=== PATIENT | female | born 1935 | race Caucasian/White ===

== ENCOUNTER 2019-08-14 06:40 | Inpatient (IN) | payer MEDICARE, OTHER, SELFPAY ==
[2019-08-14] VITALS (18 sets, daily range): BP systolic 130–230; BP diastolic 59–100; PULSE 85–123; RESP 16–47; TEMP 36.2–37.4; O2SAT 88–100; BMI 37.0
--- NOTE | 2019-08-14 06:43 | DI.RAD.S_ITS ---
PROCEDURE: XR CHEST 1V INDICATIONS: flu-like symptoms TECHNIQUE: One view of the chest was acquired. COMPARISON: None. FINDINGS: Surgical changes and devices: None. Lungs and pleura: Diffuse scarring/atelectasis. There are scattered patchy upper lower lobe opacities as well as scattered groundglass opacities. Technically, in the absence of any prior studies these findings age-indeterminate. No pleural effusions or pneumothorax. Mediastinum: Mediastinal contours appear normal. Heart size is normal. Bones and chest wall: No suspicious bony lesions. Overlying soft tissues appear unremarkable. Bilateral severe shoulder joint degeneration IMPRESSION: Diffuse bilateral patchy and ill-defined opacities, possibly chronic scarring/atelectasis however cannot exclude underlying acute bronchopneumonia or pulmonary edema in the absence of prior studies. If there is persistent clinical diagnostic uncertainty, continued surveillance with short interval chest radiographs after treatment is recommended. Dictated by: Juan F Millan M.D. on 08/14/2019 at 8:22 Approved by: Juan F Millan M.D. on 08/14/2019 at 8:27
--- NOTE | 2019-08-14 06:44 | ED_ITS ---
HPI - URI/Sore Throat <Torey Cisse, DO - Last Filed: 08/20/19 01:09> General Chief Complaint: Shortness of Breath/Dyspnea Stated Complaint: Cough, fever, SOB Time Seen by Provider: 08/14/19 06:40 Source: patient and EMS Mode of arrival: EMS Limitations: no limitations History of Present Illness HPI Narrative: 84-year-old female former smoker with history of COPD presents by EMS for evaluation of 2-3 days of rapidly worsening upper respiratory complaints including profound dyspnea, fever, shaking chills and increased oxygen demand. Patient states that she has had fever as high as 101 with shaking chills. She denies nausea, vomiting or diarrhea. She denies any dysuria, frequency or urgency. She states she becomes profoundly short of breath with any exertion or lying flat. On arrival EMS found her pulse ox in the 70s and placed her on a non-rebreather and she gemini to the 90s. She does not use home oxygen and no longer smokes. She denies any cardiac history. She traditionally uses [facility] and has not been here before. She denies any recent travel, history of blood clot or exposure to persons known to have coronavirus. She admits to increasing sputum production, stating it is yellowish in color. She does state that 2-3 days ago she fell backwards, landing 1st on her buttocks and then rolling backwards and striking her head because she was so weak. She denies any loss of consciousness or other injury. MD Complaint: fever and cough Onset (ago): day(s) Duration: constant Severity: severe Relieving factors: rest Exacerbating factors: exertion and other Associated symptoms: fever, chills, cough and shortness of breath Related Data Home Medications Medication Instructions Recorded Confirmed Anoro Ellipta 1 inh INHALATION DAILY 08/14/19 08/14/19 albuterol sulfate [ProAir HFA] 2 inh INHALATION 6XD 08/14/19 08/14/19 Previous Rx's Medication Instructions Recorded apixaban 5 mg PO BID 30 Days #60 tab 08/17/19 cefdinir 300 mg PO BID 4 Days #8 cap 08/17/19 doxycycline hyclate 100 mg PO BID 4 Days #8 tab 08/17/19 furosemide 20 mg PO DAILY 30 Days #30 tab 08/17/19 guaifenesin [Mucus Relief ER] 600 mg PO BID PRN 7 Days #14 tab 08/17/19 losartan 25 mg PO DAILY 30 Days #30 tab 08/17/19 metoprolol succinate 25 mg PO BID 30 Days #60 tab 08/17/19 Allergies Allergy/AdvReac Type Severity Reaction Status Date / Time Penicillins Allergy Verified 08/14/19 07:40 shellfish derived Allergy Verified 08/14/19 12:53 Review of Systems <Torey Cisse DO - Last Filed: 08/20/19 01:09> Constitutional Constitutional: Reports chills, Reports fatigue, Reports fever(s), Denies frequent falls, Denies lethargy and Reports weakness Eyes Eyes: Denies change in vision, Denies eye discharge, Denies irritation and Denies loss of vision ENT Ears, Nose, Mouth, and Throat: Denies change in voice, Denies dizziness, Denies neck pain, Denies sore throat and Denies throat swelling Cardiovascular Cardiovascular: Denies chest pain, Denies irregular heart rhythm, Denies lightheadedness, Denies palpitations, Denies dyspnea, Reports dyspnea on exertion and Denies orthopnea Respiratory Respiratory: Reports cough, Reports excessive phlegm production, Denies dyspnea, Reports dyspnea on exertion and Denies wheezing Gastrointestinal Gastrointestinal: Denies abdominal pain, Denies change in bowel habits, Denies diarrhea, Denies nausea and Denies vomiting Musculoskeletal Musculoskeletal: Denies neck pain and Denies numbness Integumentary/Breasts Skin/Breast: Denies pruritus, Denies erythema, Denies rash and Denies wounds Neurologic Neurologic: Denies behavioral changes, Denies confusion, Denies dizziness, Denies frequent falls, Denies loss of vision, Denies numbness and Reports weakness Psychiatric Psychiatric: Denies anxiety, Denies behavioral changes, Denies confusion, Denies depression, Denies homicidal ideation and Denies suicidal ideation Endocrine Endocrine: Reports fatigue, Denies flushing and Denies palpitations Hematologic/Lymphatic Hematologic/Lymphatic: Denies easy bruising Allergic/Immunologic Allergic/Immunologic: Denies urticaria, Denies throat swelling and Denies wheezing Patient History <Torey Cisse DO - Last Filed: 08/20/19 01:09> Social History household members: significant other Smoking Status: Former smoker Smoking Status: Former smoker alcohol intake frequency: 0-2 drinks per day Substance Use Type: does not use Exam <Torey Cisse DO - Last Filed: 08/20/19 01:09> Narrative Exam Narrative: GENERAL: [84] year old patient appears stated age. Morbidly obese, chronically ill, in significant distress, 2-3 word sentences, non- rebreather in place HEAD: Atraumatic. Normocephalic. EYES: Pupils equal round and reactive. Extraocular motions intact. No scleral icterus. No injection or drainage. ENT: Nose without bleeding, purulent drainage. Throat without erythema, tonsillar hypertrophy or exudate. Airway patent. NECK: Trachea midline. Non tender CARDIOVASCULAR: Tachycardic but regular rhythm without murmurs, gallops, or rubs. RESPIRATORY: Decreased breath sounds bilaterally with a prolonged expiratory phase, very wet bilaterally with significant work of breathing GASTROINTESTINAL: Abdomen soft, non-tender, nondistended. EXTREMITIES: No edema or joint tenderness. BACK: Nontender without deformity or crepitance. No flank tenderness. NEURO: AOx3. SKIN: No rash or erythema of visible areas Initial Vital Signs Initial Vital Signs: Vital Signs Temperature 98.5 F 08/14/19 06:41 Pulse Rate 123 H 08/14/19 06:41 Respiratory Rate 47 H 08/14/19 06:41 Blood Pressure 230/100 H 08/14/19 06:41 Pulse Oximetry 99 08/14/19 06:41 <Tod Sethi MD - Last Filed: 08/14/19 18:30> Initial Vital Signs Initial Vital Signs: Vital Signs Temperature 98.5 F 08/14/19 06:41 Pulse Rate 123 H 08/14/19 06:41 Respiratory Rate 47 H 08/14/19 06:41 Blood Pressure 230/100 H 08/14/19 06:41 Pulse Oximetry 99 08/14/19 06:41 Course <Torey Cisse DO - Last Filed: 08/20/19 01:09> Orders Ordered: Discontinued Medications Acetaminophen (Tylenol) 650 mg PO Q6HR PRN PRN Reason: Fever/Mild Pain (1-3) Last Admin: 08/16/19 06:23 Dose: 650 mg Documented by: Admin: 08/15/19 21:20 Dose: 650 mg Documented by: Admin: 08/15/19 14:37 Dose: 650 mg Documented by: Admin: 08/15/19 08:30 Dose: 650 mg Documented by: KHALIDA Albuterol (Ventolin) 2.5 mg INH [id number] [facility] Last Admin: 08/15/19 01:02 Dose: Not Given Documented by: Admin: 08/14/19 19:35 Dose: 2.5 mg Documented by: ANNE Albuterol (Ventolin) 2.5 mg INH [id number] PRN PRN Reason: Shortness Of Breath Or Wheezing Last Admin: 08/15/19 04:45 Dose: 2.5 mg Documented by: MARY Albuterol/Ipratropium (Duoneb) 3 ml INH RTBID [facility] Last Admin: 08/16/19 20:21 Dose: 3 ml Documented by: Admin: 08/16/19 07:52 Dose: 3 ml Documented by: Admin: 08/15/19 20:35 Dose: 3 ml Documented by: Admin: 08/15/19 07:20 Dose: 3 ml Documented by: Admin: 08/14/19 21:51 Dose: 3 ml Documented by: MARY Apixaban (Eliquis) 5 mg PO BID [facility] Last Admin: 08/17/19 10:55 Dose: 5 mg Documented by: Admin: 08/16/19 20:22 Dose: 5 mg Documented by: Admin: 08/16/19 10:48 Dose: 5 mg Documented by: KHALIDA Enoxaparin Sodium (Lovenox) 40 mg SUBCUT DAILY [facility] Last Admin: 08/16/19 09:18 Dose: 40 mg Documented by: Admin: 08/15/19 08:29 Dose: 40 mg Documented by: KHALIDA Furosemide (Lasix) 20 mg IV NOW ONE Stop: 08/14/19 08:31 Last Admin: 08/14/19 09:02 Dose: 20 mg Documented by: SERA Furosemide (Lasix) 40 mg IV NOW ONE Stop: 08/14/19 10:36 Last Admin: 08/14/19 10:55 Dose: 40 mg Documented by: SERA Furosemide (Lasix) 40 mg IV Q12HR [facility] Furosemide (Lasix) 40 mg IV Q12HR [facility] Last Admin: 08/15/19 00:17 Dose: 40 mg Documented by: Admin: 08/14/19 18:04 Dose: 40 mg Documented by: ANNE Furosemide (Lasix) 40 mg PO DAILY [facility] Last Admin: 08/15/19 08:29 Dose: 40 mg Documented by: KHALIDA Furosemide (Lasix) 20 mg PO DAILY [facility] Last Admin: 08/17/19 10:55 Dose: 20 mg Documented by: Admin: 08/16/19 09:19 Dose: 20 mg Documented by: KHALIDA Guaifenesin (Mucinex) 600 mg PO Q12HR PRN PRN Reason: Cough Guaifenesin (Mucinex) 600 mg PO BID PRN PRN Reason: Cough Last Admin: 08/16/19 09:19 Dose: 600 mg Documented by: Admin: 08/15/19 21:21 Dose: 600 mg Documented by: Admin: 08/15/19 05:20 Dose: 600 mg Documented by: Admin: 08/14/19 18:05 Dose: 600 mg Documented by: ANNE Hydralazine HCl (Apresoline) 10 mg IV NOW ONE Stop: 08/14/19 10:36 Last Admin: 08/14/19 10:55 Dose: 10 mg Documented by: SERA Hydralazine HCl (Apresoline) 10 mg IV Q6HR [facility] Last Admin: 08/15/19 00:24 Dose: Not Given Documented by: JOE Hydralazine HCl (Apresoline) 10 mg IV Q6HR PRN PRN Reason: Hypertension Levofloxacin (Levaquin) 750 mg in 150 mls @ 100 mls/hr IV NOW ONE Stop: 08/14/19 08:25 Last Infusion: 08/14/19 09:51 Dose: 0 mls/hr Documented by: Admin: 08/14/19 07:35 Dose: 100 mls/hr Documented by: SERA Sodium Chloride (Normal Saline 0.9%) 1,435.38 mls @ 478.46 mls/hr 30 ml/kg infuse over 3 hr (1435.38 ml) IV NOW ONE Stop: 08/14/19 09:55 Last Admin: 08/14/19 07:35 Dose: 478.46 mls/hr Documented by: SERA Ceftriaxone Sodium/Dextrose (Rocephin) 1 gm in 50 mls @ 100 mls/hr IV Q24H [facility] Last Admin: 08/17/19 10:55 Dose: 100 mls/hr Documented by: Infusion: 08/16/19 20:22 Dose: 0 mls/hr Documented by: Admin: 08/16/19 09:18 Dose: 100 mls/hr Documented by: Infusion: 08/15/19 09:00 Dose: 0 mls/hr Documented by: Admin: 08/15/19 08:29 Dose: 100 mls/hr Documented by: KHALIDA Azithromycin 500 mg/ Dextrose 250 mls @ 250 mls/hr IV Q24H [facility] Last Admin: 08/17/19 12:40 Dose: 250 mls/hr Documented by: Infusion: 08/16/19 11:48 Dose: 250 mls/hr Documented by: Admin: 08/16/19 10:48 Dose: 250 mls/hr Documented by: Infusion: 08/15/19 12:30 Dose: 0 mls/hr Documented by: Admin: 08/15/19 11:30 Dose: 250 mls/hr Documented by: KHALIDA Magnesium Sulfate (Magnesium Sulfate) 2 gm in 50 mls @ 25 mls/hr IV NOW ONE Stop: 08/15/19 09:24 Last Infusion: 08/15/19 10:30 Dose: 0 mls/hr Documented by: KHALIDA Cosigned by: GARRY Admin: 08/15/19 08:29 Dose: 25 mls/hr Documented by: KHALIDA Cosigned by: GARRY Influenza Virus Vaccine (Flu Vaccine) 0.5 ml IM .ONCE ONE Stop: 08/15/19 09:01 Last Admin: 08/15/19 08:30 Dose: 0.5 ml Documented by: KHALIDA Losartan Potassium (Cozaar) 25 mg PO DAILY [facility] Last Admin: 08/17/19 12:40 Dose: 25 mg Documented by: Admin: 08/16/19 09:20 Dose: 25 mg Documented by: Admin: 08/15/19 08:29 Dose: 25 mg Documented by: KHALIDA Methylprednisolone (Solu-Medrol 125 Mg Vial) 125 mg IV NOW ONE Stop: 08/14/19 10:37 Last Admin: 08/14/19 10:55 Dose: 125 mg Documented by: SERA Metoprolol Succinate (Toprol Xl) 25 mg PO NOW ONE Stop: 08/15/19 14:16 Last Admin: 08/15/19 14:35 Dose: 25 mg Documented by: KHALIDA Metoprolol Succinate (Toprol Xl) 25 mg PO BID [facility] Last Admin: 08/17/19 10:55 Dose: 25 mg Documented by: Admin: 08/16/19 20:21 Dose: 25 mg Documented by: Admin: 08/16/19 09:18 Dose: 25 mg Documented by: Admin: 08/15/19 20:46 Dose: 25 mg Documented by: ANNE Naloxone HCl (Narcan) 0.2 mg IV Q2MIN PRN PRN Reason: Opiate Reversal Nitroglycerin (Nitro-Dur) 0.4 mg TOP 0700 [facility] Nitroglycerin (Nitro-Dur) 0.4 mg TOP 0700 [facility] Last Admin: 08/15/19 07:44 Dose: Not Given Documented by: Admin: 08/14/19 22:05 Dose: 0.4 mg Documented by: ANNE Prednisone (Deltasone) 40 mg PO DAILY [facility] Last Admin: 08/17/19 10:55 Dose: 40 mg Documented by: Admin: 08/16/19 09:19 Dose: 40 mg Documented by: Admin: 08/15/19 08:29 Dose: 40 mg Documented by: KHALIDA Sodium Chloride (Normal Saline 0.9% Flush) 10 ml IV PRN PRN PRN Reason: Flush Sodium Chloride (Normal Saline 0.9% Flush) 10 ml IV BID [facility] Last Admin: 08/17/19 10:40 Dose: 10 ml Documented by: Admin: 08/16/19 20:22 Dose: 10 ml Documented by: Admin: 08/16/19 09:20 Dose: 10 ml Documented by: Admin: 08/15/19 20:48 Dose: 10 ml Documented by: Admin: 08/15/19 08:30 Dose: 10 ml Documented by: KHALIDA Vital Signs Vital signs: Vital Signs - 8 hr 08/14/19 06:41 08/14/19 06:49 08/14/19 07:30 Temperature 98.5 F Pulse Rate 123 H 113 H 96 H Respiratory Rate 47 H 44 H 38 H Blood Pressure 230/100 H Blood Pressure [Left Arm] 210/90 H 192/75 H Pulse Oximetry 99 100 100 08/14/19 08:01 08/14/19 08:30 08/14/19 09:02 Temperature Pulse Rate 98 H 102 H 92 H Respiratory Rate 36 H 32 H 32 H Blood Pressure Blood Pressure [Left Arm] 182/74 H 168/71 H 169/69 H Pulse Oximetry 92 92 96 <Tod Sethi MD - Last Filed: 08/14/19 18:30> Course Course Narrative: 0716: Report received from . The patient's arterial blood gases are revealed that her pH is 7.298 pCO2 is increased at 64.3 PO2 is 445 and oxygen saturation 100%. The patient's pH will be watched as well as her pCO2. She has been placed on a high-flow nasal cannula and her blood gases may be repeated in approximately 45 minutes to an hour. The patient is being evaluated for coronavirus. 0810: The patient's rapid Covid test is negative. 0831: Chest x-ray by my review looks fluffy with increased upper vascular markings consistent with pulmonary edema and congestive heart failure. The patient appears to have a small right pleural effusion. Her renal function is within normal limits with a GFR greater than 60. Her D-dimer is 765 and her proBNP is 1200. A CT angiogram to rule out a PE has been ordered on the patient as well as 20 mg of Lasix. The patient is much more comfortable and less short of breath. She states that she quit smoking greater than 20 years ago. She admits to history of COPD. She has markedly decreased breath sounds bilaterally with inspiratory crackles and expiratory rhonchi. Heart tones are distant. 0913 the patient on high-flow oxygen/nasal cannula reveals a pH is 7.306, a pCO2 of 55.9, a PO2 of 88, HC03 of 27.9 total CO2 30 oxygen saturation 95%. 1008: The patient's CT angiogram of her chest revealed: 1. No pulmonary embolus. 2. Bilateral lower lobe bronchitis with areas of mucous plugging and small per peripheral consolidation/atelectasis. 3. Multiple scattered right lung nodules, likely infectious inflammatory. Follow-up chest CT in 6-12 months is recommended to assess for resolution. 4. Aortic valvular and coronary artery calcifications. The patient will be treated as though she has a sudden flare of her COPD with patchy pneumonia. Her chest x-ray revealed diffuse bilateral patchy an ill- defined opacities, possibly chronic scarring/atelectasis. However cannot exclude underlying acute bronchial pneumonia or pulmonary edema in the absence of prior studies. If there is persisting clinical diagnostic uncertainty continued surveillance with short interval chest radiographs after treatment is recommended. Will call the hospitalist to admit. The patient's primary care physician is Dr. Dominic Alexis. Orders Ordered: Discontinued Medications Acetaminophen (Tylenol) 650 mg PO Q6HR PRN PRN Reason: Fever/Mild Pain (1-3) Last Admin: 08/16/19 06:23 Dose: 650 mg Documented by: Admin: 08/15/19 21:20 Dose: 650 mg Documented by: Admin: 08/15/19 14:37 Dose: 650 mg Documented by: Admin: 08/15/19 08:30 Dose: 650 mg Documented by: KHALIDA Albuterol (Ventolin) 2.5 mg INH [id number] [facility] Last Admin: 08/15/19 01:02 Dose: Not Given Documented by: Admin: 08/14/19 19:35 Dose: 2.5 mg Documented by: ANNE Albuterol (Ventolin) 2.5 mg INH [id number] PRN PRN Reason: Shortness Of Breath Or Wheezing Last Admin: 08/15/19 04:45 Dose: 2.5 mg Documented by: MARY Albuterol/Ipratropium (Duoneb) 3 ml INH RTBID [facility] Last Admin: 08/16/19 20:21 Dose: 3 ml Documented by: Admin: 08/16/19 07:52 Dose: 3 ml Documented by: Admin: 08/15/19 20:35 Dose: 3 ml Documented by: Admin: 08/15/19 07:20 Dose: 3 ml Documented by: Admin: 08/14/19 21:51 Dose: 3 ml Documented by: MARY Apixaban (Eliquis) 5 mg PO BID [facility] Last Admin: 08/17/19 10:55 Dose: 5 mg Documented by: Admin: 08/16/19 20:22 Dose: 5 mg Documented by: Admin: 08/16/19 10:48 Dose: 5 mg Documented by: KHALIDA Enoxaparin Sodium (Lovenox) 40 mg SUBCUT DAILY [facility] Last Admin: 08/16/19 09:18 Dose: 40 mg Documented by: Admin: 08/15/19 08:29 Dose: 40 mg Documented by: KHALIDA Furosemide (Lasix) 20 mg IV NOW ONE Stop: 08/14/19 08:31 Last Admin: 08/14/19 09:02 Dose: 20 mg Documented by: SERA Furosemide (Lasix) 40 mg IV NOW ONE Stop: 08/14/19 10:36 Last Admin: 08/14/19 10:55 Dose: 40 mg Documented by: SERA Furosemide (Lasix) 40 mg IV Q12HR [facility] Furosemide (Lasix) 40 mg IV Q12HR [facility] Last Admin: 08/15/19 00:17 Dose: 40 mg Documented by: Admin: 08/14/19 18:04 Dose: 40 mg Documented by: ANNE Furosemide (Lasix) 40 mg PO DAILY [facility] Last Admin: 08/15/19 08:29 Dose: 40 mg Documented by: KHALIDA Furosemide (Lasix) 20 mg PO DAILY [facility] Last Admin: 08/17/19 10:55 Dose: 20 mg Documented by: Admin: 08/16/19 09:19 Dose: 20 mg Documented by: KHALIDA Guaifenesin (Mucinex) 600 mg PO Q12HR PRN PRN Reason: Cough Guaifenesin (Mucinex) 600 mg PO BID PRN PRN Reason: Cough Last Admin: 08/16/19 09:19 Dose: 600 mg Documented by: Admin: 08/15/19 21:21 Dose: 600 mg Documented by: Admin: 08/15/19 05:20 Dose: 600 mg Documented by: Admin: 08/14/19 18:05 Dose: 600 mg Documented by: ANNE Hydralazine HCl (Apresoline) 10 mg IV NOW ONE Stop: 08/14/19 10:36 Last Admin: 08/14/19 10:55 Dose: 10 mg Documented by: SERA Hydralazine HCl (Apresoline) 10 mg IV Q6HR [facility] Last Admin: 08/15/19 00:24 Dose: Not Given Documented by: JOE Hydralazine HCl (Apresoline) 10 mg IV Q6HR PRN PRN Reason: Hypertension Levofloxacin (Levaquin) 750 mg in 150 mls @ 100 mls/hr IV NOW ONE Stop: 08/14/19 08:25 Last Infusion: 08/14/19 09:51 Dose: 0 mls/hr Documented by: Admin: 08/14/19 07:35 Dose: 100 mls/hr Documented by: SERA Sodium Chloride (Normal Saline 0.9%) 1,435.38 mls @ 478.46 mls/hr 30 ml/kg infuse over 3 hr (1435.38 ml) IV NOW ONE Stop: 08/14/19 09:55 Last Admin: 08/14/19 07:35 Dose: 478.46 mls/hr Documented by: SERA Ceftriaxone Sodium/Dextrose (Rocephin) 1 gm in 50 mls @ 100 mls/hr IV Q24H [facility] Last Admin: 08/17/19 10:55 Dose: 100 mls/hr Documented by: Infusion: 08/16/19 20:22 Dose: 0 mls/hr Documented by: Admin: 08/16/19 09:18 Dose: 100 mls/hr Documented by: Infusion: 08/15/19 09:00 Dose: 0 mls/hr Documented by: Admin: 08/15/19 08:29 Dose: 100 mls/hr Documented by: KHALIDA Azithromycin 500 mg/ Dextrose 250 mls @ 250 mls/hr IV Q24H [facility] Last Admin: 08/17/19 12:40 Dose: 250 mls/hr Documented by: Infusion: 08/16/19 11:48 Dose: 250 mls/hr Documented by: Admin: 08/16/19 10:48 Dose: 250 mls/hr Documented by: Infusion: 08/15/19 12:30 Dose: 0 mls/hr Documented by: Admin: 08/15/19 11:30 Dose: 250 mls/hr Documented by: KHALIDA Magnesium Sulfate (Magnesium Sulfate) 2 gm in 50 mls @ 25 mls/hr IV NOW ONE Stop: 08/15/19 09:24 Last Infusion: 08/15/19 10:30 Dose: 0 mls/hr Documented by: KHALIDA Cosigned by: GARRY Admin: 08/15/19 08:29 Dose: 25 mls/hr Documented by: KHALIDA Cosigned by: GARRY Influenza Virus Vaccine (Flu Vaccine) 0.5 ml IM .ONCE ONE Stop: 08/15/19 09:01 Last Admin: 08/15/19 08:30 Dose: 0.5 ml Documented by: KHALIDA Losartan Potassium (Cozaar) 25 mg PO DAILY [facility] Last Admin: 08/17/19 12:40 Dose: 25 mg Documented by: Admin: 08/16/19 09:20 Dose: 25 mg Documented by: Admin: 08/15/19 08:29 Dose: 25 mg Documented by: KHALIDA Methylprednisolone (Solu-Medrol 125 Mg Vial) 125 mg IV NOW ONE Stop: 08/14/19 10:37 Last Admin: 08/14/19 10:55 Dose: 125 mg Documented by: SERA Metoprolol Succinate (Toprol Xl) 25 mg PO NOW ONE Stop: 08/15/19 14:16 Last Admin: 08/15/19 14:35 Dose: 25 mg Documented by: KHALIDA Metoprolol Succinate (Toprol Xl) 25 mg PO BID [facility] Last Admin: 08/17/19 10:55 Dose: 25 mg Documented by: Admin: 08/16/19 20:21 Dose: 25 mg Documented by: Admin: 08/16/19 09:18 Dose: 25 mg Documented by: Admin: 08/15/19 20:46 Dose: 25 mg Documented by: ANNE Naloxone HCl (Narcan) 0.2 mg IV Q2MIN PRN PRN Reason: Opiate Reversal Nitroglycerin (Nitro-Dur) 0.4 mg TOP 0700 [facility] Nitroglycerin (Nitro-Dur) 0.4 mg TOP 0700 [facility] Last Admin: 08/15/19 07:44 Dose: Not Given Documented by: Admin: 08/14/19 22:05 Dose: 0.4 mg Documented by: ANNE Prednisone (Deltasone) 40 mg PO DAILY [facility] Admin: 08/17/19 10:55 Dose: 40 mg Documented by: Admin: 08/16/19 09:19 Dose: 40 mg Documented by: Admin: 08/15/19 08:29 Dose: 40 mg Documented by: KHALIDA Sodium Chloride (Normal Saline 0.9% Flush) 10 ml IV PRN PRN PRN Reason: Flush Sodium Chloride (Normal Saline 0.9% Flush) 10 ml IV BID [facility] Admin: 08/17/19 10:40 Dose: 10 ml Documented by: Admin: 08/16/19 20:22 Dose: 10 ml Documented by: Admin: 08/16/19 09:20 Dose: 10 ml Documented by: Admin: 08/15/19 20:48 Dose: 10 ml Documented by: Admin: 08/15/19 08:30 Dose: 10 ml Documented by: KHALIDA Vital Signs Vital signs: Vital Signs - 8 hr 08/14/19 06:41 08/14/19 06:49 08/14/19 07:30 Temperature 98.5 F Pulse Rate 123 H 113 H 96 H Respiratory Rate 47 H 44 H 38 H Blood Pressure 230/100 H Blood Pressure [Left Arm] 210/90 H 192/75 H Pulse Oximetry 99 100 100 08/14/19 08:01 08/14/19 08:30 08/14/19 09:02 Temperature Pulse Rate 98 H 102 H 92 H Respiratory Rate 36 H 32 H 32 H Blood Pressure Blood Pressure [Left Arm] 182/74 H 168/71 H 169/69 H Pulse Oximetry 92 92 96 MDM - URI/Sore Throat <Torey Cisse DO - Last Filed: 08/20/19 01:09> Lab Data Result diagrams: 08/17/19 06:50 08/17/19 06:50 Labs: Lab Results 08/14/19 08/14/19 08/14/19 Range/Units 06:50 06:50 07:00 WBC (4.5-11.0) X10^3/uL RBC (4.0-5.2) X10^6/uL Hgb (12.0-16.0) g/dL Hct (36-46) % MCV (80-100) fL MCH (26-34) PG MCHC (30-36) % RDW (11.6-14.8) % Plt Count (150-400) X10^3/uL Neut % (Auto) (50-75) % Lymph % (Auto) (25-40) % [place] % (Auto) (3-14) % Eos % (Auto) (2-4) % Baso % (Auto) (0-2) % Neut # (Auto) (7591-9675) /uL Lymph # (Auto) (2326-7691) /uL [place] # (Auto) (0-900) /uL Eos # (Auto) (0-450) /uL Baso # (Auto) (0-100) /uL D-Dimer 747 H (<230) ng/mL ABG pH (7.35-7.45) ABG pCO2 (35-45) mmHg ABG pO2 (80-100) mmHg ABG HCO3 (22-26) mmol/L ABG Total CO2 (21-31) mmol/L ABG O2 Saturation (95-100) % ABG Base Excess (-2-2) mmol/L FiO2 Sodium (137-145) mmol/L Potassium (3.4-5.1) mmol/L Chloride (98-107) mmol/L Carbon Dioxide (22-32) mmol/L BUN (7-17) mg/dL Creatinine (0.52-1.04) mg/dL Estimated GFR (>60) mL/min BUN/Creatinine Ratio (6-22) Glucose (80-110) mg/dL Lactate (0.7-2.1) mmol/L Calcium (8.4-10.2) mg/dL Ferritin (11-264) ng/mL Total Bilirubin (0.2-1.3) mg/dL AST (14-36) IU/L ALT (<35) IU/L Alkaline Phosphatase (38-126) U/L Lactate Dehydrogenase (313-618) U/L Total Creatine Kinase (30-135) U/L CK-MB (CK-2) (<2.37) ng/mL CK-MB (CK-2) Rel Index (1.5-5.0) % Troponin I (0.01-0.034) ng/mL C-Reactive Protein (<1.0) mg/dL NT-Pro-B Natriuret Pep (<450) pg/mL Total Protein (6.3-8.2) g/dL Albumin (3.5-5.0) g/dL Globulin (1.7-4.1) g/dL Albumin/Globulin Ratio (1.0-2.8) Procalcitonin (<0.5) ng/mL Chlamy pneumoniae PCR Not detected (Not Detect) Adenovirus (PCR) Not detected (Not Detect) B.parapertussis DNA PCR Not detected (Not Detect) Coronavirus OC43 (PCR) Not detected (Not Detect) Coronavirus HKU1 (PCR) Not detected (Not Detect) Coronavirus 229E (PCR) Not detected (Not Detect) COVID-19 PCR Negative (Negative) Coronavirus NL63 (PCR) Not detected (Not Detect) Human Metapneumovir PCR Not detected (Not Detect) Influenza Type A (PCR) Not detected (Not Detect) Influenza Type B (PCR) Not detected (Not Detect) M. pneumoniae (PCR) Not detected (Not Detect) Parainfluenza 1 (PCR) Not detected (Not Detect) Parainfluenza 2 (PCR) Not detected (Not Detect) Parainfluenza 3 (PCR) Not detected (Not Detect) Parainfluenza 4 (PCR) Not detected (Not Detect) RSV (PCR) Not detected (Not Detect) Entero/Rhino (PCR) Not detected (Not Detect) 08/14/19 08/14/19 08/14/19 Range/Units 07:00 07:00 07:00 WBC 13.2 H (4.5-11.0) X10^3/uL RBC 4.35 (4.0-5.2) X10^6/uL Hgb 13.5 (12.0-16.0) g/dL Hct 38.9 (36-46) % MCV 89.4 (80-100) fL MCH 30.9 (26-34) PG MCHC 34.6 (30-36) % RDW 14.4 (11.6-14.8) % Plt Count 137 L (150-400) X10^3/uL Neut % (Auto) 85.5 H (50-75) % Lymph % (Auto) 7.4 L (25-40) % [place] % (Auto) 6.9 (3-14) % Eos % (Auto) 0.0 L (2-4) % Baso % (Auto) 0.2 (0-2) % Neut # (Auto) 43663 H (5607-7679) /uL Lymph # (Auto) 1000 L (0093-2497) /uL [place] # (Auto) 900 (0-900) /uL Eos # (Auto) 0 (0-450) /uL Baso # (Auto) 0 (0-100) /uL D-Dimer (<230) ng/mL ABG pH (7.35-7.45) ABG pCO2 (35-45) mmHg ABG pO2 (80-100) mmHg ABG HCO3 (22-26) mmol/L ABG Total CO2 (21-31) mmol/L ABG O2 Saturation (95-100) % ABG Base Excess (-2-2) mmol/L FiO2 Sodium 138 (137-145) mmol/L Potassium 3.7 (3.4-5.1) mmol/L Chloride 100 (98-107) mmol/L Carbon Dioxide 31 (22-32) mmol/L BUN 21 H (7-17) mg/dL Creatinine 0.70 (0.52-1.04) mg/dL Estimated GFR > 60.0 (>60) mL/min BUN/Creatinine Ratio 30.0 H (6-22) Glucose 157 H (80-110) mg/dL Lactate (0.7-2.1) mmol/L Calcium 10.0 (8.4-10.2) mg/dL Ferritin 311 H (11-264) ng/mL Total Bilirubin 1.1 (0.2-1.3) mg/dL AST 42 H (14-36) IU/L ALT 25 (<35) IU/L Alkaline Phosphatase 113 (38-126) U/L Lactate Dehydrogenase 702 H (313-618) U/L Total Creatine Kinase 298 H (30-135) U/L CK-MB (CK-2) 1.91 (<2.37) ng/mL CK-MB (CK-2) Rel Index 0.6 L (1.5-5.0) % Troponin I 0.025 (0.01-0.034) ng/mL C-Reactive Protein 37.0 H (<1.0) mg/dL NT-Pro-B Natriuret Pep 1200 H (<450) pg/mL Total Protein 8.3 H (6.3-8.2) g/dL Albumin 4.4 (3.5-5.0) g/dL Globulin 3.9 (1.7-4.1) g/dL Albumin/Globulin Ratio 1.1 (1.0-2.8) Procalcitonin 0.14 (<0.5) ng/mL Chlamy pneumoniae PCR (Not Detect) Adenovirus (PCR) (Not Detect) B.parapertussis DNA PCR (Not Detect) Coronavirus OC43 (PCR) (Not Detect) Coronavirus HKU1 (PCR) (Not Detect) Coronavirus 229E (PCR) (Not Detect) COVID-19 PCR (Negative) Coronavirus NL63 (PCR) (Not Detect) Human Metapneumovir PCR (Not Detect) Influenza Type A (PCR) (Not Detect) Influenza Type B (PCR) (Not Detect) M. pneumoniae (PCR) (Not Detect) Parainfluenza 1 (PCR) (Not Detect) Parainfluenza 2 (PCR) (Not Detect) Parainfluenza 3 (PCR) (Not Detect) Parainfluenza 4 (PCR) (Not Detect) RSV (PCR) (Not Detect) Entero/Rhino (PCR) (Not Detect) 08/14/19 08/14/19 08/14/19 Range/Units 07:00 07:06 09:05 WBC (4.5-11.0) X10^3/uL RBC (4.0-5.2) X10^6/uL Hgb (12.0-16.0) g/dL Hct (36-46) % MCV (80-100) fL MCH (26-34) PG MCHC (30-36) % RDW (11.6-14.8) % Plt Count (150-400) X10^3/uL Neut % (Auto) (50-75) % Lymph % (Auto) (25-40) % [place] % (Auto) (3-14) % Eos % (Auto) (2-4) % Baso % (Auto) (0-2) % Neut # (Auto) (2548-0370) /uL Lymph # (Auto) (6993-1514) /uL [place] # (Auto) (0-900) /uL Eos # (Auto) (0-450) /uL Baso # (Auto) (0-100) /uL D-Dimer (<230) ng/mL ABG pH 7.30 L 7.31 L (7.35-7.45) ABG pCO2 64.3 H* 55.9 H (35-45) mmHg ABG pO2 445 H* 88 (80-100) mmHg ABG HCO3 32 H 28 H (22-26) mmol/L ABG Total CO2 33 H 30 (21-31) mmol/L ABG O2 Saturation 100 95 (95-100) % ABG Base Excess 5.0 H 2.0 (-2-2) mmol/L FiO2 100 40 Sodium (137-145) mmol/L Potassium (3.4-5.1) mmol/L Chloride (98-107) mmol/L Carbon Dioxide (22-32) mmol/L BUN (7-17) mg/dL Creatinine (0.52-1.04) mg/dL Estimated GFR (>60) mL/min BUN/Creatinine Ratio (6-22) Glucose (80-110) mg/dL Lactate 1.2 (0.7-2.1) mmol/L Calcium (8.4-10.2) mg/dL Ferritin (11-264) ng/mL Total Bilirubin (0.2-1.3) mg/dL AST (14-36) IU/L ALT (<35) IU/L Alkaline Phosphatase (38-126) U/L Lactate Dehydrogenase (313-618) U/L Total Creatine Kinase (30-135) U/L CK-MB (CK-2) (<2.37) ng/mL CK-MB (CK-2) Rel Index (1.5-5.0) % Troponin I (0.01-0.034) ng/mL C-Reactive Protein (<1.0) mg/dL NT-Pro-B Natriuret Pep (<450) pg/mL Total Protein (6.3-8.2) g/dL Albumin (3.5-5.0) g/dL Globulin (1.7-4.1) g/dL Albumin/Globulin Ratio (1.0-2.8) Procalcitonin (<0.5) ng/mL Chlamy pneumoniae PCR (Not Detect) Adenovirus (PCR) (Not Detect) B.parapertussis DNA PCR (Not Detect) Coronavirus OC43 (PCR) (Not Detect) Coronavirus HKU1 (PCR) (Not Detect) Coronavirus 229E (PCR) (Not Detect) COVID-19 PCR (Negative) Coronavirus NL63 (PCR) (Not Detect) Human Metapneumovir PCR (Not Detect) Influenza Type A (PCR) (Not Detect) Influenza Type B (PCR) (Not Detect) M. pneumoniae (PCR) (Not Detect) Parainfluenza 1 (PCR) (Not Detect) Parainfluenza 2 (PCR) (Not Detect) Parainfluenza 3 (PCR) (Not Detect) Parainfluenza 4 (PCR) (Not Detect) RSV (PCR) (Not Detect) Entero/Rhino (PCR) (Not Detect) Urine Dip Bedside Urine Glucose Negative Bedside Urine Bilirubin - Negative Bedside Urine Ketone - Negative Urine Specific Weather[place] 1.020 Bedside Urine Occult Blood + Bedside Urine pH 6.0 Bedside Urine Protein ++ 100 Bedside Urine Urobilinogen - Negative Bedside Urine Nitrite - Negative Bedside Urine Leukocytes - Negative Esterase <Tod Sethi MD - Last Filed: 08/14/19 18:30> Medical Records Attestation: I reviewed the patient's medical records. Lab Data Attestation: I reviewed the patient's lab results. Labs: Lab Results 08/14/19 08/14/19 08/14/19 Range/Units 06:50 06:50 07:00 WBC (4.5-11.0) X10^3/uL RBC (4.0-5.2) X10^6/uL Hgb (12.0-16.0) g/dL Hct (36-46) % MCV (80-100) fL MCH (26-34) PG MCHC (30-36) % RDW (11.6-14.8) % Plt Count (150-400) X10^3/uL Neut % (Auto) (50-75) % Lymph % (Auto) (25-40) % [place] % (Auto) (3-14) % Eos % (Auto) (2-4) % Baso % (Auto) (0-2) % Neut # (Auto) (3036-6394) /uL Lymph # (Auto) (7844-0283) /uL [place] # (Auto) (0-900) /uL Eos # (Auto) (0-450) /uL Baso # (Auto) (0-100) /uL D-Dimer 747 H (<230) ng/mL ABG pH (7.35-7.45) ABG pCO2 (35-45) mmHg ABG pO2 (80-100) mmHg ABG HCO3 (22-26) mmol/L ABG Total CO2 (21-31) mmol/L ABG O2 Saturation (95-100) % ABG Base Excess (-2-2) mmol/L FiO2 Sodium (137-145) mmol/L Potassium (3.4-5.1) mmol/L Chloride (98-107) mmol/L Carbon Dioxide (22-32) mmol/L BUN (7-17) mg/dL Creatinine (0.52-1.04) mg/dL Estimated GFR (>60) mL/min BUN/Creatinine Ratio (6-22) Glucose (80-110) mg/dL Lactate (0.7-2.1) mmol/L Calcium (8.4-10.2) mg/dL Ferritin (11-264) ng/mL Total Bilirubin (0.2-1.3) mg/dL AST (14-36) IU/L ALT (<35) IU/L Alkaline Phosphatase (38-126) U/L Lactate Dehydrogenase (313-618) U/L Total Creatine Kinase (30-135) U/L CK-MB (CK-2) (<2.37) ng/mL CK-MB (CK-2) Rel Index (1.5-5.0) % Troponin I (0.01-0.034) ng/mL C-Reactive Protein (<1.0) mg/dL NT-Pro-B Natriuret Pep (<450) pg/mL Total Protein (6.3-8.2) g/dL Albumin (3.5-5.0) g/dL Globulin (1.7-4.1) g/dL Albumin/Globulin Ratio (1.0-2.8) Procalcitonin (<0.5) ng/mL Chlamy pneumoniae PCR Not detected (Not Detect) Adenovirus (PCR) Not detected (Not Detect) B.parapertussis DNA PCR Not detected (Not Detect) Coronavirus OC43 (PCR) Not detected (Not Detect) Coronavirus HKU1 (PCR) Not detected (Not Detect) Coronavirus 229E (PCR) Not detected (Not Detect) COVID-19 PCR Negative (Negative) Coronavirus NL63 (PCR) Not detected (Not Detect) Human Metapneumovir PCR Not detected (Not Detect) Influenza Type A (PCR) Not detected (Not Detect) Influenza Type B (PCR) Not detected (Not Detect) M. pneumoniae (PCR) Not detected (Not Detect) Parainfluenza 1 (PCR) Not detected (Not Detect) Parainfluenza 2 (PCR) Not detected (Not Detect) Parainfluenza 3 (PCR) Not detected (Not Detect) Parainfluenza 4 (PCR) Not detected (Not Detect) RSV (PCR) Not detected (Not Detect) Entero/Rhino (PCR) Not detected (Not Detect) 08/14/19 08/14/19 08/14/19 Range/Units 07:00 07:00 07:00 WBC 13.2 H (4.5-11.0) X10^3/uL RBC 4.35 (4.0-5.2) X10^6/uL Hgb 13.5 (12.0-16.0) g/dL Hct 38.9 (36-46) % MCV 89.4 (80-100) fL MCH 30.9 (26-34) PG MCHC 34.6 (30-36) % RDW 14.4 (11.6-14.8) % Plt Count 137 L (150-400) X10^3/uL Neut % (Auto) 85.5 H (50-75) % Lymph % (Auto) 7.4 L (25-40) % [place] % (Auto) 6.9 (3-14) % Eos % (Auto) 0.0 L (2-4) % Baso % (Auto) 0.2 (0-2) % Neut # (Auto) 14426 H (3645-3098) /uL Lymph # (Auto) 1000 L (0938-8590) /uL [place] # (Auto) 900 (0-900) /uL Eos # (Auto) 0 (0-450) /uL Baso # (Auto) 0 (0-100) /uL D-Dimer (<230) ng/mL ABG pH (7.35-7.45) ABG pCO2 (35-45) mmHg ABG pO2 (80-100) mmHg ABG HCO3 (22-26) mmol/L ABG Total CO2 (21-31) mmol/L ABG O2 Saturation (95-100) % ABG Base Excess (-2-2) mmol/L FiO2 Sodium 138 (137-145) mmol/L Potassium 3.7 (3.4-5.1) mmol/L Chloride 100 (98-107) mmol/L Carbon Dioxide 31 (22-32) mmol/L BUN 21 H (7-17) mg/dL Creatinine 0.70 (0.52-1.04) mg/dL Estimated GFR > 60.0 (>60) mL/min BUN/Creatinine Ratio 30.0 H (6-22) Glucose 157 H (80-110) mg/dL Lactate (0.7-2.1) mmol/L Calcium 10.0 (8.4-10.2) mg/dL Ferritin 311 H (11-264) ng/mL Total Bilirubin 1.1 (0.2-1.3) mg/dL AST 42 H (14-36) IU/L ALT 25 (<35) IU/L Alkaline Phosphatase 113 (38-126) U/L Lactate Dehydrogenase 702 H (313-618) U/L Total Creatine Kinase 298 H (30-135) U/L CK-MB (CK-2) 1.91 (<2.37) ng/mL CK-MB (CK-2) Rel Index 0.6 L (1.5-5.0) % Troponin I 0.025 (0.01-0.034) ng/mL C-Reactive Protein 37.0 H (<1.0) mg/dL NT-Pro-B Natriuret Pep 1200 H (<450) pg/mL Total Protein 8.3 H (6.3-8.2) g/dL Albumin 4.4 (3.5-5.0) g/dL Globulin 3.9 (1.7-4.1) g/dL Albumin/Globulin Ratio 1.1 (1.0-2.8) Procalcitonin 0.14 (<0.5) ng/mL Chlamy pneumoniae PCR (Not Detect) Adenovirus (PCR) (Not Detect) B.parapertussis DNA PCR (Not Detect) Coronavirus OC43 (PCR) (Not Detect) Coronavirus HKU1 (PCR) (Not Detect) Coronavirus 229E (PCR) (Not Detect) COVID-19 PCR (Negative) Coronavirus NL63 (PCR) (Not Detect) Human Metapneumovir PCR (Not Detect) Influenza Type A (PCR) (Not Detect) Influenza Type B (PCR) (Not Detect) M. pneumoniae (PCR) (Not Detect) Parainfluenza 1 (PCR) (Not Detect) Parainfluenza 2 (PCR) (Not Detect) Parainfluenza 3 (PCR) (Not Detect) Parainfluenza 4 (PCR) (Not Detect) RSV (PCR) (Not Detect) Entero/Rhino (PCR) (Not Detect) 08/14/19 08/14/19 08/14/19 Range/Units 07:00 07:06 09:05 WBC (4.5-11.0) X10^3/uL RBC (4.0-5.2) X10^6/uL Hgb (12.0-16.0) g/dL Hct (36-46) % MCV (80-100) fL MCH (26-34) PG MCHC (30-36) % RDW (11.6-14.8) % Plt Count (150-400) X10^3/uL Neut % (Auto) (50-75) % Lymph % (Auto) (25-40) % [place] % (Auto) (3-14) % Eos % (Auto) (2-4) % Baso % (Auto) (0-2) % Neut # (Auto) (6836-3158) /uL Lymph # (Auto) (8795-1133) /uL [place] # (Auto) (0-900) /uL Eos # (Auto) (0-450) /uL Baso # (Auto) (0-100) /uL D-Dimer (<230) ng/mL ABG pH 7.30 L 7.31 L (7.35-7.45) ABG pCO2 64.3 H* 55.9 H (35-45) mmHg ABG pO2 445 H* 88 (80-100) mmHg ABG HCO3 32 H 28 H (22-26) mmol/L ABG Total CO2 33 H 30 (21-31) mmol/L ABG O2 Saturation 100 95 (95-100) % ABG Base Excess 5.0 H 2.0 (-2-2) mmol/L FiO2 100 40 Sodium (137-145) mmol/L Potassium (3.4-5.1) mmol/L Chloride (98-107) mmol/L Carbon Dioxide (22-32) mmol/L BUN (7-17) mg/dL Creatinine (0.52-1.04) mg/dL Estimated GFR (>60) mL/min BUN/Creatinine Ratio (6-22) Glucose (80-110) mg/dL Lactate 1.2 (0.7-2.1) mmol/L Calcium (8.4-10.2) mg/dL Ferritin (11-264) ng/mL Total Bilirubin (0.2-1.3) mg/dL AST (14-36) IU/L ALT (<35) IU/L Alkaline Phosphatase (38-126) U/L Lactate Dehydrogenase (313-618) U/L Total Creatine Kinase (30-135) U/L CK-MB (CK-2) (<2.37) ng/mL CK-MB (CK-2) Rel Index (1.5-5.0) % Troponin I (0.01-0.034) ng/mL C-Reactive Protein (<1.0) mg/dL NT-Pro-B Natriuret Pep (<450) pg/mL Total Protein (6.3-8.2) g/dL Albumin (3.5-5.0) g/dL Globulin (1.7-4.1) g/dL Albumin/Globulin Ratio (1.0-2.8) Procalcitonin (<0.5) ng/mL Chlamy pneumoniae PCR (Not Detect) Adenovirus (PCR) (Not Detect) B.parapertussis DNA PCR (Not Detect) Coronavirus OC43 (PCR) (Not Detect) Coronavirus HKU1 (PCR) (Not Detect) Coronavirus 229E (PCR) (Not Detect) COVID-19 PCR (Negative) Coronavirus NL63 (PCR) (Not Detect) Human Metapneumovir PCR (Not Detect) Influenza Type A (PCR) (Not Detect) Influenza Type B (PCR) (Not Detect) M. pneumoniae (PCR) (Not Detect) Parainfluenza 1 (PCR) (Not Detect) Parainfluenza 2 (PCR) (Not Detect) Parainfluenza 3 (PCR) (Not Detect) Parainfluenza 4 (PCR) (Not Detect) RSV (PCR) (Not Detect) Entero/Rhino (PCR) (Not Detect) Urine Dip Bedside Urine Glucose Negative Bedside Urine Bilirubin - Negative Bedside Urine Ketone - Negative Urine Specific [place] 1.020 Bedside Urine Occult Blood + Bedside Urine pH 6.0 Bedside Urine Protein ++ 100 Bedside Urine Urobilinogen - Negative Bedside Urine Nitrite - Negative Bedside Urine Leukocytes - Negative Esterase ECG Data Attestation: I personally reviewed and interpreted this ECG as follows: Interpretation: Patient's EKG obtained on August 14 2019 at 6:56 a.m. reveals a sinus tachycardia with a ventricular rate of 112 intervals are normal QRS is slightly prolonged at 100 milliseconds QTC is 400 milliseconds axis is normal. The patient has T-wave inversions in V1 and III. The patient has ST depressions in leads V2 V3 V4 V5 I. There are no other acute diagnostic ST segment changes or T-wave changes. These ST segment changes are approximately half a mm and nonspecific. Discharge Plan Departure Patient Disposition: Admitted As Inpatient Clinical Impression: Shortness of Breath, COPD exacerbation, Essential hypertension Community acquired pneumonia Qualifiers: Laterality: unspecified laterality Qualified Code(s): J18.9 - Pneumonia, unspecified organism Pulmonary edema Qualifiers: Chronicity: acute Qualified Code(s): J81.0 - Acute pulmonary edema Discharge Date/Time: 08/14/19 11:35 Instructions: DI for Chronic Obstructive Pulmonary Disease, DI for Pneumonia -- Adult, DI for Atrial Fibrillation Referrals: Dominic Alexis MD [Primary Care Provider] - Admit Date/Time: 08/14/19 10:36 Admit Provider: Doug Joy
[2019-08-14 07:22] LABS: Add Manual Diff / Slide Review NO; Basophils Absolute Auto 0 /uL (0-100); Basophils Percent Auto 0.2 % (0-2); Eosinophils Absolute Auto 0 /uL (0-450); Hematocrit 38.9 % (36-46); Hemoglobin 13.5 g/dL (12.0-16.0); Lymphocytes Absolute Auto 1000 /uL (1100-4500); Lymphocytes Percent Auto 7.4 % (25-40); Mean Corpuscular HGB Conc 34.6 % (30-36); Mean Corpuscular Hemoglobin 30.9 PG (26-34); Mean Corpuscular Volume 89.4 fL (80-100); Monocytes Absolute Auto 900 /uL (0-900); Monocytes Percent Auto 6.9 % (3-14); Neutrophils Absolute Auto 11300 /uL (1500-7000); Neutrophils Percent Auto 85.5 % (50-75); Platelet Count 137 X10^3/uL (150-400); Red Blood Cell Count 4.35 X10^6/uL (4.0-5.2); Red Cell Distribution Width 14.4 % (11.6-14.8); White Blood Cell Count 13.2 X10^3/uL (4.5-11.0)
[2019-08-14 07:24] LABS: Fractionated Inspired Oxygen 100; HCO3 ABG 32 mmol/L (22-26); Oxygen Saturation ABG 100 % (95-100); PCO2 ABG 64.3 mmHg (35-45); PO2 ABG 445 mmHg (80-100); TCO2 ABG 33 mmol/L (21-31)
[2019-08-14 07:29] LABS: Lactate (Lactic Acid) 1.2 mmol/L (0.7-2.1)
[2019-08-14 07:31] LABS: Alanine Aminotransferase 25 IU/L (<35); Albumin 4.4 g/dL (3.5-5.0); Albumin Globulin Ratio 1.1 (1.0-2.8); Alkaline Phosphatase 113 U/L (38-126); Aspartate Aminotransferase 42 IU/L (14-36); Bilirubin Total 1.1 mg/dL (0.2-1.3); Blood Urea Nitrogen 21 mg/dL (7-17); Carbon Dioxide 31 mmol/L (22-32); Chloride 100 mmol/L (98-107); Creatine Kinase 298 U/L (30-135); Estimated Glomerular Filt Rate > 60.0 mL/min (>60); Globulin 3.9 g/dL (1.7-4.1); Glucose 157 mg/dL (80-110); Lactate Dehydrogenase 702 U/L (313-618); Potassium 3.7 mmol/L (3.4-5.1); Sodium 138 mmol/L (137-145); Total Protein 8.3 g/dL (6.3-8.2)
[2019-08-14] MEDS: levoFLOXacin 750 MG/150 ML PIGGYBACK 100 MG IV (07:35)
[2019-08-14] MEDS: SODIUM CHLORIDE 0.9% 478.46 ML IV (07:35)
[2019-08-14 07:39] LABS: D Dimer 747 ng/mL (<230)
[2019-08-14 07:41] LABS: NT-proBNP (BNP-Adult 18+) 1200 pg/mL (<450); Troponin I 0.025 ng/mL (0.01-0.034)
[2019-08-14 07:44] LABS: CKMB % Relative Index 0.6 % (1.5-5.0); Creatine Kinase MB 1.91 ng/mL (<2.37); HEMOLYSIS 17 (0-50)
[2019-08-14 07:47] LABS: Procalcitonin 0.14 ng/mL (<0.5)
[2019-08-14 07:54] LABS: COVID19 -Nasal RAPID Negative (Negative)
[2019-08-14 08:03] LABS: Ferritin 311 ng/mL (11-264)
--- NOTE | 2019-08-14 08:29 | DI.CT.S_ITS ---
PROCEDURE: CT ANGIO CHEST PE PROTOCOL INDICATIONS: negative covid, elevated dimer r/o PE TECHNIQUE: After the administration of intravenous contrast, 2 mm thick sections acquired from the pulmonary apices to the posterior costophrenic angles. 3-dimensional maximum intensity projection (MIP) coronal and sagittal reformats were then acquired through the thorax. For radiation dose reduction, the following was used: automated exposure control, adjustment of mA and/or kV according to patient size. COMPARISON: None. FINDINGS: Image quality: Excellent. Pulmonary arteries: Pulmonary arteries are normal in size, and demonstrate no intraluminal filling defects to suggest central pulmonary embolism. Lungs and pleura: Moderate bilateral lower lobe peribronchial thickening and occlusion of small peripheral airways at both lung bases. Very small parenchymal consolidations in the left posterior costophrenic sulcus. 6 mm nodule laterally at the right lower lung (5/176). This is surrounded by trace groundglass opacity. Multiple small nodules laterally in the right midlung 3/97 through 105), likely inflammatory. A few tiny nodules in the subpleural right lower lobe are also present. No pleural effusions or pneumothorax. Mediastinum: Heart size is normal, without pericardial effusion. Mild aortic valvular calcification and mild to moderate coronary artery calcification. No mediastinal or hilar adenopathy. Thoracic aorta is normal in caliber and enhancement. Esophagus is normal in caliber, without hiatal hernia. Bones and chest wall: Severe degenerative changes at the shoulders. Severe degenerative disc changes throughout the thoracic spine. No suspicious bony lesions. Ribs and thoracic spine appear intact throughout. Thyroid gland is unremarkable. No axillary or supraclavicular adenopathy. Abdomen: Visualized upper abdominal solid organs appear normal in the early arterial phase of enhancement. IMPRESSION: 1. No pulmonary embolus. 2. Bilateral lower lobe bronchitis with areas of mucous plugging and small peripheral consolidations/atelectasis. 3. Multiple scattered right lung nodules, likely infectious/inflammatory. Followup chest CT in 6-12 months is recommended to assess for resolution. 4. Aortic valvular and coronary artery calcification. Dictated by: Dee Dee La M.D. on 08/14/2019 at 9:38 Approved by: Dee Dee La M.D. on 08/14/2019 at 9:47
[2019-08-14] MEDS: FUROSEMIDE 20 MG/2 ML VIAL IV (09:02)
[2019-08-14 09:21] LABS: HCO3 ABG 28 mmol/L (22-26); PCO2 ABG 55.9 mmHg (35-45); PO2 ABG 88 mmHg (80-100); TCO2 ABG 30 mmol/L (21-31); pH ABG 7.31 (7.35-7.45)
[2019-08-14 09:22] LABS: Fractionated Inspired Oxygen 40; Oxygen Saturation ABG 95 % (95-100)
--- NOTE | 2019-08-14 09:28 | RT ---
Addendum entered by Doug Bales, RT 08/14/19 16:17: Pt seemed to tolerate Bipap well for 4 hours. At 1500, Bipap removed for oral care/break/water, and phone call. OK to keep Bipap off as tolerated, verbal order, Dr. Malcolm. Addendum entered by Doug Bales, RT 08/14/19 11:42: Just before moving to ICU, pt continued to have severe dyspnea, with and without exertion. Verbal order, Dr Sethi to place pt on Bipap as tolerated. Original Note: [facility]NC started in ER at Dr Cisse's order. Initial flow of 35 LPM and FIO2 30% started, then titrated up to 40%, with O2 sats at 92. 2 ABGs drawn without difficulty, results to Dr Sethi. Plan to cont HHFNC (no Bipap unless pt deteriates).
[2019-08-14] MEDS: FUROSEMIDE 40 MG/4 ML VIAL IV ×2 (10:55→18:04)
[2019-08-14] MEDS: methylPREDNISolone 125 MG/2 ML VIAL IV (10:55)
[2019-08-14] MEDS: HYDRALAZINE 20 MG/ML VIAL 10 MG IV (10:55)
--- NOTE | 2019-08-14 12:16 | P.HP_ITS ---
History of Present Illness History of Present Illness Date Patient Seen: 08/14/19 Time Patient Seen: 12:17 Chief complaint: Cough, fever, SOB Narrative: Jeanine Calderon is an 84 year old female with PMH of COPD (not on home o2) who presented with shortness of breath, fever, and productive cough starting about 3 days ago. She also states she has had a high fever to 101 at home with chillls. She denies nausea, vomiting, or diarrhea. She does not know what color her sputum was. She has not had any abdominal pain, but did endorse dysuria on arrival to the floor. She reported a fall when this started falling backwards and landing on her buttocks because she was so weak. With EMS she was hypoxic in the mid 70s and short of breath, she improved with non-rebreather. On arrival in the emergency room, she was tachypnic, hypertensive, and tachycardic. She underwent XR which showed diffuse patchy opacitites, CTA showed no PE, but bilateral lower lobe mucous plugging and small consolidations. She has multiple right sided lung nodules thought to possibly be inflammatory. Blood cultures were obtained. Initial blood gas showed a pH of 7.3, CO2 of 64, PO2 of 445. Repeat gas showing 7.31/55.9/88. D-dimer was 747. Pro-BNP of 1200. Troponin 0.025. Patient was given fluid bolus which appeared to make her more short of breath. She was initially on HFNC increased to BIPAP before transfer to the ICU. Her COVID-19 was negative. EKG was not performed in the emergency room. Patient has been ordered for 1, but does not complain of any current chest pain. Patient History Family & Social History Safety & Behavioral: Feels Safe in Current Yes Environment Been Physically Hurt or No Threatened By a Person Tobacco & Substance use: Smoking Status Former smoker alcohol intake frequency 0-2 drinks per day Substance Use Type does not use Meds Home Medications and Allergies Home Medications Medication Instructions Recorded Confirmed Type albuterol sulfate [ProAir HFA] 2 inh INHALATION 6XD 08/14/19 08/14/19 History umeclidinium-vilanterol [Anoro 1 inh INHALATION DAILY 08/14/19 08/14/19 History Ellipta] Allergies Allergy/AdvReac Type Severity Reaction Status Date / Time Penicillins Allergy Verified 08/14/19 07:40 shellfish derived Allergy Verified 08/14/19 12:53 Review of Systems Review of Systems Narrative: All other systems reviewed with the patient and are negative unless otherwise stated. Exam Vital Signs (past 8 hours): - 08/14/19 06:41 08/14/19 06:49 08/14/19 07:30 Temperature 98.5 F Pulse Rate 123 H 113 H 96 H Respiratory Rate 47 H 44 H 38 H Blood Pressure 230/100 H Blood Pressure [Left Arm] 210/90 H 192/75 H Pulse Oximetry 99 100 100 08/14/19 08:01 08/14/19 08:30 08/14/19 09:02 Temperature Pulse Rate 98 H 102 H 92 H Respiratory Rate 36 H 32 H 32 H Blood Pressure Blood Pressure [Left Arm] 182/74 H 168/71 H 169/69 H Pulse Oximetry 92 92 96 08/14/19 09:30 08/14/19 10:15 Temperature Pulse Rate 103 H 110 H Respiratory Rate 38 H 37 H Blood Pressure Blood Pressure [Left Arm] 179/76 H 215/86 H Pulse Oximetry 99 99 Fraction of Inspired Oxygen 40 Oxygen Delivery Method Heated High Flow Oxygen Flow Rate 15 Narrative Exam Narrative: GENERAL APPEARANCE: Well developed, well nourished, elderly female, breathing heavily on BiPAP but able to speak in short sentences. SKIN: Inspection of the skin reveals no rashes, ulcerations or petechiae. HEENT: Normocephalic atraumatic, extraocular muscles are intact, oropharynx is clear and mucous membranes are moist, neck is supple without adenopathy. NECK: Supple and symmetric. There was no thyroid enlargement, and no tenderness, or masses were felt. No appreciable JVD. CHEST: Normal AP diameter and normal contour without any kyphoscoliosis. LUNGS: Auscultation of the lungs revealed diffuse rhonchi without wheezes. She was tachypneic. CARDIOVASCULAR: Tachycardic rate with regular rhythm, difficult to appreciate any murmurs through her diffuse rhonchi but did not appreciate any murmurs rubs or gallops. ABDOMEN: Soft and nontender with normal bowel sounds. No ascites was noted. MUSCULOSKELETAL: There was no tenderness or effusions noted. Muscle strength and tone were normal. EXTREMITIES: No cyanosis, clubbing. There is minimal peripheral edema. NEUROLOGIC: Alert and oriented x 3. Strength is +5/5 in the Upper Extremities and Lower Extremities Bilaterally. Sensation to touch was normal. Objective Imaging CT scan - chest: Radiologist's impression: IMPRESSION: 1. No pulmonary embolus. 2. Bilateral lower lobe bronchitis with areas of mucous plugging and small peripheral consolidations/atelectasis. 3. Multiple scattered right lung nodules, likely infectious/inflammatory. Followup chest CT in 6-12 months is recommended to assess for resolution. 4. Aortic valvular and coronary artery calcification. Chest x-ray: My impression: Bilateral haziness with bilateral lower lobe small opacities, slightly worse on the right. Radiologist's impression: IMPRESSION: Diffuse bilateral patchy and ill-defined opacities, possibly chronic scarring/atelectasis however cannot exclude underlying acute bronchopneumonia or pulmonary edema in the absence of prior studies. If there is persistent clinical diagnostic uncertainty, continued surveillance with short interval chest radiographs after treatment is recommended. Labs Result Diagrams: 08/14/19 07:00 08/14/19 07:00 Labs: Laboratory Results - last 24 hr 08/14/19 08/14/19 08/14/19 06:50 07:00 07:00 WBC RBC Hgb Hct MCV MCH MCHC RDW Plt Count Neut % (Auto) Lymph % (Auto) [place] % (Auto) Eos % (Auto) Baso % (Auto) Neut # (Auto) Lymph # (Auto) [place] # (Auto) Eos # (Auto) Baso # (Auto) D-Dimer 747 H ABG pH ABG pCO2 ABG pO2 ABG HCO3 ABG Total CO2 ABG O2 Saturation ABG Base Excess FiO2 Sodium Potassium Chloride Carbon Dioxide BUN Creatinine Estimated GFR BUN/Creatinine Ratio Glucose Lactate Calcium Ferritin Total Bilirubin AST ALT Alkaline Phosphatase Lactate Dehydrogenase Total Creatine Kinase CK-MB (CK-2) CK-MB (CK-2) Rel Index Troponin I C-Reactive Protein NT-Pro-B Natriuret Pep Total Protein Albumin Globulin Albumin/Globulin Ratio Procalcitonin 0.14 COVID-19 PCR Negative 08/14/19 08/14/19 08/14/19 07:00 07:00 07:00 WBC 13.2 H RBC 4.35 Hgb 13.5 Hct 38.9 MCV 89.4 MCH 30.9 MCHC 34.6 RDW 14.4 Plt Count 137 L Neut % (Auto) 85.5 H Lymph % (Auto) 7.4 L [place] % (Auto) 6.9 Eos % (Auto) 0.0 L Baso % (Auto) 0.2 Neut # (Auto) 78517 H Lymph # (Auto) 1000 L [place] # (Auto) 900 Eos # (Auto) 0 Baso # (Auto) 0 D-Dimer ABG pH ABG pCO2 ABG pO2 ABG HCO3 ABG Total CO2 ABG O2 Saturation ABG Base Excess FiO2 Sodium 138 Potassium 3.7 Chloride 100 Carbon Dioxide 31 BUN 21 H Creatinine 0.70 Estimated GFR > 60.0 BUN/Creatinine Ratio 30.0 H Glucose 157 H Lactate 1.2 Calcium 10.0 Ferritin 311 H Total Bilirubin 1.1 AST 42 H ALT 25 Alkaline Phosphatase 113 Lactate Dehydrogenase 702 H Total Creatine Kinase 298 H CK-MB (CK-2) 1.91 CK-MB (CK-2) Rel Index 0.6 L Troponin I 0.025 C-Reactive Protein 37.0 H NT-Pro-B Natriuret Pep 1200 H Total Protein 8.3 H Albumin 4.4 Globulin 3.9 Albumin/Globulin Ratio 1.1 Procalcitonin COVID-19 PCR 08/14/19 08/14/19 07:06 09:05 WBC RBC Hgb Hct MCV MCH MCHC RDW Plt Count Neut % (Auto) Lymph % (Auto) [place] % (Auto) Eos % (Auto) Baso % (Auto) Neut # (Auto) Lymph # (Auto) [place] # (Auto) Eos # (Auto) Baso # (Auto) D-Dimer ABG pH 7.30 L 7.31 L ABG pCO2 64.3 H* 55.9 H ABG pO2 445 H* 88 ABG HCO3 32 H 28 H ABG Total CO2 33 H 30 ABG O2 Saturation 100 95 ABG Base Excess 5.0 H 2.0 FiO2 100 40 Sodium Potassium Chloride Carbon Dioxide BUN Creatinine Estimated GFR BUN/Creatinine Ratio Glucose Lactate Calcium Ferritin Total Bilirubin AST ALT Alkaline Phosphatase Lactate Dehydrogenase Total Creatine Kinase CK-MB (CK-2) CK-MB (CK-2) Rel Index Troponin I C-Reactive Protein NT-Pro-B Natriuret Pep Total Protein Albumin Globulin Albumin/Globulin Ratio Procalcitonin COVID-19 PCR Assessment & Plan Assessment & Plan narrative: Jeanine Calderon is an 84 year old female with PMH of COPD (not on home o2) who presented with shortness of breath, fever, and productive cough starting about 3 days ago. She is admitted for acute hypercapnic and hypoxemic respiratory failure likely secondary to multiple etiologies including pneumonia, COPD exacerbation, and possible volume overload versus flash pulmonary edema given hypertension. She is admitted to the ICU given need for BiPAP therapy after failing HFNC. 1. Acute hypercapnic and hypoxemic respiratory failure. - likely multifactorial secondary to viral/bacterial pneumonia, COPD exacerbation, and possible volume overload from either flash edema due to hypertension or previously unknown heart failure. There is possibly a component of chronic respiratory failure given underlying COPD but no access to outside records at this time. - will order TTE. - CTA chest Bilateral lower lobe bronchitis with areas of mucous plugging and small peripheral consolidations/atelectasis. No evidence of PE. Multiple R lung nodules thought to be secondary to inflammatory state. - RT eval and treat - wean from BiPAP as able. - continue lasix 40 mg IV BID -continue treatment for COPD exacerbation, given Solu-Medrol 125 mg in the emergency room, will continue 40 mg of prednisone daily starting tomorrow -continue treatment for viral versus bacterial pneumonia as noted below -Will send UA. -hypertension management as noted below. 2. Bilateral lower lobe pneumonia, acute, present on admission - CTA chest Bilateral lower lobe bronchitis with areas of mucous plugging and small peripheral consolidations/atelectasis. - COVID-19 negative in the ER - will send viral panel added on. Treat for CAP with ceftriaxone and azithromycin starting tomorrow AM, given Levaquin by ER. Etiology may be viral given negative procalcitonin but given severity of shortness of breath will treat as bacterial. Will send sputum culture if she produces a specimen. 3. COPD exacerbation - continue management as noted above. - RT eval and treat - continue duonebs BID, prednisone as noted above. 4. Hypertension, possibly acute, present on admission -patient without a prior diagnosis of hypertension, she is not on any antihypertensive therapy as an outpatient. -will continue to monitor, blood pressure has improved with Lasix therapy. Will continue Lasix and add additional agents as needed. -echocardiogram as noted above 5. Evaluation for sepsis - patient with reported fever to 101, respiratory failure, mild thrombocytope nanette. Blood cultures drawn in the ER and patient was given antibiotic therapy. Degree of respiratory failure does not seem to match imaging or lab findings at this time, but this may be due to volume overload rather than septic response. Will further eval for urinary source with UA and continue to monitor labs however do not feel patient meets sepsis criteria at this time. I spent 30 minutes providing critical care management this patient. This excludes time spent in performing separately billed procedures. Code: DNR Dispo: admitted to the ICU given need for bipap therapy. COVID-19 Status negative. IVF: saline lock, patient being diuresed currently. DVT: Lovenox daily COVID-19 COVID-19 status: Negative
[2019-08-14 13:17] LABS: Bacteria Urine None Seen; RBC Urine None Seen (0-5/HPF); WBC Urine None Seen (0-5/HPF)
[2019-08-14 13:19] LABS: Appearance Urine UA CLEAR; Bilirubin Urine UA NEGATIVE (NEGATIVE); Color Urine UA YELLOW; Glucose Urine UA NEGATIVE (Negative); Ketones Urine UA NEGATIVE (NEGATIVE); Leukocyte Esterase Urine UA NEGATIVE (NEGATIVE); Nitrite Urine UA NEGATIVE (Negative); Occult Blood Urine UA 1+ (Negative); Protein Urine UA 2+ (Negative); Urobilinogen Urine UA 0.2 E.U./dL (0.2)
[2019-08-14 13:20] LABS: pH Urine UA 5.5 (4.5-8.0)
[2019-08-14 13:31] LABS: Culture Indicated Urine Cult Not Indicated; Squamous Epithelial Cell Urine 0-1 /HPF (0-5/HPF); Transitional Epi Cells Urine 0-1/HPF (0-5/HPF)
--- NOTE | 2019-08-14 13:42 | PC.ADMIT ---
2316 Admission Note: The patient,Jeanine Calderon,84 y/o, was given written information regarding hospital policies, unit procedures and contact persons. Patient's smoking status: Former smoker. Vital Signs - 8 hr 08/14/19 06:41 08/14/19 06:49 08/14/19 07:30 Temperature 98.5 F Pulse Rate 123 H 113 H 96 H Respiratory Rate 47 H 44 H 38 H Blood Pressure 230/100 H Blood Pressure [Left Arm] 210/90 H 192/75 H Pulse Oximetry 99 100 100 08/14/19 08:01 08/14/19 08:30 08/14/19 09:02 Temperature Pulse Rate 98 H 102 H 92 H Respiratory Rate 36 H 32 H 32 H Blood Pressure Blood Pressure [Left Arm] 182/74 H 168/71 H 169/69 H Pulse Oximetry 92 92 96 08/14/19 09:30 08/14/19 10:15 08/14/19 11:40 Temperature 97.2 F L Pulse Rate 103 H 110 H 121 H Respiratory Rate 38 H 37 H 32 H Blood Pressure 184/90 H Blood Pressure [Left Arm] 179/76 H 215/86 H Pulse Oximetry 99 99 98 08/14/19 13:30 Temperature Pulse Rate 85 Respiratory Rate 26 H Blood Pressure 130/60 Blood Pressure [Left Arm] Pulse Oximetry 96 Rec'd' pt from ED to room 230 via stretcher on bipap. Pt is tachypneic and using accessory muscles to breathe. RR 50s. SPO2 98-99% on 40% FIO2. Lungs are course and rhonchorous throughout. Pt reports sputum production but states she is unable to bring it all the way up or she swallows it. Admission assessment completed. She is having to void frequently due to lasix although she reports 2 days of burning on urination. Pt experiences increased work of breathing and dyspnea with minimal exertion and is having stress incontinence as well as anxiety with HOB lowered to place bedpan. Reported to Dr. Joy and orders received to send UA and place serna catheter. Educated pt to plan of care, use of call light, fall risk. Instructed pt to wait for assistance before getting OOB. She verbalizes understanding.
[2019-08-14 14:18] LABS: HCO3 ABG 29 mmol/L (22-26); Oxygen Saturation ABG 97 % (95-100); PCO2 ABG 47.6 mmHg (35-45); PO2 ABG 89 mmHg (80-100); TCO2 ABG 30 mmol/L (21-31); pH ABG 7.39 (7.35-7.45)
[2019-08-14 14:19] LABS: Fractionated Inspired Oxygen 40
--- NOTE | 2019-08-14 14:50 | PC.NURSE ---
Pt off bipap at 1400 on 3L NC with SPO2 93%. Repeat ABG much improved. Reported to Dr. Joy who states ok for pt to be off bipap now. Pt sitting up in bed talking to niece on telephone.
[2019-08-14 15:35] LABS: Adenovirus Not Detected (Not Detect); Bordetella pertussis Not Detected (Not Detect); Chlamydophila pneumoniae Not Detected (Not Detect); Coronavirus 229E Not Detected (Not Detect); Coronavirus HKU1 Not Detected (Not Detect); Coronavirus NL 63 Not Detected (Not Detect); Coronavirus OC43 Not Detected (Not Detect); Human Metapneumovirus Not Detected (Not Detect); Human Rhinovirus/Enterovirus Not Detected (Not Detect); Influenza A Not Detected (Not Detect); Influenza B Not Detected (Not Detect); Mycoplasma pneumoniae Not Detected (Not Detect); Parainfluenza Virus 1 Not Detected (Not Detect); Parainfluenza Virus 2 Not Detected (Not Detect); Parainfluenza Virus 3 Not Detected (Not Detect); Parainfluenza Virus 4 Not Detected (Not Detect); Respiratory Syncytial Virus Not Detected (Not Detect)
[2019-08-14] MEDS: guaiFENesin ER 600 MG TAB PO (18:05)
[2019-08-14] MEDS: ALBUTEROL 2.5 MG/3 ML NEB (ADULT) INH (19:35)
[2019-08-14] MEDS: ALBUTEROL/IPRATROPIUM 3 ML AMPUL INH (21:51)
[2019-08-14] MEDS: NITROGLYCERIN 0.4 MG PATCH TOP (22:05)
[2019-08-15] VITALS (23 sets, daily range): BP systolic 115–176; BP diastolic 58–83; PULSE 82–98; RESP 16–30; TEMP 36.2–37.2; O2SAT 86–97
[2019-08-15] MEDS: FUROSEMIDE 40 MG/4 ML VIAL IV (00:17)
--- NOTE | 2019-08-15 00:54 | PC.NURSE ---
Addendum entered by Maryana Hooks R.N. 08/15/19 06:18: HR upto 120's non sustained with cough Addendum entered by Maryana Hooks R.N. 08/15/19 05:24: Pt sating at 95%, o2 decreased back to 3L and o2 sats running at 92%. Pt reports no shortness or breath or chest pain. Pt productive cough continues to worsen in the AM. Cough medicine given as prescribed. [facility] Original Note: Pt alert and oriented x4. No complaints of chest pain or shortness of breath. Lung sounds rhonchi bilateral. Pt on 3L O2 and sats running at 92%. When patient fell asleep O2 sats dropped to 87%. O2 increased to 4L and O2 sats now at 91%. [facility]
[2019-08-15] MEDS: ALBUTEROL 2.5 MG/3 ML NEB (ADULT) INH (04:45)
[2019-08-15 04:56] LABS: Add Manual Diff / Slide Review NO; Basophils Absolute Auto 0 /uL (0-100); Basophils Percent Auto 0.5 % (0-2); Eosinophils Absolute Auto 0 /uL (0-450); Eosinophils Percent Auto 0.1 % (2-4); Hemoglobin 11.8 g/dL (12.0-16.0); Lymphocytes Absolute Auto 700 /uL (1100-4500); Lymphocytes Percent Auto 10.3 % (25-40); Mean Corpuscular HGB Conc 34.7 % (30-36); Mean Corpuscular Hemoglobin 30.9 PG (26-34); Monocytes Absolute Auto 200 /uL (0-900); Monocytes Percent Auto 2.4 % (3-14); Neutrophils Absolute Auto 5500 /uL (1500-7000); Neutrophils Percent Auto 86.7 % (50-75); Platelet Count 174 X10^3/uL (150-400); Red Blood Cell Count 3.82 X10^6/uL (4.0-5.2); Red Cell Distribution Width 14.6 % (11.6-14.8); White Blood Cell Count 6.4 X10^3/uL (4.5-11.0)
[2019-08-15 05:06] LABS: Alanine Aminotransferase 26 IU/L (<35); Albumin 3.9 g/dL (3.5-5.0); Albumin Globulin Ratio 1.1 (1.0-2.8); Alkaline Phosphatase 78 U/L (38-126); Aspartate Aminotransferase 35 IU/L (14-36); BUN Creatinine Ratio 24.2 (6-22); Bilirubin Total 0.4 mg/dL (0.2-1.3); Blood Urea Nitrogen 24 mg/dL (7-17); Calcium 9.5 mg/dL (8.4-10.2); Carbon Dioxide 33 mmol/L (22-32); Chloride 96 mmol/L (98-107); Estimated Glomerular Filt Rate 53.4 mL/min (>60); Globulin 3.4 g/dL (1.7-4.1); Glucose 154 mg/dL (80-110); HEMOLYSIS < 15 (0-50); Magnesium 1.4 mg/dL (1.6-2.3); Phosphorous 4.7 mg/dL (2.8-4.1); Potassium 3.9 mmol/L (3.4-5.1); Sodium 138 mmol/L (137-145); Total Protein 7.3 g/dL (6.3-8.2)
[2019-08-15] MEDS: guaiFENesin ER 600 MG TAB PO ×2 (05:20→21:21)
[2019-08-15 05:21] LABS: Procalcitonin 0.25 ng/mL (<0.5)
[2019-08-15] MEDS: ALBUTEROL/IPRATROPIUM 3 ML AMPUL INH ×2 (07:20→20:35)
--- NOTE | 2019-08-15 07:35 | DI.ECHO.S_ITS ---
Echocardiogram Report + + :Name: MARIANO CARRERO Study Date: 08/15/2019 Height: 62 in : :[facility] Weight: 198 lb : : Gender: Female BSA: 1.9 m2 : :: 1935 Age: 84 yrs BP: 146/63 mmHg: :Reason For Study: SOB : : Performed By: Devyn Leone : :Referring: DEMETRI EDGE : + + Interpretation Summary The patient was in atrial fibrillation with rapid ventricular response during the exam with a heart rate exceeding 100 bpm. The left ventricle is normal in size. The left ventricle is hyperdynamic. The ejection fraction is estimated to be 70-75%. There is no echo evidence for significant left ventricular outflow tract obstruction. The right ventricle is normal in size and function. There is mild tricuspid regurgitation. The right ventricular systolic pressure is estimated to be at least 35 mmHg based on an estimated right atrial pressure of 3 mm Hg. There is aortic root sclerosis/calcification. Procedure: A two-dimensional transthoracic echocardiogram with color flow and Doppler was performed. The study quality was technically good. There is no prior echocardiogram noted for this patient. The patient had a heart rate of 99-132 beats per minute. The patient was in atrial fibrillation with rapid ventricular response during the exam with a heart rate exceeding 100 bpm. Left Ventricle: The left ventricle is normal in size. There is normal left ventricular wall thickness. There is no echo evidence for significant left ventricular outflow tract obstruction. There is no thrombus. The ejection fraction is estimated to be 70-75%. The left ventricle is hyperdynamic. There are no focal wall motion abnormalities. Diastolic function could not be accurately assessed due to atrial fibrillation. Right Ventricle: The right ventricle is normal in size and function. Atria: Both atria are normal in size. A prominent eustachian valve is noted. The interatrial septum is intact with no evidence for an atrial septal defect. Mitral Valve: There is mild mitral annular calcification. The mitral valve chordae are thickened and/or calcified. There is trace mitral regurgitation. Aortic Valve: The aortic valve is trileaflet. The aortic valve is mildly calcified. The aortic valve opens well. There is no aortic valve stenosis. There is trace aortic regurgitation. Tricuspid Valve: The tricuspid valve is normal. There is mild tricuspid regurgitation. The right ventricular systolic pressure is estimated to be at least 35 mmHg based on an estimated right atrial pressure of 3 mm Hg. Pulmonic Valve: The pulmonic valve is not well seen, but is grossly normal. There is no pulmonic valvular regurgitation. Great Vessels: The aortic root is normal size. There is aortic root sclerosis/calcification. The dimensions of the ascending aorta are normal. The pulmonary artery is normal size. The IVC is of normal diameter and collapses greater than 50% with a sniff. This suggests a low right atrial pressure of 3 mm Hg. Pericardium/ Pleura There is no pericardial effusion. There is an anterior echo-free space consistent with a fat pad. There is no pleural effusion. MMode/2D Measurements & Calculations LVIDd: 4.7 cm LVOT diam: 2.1 cm LVIDs: 2.6 cm Ao root diam: 3.2 cm FS: 44.8 % asc Aorta Diam: 3.1 cm EPSS: 0.32 cm IVSd: 1.1 cm LVPWd: 0.96 cm LV darden. diameter/BSA (cm/m^2): 2.5 LV sys. diameter/BSA (cm/m^2): 1.4 LA dimension: 3.0 cm RA long axis: 4.4 cm LA A2 area: 19.8 cm2 RA area: 12.9 cm2 LA A4 area: 15.5 cm2 RA vol: 32.6 ml LA length (vol): 4.8 cm RA : 17.1 ml/m2 LA vol: 54.5 ml IVC diam: 1.6 cm LA vol index: 28.7 ml/m2 RVD1 (basal): 3.1 cm RVD2 (mid): 3.1 cm TAPSE: 1.4 cm Doppler Measurements & Calculations Ao V2 max: 172.5 cm/sec LVOT Max Yung: 114.5 cm/sec Ao V2 mean: 129.1 cm/sec LV V1 max P.2 mmHg Ao max P.9 mmHg LV V1 VTI: 21.1 cm Ao mean P.5 mmHg MARYLOU(I,D): 2.2 cm2 Ao V2 VTI: 32.9 cm MARYLOU(V,D): 2.3 cm2 sev ratio: 0.64 MARYLOU indexed to BSA (cm^2/m^2): 1.2 MV E max yung: 140.6 cm/sec TR max yung: 280.7 cm/sec MV A max yung: 2.2 cm/sec TR max P.5 mmHg MV E/A: 62.6 PA V2 max: 125.8 cm/sec Med Peak E' Yung: 4.2 cm/sec PA V2 mean: 85.2 cm/sec E/E' med: 33.4 PA mean P.3 mmHg Lat Peak E' Yung: 6.4 cm/sec PA pr(Accel): 29.3 mmHg E/E' lat: 21.9 E/e' average: 27.6 MV dec time: 0.11 sec MVA(VTI): 3.1 cm2 MV V2 mean: 101.0 cm/sec SV(LVOT): 73.7 ml MV mean P.4 mmHg MV V2 VTI: 23.4 cm
[2019-08-15] MEDS: CEFTRIAXONE 1 GM/50 ML FROZ.PIGGY IV (08:29)
[2019-08-15] MEDS: predniSONE 20 MG TABLET 40 MG PO (08:29)
[2019-08-15] MEDS: FUROSEMIDE 40 MG TABLET PO (08:29)
[2019-08-15] MEDS: LOSARTAN 25 MG TABLET PO (08:29)
[2019-08-15] MEDS: ENOXAPARIN 40 MG/0.4 ML SYRINGE SUBCUT (08:29)
[2019-08-15] MEDS: MAGNESIUM SULFATE 2 GM/50 ML PIGGYBACK IV (08:29)
[2019-08-15] MEDS: INFLUENZA VACCINE 0.5 ML SYRINGE IM (08:30)
[2019-08-15] MEDS: SODIUM CHLORIDE 0.9% FLUSH 10 ML IV ×2 (08:30→20:48)
[2019-08-15] MEDS: ACETAMINOPHEN 325 MG TABLET 650 MG PO ×3 (08:30→21:20)
[2019-08-15] MEDS: AZITHROMYCIN 500 MG in DEXTROSE 5% IN WATER 250 ML IV (11:30)
--- NOTE | 2019-08-15 12:19 | PM.PN.1 ---
Subjective Subjective Date Patient Seen: 08/15/19 Time Patient Seen: 08:30 Interval history: Jeanine Calderon is an 84 year old female with PMH of COPD (not on home o2) who presented with shortness of breath, fever, and productive cough. She was able to be weaned off BiPAP therapy quickly after admission. She did have further episodes of hypertension overnight and became more short of breath again. She was started on some oral antihypertensives today for continued elevated blood pressures including oral Lasix daily as well as losartan 25 mg. Will have to continue to adjust as needed. She appears more comfortable but is still requiring supplemental oxygen and still feels weak. She still has a cough and subjective shortness of breath. She denies any abdominal pain, chest pain, nausea, vomiting. Her lungs were slightly wheezy this morning and will continue the steroids. She is also being treated for community-acquired pneumonia. Her echocardiogram was done today and revealed no systolic or diastolic dysfunction, however she was in afib during the study, which is new for the patient. Exam Vital Signs (past 8 hours): - 08/15/19 04:45 08/15/19 05:16 08/15/19 06:05 Temperature 98.2 F Pulse Rate 94 H Respiratory Rate 24 Blood Pressure 161/73 H 141/63 H Pulse Oximetry 95 95 08/15/19 07:20 08/15/19 08:00 08/15/19 10:00 Temperature 97.8 F Pulse Rate 93 H 93 H Respiratory Rate 17 30 H Blood Pressure 146/63 H Pulse Oximetry 92 93 95 08/15/19 10:25 08/15/19 10:30 08/15/19 10:35 Temperature Pulse Rate Respiratory Rate Blood Pressure Pulse Oximetry 95 86 L 94 08/15/19 11:37 08/15/19 11:39 Temperature 97.2 F L 98.3 F Pulse Rate 89 97 H Respiratory Rate 25 H 30 H Blood Pressure 164/71 H 176/77 H Pulse Oximetry 93 94 Fraction of Inspired Oxygen 35 Oxygen Delivery Method Nasal Cannula Oxygen Flow Rate 2 Narrative Exam Narrative: GENERAL APPEARANCE: Well developed, well nourished, elderly female, breathing heavily on BiPAP but able to speak in short sentences. SKIN: Inspection of the skin reveals no rashes, ulcerations or petechiae. HEENT: Normocephalic atraumatic, extraocular muscles are intact, oropharynx is clear and mucous membranes are moist, neck is supple without adenopathy. NECK: Supple and symmetric. There was no thyroid enlargement, and no tenderness, or masses were felt. No appreciable JVD. CHEST: Normal AP diameter and normal contour without any kyphoscoliosis. LUNGS: Auscultation of the lungs revealed diffuse rhonchi without wheezes. She was tachypneic. CARDIOVASCULAR: Tachycardic rate with regular rhythm, difficult to appreciate any murmurs through her diffuse rhonchi but did not appreciate any murmurs rubs or gallops. ABDOMEN: Soft and nontender with normal bowel sounds. No ascites was noted. MUSCULOSKELETAL: There was no tenderness or effusions noted. Muscle strength and tone were normal. EXTREMITIES: No cyanosis, clubbing. There is minimal peripheral edema. NEUROLOGIC: Alert and oriented x 3. Strength is +5/5 in the Upper Extremities and Lower Extremities Bilaterally. Sensation to touch was normal. Objective Labs Result Diagrams: 08/15/19 04:35 08/15/19 04:35 Labs: Laboratory Results - last 24 hr 08/14/19 08/14/19 08/14/19 06:50 12:05 12:20 WBC RBC Hgb Hct MCV MCH MCHC RDW Plt Count Neut % (Auto) Lymph % (Auto) [place] % (Auto) Eos % (Auto) Baso % (Auto) Neut # (Auto) Lymph # (Auto) [place] # (Auto) Eos # (Auto) Baso # (Auto) ABG pH ABG pCO2 ABG pO2 ABG HCO3 ABG Total CO2 ABG O2 Saturation ABG Base Excess FiO2 Sodium Potassium Chloride Carbon Dioxide BUN Creatinine Estimated GFR BUN/Creatinine Ratio Glucose Calcium Phosphorus Magnesium Total Bilirubin AST ALT Alkaline Phosphatase Total Protein Albumin Globulin Albumin/Globulin Ratio Procalcitonin Urine Color Yellow Urine Appearance Clear Urine pH 5.5 Ur Specific [place] 1.010 Urine Protein 2+ H Urine Glucose (UA) Negative Urine Ketones Negative Urine Occult Blood 1+ H Urine Nitrate Negative Urine Bilirubin Negative Urine Urobilinogen 0.2 Ur Leukocyte Esterase Negative Urine RBC None seen Urine WBC None seen Ur Squamous Epith Cells 0-1 /hpf Ur Transition Epith Cell 0-1/hpf Urine Bacteria None seen Ur Culture Indicated? Cult not indicated Nasal Screen MRSA (PCR) Negative for mrsa Chlamy pneumoniae PCR Not detected Adenovirus (PCR) Not detected B.parapertussis DNA PCR Not detected Coronavirus OC43 (PCR) Not detected Coronavirus HKU1 (PCR) Not detected Coronavirus 229E (PCR) Not detected Coronavirus NL63 (PCR) Not detected Human Metapneumovir PCR Not detected Influenza Type A (PCR) Not detected Influenza Type B (PCR) Not detected M. pneumoniae (PCR) Not detected Parainfluenza 1 (PCR) Not detected Parainfluenza 2 (PCR) Not detected Parainfluenza 3 (PCR) Not detected Parainfluenza 4 (PCR) Not detected RSV (PCR) Not detected Entero/Rhino (PCR) Not detected 08/14/19 08/15/19 08/15/19 14:01 04:35 04:35 WBC 6.4 D RBC 3.82 L Hgb 11.8 L Hct 34.0 L MCV 89.0 MCH 30.9 MCHC 34.7 RDW 14.6 Plt Count 174 Neut % (Auto) 86.7 H Lymph % (Auto) 10.3 L [place] % (Auto) 2.4 L Eos % (Auto) 0.1 L Baso % (Auto) 0.5 Neut # (Auto) 5500 Lymph # (Auto) 700 L [place] # (Auto) 200 Eos # (Auto) 0 Baso # (Auto) 0 ABG pH 7.39 ABG pCO2 47.6 H ABG pO2 89 ABG HCO3 29 H ABG Total CO2 30 ABG O2 Saturation 97 ABG Base Excess 4.0 H FiO2 40 Sodium Potassium Chloride Carbon Dioxide BUN Creatinine Estimated GFR BUN/Creatinine Ratio Glucose Calcium Phosphorus Magnesium Total Bilirubin AST ALT Alkaline Phosphatase Total Protein Albumin Globulin Albumin/Globulin Ratio Procalcitonin 0.25 Urine Color Urine Appearance Urine pH Ur Specific [place] Urine Protein Urine Glucose (UA) Urine Ketones Urine Occult Blood Urine Nitrate Urine Bilirubin Urine Urobilinogen Ur Leukocyte Esterase Urine RBC Urine WBC Ur Squamous Epith Cells Ur Transition Epith Cell Urine Bacteria Ur Culture Indicated? Nasal Screen MRSA (PCR) Chlamy pneumoniae PCR Adenovirus (PCR) B.parapertussis DNA PCR Coronavirus OC43 (PCR) Coronavirus HKU1 (PCR) Coronavirus 229E (PCR) Coronavirus NL63 (PCR) Human Metapneumovir PCR Influenza Type A (PCR) Influenza Type B (PCR) M. pneumoniae (PCR) Parainfluenza 1 (PCR) Parainfluenza 2 (PCR) Parainfluenza 3 (PCR) Parainfluenza 4 (PCR) RSV (PCR) Entero/Rhino (PCR) 08/15/19 04:35 WBC RBC Hgb Hct MCV MCH MCHC RDW Plt Count Neut % (Auto) Lymph % (Auto) [place] % (Auto) Eos % (Auto) Baso % (Auto) Neut # (Auto) Lymph # (Auto) [place] # (Auto) Eos # (Auto) Baso # (Auto) ABG pH ABG pCO2 ABG pO2 ABG HCO3 ABG Total CO2 ABG O2 Saturation ABG Base Excess FiO2 Sodium 138 Potassium 3.9 Chloride 96 L Carbon Dioxide 33 H BUN 24 H Creatinine 0.99 Estimated GFR 53.4 L BUN/Creatinine Ratio 24.2 H Glucose 154 H Calcium 9.5 Phosphorus 4.7 H Magnesium 1.4 L Total Bilirubin 0.4 AST 35 ALT 26 Alkaline Phosphatase 78 Total Protein 7.3 Albumin 3.9 Globulin 3.4 Albumin/Globulin Ratio 1.1 Procalcitonin Urine Color Urine Appearance Urine pH Ur Specific [place] Urine Protein Urine Glucose (UA) Urine Ketones Urine Occult Blood Urine Nitrate Urine Bilirubin Urine Urobilinogen Ur Leukocyte Esterase Urine RBC Urine WBC Ur Squamous Epith Cells Ur Transition Epith Cell Urine Bacteria Ur Culture Indicated? Nasal Screen MRSA (PCR) Chlamy pneumoniae PCR Adenovirus (PCR) B.parapertussis DNA PCR Coronavirus OC43 (PCR) Coronavirus HKU1 (PCR) Coronavirus 229E (PCR) Coronavirus NL63 (PCR) Human Metapneumovir PCR Influenza Type A (PCR) Influenza Type B (PCR) M. pneumoniae (PCR) Parainfluenza 1 (PCR) Parainfluenza 2 (PCR) Parainfluenza 3 (PCR) Parainfluenza 4 (PCR) RSV (PCR) Entero/Rhino (PCR) Assessment & Plan Assessment & Plan narrative: Jeanine Calderon is an 84 year old female with PMH of COPD (not on home o2) who presented with shortness of breath, fever, and productive cough starting about 3 days prior to admission. She was admitted for acute hypercapnic and hypoxemic respiratory failure likely secondary to multiple etiologies including pneumonia, COPD exacerbation, and possible volume overload versus flash pulmonary edema given hypertension. She has remained off of BiPAP since yesterday and will be listed for the regular floor today. 1. Acute hypercapnic and hypoxemic respiratory failure. - likely multifactorial secondary to viral/bacterial pneumonia, COPD exacerbation, and possible volume overload from flash edema due to hypertension. There is possibly a component of chronic respiratory failure given underlying COPD but no access to outside records at this time. - TTE with hyperdynamic function, in atrial fibrillation during the study unable to assess diastolic dysfunction. - CTA chest Bilateral lower lobe bronchitis with areas of mucous plugging and small peripheral consolidations/atelectasis. No evidence of PE. Multiple R lung nodules thought to be secondary to inflammatory state. - RT eval and treat - continue to wean from O2, goal >88% but also <96% while on supplemental therapy. - patient appears euvolemic and given TTE as noteda above, will change to lasix 40 mg daily orally. -continue treatment for COPD exacerbation, given Solu-Medrol 125 mg in the emergency room, will continue 40 mg of prednisone daily for 4 days. -continue treatment for viral versus bacterial pneumonia as noted below -UA unremarkable. -hypertension management as noted below. 2. Bilateral lower lobe pneumonia, acute, present on admission - CTA chest Bilateral lower lobe bronchitis with areas of mucous plugging and small peripheral consolidations/atelectasis. - COVID-19 negative in the ER - will send viral panel added on. Treat for CAP with ceftriaxone and azithromycin starting tomorrow AM, given Levaquin by ER. Etiology may be viral given negative procalcitonin but given severity of shortness of breath will treat as bacterial. Will send sputum culture if she produces a specimen. 3. COPD exacerbation - continue management as noted above. - RT eval and treat - continue duonebs BID, prednisone as noted above. 4. Hypertension, possibly acute, present on admission -patient without a prior diagnosis of hypertension, she is not on any antihypertensive therapy as an outpatient. -will continue to monitor, blood pressure has improved with Lasix therapy. Will continue Lasix and add additional agents as needed. Have added losartan this AM. -echocardiogram as noted above 5. Sepsis ruled out. - patient with reported fever to 101, respiratory failure, mild thrombocytopenia. Blood cultures drawn in the ER and patient was given antibiotic therapy. Degree of respiratory failure initially did not seem to match imaging or lab findings at the time but was likely due to flash pulmonary edema given hypertension. 6. new onset atrial fibrillation - seen on telemetry and echocardiogram as noted above. - will discuss anticoagulation given elevated CHADS2 vasc score - will add metoprolol for additional rate control as patient remains hypertensive. Code: DNR Dispo: Anticipate discharge possibly in the next 24-48 hours once off supplemental oxygen. Will order PT evaluation. Remains floor care. Quality VTE Deep Vein Thrombosis/Pulmonary Embolism Present on Admission: No
--- NOTE | 2019-08-15 12:53 | CM.DANOTE ---
Addendum entered by Radha Li LPN 08/15/19 13:09: See now that PT and OT have been ordered by Dr. Joy. No notes in thus far from the therapy team. Original Note: Discharge Planning/Care Management DCP: assessment: case received, EMR reviewed and met with pt during Team Bedside Rounds. Introduced self and role. Pt is an 84 year old female who admitted to care of hospitalist team. Payer:Medicare and for Life Admissions status: INPT: confirmed by [facility] SUGE[facility] PRESTON-19-Rapid: 08/13: negative PCP: Dr. Dominic Alexis Pt confirms she is functionally independent at baseline and uses no o2 at home. She did have a fall from her sister's porch a couple days before admission and admits to some soreness from this. Says she thinks she was getting sick at that time which may have contributed to the fall. Reggie was there at the time and she just got back up and went about her day. Dr. Joy stated in Rounds that he hoped to have pt improved enough to go home in a day or two. Pt still has a very raspy voice and with some difficulty breathing. She has been weaned from BIPAP to [address] Joy anticipates she will not been the oxygen at d/c. P: at this point: anticipate home with Reggie in a couple of days and clinic followup. DCP team will be following. CM Discharge Assessment Start: 08/15/19 12:51 Freq: Status: Active Protocol: Document 08/15/19 12:51 ITV (Rec: 08/15/19 12:53 ITV [id number]) Discharge Planning Assessment Advance Directives? No Advance Directives on File No History Provided By Patient,Medical Record Prior Living Arrangements House Household Members significant other Comment my best friend: Reggie Sommer Independent with ADL's Yes Is patient alert and oriented? Yes Comment has DME in the home that can be used if she needs it but she currently uses no AD Discharge Plan Home Review Status In Process
--- NOTE | 2019-08-15 14:22 | PC.NURSE ---
Pt overall states breathing is improved from admission. RA trial done which shows decreased SPO2 86% at rest after 5 minutes. Pt reports associated shortness of breath. Able to wean O2 to 2L NC today. Pt has been intermittently tachycardic and rhythm appears irregular. SA vs Afib vs MAT/PAT. Obtained EKG per protocol (rhythm change) and noted SA. Echocardiogram completed shows pt in Afib during exam. Reviewed with Dr. Joy. Pt ambulated short distance in hallway on 2L NC. Pt became very short of breath, demonstrated increased work of breathing RR 40s SPO2 73%. Instructed pt in pursed lip breathing and slowing respirations. O2 briefly titrated to 4LPM for recovery and then back to 2LPM after achieving SPO2 92%. It took pt about 5 minutes to recover. She has been sitting up to chair most of the day and using the call light appropriately.
--- NOTE | 2019-08-15 14:31 | OT.IPNOTE ---
Pt just completed PT eval and per PT in the shower with nursing. PT states O2 level drops with exertion, therefore to see pt tomorrow.
[2019-08-15] MEDS: METOPROLOL ER 25 MG TABLET PO ×2 (14:35→20:46)
--- NOTE | 2019-08-15 14:43 | PT.IIE ---
Current Diagnoses Acute respiratory failure with hypercapnia (08/14/19) Physical Therapy Inpatient Evaluation/Re-Eval M1 PT/OT-IP Prior Functional Status Start: 08/15/19 11:43 Freq: NEEDED Status: Active Protocol: Document 08/15/19 14:11 AW (Rec: 08/15/19 14:43 AW [id number]) Medical Review Prior Functional Status Medical History Reviewed Yes Diet/Fluid Consistency Regular Communication WNL. Pt is an effective verbal communicator Mobility and Gait Pt states she is independent without AD for household mobility and for short parking lot distances. She fell from stairs 3 days ago but states her last fall prior to that was ~2 years ago. Activities of Daily Living and IADL's Pt lives with her significant other, Richie, who provides occasional assist for pulling on pants. Pt states she wears slip on shoes to avoid needing to ask for help. Richie provides set up and standby assist for showers where pt uses a shower stool. Pt is independent for toileting. She has not driven in over two years. Social History Household Members significant other Living Arrangements House Number of Floors (Floors) One Floor Number of Stairs To Enter/Railing? 4 steep stairs to enter with wide bilateral rails. Pt states stairs are wide enough that she can use one rail and have Richie provide assist on her other side. Home Environment Standard Height Toilet,Walk in Shower Home Equipment Front Wheel Walker,Straight Cane,Shower Seat without Backrest,Hand Held Shower,Leg Fleet Maintenance Manager,Grab Bars Near Toilet, Grab Bars In Shower Additional Social History Comment Pt lives with her significant other, Richie. 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 M2 PT-IP Current Condition Start: 08/15/19 11:43 Freq: NEEDED Status: Active Protocol: Document 08/15/19 14:11 AW (Rec: 08/15/19 14:43 AW [id number]) Physical Therapy Current Condition Current Condition Evaluation Date 08/15/19 Treatment Diagnosis acute hypoxic and hypercapneic respiratory failure; difficulty in walking Onset Date 08/14/19 M3 PT-IP Subjective Start: 08/15/19 11:43 Freq: NEEDED Status: Active Protocol: Document 08/15/19 14:11 AW (Rec: 08/15/19 14:43 AW [id number]) Subjective Physical Therapy Visit Type Type Initial Evaluation Visit Start Time 13:40 Visit Stop Time 14:09 Total Visit Minutes 29 Physical Therapy Visit Comments Patient Comments Pt is willing to work with PT Patient Goals Pt hopes to discharge home without supplemental O2 Therapy Pain Assessment Pain When Pain Assessed During Mobility Pain Present Pain Present Denied Pain M4 PT-IP Mobility and Gait Start: 08/15/19 11:43 Freq: NEEDED Status: Active Protocol: Document 08/15/19 14:11 AW (Rec: 08/15/19 14:43 AW [id number]) PT-Transfer Assessment Sit to and From Stand Sit to and from Stand Standby Assistance,Use of Upper Extremities Equipment Transfer Assistive Device Gait Belt Orthotic/Prosthetic Devices or Brace: No Transfers Transfer Destination Chair Transfer Technique pt ambulated without AD Transfer Ability Level of Assist Standby Assistance,Use of Upper Extremities Comments Mobility Comments Pt was sitting up in chair upon PT arrival. Supplemental O2 via NC was set at 2L/min flow rate with SpO2 95%. Transferred line to portable tank. BP sitting was 169/73. Pt stood using BUE for pushoff from chair arms SBA. She then ambulated toward the door and into the patel for a total of 60 feet. Pt required CGA for ambulation without AD with increasing unsteadiness and labor of breathing. As she transferred SBA back to the chair, SpO2 was 74%, BP 205/88 . O2 was increased to 3L/min as pt was instructed in pursed lip breathing. SpO2 recovered to 93% after 3 minutes. Pt reported dyspnea rating of 7/ 10 at end of activity. Pt was positioned in the chair and left with nursing. Gait Assessment Gait Gait Assistance Required: Contact Guard Assist Distance (Feet) 60 Assistive Devices Assistive Device Gait Belt Orthotic/Prosthetic Devices or Brace: No Gait Deviations General Gait Pattern Decreased Stride Length, Decreased Feet Clearance, Flexed Trunk,Wide Based Gait Factors Limiting Gait Function Factors Limiting Gait Function Decreased Activity Tolerance, Decreased Strength,Poor Balance,Poor Safety Awareness, Respiratory Distress Comments Gait Comments See mobility comments Stair Climbing Assessment Comments Stair Climbing Comments Not assessed due to respiratory status. PT-Balance Assessment Sitting Balance and Reactions Static Sitting Balance Ability Good Dynamic Sitting Balance Ability Good Standing Balance and Reactions Static Standing Balance Ability Fair Dynamic Standing Balance Ability Poor Device Used none Comments Other Balance Tests/Deviations/Treatment Pt able to withstand : multidirectional balance challenge in standing with forces applied at shoulder and pelvic girdle. Pt had (+) posterior LOB with sternal pushes, requiring min assist to recover. M5 PT-IP Objective Assessments Start: 08/15/19 11:43 Freq: NEEDED Status: Active Protocol: Document 08/15/19 14:11 AW (Rec: 08/15/19 14:43 AW [id number]) Orientation Orientation/Cognition Level of Alertness Alert Orientation Name,Day of Week,Place, Situation Language Function Ability No Deficits Noted Safety Awareness Decreased Safety Awareness Memory Description No Deficits Noted Gross Range of Motion Upper Extremity ROM Assessment Within Functional Limits Strength Upper Extremity Strength Assessment Bilaterally Impaired Shoulder 4-/5 Lower Extremity Strength Assessment Bilaterally Impaired Comments Strength Comments BLE grossly 4-/5 Coordination Assessment Gross Coordination Gross Coordination WNL Sensation Assessment Sensation Gross Sensation WNL Muscle Tone Muscle Tone WNL Yes M6 PT-IP Treatment Start: 08/15/19 11:43 Freq: NEEDED Status: Active Protocol: Document 08/15/19 14:11 AW (Rec: 08/15/19 14:43 AW [id number]) Physical Therapy Treatment Education Education Provided Safety Other Treatments Other Treatment Performed Provided education on role of PT, plan of care, and pursed lip breathing strategies. M7 PT-IP Assessment and Plan Start: 08/15/19 11:43 Freq: NEEDED Status: Active Protocol: Document 08/15/19 14:11 AW (Rec: 08/15/19 14:43 AW [id number]) PT Summary Assessment and Plan Potential Rehabilitation Potential Fair Status of Condition at Evaluation Evolving Summary Impairments ROM,Strength,Balance,Transfers ,Gait,Activity Tolerance Assessment Summary Jeanine is an 84 yo woman admitted with acute hypoxic and hypercapneic respiratory failure. She has COPD but does not use supplemental O2 at home. She lives with her significant other who provides assist with some ADL's. Pt reports independent household ambulation and short community distances without AD. On evaluation, pt completed sit to stand from bedside chair SBA but required CGA for ambulation without AD. On 2L O2 via NC, pt dropped her SpO2 from 93% to 74% during 60 feet ambulation trial. Results were communicated with the RN and MEDICAL INFORMATION SPECIALIST. Pt will benefit from continued acute PT to address activity tolerance and to progress her mobility safely. She may also benefit from home health PT to continue addressing these deficits. Goals Bed Mobility Goal Standby Assistance Transfer Goal Independent Gait Goal Independent Gait Distance 120 Other Goals - up/down 4 steps with unilateral rail and EP TECH on opposite side Days to Meet Goals 5 Frequency of Treatment Frequency Of Treatment Once a Day Treatment Plan Physical Therapy Treatment Plan Bed Mobility Training,Transfer Training,Gait Training, Therapeutic Exercise,Balance Retraining,Post Op Education, Discharge Planning,Hot or Cold Pack Other Recommendations and Next Treatment monitor SpO2 and BP; progress Focus gait distance, perhaps with chair follow to allow for multiple short bouts of activity Recommendations To Nursing Amount of Assist Needed 1 Person Assist Discharge Recommendations PT Discharge Recommendations Home with 14/09 Assist,Home Health Transportation Needs at Discharge Private Vehicle
--- NOTE | 2019-08-15 15:02 | PT.IIE ---
Current Diagnoses Acute respiratory failure with hypercapnia (08/14/19) Physical Therapy Inpatient Evaluation/Re-Eval M1 PT/OT-IP Prior Functional Status Start: 08/15/19 11:43 Freq: NEEDED Status: Active Protocol: Document 08/15/19 14:11 AW (Rec: 08/15/19 14:43 AW [id number]) Medical Review Prior Functional Status Medical History Reviewed Yes Diet/Fluid Consistency Regular Communication WNL. Pt is an effective verbal communicator Mobility and Gait Pt states she is independent without AD for household mobility and for short parking lot distances. She fell from stairs 3 days ago but states her last fall prior to that was ~2 years ago. Activities of Daily Living and IADL's Pt lives with her significant other, Richie, who provides occasional assist for pulling on pants. Pt states she wears slip on shoes to avoid needing to ask for help. Richie provides set up and standby assist for showers where pt uses a shower stool. Pt is independent for toileting. She has not driven in over two years. Social History Household Members significant other Living Arrangements House Number of Floors (Floors) One Floor Number of Stairs To Enter/Railing? 4 steep stairs to enter with wide bilateral rails. Pt states stairs are wide enough that she can use one rail and have Richie provide assist on her other side. Home Environment Standard Height Toilet,Walk in Shower Home Equipment Front Wheel Walker,Straight Cane,Shower Seat without Backrest,Hand Held Shower,Leg Steam Trap Worker,Grab Bars Near Toilet, Grab Bars In Shower Additional Social History Comment Pt lives with her significant other, Richie. 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 M2 PT-IP Current Condition Start: 08/15/19 11:43 Freq: NEEDED Status: Active Protocol: Document 08/15/19 14:11 AW (Rec: 08/15/19 14:43 AW [id number]) Physical Therapy Current Condition Current Condition Evaluation Date 08/15/19 Treatment Diagnosis acute hypoxic and hypercapneic respiratory failure; difficulty in walking Onset Date 08/14/19 M3 PT-IP Subjective Start: 08/15/19 11:43 Freq: NEEDED Status: Active Protocol: Document 08/15/19 14:11 AW (Rec: 08/15/19 14:43 AW [id number]) Subjective Physical Therapy Visit Type Type Initial Evaluation Visit Start Time 13:40 Visit Stop Time 14:09 Total Visit Minutes 29 Physical Therapy Visit Comments Patient Comments Pt is willing to work with PT Patient Goals Pt hopes to discharge home without supplemental O2 Therapy Pain Assessment Pain When Pain Assessed During Mobility Pain Present Pain Present Denied Pain M4 PT-IP Mobility and Gait Start: 08/15/19 11:43 Freq: NEEDED Status: Active Protocol: Document 08/15/19 14:11 AW (Rec: 08/15/19 14:43 AW [id number]) PT-Transfer Assessment Sit to and From Stand Sit to and from Stand Standby Assistance,Use of Upper Extremities Equipment Transfer Assistive Device Gait Belt Orthotic/Prosthetic Devices or Brace: No Transfers Transfer Destination Chair Transfer Technique pt ambulated without AD Transfer Ability Level of Assist Standby Assistance,Use of Upper Extremities Comments Mobility Comments Pt was sitting up in chair upon PT arrival. Supplemental O2 via NC was set at 2L/min flow rate with SpO2 95%. Transferred line to portable tank. BP sitting was 169/73. Pt stood using BUE for pushoff from chair arms SBA. She then ambulated toward the door and into the patel for a total of 60 feet. Pt required CGA for ambulation without AD with increasing unsteadiness and labor of breathing. As she transferred SBA back to the chair, SpO2 was 74%, BP 205/88 . O2 was increased to 3L/min as pt was instructed in pursed lip breathing. SpO2 recovered to 93% after 3 minutes. Pt reported dyspnea rating of 7/ 10 at end of activity. Pt was positioned in the chair and left with nursing. Gait Assessment Gait Gait Assistance Required: Contact Guard Assist Distance (Feet) 60 Assistive Devices Assistive Device Gait Belt Orthotic/Prosthetic Devices or Brace: No Gait Deviations General Gait Pattern Decreased Stride Length, Decreased Feet Clearance, Flexed Trunk,Wide Based Gait Factors Limiting Gait Function Factors Limiting Gait Function Decreased Activity Tolerance, Decreased Strength,Poor Balance,Poor Safety Awareness, Respiratory Distress Comments Gait Comments See mobility comments Stair Climbing Assessment Comments Stair Climbing Comments Not assessed due to respiratory status. PT-Balance Assessment Sitting Balance and Reactions Static Sitting Balance Ability Good Dynamic Sitting Balance Ability Good Standing Balance and Reactions Static Standing Balance Ability Fair Dynamic Standing Balance Ability Poor Device Used none Comments Other Balance Tests/Deviations/Treatment Pt able to withstand : multidirectional balance challenge in standing with forces applied at shoulder and pelvic girdle. Pt had (+) posterior LOB with sternal pushes, requiring min assist to recover. M5 PT-IP Objective Assessments Start: 08/15/19 11:43 Freq: NEEDED Status: Active Protocol: Document 08/15/19 14:11 AW (Rec: 08/15/19 14:43 AW [id number]) Orientation Orientation/Cognition Level of Alertness Alert Orientation Name,Day of Week,Place, Situation Language Function Ability No Deficits Noted Safety Awareness Decreased Safety Awareness Memory Description No Deficits Noted Gross Range of Motion Upper Extremity ROM Assessment Within Functional Limits Strength Upper Extremity Strength Assessment Bilaterally Impaired Shoulder 4-/5 Lower Extremity Strength Assessment Bilaterally Impaired Comments Strength Comments BLE grossly 4-/5 Coordination Assessment Gross Coordination Gross Coordination WNL Sensation Assessment Sensation Gross Sensation WNL Muscle Tone Muscle Tone WNL Yes M6 PT-IP Treatment Start: 08/15/19 11:43 Freq: NEEDED Status: Active Protocol: Document 08/15/19 14:11 AW (Rec: 08/15/19 14:43 AW [id number]) Physical Therapy Treatment Education Education Provided Safety Other Treatments Other Treatment Performed Provided education on role of PT, plan of care, and pursed lip breathing strategies. M7 PT-IP Assessment and Plan Start: 08/15/19 11:43 Freq: NEEDED Status: Active Protocol: Document 08/15/19 14:11 AW (Rec: 08/15/19 14:43 AW [id number]) PT Summary Assessment and Plan Potential Rehabilitation Potential Fair Status of Condition at Evaluation Evolving Summary Impairments ROM,Strength,Balance,Transfers ,Gait,Activity Tolerance Assessment Summary Jeanine is an 84 yo woman admitted with acute hypoxic and hypercapneic respiratory failure. She has COPD but does not use supplemental O2 at home. She lives with her significant other who provides assist with some ADL's. Pt reports independent household ambulation and short community distances without AD. On evaluation, pt completed sit to stand from bedside chair SBA but required CGA for ambulation without AD. On 2L O2 via NC, pt dropped her SpO2 from 93% to 74% during 60 feet ambulation trial. Results were communicated with the RN and ASSOCIATE SOFTWARE APPLICATION ENGINEER. Pt will benefit from continued acute PT to address activity tolerance and to progress her mobility safely. She may also benefit from home health PT to continue addressing these deficits. Goals Bed Mobility Goal Standby Assistance Transfer Goal Independent Gait Goal Independent Gait Distance 120 Other Goals - up/down 4 steps with unilateral rail and SENIOR ASSET MANAGER on opposite side Days to Meet Goals 5 Frequency of Treatment Frequency Of Treatment Once a Day Treatment Plan Physical Therapy Treatment Plan Bed Mobility Training,Transfer Training,Gait Training, Therapeutic Exercise,Balance Retraining,Post Op Education, Discharge Planning,Hot or Cold Pack Other Recommendations and Next Treatment monitor SpO2 and BP; progress Focus gait distance, perhaps with chair follow to allow for multiple short bouts of activity Recommendations To Nursing Amount of Assist Needed 1 Person Assist Discharge Recommendations PT Discharge Recommendations Home with 14/09 Assist,Home Health,Outpatient PT Other Discharge Recommendations Home with HH vs OP PT depending on homebound status Transportation Needs at Discharge Private Vehicle
[2019-08-16] VITALS (10 sets, daily range): BP systolic 125–166; BP diastolic 57–72; PULSE 63–88; RESP 16–24; TEMP 36.1–36.8; O2SAT 94–97
--- NOTE | 2019-08-16 01:06 | PC.NURSE ---
Marketing Account Manager Note: 0030: Awake, resting in bed. Occasional coughing. Remains on O2 2L/NC. IV in place in lt hand. Remains on telemetry. Vital signs stable. Pt is alert, oriented X3.
[2019-08-16 05:12] LABS: Hematocrit 34.3 % (36-46); Mean Corpuscular Hemoglobin 30.9 PG (26-34); Mean Corpuscular Volume 88.2 fL (80-100); Platelet Count 230 X10^3/uL (150-400); Red Blood Cell Count 3.89 X10^6/uL (4.0-5.2); Red Cell Distribution Width 14.8 % (11.6-14.8); White Blood Cell Count 9.4 X10^3/uL (4.5-11.0)
[2019-08-16 05:14] LABS: Alanine Aminotransferase 62 IU/L (<35); Albumin 3.9 g/dL (3.5-5.0); Albumin Globulin Ratio 1.2 (1.0-2.8); Alkaline Phosphatase 72 U/L (38-126); Aspartate Aminotransferase 74 IU/L (14-36); BUN Creatinine Ratio 38.3 (6-22); Bilirubin Total 0.4 mg/dL (0.2-1.3); Blood Urea Nitrogen 44 mg/dL (7-17); Calcium 9.8 mg/dL (8.4-10.2); Carbon Dioxide 32 mmol/L (22-32); Chloride 95 mmol/L (98-107); Globulin 3.2 g/dL (1.7-4.1); Glucose 122 mg/dL (80-110); HEMOLYSIS < 15 (0-50); Magnesium 2.1 mg/dL (1.6-2.3); Phosphorous 5.2 mg/dL (2.8-4.1); Potassium 3.8 mmol/L (3.4-5.1); Sodium 136 mmol/L (137-145); Total Protein 7.1 g/dL (6.3-8.2)
[2019-08-16 05:23] LABS: Add Manual Diff / Slide Review YES
[2019-08-16 05:30] LABS: Procalcitonin 0.17 ng/mL (<0.5)
[2019-08-16] MEDS: ACETAMINOPHEN 325 MG TABLET 650 MG PO (06:23)
[2019-08-16 06:34] LABS: Neutrophils Absolute Manual 7332 /uL (3000-5900); RBC Morphology Normal Morphology; Total Cells Counted 100
[2019-08-16] MEDS: ALBUTEROL/IPRATROPIUM 3 ML AMPUL INH ×2 (07:52→20:21)
[2019-08-16] MEDS: METOPROLOL ER 25 MG TABLET PO ×2 (09:18→20:21)
[2019-08-16] MEDS: CEFTRIAXONE 1 GM/50 ML FROZ.PIGGY IV (09:18)
[2019-08-16] MEDS: ENOXAPARIN 40 MG/0.4 ML SYRINGE SUBCUT (09:18)
[2019-08-16] MEDS: guaiFENesin ER 600 MG TAB PO (09:19)
[2019-08-16] MEDS: FUROSEMIDE 40 MG TABLET 20 MG PO (09:19)
[2019-08-16] MEDS: predniSONE 20 MG TABLET 40 MG PO (09:19)
[2019-08-16] MEDS: LOSARTAN 25 MG TABLET PO (09:20)
[2019-08-16] MEDS: SODIUM CHLORIDE 0.9% FLUSH 10 ML IV ×2 (09:20→20:22)
--- NOTE | 2019-08-16 09:35 | P.PN_ITS ---
Subjective Subjective Date Patient Seen: 08/16/19 Time Patient Seen: 08:45 Interval history: Jeanine Calderon is an 84 year old female with PMH of COPD (not on home o2) who presented with shortness of breath, fever, and productive cough. She remains on a small amount of supplemental oxygen. She complains of feeling still slightly weak but is improving. Her cough is more substantial today which she feels good about as she is starting to clear some of the phlegm. Her blood pressure is more controlled today. She denies any abdominal pain, chest pain, nausea, vomiting. Exam Vital Signs (past 8 hours): - 08/16/19 05:36 08/16/19 07:57 08/16/19 08:00 Temperature 97.4 F L 98.0 F Pulse Rate 74 82 80 Respiratory Rate 16 24 24 Blood Pressure 166/72 H 156/71 H Pulse Oximetry 96 95 96 Fraction of Inspired Oxygen 35 Oxygen Delivery Method Nasal Cannula Oxygen Flow Rate 2 Narrative Exam Narrative: GENERAL APPEARANCE: Well developed, well nourished, elderly female, appears comfortable on nasal cannula today. SKIN: Inspection of the skin reveals no rashes, ulcerations or petechiae. HEENT: Normocephalic atraumatic, extraocular muscles are intact, oropharynx is clear and mucous membranes are moist, neck is supple without adenopathy. NECK: Supple and symmetric. There was no thyroid enlargement, and no tenderness, or masses were felt. No appreciable JVD. CHEST: Normal AP diameter and normal contour without any kyphoscoliosis. LUNGS: Auscultation of the lungs revealed diffuse rhonchi without wheezes. not tachypnic. CARDIOVASCULAR: RRR with mild systolic murmur, no rubs or gallops. ABDOMEN: Soft and nontender with normal bowel sounds. No ascites was noted. MUSCULOSKELETAL: There was no tenderness or effusions noted. Muscle strength and tone were normal. EXTREMITIES: No cyanosis, clubbing. There is minimal peripheral edema. NEUROLOGIC: Alert and oriented x 3. Strength is +5/5 in the Upper Extremities and Lower Extremities Bilaterally. Sensation to touch was normal. Objective Labs Result Diagrams: 08/16/19 04:30 08/16/19 04:30 Labs: Laboratory Results - last 24 hr 08/16/19 08/16/19 08/16/19 04:30 04:30 04:30 WBC 9.4 RBC 3.89 L Hgb 12.0 Hct 34.3 L MCV 88.2 MCH 30.9 MCHC 35.0 RDW 14.8 Plt Count 230 Neut % (Auto) Not Reportable Lymph % (Auto) Not Reportable [place] % (Auto) Not Reportable Eos % (Auto) Not Reportable Baso % (Auto) Not Reportable Lymph # (Auto) Not Reportable [place] # (Auto) Not Reportable Baso # (Auto) Not Reportable Total Counted 100 Seg Neutrophils % 68.0 Band Neutrophils % 10.0 H Lymphocytes % (Manual) 19.0 L Monocytes % (Manual) 3.0 Neutrophils # (Manual) 7332 H RBC Morphology Normal morphology Sodium 136 L Potassium 3.8 Chloride 95 L Carbon Dioxide 32 BUN 44 H Creatinine 1.15 H Estimated GFR 45.0 L BUN/Creatinine Ratio 38.3 H Glucose 122 H Calcium 9.8 Phosphorus 5.2 H Magnesium 2.1 Total Bilirubin 0.4 AST 74 H ALT 62 H Alkaline Phosphatase 72 Total Protein 7.1 Albumin 3.9 Globulin 3.2 Albumin/Globulin Ratio 1.2 Procalcitonin 0.17 Assessment & Plan Assessment & Plan narrative: Jeanine Calderon is an 84 year old female with PMH of COPD (not on home o2) who presented with shortness of breath, fever, and productive cough starting about 3 days prior to admission. She was admitted for acute hypercapnic and hypoxemic respiratory failure likely secondary to multiple etiologies including pneumonia, COPD exacerbation, and possible volume overload versus flash pulmonary edema given hypertension. She has remained on a small amount of supplemental oxygen since yesterday, but continues to desaturate into the mid-80s when off. 1. Acute hypercapnic and hypoxemic respiratory failure, present on admission, hypercapnic portion resolved. - likely multifactorial secondary to viral/bacterial pneumonia, COPD exacerbation, and possible volume overload from flash edema due to hypertension. There is possibly a component of chronic respiratory failure given underlying COPD but no access to outside records at this time. - TTE with hyperdynamic function, in atrial fibrillation during the study unable to assess diastolic dysfunction. - CTA chest Bilateral lower lobe bronchitis with areas of mucous plugging and small peripheral consolidations/atelectasis. No evidence of PE. Multiple R lung nodules thought to be secondary to inflammatory state. - RT eval and treat - continue to wean from O2, goal >88% but also <96% while on supplemental therapy. - patient appears euvolemic and given TTE as noteda above. Stopped IV diuresis and will continue on lasix for BP control with 20 mg daily today, decreased from 40 mg. -continue treatment for COPD exacerbation, given Solu-Medrol 125 mg in the emergency room, will continue 40 mg of prednisone daily for 4 days. -continue treatment for viral versus bacterial pneumonia as noted below -UA unremarkable. -hypertension management as noted below. 2. Bilateral lower lobe pneumonia, acute, present on admission - CTA chest Bilateral lower lobe bronchitis with areas of mucous plugging and small peripheral consolidations/atelectasis. - COVID-19 negative in the ER - viral panel negative. Treat for CAP with ceftriaxone and azithromycin, given Levaquin by ER. Etiology may be viral given negative procalcitonin but given severity of shortness of breath will treat as bacterial. Sputum culture was negative. 3. COPD exacerbation - continue management as noted above. - RT eval and treat - continue duonebs BID, prednisone as noted above. 4. Hypertension, possibly acute, present on admission -patient without a prior diagnosis of hypertension, she is not on any antihypertensive therapy as an outpatient. -will continue to monitor, blood pressure has improved with Lasix therapy. Will continue Lasix and have added losartan. -echocardiogram as noted above 5. Sepsis ruled out. - patient with reported fever to 101, respiratory failure, mild thrombocytopenia. Blood cultures drawn in the ER and patient was given antibiotic therapy. Degree of respiratory failure initially did not seem to match imaging or lab findings at the time but was likely due to flash pulmonary edema given hypertension. 6. new onset atrial fibrillation, paroxysmal. - seen on telemetry and echocardiogram as noted above. - have discussed anticoagulation today given elevated [id number] score and will start apixaban today. - have added metoprolol with improved rate control, Code: DNR Dispo: Anticipate discharge possibly in the next 24-48 hours once off supplemental oxygen. Continue PT. Remains floor care. Quality VTE Deep Vein Thrombosis/Pulmonary Embolism Present on Admission: No
--- NOTE | 2019-08-16 10:01 | OT.IP.EVAL ---
Current Diagnoses Acute respiratory failure with hypercapnia (08/14/19) Occupational Therapy Inpatient Evaluation/Re-Eval M1 PT/OT-IP Prior Functional Status Start: 08/16/19 14:40 Freq: NEEDED Status: Active Protocol: Document 08/16/19 09:00 [facility] (Rec: 08/16/19 15:07 [facility] [id number]) Medical Review Prior Functional Status Medical History Reviewed Yes Diet/Fluid Consistency Regular Communication WNL. Pt is an effective verbal communicator Mobility and Gait Pt states she is independent without AD for household mobility and for short parking lot distances. She fell from stairs 3 days ago but states her last fall prior to that was ~2 years ago. Activities of Daily Living and IADL's Pt lives with her significant other, Richie, who provides occasional assist for pulling on pants. Pt states she wears slip on shoes to avoid needing to ask for help. Richie provides set up and standby assist for showers where pt uses a shower stool. Pt is independent for toileting. She has not driven in over two years. Pt states Richie will be able to assist for anything that she needs. Social History Household Members significant other Living Arrangements House Number of Floors (Floors) One Floor Number of Stairs To Enter/Railing? 4 steep stairs to enter with wide bilateral rails. Pt states stairs are wide enough that she can use one rail and have Richie provide assist on her other side. 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 M3 OT- IP Subjective and Pain Start: 08/16/19 14:40 Freq: Status: Active Protocol: Document 08/16/19 09:00 [facility] (Rec: 08/16/19 15:07 [facility] [id number]) OT- Subjective Occupational Therapy Visit Type Type Initial Evaluation Visit Start Time 09:00 Visit Stop Time 10:01 Total Visit Minutes 61 Occupational Therapy Visit Comments Patient Comments Pt agreed to work with OT and wanting to shower. Patient/Caregiver Goals To go home. OT Pain Assessment Pain When Pain Assessed During Mobility Pain Present Pain Present Pain Reported Location Left Lateral Abdomen Intensity 2 M4 OT- IP ADL's Start: 08/16/19 14:40 Freq: Status: Active Protocol: Document 08/16/19 09:00 [facility] (Rec: 08/16/19 15:07 [facility] [id number]) OT [id number]-[id number] General Evaluation Self-Feeding Ability Independent OT ADL-Grooming Comments OT Grooming Comments Pt able to stand to wash her hand at the sink . OT ADL-Dressing General Eval Lower Body Dressing Ability Moderate Assistance Areas Needing Assistance Underpants/Brief Comments OT Dressing Comments FIORELLA to help ajit brief over her feet and up over her hips. OT ADL-Toileting General Evaluation Toileting Ability Moderate Assistance Areas Needing Assistance Perform Perineal Hygiene Comments OT Toileting Comments MODA for completeness after a bowel movement. Pt states wanting to look at getting a bidet again at home. Pt states Richie would be willing to assist her is needed. OT ADL-Bathing General Evaluation Bathing Ability Moderate Assistance Areas Needing Assistance Wash/Dry Back,Wash/Dry Perineal Area,Wash/Dry Lower Extremities Devices Bathing Equipment Hand Held Shower Sprayer, Shower Chair without Arms,Grab Bars Comments OT Bathing Comments Pt O2 on 2L drops to 85% and able to recover after one minute rest to 91% while showering. Pt needing assist for completeness for hygiene needs and assist to wash/dry her back and feet. M5 OT- IP IADL's Start: 08/16/19 14:40 Freq: Status: Active Protocol: Document 08/16/19 09:00 [facility] (Rec: 08/16/19 15:07 [facility] [id number]) OT-Instrumental Activities of Daily Living Home Safety Awareness Awareness of Need for Assistance at Home Good Awareness Ability to Problem Solve Emergency Able to Problem Solve Situations Medication Management Medication Management No Deficits Identified Meal Preparation Meal Preparation Caregiver Provides Assist Bus Person Bus Person Caregiver Provides Assist Driving Driving Caregiver Provides Assist M6 OT- IP Functional Cognition Start: 08/16/19 14:40 Freq: Status: Active Protocol: Document 08/16/19 09:00 [facility] (Rec: 08/16/19 15:07 [facility] [id number]) Cognitive Factors Limiting Selfcare Function Cognitive Ability Level of Alertness Alert Patient Orientation Name,Place,Situation Attention Span Ability Capable of Focused Attention, Capable of Sustained Attention Ability to Follow Commands Able to Follow Multi-Step Commands Cognitive Comments Cognitive Assessment Comments Pt appears to be at baseline for cognitive needs. OT- Vision and Hearing OT- Hearing Assessment OT- Hearing Assessment WFL OT- Vision Assessment Visual Acuity Glasses All The Time M7 OT- IP Mobility and Balance Start: 08/16/19 14:40 Freq: Status: Active Protocol: Document 08/16/19 09:00 [facility] (Rec: 08/16/19 15:07 [facility] [id number]) OT- Bed Mobility Assessment Supine to Sit Supine to Sit Assist Standby Assistance OT-Transfer Assessment Sit to and From Stand Sit to and from Stand Contact Guard Assistance Transfers Transfer Ability Contact Guard Assistance Technique Transfer Destination Bed,Chair,Shower Stall,Toilet Transfer Technique Stand Step Pivot Devices Transfer Assistive Devices Gait Belt Comments Mobility Comments CGA while pt able to walk to the bathroom and occasional assist to hold to the wall and grab bar for balance to help get into the shower. OT- Balance Assessment Sitting Balance and Reactions Static Sitting Balance Ability Normal Dynamic Sitting Balance Ability Good Standing Balance and Reactions Static Standing Balance Ability Good Dynamic Standing Balance Ability Fair M8 OT- IP Objective Assessments Start: 08/16/19 14:40 Freq: Status: Active Protocol: Document 08/16/19 09:00 [facility] (Rec: 08/16/19 15:07 [facility] [id number]) OT Gross Range of Motion Upper Extremity Range of Motion Assessment Right Impaired OT Strength Comments Strength Comments RUE 3-/5 to 4-/5 LUE 4-/5 OT-Muscle Tone Assessment Muscle Tone WNL Yes M9 OT- IP Assessment and Plan Start: 08/16/19 14:40 Freq: Status: Active Protocol: Document 08/16/19 09:00 [facility] (Rec: 08/16/19 15:07 [facility] [id number]) OT Summary Assessment and Plan Potential Rehabilitation Potential Good Analytic Complexity at Evaluation Low Summary OT Impairments Balance,Functional Mobility, Dressing,Toileting,Bathing, Toilet Transfers,Shower Transfers,Activity Tolerance Progress Towards Goals Slow Progress due to Medical Issues,Slow Progress due to Activity Tolerance Assessment Summary Pt low complexity and main barrier is decreased activity tolerance now needing use of O2 -2L. Pt now needing assist for ADL's for LB dressing , completeness for hygiene after toileting and assist for bathing. Able to educate and go through energy conservation strategies that pt can incorporate at home. Also encouraged pt to use and practice deep breathing and use of the spirometer. Pt states has a supportive significant other that is able to assist her at home. When medically stable, pt to go home. Goals Grooming Goal Independent Dressing Goal Standby Assistance Toileting Goal Minimal Assistance Bathing Goal Minimal Assistance Toilet Transfer Goal Standby Assistance Shower Transfer Goal Contact Guard Assistance Patient/Caregiver Education Goal Demonstrate Energy Conservation and Pacing Days to Meet Goals 3 Frequency of Treatment Frequency Of Treatment Once a Day Treatment Plan OT Treatment Plan ADL Training,Functional Mobility,Patient/Family Education,Discharge Planning Other Treatment Recommendations and Next Pt to be independent to do Treatment Focus grooming needs while standing and keep O2 above 90% on RA. Discharge Recommendations OT Discharge Recommendations Home with Assistance Transportation Needs at Discharge Private Vehicle
[2019-08-16] MEDS: AZITHROMYCIN 500 MG in DEXTROSE 5% IN WATER 250 ML IV (10:48)
[2019-08-16] MEDS: APIXABAN 5 MG TABLET PO ×2 (10:48→20:22)
--- NOTE | 2019-08-16 11:57 | PT.IPTN ---
Current Diagnoses Acute respiratory failure with hypercapnia (08/14/19) Physical Therapy Treatment Note M2 PT-IP Current Condition Start: 08/15/19 11:43 Freq: NEEDED Status: Active Protocol: Document 08/15/19 14:11 AW (Rec: 08/15/19 14:43 AW [id number]) Physical Therapy Current Condition Current Condition Evaluation Date 08/15/19 Treatment Diagnosis acute hypoxic and hypercapneic respiratory failure; difficulty in walking Onset Date 08/14/19 M3 PT-IP Subjective Start: 08/15/19 11:43 Freq: NEEDED Status: Active Protocol: Document 08/16/19 11:43 HH (Rec: 08/16/19 11:57 HH [id number]) Subjective Physical Therapy Visit Type Type Treatment Note Visit Start Time 11:20 Visit Stop Time 11:36 Total Visit Minutes 16 Physical Therapy Visit Comments Patient Comments Pt is willing to work with PT. I feel pretty good today after taking a shower with OT help Therapy Pain Assessment Pain When Pain Assessed During Mobility Pain Present Pain Present Denied Pain M4 PT-IP Mobility and Gait Start: 08/15/19 11:43 Freq: NEEDED Status: Active Protocol: Document 08/16/19 11:43 HH (Rec: 08/16/19 11:57 HH [id number]) PT-Transfer Assessment Sit to and From Stand Sit to and from Stand Standby Assistance,Use of Upper Extremities Equipment Transfer Assistive Device Gait Belt Orthotic/Prosthetic Devices or Brace: No Transfers Transfer Destination Chair Transfer Technique pt ambulated without AD Transfer Ability Level of Assist Standby Assistance,Use of Upper Extremities Comments Mobility Comments Pt was in chair upon PT arrival. BP at 140/67 SpO2 94% with 2L O2 via NC. Pt agreed to mobilize with PT (using portable O2 tank). She was able to stand up without UE assistance. Pt then amb with IV pole support and this PT carried portable O2 tank. Pt was able to amb half of the [facility] for approx 60-70 ft without O2 supply. Pt 's SpO2 then dropped down to 85%. Provided 2L O2 at her first stop and pt took approx 1mins to return to 90%. Pt then returned to her room and she was c/o her legs are getting fatigue. She was able to safely return to her chair with SBA and BP was at 125/57 SpO2 at 88%, followed by 1 min recovery to 95%. Pt did c/o slight lightheadiness after amb but resolved after resting in chair. Call light placed within reach. Notified RN regarding pt's performance. Gait Assessment Gait Gait Assistance Required: Standby Assistance Distance (Feet) 110 Assistive Devices Assistive Device Gait Belt Orthotic/Prosthetic Devices or Brace: No Gait Deviations General Gait Pattern Decreased Stride Length, Decreased Feet Clearance, Flexed Trunk,Wide Based Gait Factors Limiting Gait Function Factors Limiting Gait Function Decreased Activity Tolerance, Decreased Strength,Poor Balance,Poor Safety Awareness, Respiratory Distress Comments Gait Comments from room chair to ICU floor sign and returned (total 110 ft) pt stopped at 6x feet for rest. Stair Climbing Assessment Comments Stair Climbing Comments Not assessed due to respiratory status. M5 PT-IP Objective Assessments Start: 08/15/19 11:43 Freq: NEEDED Status: Active Protocol: Document 08/15/19 14:11 AW (Rec: 08/15/19 14:43 AW [id number]) Orientation Orientation/Cognition Level of Alertness Alert Orientation Name,Day of Week,Place, Situation Language Function Ability No Deficits Noted Safety Awareness Decreased Safety Awareness Memory Description No Deficits Noted Gross Range of Motion Upper Extremity ROM Assessment Within Functional Limits Strength Upper Extremity Strength Assessment Bilaterally Impaired Shoulder 4-/5 Lower Extremity Strength Assessment Bilaterally Impaired Comments Strength Comments BLE grossly 4-/5 Coordination Assessment Gross Coordination Gross Coordination WNL Sensation Assessment Sensation Gross Sensation WNL Muscle Tone Muscle Tone WNL Yes M6 PT-IP Treatment Start: 08/15/19 11:43 Freq: NEEDED Status: Active Protocol: Document 08/15/19 14:11 AW (Rec: 08/15/19 14:43 AW [id number]) Physical Therapy Treatment Education Education Provided Safety Other Treatments Other Treatment Performed Provided education on role of PT, plan of care, and pursed lip breathing strategies. M7 PT-IP Assessment and Plan Start: 08/15/19 11:43 Freq: NEEDED Status: Active Protocol: Document 08/16/19 11:43 HH (Rec: 08/16/19 11:57 HH [id number]) PT Summary Assessment and Plan Potential Rehabilitation Potential Good Status of Condition at Evaluation Evolving Summary Impairments ROM,Strength,Balance,Transfers ,Gait,Activity Tolerance Assessment Summary Jeanine shows some improved amb distance and respiratory endurance today. Pt initially amb 60-70 ft without O2 but went down to 85% and needed 1min for recovery. Her BP also went down 20 points after amb but able to recover after sitting rest. Pt cont to need supplemental oxygen for any activity and constant cues for pursed lip breathing. Home health with PT, along with O2 therapy will still be a better option for her upon D/C d/t limited activity tolerance. Goals Bed Mobility Goal Standby Assistance Transfer Goal Independent Gait Goal Independent Gait Distance 120 Other Goals - up/down 4 steps with unilateral rail and FACILITY ENVIRONMENTAL TECHNICIAN on opposite side Days to Meet Goals 5 Frequency of Treatment Frequency Of Treatment Once a Day Treatment Plan Physical Therapy Treatment Plan Bed Mobility Training,Transfer Training,Gait Training, Therapeutic Exercise,Balance Retraining,Post Op Education, Discharge Planning,Hot or Cold Pack Other Recommendations and Next Treatment monitor SpO2 and BP; progress Focus gait distance, perhaps with chair follow to allow for multiple short bouts of activity Recommendations To Nursing Amount of Assist Needed 1 Person Assist Discharge Recommendations PT Discharge Recommendations Home with 24/ Assist,Home Health,Outpatient PT Other Discharge Recommendations Home with HH vs OP PT depending on homebound status Transportation Needs at Discharge Private Vehicle
--- NOTE | 2019-08-16 14:11 | PC.NURSE ---
Pt doing better today. Still requiring O2. Ambulated without O2 during physical therapy session and had desats to 85% on RA. Was able to recover after a couple of minutes of rest and O2 at 2L NC. VSS, afebrile, SR. Started on apixiban for paroxysmal a fib today. Educated pt to med. She verbalizes understanding.
--- NOTE | 2019-08-16 21:45 | PC.NURSE ---
Patient moved from 230 to 209. Report given to SUGEY Mccarthy. Patient's belongings transferred with patient.
--- NOTE | 2019-08-16 23:45 | PC.NURSE ---
Patient is alert and oriented. Breath sounds diminished throughout with short expiratory phase and has some expiratory wheezes in bilateral upper lobes anteriorly. Oxygen at 1L/min per NC with sat of 94%. States she gets SOB with activity but denies at rest. HRR with last telemetry reading of SR. BP elevated at 153/17. Denies nausea. BT present and abdomen is soft. Denies dysuria, frequency or urgency; voiding on toilet. Is able to turn herself and is provided SBA when out of bed. Bruising noted on bilateral UE, right buttock and right side of buttock crease. Reports having fallen recently so fall risk score is high and bed alarm is activated. Complains of generalized pain rating severity as 3/10 but states it is only irritating and declines pain medication. Refusing to wear SCD's so educated on DVT prevention and ankle waving.
[2019-08-17 04:00] VITALS: BP 152/74; PULSE 83; RESP 22; TEMP 36.4; O2SAT 97
[2019-08-17 05:38] VITALS: BMI 37.0
[2019-08-17 07:18] LABS: Hematocrit 36.8 % (36-46); Hemoglobin 12.6 g/dL (12.0-16.0); Mean Corpuscular HGB Conc 34.3 % (30-36); Mean Corpuscular Hemoglobin 30.7 PG (26-34); Mean Corpuscular Volume 89.5 fL (80-100); Platelet Count 254 X10^3/uL (150-400); Red Blood Cell Count 4.12 X10^6/uL (4.0-5.2); Red Cell Distribution Width 14.6 % (11.6-14.8); White Blood Cell Count 8.9 X10^3/uL (4.5-11.0)
[2019-08-17 07:19] LABS: Magnesium 1.9 mg/dL (1.6-2.3); Phosphorous 4.6 mg/dL (2.8-4.1)
[2019-08-17 07:21] LABS: Add Manual Diff / Slide Review YES
[2019-08-17 07:35] LABS: Procalcitonin 0.07 ng/mL (<0.5)
[2019-08-17 07:46] LABS: Neutrophils Absolute Manual 6853 /uL (3000-5900); RBC Morphology Normal Morphology; Total Cells Counted 100
[2019-08-17 07:47] LABS: BUN Creatinine Ratio 45.3 (6-22); Blood Urea Nitrogen 48 mg/dL (7-17); Calcium 9.9 mg/dL (8.4-10.2); Carbon Dioxide 35 mmol/L (22-32); Chloride 98 mmol/L (98-107); Estimated Glomerular Filt Rate 49.4 mL/min (>60); Glucose 104 mg/dL (80-110); HEMOLYSIS < 15 (0-50); Potassium 3.9 mmol/L (3.4-5.1); Sodium 139 mmol/L (137-145)
--- NOTE | 2019-08-17 07:57 | PC.NURSE ---
Day Shift Placed pt on pulse ox and room air, sats down to 83-84%. Placed back on 1L and sats recovered to 93-94%. will try to wean again later today.
[2019-08-17 08:05] VITALS: BP 143/73; PULSE 82; RESP 17; O2SAT 97
--- NOTE | 2019-08-17 09:34 | PT.IPTN ---
Current Diagnoses Acute respiratory failure with hypercapnia (08/14/19) Physical Therapy Treatment Note M2 PT-IP Current Condition Start: 08/15/19 11:43 Freq: NEEDED Status: Active Protocol: Document 08/15/19 14:11 AW (Rec: 08/15/19 14:43 AW [id number]) Physical Therapy Current Condition Current Condition Evaluation Date 08/15/19 Treatment Diagnosis acute hypoxic and hypercapneic respiratory failure; difficulty in walking Onset Date 08/14/19 M3 PT-IP Subjective Start: 08/15/19 11:43 Freq: NEEDED Status: Active Protocol: Document 08/17/19 10:15 SP (Rec: 08/17/19 10:47 SP [email or web address]) Subjective Physical Therapy Visit Type Type Treatment Note Visit Start Time 09:02 Visit Stop Time 09:32 Total Visit Minutes 30 Notes in room Min assist with mobility with cuing from therapist gait and stairs. Number of FURNITURE ASSEMBLER Visits 1 Physical Therapy Visit Comments Patient Comments Pt is willing to work with therapy. Therapy Pain Assessment Pain When Pain Assessed During Mobility Pain Present Pain Present Denied Pain M4 PT-IP Mobility and Gait Start: 08/15/19 11:43 Freq: NEEDED Status: Active Protocol: Document 08/17/19 10:15 SP (Rec: 08/17/19 10:47 SP [email or web address]) PT-Bed Mobility Assessment Supine to Sit Supine to Sit Moderate Assistance,1 Person Assistance Scooting Scooting to Edge of Bed Contact Guard Assistance PT-Transfer Assessment Sit to and From Stand Sit to and from Stand Contact Guard Assistance,1 Person Assistance,Use of Upper Extremities Equipment Transfer Assistive Device Gait Belt,Front Wheeled Walker Orthotic/Prosthetic Devices or Brace: No Transfers Transfer Destination Chair,Wheelchair Transfer Technique Pt ambulated using FWW Transfer Ability Level of Assist Contact Guard Assistance,1 Person Assistance,Use of Upper Extremities Comments Mobility Comments Pt was elevated supine in bed when arrived. 92% on 1 L supplimental O2 supine rested. supine>sitting HOB flat to assimulated home Mod A for trunk righting by therapist, Richie observed, declined to assist patient. Encouraged to don gait belt for caregiver trainging stating I know how to do that you just do it. FURNITURE ASSEMBLER donned gait belt patient in sitting assessed SaO2 87% on 2 L educated purse lip breathing nursing and respiratory arrived in room for assessment as well. Increased O2 to 3 L with 5 min breathing recovered to low 90s. Pt sit to stand CGA usign FWW ambulated using CGA to w /c in hallway approx 15 ft with max cuign for keeping FWW on floor and not curing pickling packer walking for safety and cuinng for CG gait belt for safety. FURNITURE ASSEMBLER managed O2 tank and tubing. Pt destated to 86 % recovered persed lip breathing on 4 L low 90s. Pt ascend/descend 3 stairs R HR and DROP CLIPPER provided by and tubing mgt step to gait CGA- Min A. Pt requires CGA and cuign for spacial awareness and proper breathing during pivot turn using FWW to sit in w/c, destated to 77% on 4 L 5 min to recovery low 90s. Pt wheeled back to room and SPT to chair using FWW CGA and assist for tubign mgt. Respiratory and nursing arrived again to discuss will be back to provide breathing treatment. Pt was up in chair with call light and all needs in reach, in room before left. Gait Assessment Gait Gait Assistance Required: Contact Guard Assist,1 Person Assist Distance (Feet) 15 Able to Maintain Weight Bearing Status Yes During Gait Assistive Devices Assistive Device Gait Belt Orthotic/Prosthetic Devices or Brace: No Gait Deviations General Gait Pattern Decreased Stride Length, Decreased Feet Clearance, Flexed Trunk,Wide Based Gait Factors Limiting Gait Function Factors Limiting Gait Function Decreased Activity Tolerance, Decreased Strength,Poor Balance,Poor Safety Awareness, Respiratory Distress Comments Gait Comments see mobility comments. Stair Climbing Assessment Evaluation Level of Assist On Stairs Contact Guard Assistance, Minimal Assistance,1 Person Assistance Devices Stair Climbing Assistive Devices Right Railing Technique/Endurance Stair Climbing Direction Ascend and Descend Stair Climbing Technique Step to Step Number of Steps Climbed 3 Stair Climbing Set # Repetitions (reps) 1 Comments Stair Climbing Comments see mobility comments, able to complete 3 of 4 stairs at home, demonstrated respiratory distress so didn't complete 4th stair mgt. Pt would benefit from further caregiver training, gait and stair mgt pre DC. PT-Balance Assessment Sitting Balance and Reactions Static Sitting Balance Ability Normal Dynamic Sitting Balance Ability Good Standing Balance and Reactions Static Standing Balance Ability Good Dynamic Standing Balance Ability Fair Device Used FWW M5 PT-IP Objective Assessments Start: 08/15/19 11:43 Freq: NEEDED Status: Active Protocol: Document 08/15/19 14:11 AW (Rec: 08/15/19 14:43 AW [id number]) Orientation Orientation/Cognition Level of Alertness Alert Orientation Name,Day of Week,Place, Situation Language Function Ability No Deficits Noted Safety Awareness Decreased Safety Awareness Memory Description No Deficits Noted Gross Range of Motion Upper Extremity ROM Assessment Within Functional Limits Strength Upper Extremity Strength Assessment Bilaterally Impaired Shoulder 4-/5 Lower Extremity Strength Assessment Bilaterally Impaired Comments Strength Comments BLE grossly 4-/5 Coordination Assessment Gross Coordination Gross Coordination WNL Sensation Assessment Sensation Gross Sensation WNL Muscle Tone Muscle Tone WNL Yes M6 PT-IP Treatment Start: 08/15/19 11:43 Freq: NEEDED Status: Active Protocol: Document 08/17/19 10:15 SP (Rec: 08/17/19 10:47 SP [id number]) Physical Therapy Treatment Education Education Provided Safety Other Treatments Other Treatment Performed Pruse lip breathing to assist O2 saturation. M7 PT-IP Assessment and Plan Start: 08/15/19 11:43 Freq: NEEDED Status: Active Protocol: Document 08/17/19 10:15 SP (Rec: 08/17/19 10:47 SP [id number]) PT Summary Assessment and Plan Potential Rehabilitation Potential Good Status of Condition at Evaluation Evolving Summary Impairments ROM,Strength,Balance,Transfers ,Gait,Activity Tolerance Assessment Summary Pt cont to need supplemental up to 4 L oxygen for any activity and constant cues for pursed lip breathing. Home health with PT, along with O2 therapy will still be a better option for her upon D/C d/t limited activity tolerance. Goals Bed Mobility Goal Standby Assistance Transfer Goal Independent Gait Goal Independent Gait Distance 120 Other Goals - up/down 4 steps with unilateral rail and DROP CLIPPER on opposite side Days to Meet Goals 5 Frequency of Treatment Frequency Of Treatment Once a Day Treatment Plan Physical Therapy Treatment Plan Bed Mobility Training,Transfer Training,Gait Training, Therapeutic Exercise,Balance Retraining,Post Op Education, Discharge Planning,Hot or Cold Pack Other Recommendations and Next Treatment monitor SpO2 and BP; progress Focus gait distance, perhaps with chair follow to allow for multiple short bouts of activity, CGT and stair trng 4 stairs. Recommendations To Nursing Amount of Assist Needed Standby Assistance Discharge Recommendations PT Discharge Recommendations Home with 24/7 Assist,Home Health,Outpatient PT Other Discharge Recommendations Home with HH vs OP PT depending on homebound status Transportation Needs at Discharge Private Vehicle
[2019-08-17 10:16] VITALS: PULSE 81; RESP 20; O2SAT 92
[2019-08-17] MEDS: SODIUM CHLORIDE 0.9% FLUSH 10 ML IV (10:40)
[2019-08-17] MEDS: APIXABAN 5 MG TABLET PO (10:55)
[2019-08-17] MEDS: FUROSEMIDE 40 MG TABLET 20 MG PO (10:55)
[2019-08-17] MEDS: CEFTRIAXONE 1 GM/50 ML FROZ.PIGGY IV (10:55)
[2019-08-17] MEDS: METOPROLOL ER 25 MG TABLET PO (10:55)
[2019-08-17] MEDS: predniSONE 20 MG TABLET 40 MG PO (10:55)
--- NOTE | 2019-08-17 10:57 | OT.IP.TRT ---
Current Diagnoses Acute respiratory failure with hypercapnia (08/14/19) Occupational Therapy Treatment Note M2 OT-IP Current Condition Start: 08/16/19 14:40 Freq: Status: Active Protocol: Document 08/16/19 09:00 [facility] (Rec: 08/16/19 15:07 [facility] [id number]) Occupational Therapy Current Condition Current Condition Evaluation Date 08/16/19 Treatment Diagnosis Acute hypoxic/hypercapenic respiratory failure Diagnosis Onset Date 08/14/19 Post Operative Precautions Other Precautions Pt on 3L of O2. M3 OT- IP Subjective and Pain Start: 08/16/19 14:40 Freq: Status: Active Protocol: Document 08/17/19 11:02 [facility] (Rec: 08/17/19 11:12 [facility] [id number]) OT- Subjective Occupational Therapy Visit Type Type Treatment Note Visit Start Time 10:45 Visit Stop Time 10:57 Total Visit Minutes 12 Occupational Therapy Visit Comments Patient Comments Pt wanting to use the bathroom . Patient/Caregiver Goals To go home. OT Pain Assessment Pain When Pain Assessed At Rest Pain Present Pain Present Denied Pain M4 OT- IP ADL's Start: 08/16/19 14:40 Freq: Status: Active Protocol: Document 08/17/19 11:02 [facility] (Rec: 08/17/19 11:12 [facility] [id number]) OT ADL-Grooming General Evaluation Grooming Ability Independent Comments OT Grooming Comments Able to stand at the sink with O2 tank. OT ADL-Toileting General Evaluation Toileting Ability Minimal Assistance Areas Needing Assistance Perform Perineal Hygiene Comments OT Toileting Comments Pt able to wipe from the front and needing FIORELLA for completeness from the back. Pt states has not been able to ask her significant to get a bidet as prior she had used one before. Pt states, Richie will be able to assist and aware of toilet paper aid if needed. M5 OT- IP IADL's Start: 08/16/19 14:40 Freq: Status: Active Protocol: Document 08/16/19 09:00 [facility] (Rec: 08/16/19 15:07 [facility] [id number]) OT-Instrumental Activities of Daily Living Home Safety Awareness Awareness of Need for Assistance at Home Good Awareness Ability to Problem Solve Emergency Able to Problem Solve Situations Medication Management Medication Management No Deficits Identified Meal Preparation Meal Preparation Caregiver Provides Assist Chainer Chainer Caregiver Provides Assist Driving Driving Caregiver Provides Assist M6 OT- IP Functional Cognition Start: 08/16/19 14:40 Freq: Status: Active Protocol: Document 08/17/19 11:02 [facility] (Rec: 08/17/19 11:12 [facility] [id number]) Cognitive Factors Limiting Selfcare Function Cognitive Comments Cognitive Assessment Comments Pt appears to be at baseline for cognitive needs. Pt had good safety awareness to manage O2 lines while walking in the room from the recliner to bathroom,sink , and back to the recliner. M7 OT- IP Mobility and Balance Start: 08/16/19 14:40 Freq: Status: Active Protocol: Document 08/17/19 11:02 [facility] (Rec: 08/17/19 11:12 [facility] [id number]) OT-Transfer Assessment Sit to and From Stand Sit to and from Stand Standby Assistance Transfers Transfer Ability Standby Assistance Technique Transfer Destination Bed,Chair,Toilet Transfer Technique Stand Step Pivot Comments Mobility Comments SBA while pt able to walk with O2 tank in the room with good safety for O2 management needs during ADl's. OT- Balance Assessment Sitting Balance and Reactions Static Sitting Balance Ability Normal Dynamic Sitting Balance Ability Normal Standing Balance and Reactions Static Standing Balance Ability Normal Dynamic Standing Balance Ability Good M8 OT- IP Objective Assessments Start: 08/16/19 14:40 Freq: Status: Active Protocol: Document 08/16/19 09:00 [facility] (Rec: 08/16/19 15:07 [facility] [id number]) OT Gross Range of Motion Upper Extremity Range of Motion Assessment Right Impaired OT Strength Comments Strength Comments RUE 3-/5 to 4-/5 LUE 4-/5 OT-Muscle Tone Assessment Muscle Tone WNL Yes M9 OT- IP Assessment and Plan Start: 08/16/19 14:40 Freq: Status: Active Protocol: Document 08/17/19 11:02 [facility] (Rec: 08/17/19 11:12 [facility] [id number]) OT Summary Assessment and Plan Potential Rehabilitation Potential Good Analytic Complexity at Evaluation Low Summary OT Impairments Functional Mobility,Dressing, Toileting,Bathing,Shower Transfers,Activity Tolerance Progress Towards Goals Progressing Toward Goals Assessment Summary Pt O2 level on 3L drops with exertion to 85% and then able to recover quickly after one minute to 94% on 3L. Pt looking to go home and may need O2 at this time. Pt has a supportive significant other to assist with needs at home and pt has good understanding for energy conservation and safety needs. Goals Days to Meet Goals 1 Frequency of Treatment Frequency Of Treatment Once a Day Treatment Plan OT Treatment Plan ADL Training,Functional Mobility,Patient/Family Education,Discharge Planning Other Treatment Recommendations and Next Pt to be independent to do Treatment Focus grooming needs while standing and keep O2 above 90% on RA. Discharge Recommendations OT Discharge Recommendations Home with Assistance Transportation Needs at Discharge Private Vehicle
--- NOTE | 2019-08-17 11:27 | RT ---
Addendum entered by RT Elvin 08/17/19 13:09: Patient requires NC/1-2LPM at rest and 3LPM with ambulation. Original Note: 08/17/2019 1030. OXYGEN DISCHARGE HOME EVALUATION: Patient evaluated post treatment for immanent home discharge with oxygen per nasal cannula. RA at rest 86%. NC/1 LPM at rest 91%. Standing by chair: NC/1LPM 87%. NC/2LPM 91%. Ambulation greater than 150 ft with oxygen NC/2LPM 84%. NC/3LPM 91%. Patient will require continuous oxygen per NC/1 LPM at rest; at 2LPM when up; at 3LPM with ambulation or exercise. Jovani Baldwin, METAL OFF BEARER Respiratory Care.
[2019-08-17 12:17] VITALS: BP 147/63; PULSE 83; RESP 18; TEMP 35.8; O2SAT 95
[2019-08-17 12:40] VITALS: BP 139/48; PULSE 82
[2019-08-17] MEDS: LOSARTAN 25 MG TABLET PO (12:40)
[2019-08-17] MEDS: AZITHROMYCIN 500 MG in DEXTROSE 5% IN WATER 250 ML IV (12:40)
--- NOTE | 2019-08-17 14:34 | P.DS_ITS ---
History of Present Illness History of Present Illness Date Patient Seen: 08/17/19 Time Patient Seen: 14:34 Chief complaint: Cough, fever, SOB Narrative: Jeanine Calderon is an 84 year old female with PMH of COPD (not on home o2) who presented with shortness of breath, fever, and productive cough starting about 3 days ago. She also states she has had a high fever to 101 at home with chillls. She denies nausea, vomiting, or diarrhea. She does not know what color her sputum was. She has not had any abdominal pain, but did endorse dysuria on arrival to the floor. She reported a fall when this started falling backwards and landing on her buttocks because she was so weak. With EMS she was hypoxic in the mid 70s and short of breath, she improved with non-rebreather. On arrival in the emergency room, she was tachypnic, hypertensive, and tachycardic. She underwent XR which showed diffuse patchy opacitites, CTA showed no PE, but bilateral lower lobe mucous plugging and small consolidations. She has multiple right sided lung nodules thought to possibly be inflammatory. Blood cultures were obtained. Initial blood gas showed a pH of 7.3, CO2 of 64, PO2 of 445. Repeat gas showing 7.31/55.9/88. D-dimer was 747. Pro-BNP of 1200. Troponin 0.025. Patient was given fluid bolus which appeared to make her more short of breath. She was initially on HFNC increased to BIPAP before transfer to the ICU. Her COVID-19 was negative. EKG was not performed in the emergency room. Patient has been ordered for 1, but does not complain of any current chest pain. Discharge Providers Provider Date of admission: 08/14/19 10:36 Discharge Date: 08/17/19 Primary care physician: Dominic Alexis MD Consults: 08/14/19 11:45 Consult to Respiratory Therapy Evaluate & Treat Comment: Physician Instructions: Evaluate and treat 08/15/19 11:26 Consult to Occupational Therapy Evaluate & Treat Comment: Physician Instructions: Evaluate and treat Consult to Physical Therapy Evaluate & Treat Comment: Physician Instructions: Evaluate and Treat Discharge provider: Doug Joy DO Summary Hospital Course Discharge Diagnosis: Please see hospital course by problem list noted below. Hospital Course: Jeanine Calderon is an 84 year old female with PMH of COPD (not on home o2 usually) who presented with shortness of breath, fever, and productive cough starting about 3 days prior to admission. She was admitted for acute hypercapnic and hypoxemic respiratory failure likely secondary to multiple etiologies including pneumonia, COPD exacerbation, and possible volume overload versus flash pulmonary edema given hypertension. She has remained on a small amount of supplemental oxygen and was feeling stronger by the date of discharge. She was ultimately discharged home with home O2 given her slow, but steady improvement in oxygen requirements and anticipation that oxygen therapy will hopefully be short-lived. 1. Acute hypercapnic and hypoxemic respiratory failure, present on admission, hypercapnic portion resolved. - likely multifactorial secondary to viral/bacterial pneumonia, COPD exacerbation, and possible volume overload from flash edema due to hypertension. There is possibly a component of chronic respiratory failure given underlying COPD but no access to outside records at this time. - TTE with hyperdynamic function, in atrial fibrillation during the study unable to assess diastolic dysfunction. - CTA chest Bilateral lower lobe bronchitis with areas of mucous plugging and small peripheral consolidations/atelectasis. No evidence of PE. Multiple R lung nodules thought to be secondary to inflammatory state. Recommend repeating imaging after resolution of pneumonia in a few months. - RT eval and treat - continue to wean from O2, goal >88% but also <96% while on supplemental therapy. - patient appears euvolemic and given TTE as noteda above. Stopped IV diuresis and will continue on lasix for BP control with 20 mg daily, decreased from 40 mg during hospital stay. -continue treatment for COPD exacerbation, given Solu-Medrol 125 mg in the emergency room, will continue 40 mg of prednisone daily for 4 days total and will complete therapy at home.. -continue treatment for viral versus bacterial pneumonia as noted below -UA unremarkable. -hypertension management as noted below. 2. Bilateral lower lobe pneumonia, acute, present on admission - CTA chest Bilateral lower lobe bronchitis with areas of mucous plugging and sm all peripheral consolidations/atelectasis. - COVID-19 negative in the ER - viral panel negative. Treated for CAP with ceftriaxone and azithromycin, given Levaquin by ER. Etiology may be viral given negative procalcitonin but given severity of shortness of breath will treat as bacterial. Sputum culture was negative. Patient will be discharged on cefdinir and doxycycline for an additional 4 days of antibiotic therapy (7 days total). 3. COPD exacerbation, acute, present on admission. - continue management with prior home medications. - appreciate respiratory therapy assistance. - continued duonebs BID, prednisone as noted above while hospitalized. 4. Hypertension, possibly acute, present on admission -patient without a prior diagnosis of hypertension, she was not on any antihypertensive therapy as an outpatient. - Will continue Lasix and have added losartan upon discharge as well as meto prolol for atrial fibrillation. -echocardiogram as noted above 5. Sepsis ruled out. - patient with reported fever to 101, respiratory failure, mild thrombocytopenia. Blood cultures drawn in the ER and patient was given antibiotic therapy. Degree of respiratory failure initially did not seem to [facility] imaging or lab findings at the time but was likely due to flash pulmonary edema given hypertension. 6. new onset atrial fibrillation, paroxysmal. - seen on telemetry and echocardiogram as noted above. - have discussed anticoagulation today given elevated [id number] score and have started apixaban therapy. - have added metoprolol with improved rate control as well. Dispo: patient was discharged home with supplemental oxygen. Time Spent with Patient Time spent: Greater than 30 minutes Exam Vital Signs (past 8 hours): - 08/17/19 08:05 08/17/19 10:16 08/17/19 12:17 Temperature 96.4 F L Pulse Rate 82 81 83 Respiratory Rate 17 20 18 Blood Pressure 143/73 H 147/63 H Pulse Oximetry 97 92 95 08/17/19 12:40 Temperature Pulse Rate 82 Respiratory Rate Blood Pressure 139/48 L Pulse Oximetry Fraction of Inspired Oxygen 35 Oxygen Delivery Method Nasal Cannula Oxygen Flow Rate 2 Narrative Exam Narrative: GENERAL APPEARANCE: Well developed, well nourished, elderly female, appears comfortable on nasal cannula today. SKIN: Inspection of the skin reveals no rashes, ulcerations or petechiae. HEENT: Normocephalic atraumatic, extraocular muscles are intact, oropharynx is clear and mucous membranes are moist, neck is supple without adenopathy. NECK: Supple and symmetric. There was no thyroid enlargement, and no tenderness, or masses were felt. No appreciable JVD. CHEST: Normal AP diameter and normal contour without any kyphoscoliosis. LUNGS: Auscultation of the lungs revealed diffuse rhonchi without wheezes. not tachypnic. CARDIOVASCULAR: RRR with mild systolic murmur, no rubs or gallops. ABDOMEN: Soft and nontender with normal bowel sounds. No ascites was noted. MUSCULOSKELETAL: There was no tenderness or effusions noted. Muscle strength and tone were normal. EXTREMITIES: No cyanosis, clubbing. There is minimal peripheral edema. NEUROLOGIC: Alert and oriented x 3. Strength is +5/5 in the Upper Extremities and Lower Extremities Bilaterally. Sensation to touch was normal. Objective Labs Result Diagrams: 08/17/19 06:50 08/17/19 06:50 Labs: Laboratory Results - last 24 hr 08/17/19 08/17/19 08/17/19 06:50 06:50 06:50 WBC 8.9 RBC 4.12 Hgb 12.6 Hct 36.8 MCV 89.5 MCH 30.7 MCHC 34.3 RDW 14.6 Plt Count 254 Neut % (Auto) Not Reportable Lymph % (Auto) Not Reportable Keith % (Auto) Not Reportable Eos % (Auto) Not Reportable Baso % (Auto) Not Reportable Lymph # (Auto) Not Reportable Keith # (Auto) Not Reportable Baso # (Auto) Not Reportable Total Counted 100 Seg Neutrophils % 71.0 H Band Neutrophils % 6.0 Lymphocytes % (Manual) 9.0 L Atypical Lymphs % 2.0 H Monocytes % (Manual) 10.0 Metamyelocytes % 1.0 H Myelocytes % 1.0 H Neutrophils # (Manual) 6853 H RBC Morphology Normal morphology Sodium Potassium Chloride Carbon Dioxide BUN Creatinine Estimated GFR BUN/Creatinine Ratio Glucose Calcium Phosphorus 4.6 H Magnesium 1.9 Procalcitonin 0.07 08/17/19 06:50 WBC RBC Hgb Hct MCV MCH MCHC RDW Plt Count Neut % (Auto) Lymph % (Auto) Keith % (Auto) Eos % (Auto) Baso % (Auto) Lymph # (Auto) Keith # (Auto) Baso # (Auto) Total Counted Seg Neutrophils % Band Neutrophils % Lymphocytes % (Manual) Atypical Lymphs % Monocytes % (Manual) Metamyelocytes % Myelocytes % Neutrophils # (Manual) RBC Morphology Sodium 139 Potassium 3.9 Chloride 98 Carbon Dioxide 35 H BUN 48 H Creatinine 1.06 H Estimated GFR 49.4 L BUN/Creatinine Ratio 45.3 H Glucose 104 Calcium 9.9 Phosphorus Magnesium Procalcitonin Discharge Plan Discharge Plan Patient Disposition: Home Discharge comment: You were admitted to the hospital with trouble breathing. Your heart function appears to be normal and this is likely due to pneumonia and your COPD. Please continue your home COPD medications and antibiotics for another couple of days. Please try to keep your oxygen at home above 88%, but no higher than 96% when on supplemental oxygen. You were found to have atrial fibrillation on telemetry while you were sick, you should continue on anticoagu lation and follow up with your primary care provider in the next 1 - 2 weeks as you also required a number of blood pressure medications to control your pressure. Discharge orders & Medications Prescriptions: New apixaban 5 mg tablet 5 mg PO BID 30 Days Qty: 60 RF: 0 furosemide 20 mg tablet 20 mg PO DAILY 30 Days Qty: 30 RF: 0 prednisone 20 mg Tablet 40 mg PO DAILY 2 Days Qty: 4 RF: 0 losartan 25 mg Tablet 25 mg PO DAILY 30 Days Qty: 30 RF: 0 metoprolol succinate 25 mg Tablet Extended Release 24 Hr 25 mg PO BID 30 Days Qty: 60 RF: 0 guaifenesin [Mucus Relief ER] 600 mg Tablet Extended Release 12hr 600 mg PO BID PRN (Reason: Cough) 7 Days Qty: 14 RF: 0 cefdinir 300 mg capsule 300 mg PO BID 4 Days Qty: 8 RF: 0 doxycycline hyclate 100 mg tablet 100 mg PO BID 4 Days Qty: 8 RF: 0 Continued Anoro Ellipta 62.5-25 mcg/actuation blister with device 1 inh inhalation DAILY RF: 0 albuterol sulfate [ProAir HFA] 90 mcg/actuation HFA aerosol inhaler 2 inh INHALATION 6XD RF: 0 Follow up/Referrals: Dominic Alexis MD [Primary Care Provider] - Discharge Health Status Health Concerns: HTN atrial fibrillation COPD Diet/Activity/Treatments Diet: Diet as Tolerated and Low-cholesterol Activity: As tolerated Visit Report/Discharge Packet Instructions: DI for Chronic Obstructive Pulmonary Disease, DI for Pneumonia -- Adult, DI for Atrial Fibrillation Visit Report Forms: Patient Portal/API, Stroke Signs & Symptoms Discharge Data Primary Care Provider: Dominic Alexis Discharges patient from system. Discharge Date/Time: 08/17/19 15:38 Quality VTE Deep Vein Thrombosis/Pulmonary Embolism Present on Admission: No
--- NOTE | 2019-08-17 15:33 | PC.NURSE ---
Discharge Pt denies pain. D/c home with O2. d/c instructions provided to pt and her SO. Rx faxed to [facility] pharmacy. Left in w/c with escort to car with SO. Aware to contact PCP with any additional questions as well as for f/u. Left with all her belongings.
== END 2019-08-17 15:38 | disposition home or self-care (01) | DRG 189 ==
LOC: ED 10:36 → AC 10:37 → ICU 11:41 → AC 08-17 14:34 → ICU 08-30 11:27 → AC 08-30 11:27 → ICU 08-30 11:27
PROVIDERS: Emergency Medicine; Admitting Provider Internal Medicine; Emergency Provider Emergency Medicine; PCP Internal Medicine; Referring Provider Emergency Medicine; Visit Provider Internal Medicine
DX: J96.02 Acute respiratory failure with hypercapnia (principal); J15.9 Unspecified bacterial pneumonia; J44.1 Chronic obstructive pulmonary disease with (acute) exacerbation; J96.01 Acute respiratory failure with hypoxia; I48.91 Unspecified atrial fibrillation; I10 Essential (primary) hypertension; W18.30XA Fall on same level, unspecified, initial encounter; Y92.009 Unspecified place in unspecified non-institutional (private) residence as the place of occurrence of the external cause; Z03.818 Encounter for observation for suspected exposure to other biological agents ruled out; Z87.891 Personal history of nicotine dependence; Z66 Do not resuscitate
CPT/HCPCS: 36415; 36600; 71045; 71275; 80048; 80053; 81001; 81003; 82550; 82553; 82728; 82805; 83605; 83615; 83735; 83880; 84100; 84145; 84484; 85025; 85379; 86140; 87040; 87070; 87077; 87205; 87633; 87635; 87797; 90471; 90656; 93005; 93306; 94640; 94660; 94667; 94668; 94760; 96365; 96366; 96375; 96376; 97110; 97116; 97162; 97165; 97530; 97535; 99285; J0360; J1650; J1940; J1956; J2930; J7613; Q2038

== ENCOUNTER 2019-09-21 12:59 | Observation (INO) | payer MEDICARE, OTHER, SELFPAY ==
[2019-08-14 14:19] VITALS: PULSE 103; RESP 36; O2SAT 97
[2019-09-21] VITALS (15 sets, daily range): BP systolic 117–194; BP diastolic 52–77; PULSE 55–70; RESP 20–25; TEMP 36.2–37.4; O2SAT 81–97; BMI 50.3
--- NOTE | 2019-09-21 13:27 | DI.RAD.S_ITS ---
PROCEDURE: XR CHEST 1V INDICATIONS: Dyspnea TECHNIQUE: One view of the chest was acquired. COMPARISON: [facility], CR, XR CHEST 1V, 08/14/2019, 6:49. FINDINGS: Surgical changes and devices: None. Lungs and pleura: Ill-defined patchy airspace opacities are seen scattered throughout bilateral lung oro concerning for atypical pneumonia. No significant pleural effusions or pneumothorax. Mediastinum: Aortic arch calcifications are seen. Tortuous thoracic aorta is also noted. Heart size is normal. Bones and chest wall: No suspicious bony lesions. Overlying soft tissues appear unremarkable. IMPRESSION: Ill-defined airspace opacities are seen scattered throughout bilateral visualized lung oro concerning for atypical pneumonia. No significant pleural effusion. No gross pneumothorax. Dictated by: Arya Zavala M.D. on 09/21/2019 at 14:39 Approved by: Arya Zavala M.D. on 09/21/2019 at 14:41
--- NOTE | 2019-09-21 13:40 | ED_ITS ---
HPI - SOB/Dyspnea General Chief Complaint: Shortness of Breath/Dyspnea Stated Complaint: fluid in lungs Time Seen by Provider: 09/21/19 13:17 Source: patient and other (Friend) Mode of arrival: Wheelchair Limitations: no limitations History of Present Illness HPI Narrative: Patient here with complaints of increased dyspnea and fluid retention since September 07. Patient was admitted here in July. Please see discharge summary below. Patient had echocardiogram this year and ejection fraction 70%. Patient did follow-up with her family physician and she did not want to continue her diuretics. September 07 stop taking them because it caused urinary urgency and with dyspnea she would have accidents. Since then weight gain and orthopnea. No cough cold congestion. Patient was placed on blood thinner for new onset atrial fibrillation. Denies any black or bloody stools Summary Hospital Course Discharge Diagnosis: Please see hospital course by problem list noted below. Hospital Course: Jeanine Calderon is an 84 year old female with PMH of COPD (not on home o2 usually) who presented with shortness of breath, fever, and productive cough starting about 3 days prior to admission. She was admitted for acute hypercapnic and hypoxemic respiratory failure likely secondary to multiple etiologies including pneumonia, COPD exacerbation, and possible volume overload versus flash pulmonary edema given hypertension. She has remained on a small amount of supplemental oxygen and was feeling stronger by the date of discharge. She was ultimately discharged home with home O2 given her slow, but steady improvement in oxygen requirements and anticipation that oxygen therapy will hopefully be short-lived. 1. Acute hypercapnic and hypoxemic respiratory failure, present on admission, hypercapnic portion resolved. - likely multifactorial secondary to viral/bacterial pneumonia, COPD exacerbation, and possible volume overload from flash edema due to hypertension. There is possibly a component of chronic respiratory failure given underlying COPD but no access to outside records at this time. - TTE with hyperdynamic function, in atrial fibrillation during the study unable to assess diastolic dysfunction. - CTA chest Bilateral lower lobe bronchitis with areas of mucous plugging and small peripheral consolidations/atelectasis. No evidence of PE. Multiple R lung nodules thought to be secondary to inflammatory state. Recommend repeating imaging after resolution of pneumonia in a few months. - RT eval and treat - continue to wean from O2, goal >88% but also <96% while on supplemental therapy. - patient appears euvolemic and given TTE as noteda above. Stopped IV diuresis and will continue on lasix for BP control with 20 mg daily, decreased from 40 mg during hospital stay. -continue treatment for COPD exacerbation, given Solu-Medrol 125 mg in the emergency room, will continue 40 mg of prednisone daily for 4 days total and will complete therapy at home.. -continue treatment for viral versus bacterial pneumonia as noted below -UA unremarkable. -hypertension management as noted below. 2. Bilateral lower lobe pneumonia, acute, present on admission - CTA chest Bilateral lower lobe bronchitis with areas of mucous plugging and small peripheral consolidations/atelectasis. - COVID-19 negative in the ER - viral panel negative. Treated for CAP with ceftriaxone and azithromycin, given Levaquin by ER. Etiology may be viral given negative procalcitonin but given severity of shortness of breath will treat as bacterial. Sputum culture was negative. Patient will be discharged on cefdinir and doxycycline for an add itional 4 days of antibiotic therapy (7 days total). 3. COPD exacerbation, acute, present on admission. - continue management with prior home medications. - appreciate respiratory therapy assistance. - continued duonebs BID, prednisone as noted above while hospitalized. 4. Hypertension, possibly acute, present on admission -patient without a prior diagnosis of hypertension, she was not on any an tihypertensive therapy as an outpatient. - Will continue Lasix and have added losartan upon discharge as well as metoprolol for atrial fibrillation. -echocardiogram as noted above 5. Sepsis ruled out. - patient with reported fever to 101, respiratory failure, mild thrombocytopenia. Blood cultures drawn in the ER and patient was given antibiotic therapy. Degree of respiratory failure initially did not seem to match imaging or lab findings at the time but was likely due to flash pulmonary edema given hypertension. 6. new onset atrial fibrillation, paroxysmal. - seen on telemetry and echocardiogram as noted above. - have discussed anticoagulation today given elevated [id number] score and have started apixaban therapy. - have added metoprolol with improved rate control as well. Dispo: patient was discharged home with supplemental oxygen. Complaint: shortness of breath Related Data Home Medications Medication Instructions Recorded Confirmed Anoro Ellipta 1 inh INHALATION DAILY 08/14/19 09/21/19 albuterol sulfate [ProAir HFA] 2 inh INHALATION Q4H PRN 08/14/19 09/21/19 apixaban [Eliquis] 5 mg PO BID 09/21/19 09/21/19 losartan 25 mg PO DAILY 09/21/19 09/21/19 metoprolol succinate 25 mg PO BID 09/21/19 09/21/19 Allergies Allergy/AdvReac Type Severity Reaction Status Date / Time Penicillins Allergy Verified 09/21/19 13:19 shellfish derived Allergy Verified 09/21/19 13:19 Review of Systems Review of Systems Narrative: GENERAL: Denies chills, fatigue, malaise, fever, sweats. HEENT: Denies sinus pain, ear pain, sore throat, difficulty swallowing, dizziness. RESPIRATORY: Denies cough, wheezing, hemoptysis, sputum. Complains of dyspnea CARDIOVASCULAR: Denies chest pain, palpitations, complains of orthopnea, edema, GASTROINTESTINAL: Denies nausea, vomiting, abdominal pain, diarrhea, constipation, melena. : Denies dysuria, frequency, incontinence, hematuria, urinary retention. MUSCULOSKELETAL: denies weakness, joint pain, or bony pain SKIN: Denies rash, skin lesions, or other NEUROLOGIC: Denies weakness, headache, numbness, change in speech, confusion, seizures, incoordination. PSYCHIATRIC: No concerning psychosocial issues. ROS Unobtainable: All systems reviewed & are unremarkable except as noted in HPI and below Patient History Medical History (Updated 09/21/19 @ 18:43 by Deidra Bill RN) Atrial fibrillation (Acute) COPD (chronic obstructive pulmonary disease) (Acute) Hypertension (Acute) Social History household members: significant other Smoking Status: Former smoker alcohol intake: current Smoking Status: Former smoker alcohol intake frequency: holidays/special occasions only Substance Use Type: does not use Exam Narrative Exam Narrative: GENERAL: patient appears stated age. Well-nourished, well- developed patient, in no distress, not toxic HEAD: Atraumatic. Normocephalic. EYES: Pupils equal round and reactive. Extraocular motions intact. No scleral icterus. No injection or drainage. ENT: Nose without bleeding, purulent drainage. Throat without erythema, tonsillar hypertrophy or exudate. Airway patent. NECK: Trachea midline. Non tender CARDIOVASCULAR: Regular rate and rhythm without murmurs, gallops, or rubs. RESPIRATORY: Clear to auscultation. Breath sounds equal bilaterally. Bibasilar rales. No wheezing or rhonchi. Speaking full sentences. GASTROINTESTINAL: Abdomen soft, non-tender, nondistended. Nurse Diane at bedside for manager heart failure, rectal exam, guaiac positive. Brown stool on glove, no black or red stool on glove EXTREMITIES: Bilateral 4+ edema BACK: Nontender without deformity or crepitance. No flank tenderness. NEURO: AOx3. SKIN: No rash or erythema of visible areas PSYCH: Not anxious, is cooperative Initial Vital Signs Initial Vital Signs: Vital Signs Temperature 98.9 F 09/21/19 13:02 Pulse Rate 70 09/21/19 13:02 Respiratory Rate 20 09/21/19 13:02 Blood Pressure 145/63 H 09/21/19 13:02 Pulse Oximetry 81 L 09/21/19 13:02 Course Course Course Narrative: Patient is symptomatic with GI bleed. Needs admission Decision to Admit Date: 09/21/19 Decision to Admit time: 16:05 Orders Ordered: ED Orders 09/21/19 13:26 Consult to Respiratory Therapy Evaluate & Treat EKG-12 Lead Stat 09/21/19 13:27 XR chest 1V Stat 09/21/19 14:06 Arterial Blood Gas Stat 09/21/19 14:37 Complete Blood Count AUTO DIFF Stat Comprehensive Metabolic Panel Stat Lactate (Lactic Acid) Stat Magnesium Stat NT-proBNP (BNP-Adult 18+) Stat Procalcitonin Stat Prothrombin Time INR Stat Troponin & CK Cardiac Panel Stat 09/21/19 16:06 Packed Cells Stat Type and Screen Stat Discontinued Medications Furosemide (Lasix) 40 mg IV NOW ONE Stop: 09/21/19 13:33 Last Admin: 09/21/19 14:41 Dose: 40 mg Documented by: PETRA Reevaluation(s) Reevaluation #1: No new complaints no hypotension or tachycardia Time: 16:05 Reevaluation #2: Spoke with general surgery Dr. Samuels will see patient Time: 16:14 Consultations Consultation #1: Spoke with hospitalist Dr. Dent, will admit telemetry o bservation Time: 16:05 Vital Signs Vital signs: Vital Signs - 8 hr 09/21/19 13:02 09/21/19 13:30 09/21/19 13:47 Temperature 98.9 F Pulse Rate 70 65 62 Respiratory Rate 20 24 25 H Blood Pressure 145/63 H 117/52 L Pulse Oximetry 81 L 97 97 09/21/19 14:00 09/21/19 14:45 09/21/19 15:30 Temperature 97.9 F Pulse Rate 62 61 67 Respiratory Rate 21 24 24 Blood Pressure 194/77 H 169/72 H Pulse Oximetry 96 96 94 MDM - SOB/Dyspnea Differential Diagnosis Differential diagnosis: Likely acute exacerbation of chronic obstructive airways disease and congestive heart failure Lab Data Result diagrams: 09/21/19 14:37 09/21/19 14:37 Labs: Lab Results 09/21/19 09/21/19 09/21/19 Range/Units 14:00 14:06 14:37 WBC 4.0 L (4.5-11.0) X10^3/uL RBC 2.19 L (4.0-5.2) X10^6/uL Hgb 6.8 L* (12.0-16.0) g/dL Hct 20.6 L* (36-46) % MCV 94.1 (80-100) fL MCH 31.3 (26-34) PG MCHC 33.3 (30-36) % RDW 20.3 H (11.6-14.8) % Plt Count 132 L (150-400) X10^3/uL Neut % (Auto) 68.6 (50-75) % Lymph % (Auto) 21.7 L (25-40) % [place] % (Auto) 9.2 (3-14) % Eos % (Auto) 0.1 L (2-4) % Baso % (Auto) 0.4 (0-2) % Neut # (Auto) 2700 (0186-3336) /uL Lymph # (Auto) 900 L (8552-2505) /uL [place] # (Auto) 400 (0-900) /uL Eos # (Auto) 0 (0-450) /uL Baso # (Auto) 0 (0-100) /uL Platelet Estimate Decreased on smear RBC Morphology Normal morphology PT (10.1-12.7) SECONDS INR (0.9-1.3) ABG pH 7.39 (7.35-7.45) ABG pCO2 59.3 H (35-45) mmHg ABG pO2 70 L (80-100) mmHg ABG HCO3 36 H (22-26) mmol/L ABG Total CO2 38 H (21-31) mmol/L ABG O2 Saturation 93 L (95-100) % ABG Base Excess 11.0 H (-2-2) mmol/L FiO2 28 Sodium (137-145) mmol/L Potassium (3.4-5.1) mmol/L Chloride (98-107) mmol/L Carbon Dioxide (22-32) mmol/L BUN (7-17) mg/dL Creatinine (0.52-1.04) mg/dL Estimated GFR (>60) mL/min BUN/Creatinine Ratio (6-22) Glucose (80-110) mg/dL Lactate (0.7-2.1) mmol/L Calcium (8.4-10.2) mg/dL Magnesium (1.6-2.3) mg/dL Total Bilirubin (0.2-1.3) mg/dL AST (14-36) IU/L ALT (<35) IU/L Alkaline Phosphatase (38-126) U/L Total Creatine Kinase (30-135) U/L CK-MB (CK-2) CK-MB (CK-2) Rel Index Troponin I (0.01-0.034) ng/mL NT-Pro-B Natriuret Pep (<450) pg/mL Total Protein (6.3-8.2) g/dL Albumin (3.5-5.0) g/dL Globulin (1.7-4.1) g/dL Albumin/Globulin Ratio (1.0-2.8) Procalcitonin (<0.5) ng/mL COVID-19 PCR Negative (Negative) Blood Type Antibody Screen Crossmatch 09/21/19 09/21/19 09/21/19 Range/Units 14:37 14:37 14:37 WBC (4.5-11.0) X10^3/uL RBC (4.0-5.2) X10^6/uL Hgb (12.0-16.0) g/dL Hct (36-46) % MCV (80-100) fL MCH (26-34) PG MCHC (30-36) % RDW (11.6-14.8) % Plt Count (150-400) X10^3/uL Neut % (Auto) (50-75) % Lymph % (Auto) (25-40) % [place] % (Auto) (3-14) % Eos % (Auto) (2-4) % Baso % (Auto) (0-2) % Neut # (Auto) (5851-9093) /uL Lymph # (Auto) (6754-9470) /uL [place] # (Auto) (0-900) /uL Eos # (Auto) (0-450) /uL Baso # (Auto) (0-100) /uL Platelet Estimate RBC Morphology PT 22.0 H (10.1-12.7) SECONDS INR 1.9 H (0.9-1.3) ABG pH (7.35-7.45) ABG pCO2 (35-45) mmHg ABG pO2 (80-100) mmHg ABG HCO3 (22-26) mmol/L ABG Total CO2 (21-31) mmol/L ABG O2 Saturation (95-100) % ABG Base Excess (-2-2) mmol/L FiO2 Sodium (137-145) mmol/L Potassium (3.4-5.1) mmol/L Chloride (98-107) mmol/L Carbon Dioxide (22-32) mmol/L BUN (7-17) mg/dL Creatinine (0.52-1.04) mg/dL Estimated GFR (>60) mL/min BUN/Creatinine Ratio (6-22) Glucose (80-110) mg/dL Lactate (0.7-2.1) mmol/L Calcium (8.4-10.2) mg/dL Magnesium 1.7 (1.6-2.3) mg/dL Total Bilirubin (0.2-1.3) mg/dL AST (14-36) IU/L ALT (<35) IU/L Alkaline Phosphatase (38-126) U/L Total Creatine Kinase 27 L (30-135) U/L CK-MB (CK-2) TNP CK-MB (CK-2) Rel Index TNP Troponin I 0.016 (0.01-0.034) ng/mL NT-Pro-B Natriuret Pep 802 H (<450) pg/mL Total Protein (6.3-8.2) g/dL Albumin (3.5-5.0) g/dL Globulin (1.7-4.1) g/dL Albumin/Globulin Ratio (1.0-2.8) Procalcitonin < 0.05 (<0.5) ng/mL COVID-19 PCR (Negative) Blood Type Antibody Screen Crossmatch 09/21/19 09/21/19 09/21/19 Range/Units 14:37 14:37 16:06 WBC (4.5-11.0) X10^3/uL RBC (4.0-5.2) X10^6/uL Hgb (12.0-16.0) g/dL Hct (36-46) % MCV (80-100) fL MCH (26-34) PG MCHC (30-36) % RDW (11.6-14.8) % Plt Count (150-400) X10^3/uL Neut % (Auto) (50-75) % Lymph % (Auto) (25-40) % [place] % (Auto) (3-14) % Eos % (Auto) (2-4) % Baso % (Auto) (0-2) % Neut # (Auto) (5971-6546) /uL Lymph # (Auto) (8119-4811) /uL [place] # (Auto) (0-900) /uL Eos # (Auto) (0-450) /uL Baso # (Auto) (0-100) /uL Platelet Estimate RBC Morphology PT (10.1-12.7) SECONDS INR (0.9-1.3) ABG pH (7.35-7.45) ABG pCO2 (35-45) mmHg ABG pO2 (80-100) mmHg ABG HCO3 (22-26) mmol/L ABG Total CO2 (21-31) mmol/L ABG O2 Saturation (95-100) % ABG Base Excess (-2-2) mmol/L FiO2 Sodium 133 L (137-145) mmol/L Potassium 3.9 (3.4-5.1) mmol/L Chloride 94 L (98-107) mmol/L Carbon Dioxide 34 H (22-32) mmol/L BUN 20 H (7-17) mg/dL Creatinine 0.89 (0.52-1.04) mg/dL Estimated GFR > 60.0 (>60) mL/min BUN/Creatinine Ratio 22.5 H (6-22) Glucose 103 (80-110) mg/dL Lactate 1.0 (0.7-2.1) mmol/L Calcium 9.1 (8.4-10.2) mg/dL Magnesium (1.6-2.3) mg/dL Total Bilirubin 1.0 (0.2-1.3) mg/dL AST 31 (14-36) IU/L ALT 21 (<35) IU/L Alkaline Phosphatase 61 (38-126) U/L Total Creatine Kinase (30-135) U/L CK-MB (CK-2) CK-MB (CK-2) Rel Index Troponin I (0.01-0.034) ng/mL NT-Pro-B Natriuret Pep (<450) pg/mL Total Protein 6.5 (6.3-8.2) g/dL Albumin 3.9 (3.5-5.0) g/dL Globulin 2.6 (1.7-4.1) g/dL Albumin/Globulin Ratio 1.5 (1.0-2.8) Procalcitonin (<0.5) ng/mL COVID-19 PCR (Negative) Blood Type A Positive Antibody Screen Negative Crossmatch See Detail Imaging Data Chest x-ray: Radiologist's Impression: [address] [address] XRay Report Signed Patient: Jeanine Calderon MMR#: [id number] : 6Acct:[id number] Age/Sex: 84 / FDate of Service: 09/21/19 Loc: ED Accession Number: [id number] Procedure: XR chest 1V Ordering Provider: Babak Bonilla MD PROCEDURE: XR CHEST 1V INDICATIONS: Dyspnea TECHNIQUE: One view of the chest was acquired. COMPARISON: [facility], , XR CHEST 1V, 08/14/2019, 6:49. FINDINGS: Surgical changes and devices: None. Lungs and pleura: Ill-defined patchy airspace opacities are seen scattered throughout bilateral lung oro concerning for atypical pneumonia. No significant pleural effusions or pneumothorax. Mediastinum: Aortic arch calcifications are seen. Tortuous thoracic aorta is also noted. Heart size is normal. Bones and chest wall: No suspicious bony lesions. Overlying soft tissues appear unremarkable. IMPRESSION: Ill-defined airspace opacities are seen scattered throughout bilateral visualized lung oro concerning for atypical pneumonia. No significant pleural effusion. No gross pneumothorax. Dictated by: Arya Zavala M.D. on 09/21/2019 at 14:39 Approved by: Arya Zavala M.D. on 09/21/2019 at 14:41 ECG Data Attestation: I personally reviewed and interpreted this ECG as follows: Interpretation: Sinus rhythm, rate 58, no ST elevation or depression MDM Narrative Medical decision making narrative: Needs admission for GI bleed. Discharge Plan Departure Patient Disposition: Admitted as Observation Clinical Impression: Acute GI bleeding Discharge Date/Time: 09/21/19 16:45 Admit Date/Time: 09/21/19 16:15 Admit Provider: Ann Dent
[2019-09-21 14:27] LABS: pH ABG 7.39 (7.35-7.45)
[2019-09-21 14:28] LABS: Fractionated Inspired Oxygen 28; HCO3 ABG 36 mmol/L (22-26); Oxygen Saturation ABG 93 % (95-100); PCO2 ABG 59.3 mmHg (35-45); PO2 ABG 70 mmHg (80-100); TCO2 ABG 38 mmol/L (21-31)
[2019-09-21] MEDS: FUROSEMIDE 40 MG/4 ML VIAL IV (14:41)
[2019-09-21 14:54] LABS: INR 1.9 (0.9-1.3)
[2019-09-21 14:57] LABS: Add Manual Diff / Slide Review NO; Basophils Absolute Auto 0 /uL (0-100); Basophils Percent Auto 0.4 % (0-2); Eosinophils Absolute Auto 0 /uL (0-450); Eosinophils Percent Auto 0.1 % (2-4); Lymphocytes Absolute Auto 900 /uL (1100-4500); Lymphocytes Percent Auto 21.7 % (25-40); Mean Corpuscular HGB Conc 33.3 % (30-36); Mean Corpuscular Hemoglobin 31.3 PG (26-34); Mean Corpuscular Volume 94.1 fL (80-100); Monocytes Absolute Auto 400 /uL (0-900); Monocytes Percent Auto 9.2 % (3-14); Neutrophils Absolute Auto 2700 /uL (1500-7000); Neutrophils Percent Auto 68.6 % (50-75); Platelet Count 132 X10^3/uL (150-400); Red Blood Cell Count 2.19 X10^6/uL (4.0-5.2); Red Cell Distribution Width 20.3 % (11.6-14.8)
[2019-09-21 15:06] LABS: COVID19 -Nasal RAPID Negative (Negative)
[2019-09-21 15:07] LABS: Creatine Kinase 27 U/L (30-135); Hematocrit 20.6 % (36-46); Hemoglobin 6.8 g/dL (12.0-16.0); Magnesium 1.7 mg/dL (1.6-2.3)
[2019-09-21 15:18] LABS: NT-proBNP (BNP-Adult 18+) 802 pg/mL (<450); Troponin I 0.016 ng/mL (0.01-0.034)
[2019-09-21 15:59] LABS: Platelet Estimate Decreased on smear; RBC Morphology Normal Morphology
[2019-09-21 16:17] LABS: Procalcitonin < 0.05 ng/mL (<0.5)
[2019-09-21 17:19] LABS: Alanine Aminotransferase 21 IU/L (<35); Albumin 3.9 g/dL (3.5-5.0); Albumin Globulin Ratio 1.5 (1.0-2.8); Alkaline Phosphatase 61 U/L (38-126); Aspartate Aminotransferase 31 IU/L (14-36); BUN Creatinine Ratio 22.5 (6-22); Blood Urea Nitrogen 20 mg/dL (7-17); Calcium 9.1 mg/dL (8.4-10.2); Carbon Dioxide 34 mmol/L (22-32); Chloride 94 mmol/L (98-107); Estimated Glomerular Filt Rate > 60.0 mL/min (>60); Globulin 2.6 g/dL (1.7-4.1); Glucose 103 mg/dL (80-110); HEMOLYSIS < 15 (0-50); Potassium 3.9 mmol/L (3.4-5.1); Sodium 133 mmol/L (137-145); Total Protein 6.5 g/dL (6.3-8.2)
--- NOTE | 2019-09-21 19:43 | PM.CN ---
History of Present Illness Consult details Date Patient Seen: 09/21/19 Time Patient Seen: 19:43 Chief complaint: fluid in lungs Reason for consult: Anemia Narrative: This is an 84-year-old woman who is admitted to the medical service for management of anemia. On admission hemodynamically stable, hemoglobin is 6.8 was 12.6 1 month ago and she recently began 5 mg of Eliquis twice daily for atrial fibrillation. She is currently receiving blood transfusion. At admission she was found to have melanotic stools has complaint of fatigue. She denies any previous similar episodes, she has no hematemesis no block bright red blood per rectum. Last colonoscopy was at least 10 years ago and normal. No personal or family history of intestinal malignancy. Medical history is significant for poorly controlled hypertension, atrial fibrillation, congestive heart failure, COPD with recent admission for pneumonia and respiratory insufficiency, on 3 L of oxygen at baseline, morbid obesity (BMI 50). No prior abdominal surgery. Meds Home Medications and Allergies Home Medications Medication Instructions Recorded Confirmed Type Anoro Ellipta 1 inh INHALATION DAILY 08/14/19 09/21/19 History albuterol sulfate [ProAir HFA] 2 inh INHALATION Q4H PRN 08/14/19 09/21/19 History apixaban [Eliquis] 5 mg PO BID 09/21/19 09/21/19 History losartan 25 mg PO DAILY 09/21/19 09/21/19 History metoprolol succinate 25 mg PO BID 09/21/19 09/21/19 History Allergies Allergy/AdvReac Type Severity Reaction Status Date / Time Penicillins Allergy Verified 09/21/19 13:19 shellfish derived Allergy Verified 09/21/19 13:19 Exam Vital Signs (past 8 hours): - 09/21/19 13:02 09/21/19 13:30 09/21/19 13:47 Temperature 98.9 F Pulse Rate 70 65 62 Respiratory Rate 20 24 25 H Blood Pressure 145/63 H 117/52 L Pulse Oximetry 81 L 97 97 09/21/19 14:00 09/21/19 14:45 09/21/19 15:30 Temperature 97.9 F Pulse Rate 62 61 67 Respiratory Rate 21 24 24 Blood Pressure 194/77 H 169/72 H Pulse Oximetry 96 96 94 09/21/19 16:30 09/21/19 16:50 09/21/19 18:02 Temperature 97.2 F L 98.4 F 99.0 F Pulse Rate 61 65 64 Respiratory Rate 24 22 Blood Pressure 164/67 H 166/68 H 170/74 H Pulse Oximetry 94 94 09/21/19 18:19 Temperature 98.8 F Pulse Rate 60 Respiratory Rate 22 Blood Pressure 163/61 H Pulse Oximetry Oxygen Delivery Method Nasal Cannula Oxygen Flow Rate 3 Narrative Exam Narrative: General-no acute distress, morbidly obese elderly female HEENT-moist mucous membranes, no scleral icterus Neck-supple, no lymphadenopathy Chest- non labored respirations, Cardiac-regular rate no peripheral edema Abdomen-soft, nontender, non distended Extremities-warm, well perfused Neurological-alert and oriented, no focal deficits Objective Labs Result Diagrams: 09/21/19 14:37 09/21/19 14:37 Labs: Laboratory Results - last 24 hr 09/21/19 09/21/19 09/21/19 14:00 14:06 14:37 WBC 4.0 L RBC 2.19 L Hgb 6.8 L* Hct 20.6 L* MCV 94.1 MCH 31.3 MCHC 33.3 RDW 20.3 H Plt Count 132 L Neut % (Auto) 68.6 Lymph % (Auto) 21.7 L [place] % (Auto) 9.2 Eos % (Auto) 0.1 L Baso % (Auto) 0.4 Neut # (Auto) 2700 Lymph # (Auto) 900 L [place] # (Auto) 400 Eos # (Auto) 0 Baso # (Auto) 0 Platelet Estimate Decreased on smear RBC Morphology Normal morphology PT INR ABG pH 7.39 ABG pCO2 59.3 H ABG pO2 70 L ABG HCO3 36 H ABG Total CO2 38 H ABG O2 Saturation 93 L ABG Base Excess 11.0 H FiO2 28 Sodium Potassium Chloride Carbon Dioxide BUN Creatinine Estimated GFR BUN/Creatinine Ratio Glucose Lactate Calcium Magnesium Total Bilirubin AST ALT Alkaline Phosphatase Total Creatine Kinase CK-MB (CK-2) CK-MB (CK-2) Rel Index Troponin I NT-Pro-B Natriuret Pep Total Protein Albumin Globulin Albumin/Globulin Ratio Procalcitonin COVID-19 PCR Negative Blood Type Antibody Screen Crossmatch 09/21/19 09/21/19 09/21/19 14:37 14:37 14:37 WBC RBC Hgb Hct MCV MCH MCHC RDW Plt Count Neut % (Auto) Lymph % (Auto) [place] % (Auto) Eos % (Auto) Baso % (Auto) Neut # (Auto) Lymph # (Auto) [place] # (Auto) Eos # (Auto) Baso # (Auto) Platelet Estimate RBC Morphology PT 22.0 H INR 1.9 H ABG pH ABG pCO2 ABG pO2 ABG HCO3 ABG Total CO2 ABG O2 Saturation ABG Base Excess FiO2 Sodium Potassium Chloride Carbon Dioxide BUN Creatinine Estimated GFR BUN/Creatinine Ratio Glucose Lactate Calcium Magnesium 1.7 Total Bilirubin AST ALT Alkaline Phosphatase Total Creatine Kinase 27 L CK-MB (CK-2) TNP CK-MB (CK-2) Rel Index TNP Troponin I 0.016 NT-Pro-B Natriuret Pep 802 H Total Protein Albumin Globulin Albumin/Globulin Ratio Procalcitonin < 0.05 COVID-19 PCR Blood Type Antibody Screen Crossmatch 09/21/19 09/21/19 09/21/19 14:37 14:37 16:06 WBC RBC Hgb Hct MCV MCH MCHC RDW Plt Count Neut % (Auto) Lymph % (Auto) [place] % (Auto) Eos % (Auto) Baso % (Auto) Neut # (Auto) Lymph # (Auto) [place] # (Auto) Eos # (Auto) Baso # (Auto) Platelet Estimate RBC Morphology PT INR ABG pH ABG pCO2 ABG pO2 ABG HCO3 ABG Total CO2 ABG O2 Saturation ABG Base Excess FiO2 Sodium 133 L Potassium 3.9 Chloride 94 L Carbon Dioxide 34 H BUN 20 H Creatinine 0.89 Estimated GFR > 60.0 BUN/Creatinine Ratio 22.5 H Glucose 103 Lactate 1.0 Calcium 9.1 Magnesium Total Bilirubin 1.0 AST 31 ALT 21 Alkaline Phosphatase 61 Total Creatine Kinase CK-MB (CK-2) CK-MB (CK-2) Rel Index Troponin I NT-Pro-B Natriuret Pep Total Protein 6.5 Albumin 3.9 Globulin 2.6 Albumin/Globulin Ratio 1.5 Procalcitonin COVID-19 PCR Blood Type A Positive Antibody Screen Negative Crossmatch See Detail Assessment & Plan Assessment and plan (1) Acute GI bleeding: Status: Acute Assessment & Plan narrative: 84-year-old woman with morbid obesity, congestive heart failure, atrial fibrillation on Eliquis and admitted for anemia and a GI bleed. Eliquis has been held she is receiving blood transfusion hemodynamically stable. Recommended that we proceed with a esophagoduodenoscopy for diagnostic purpose she may ultimately require a colonoscopy as well. We discussed the technical nature the EGD and the associated procedural risks including bleeding infection perforation missed diagnosis need for further procedure. Given her extensive medical comorbidities of poorly controlled hypertension, atrial fibrillation, congestive heart failure, COPD on 3 L of oxygen baseline, and super morbid obesity (BMI 50) I think it would be prudent to perform the procedure with an anesthesiologist for sedation measures. -NPO after midnight -EGD scheduled for 09/21
--- NOTE | 2019-09-21 21:00 | P.HP_ITS ---
History of Present Illness History of Present Illness Date Patient Seen: 09/21/19 Chief complaint: fluid in lungs Narrative: This is an 84 year old female with chronic shortness of breath and a new anemia of Hgb 6.8. She and her friend give somewhat contradictory descriptions of timing and symptoms. Apparently a month ago they both fell off a porch at the same time when he was trying to help her walk. Subsequently she developed pneumonia and was treated here at the beginning of August for 4 days with antibiotics for pneumonia and treatment of her COPD/hypoxia. She was discharged home on nasal cannula oxygen for the 1st time and remains on that. Over the last 2 weeks she stopped taking her Lasix because she did not like urinating in her bed and it did not seem to be helping her edema. She has been increasingly short of breath now for 2 weeks with increasing swelling in her feet and also reports coughing up blood. Her chest x-rays are reviewed and appear to show patchy infiltrates that look chronic but are unclear as to etiology. She is known to have areas of bronchitis on the last CTA of the chest in early August. The comparison chest x-rays do not look much different. She went today to her physician's office where the physician logging assistant directed her to the emergency department and she was admitted for treatment of her new anemia. The hemoglobin had been 12.6 a month ago and is now 6.8 without any noticeable rectal bleeding. She was recently started on Eliquis for Atrial Fibrillation. Her last blood transfusion was when she was having a miscarriage about 60 years ago. She will be undergoing endoscopic evaluation with General surgery tomorrow. Additional factors include a BNP of 802, procalcitonin less than 0.03, INR 1.9. Patient History Medical History Atrial fibrillation (Acute) Congestive heart failure (Acute) COPD (chronic obstructive pulmonary disease) (Acute) Hypertension (Acute) Morbid obesity (Acute) Surgical History H/O total hip arthroplasty (Acute) Family & Social History Social History: household members significant other Prior Living Arrangements House Safety & Behavioral: Feels Safe in Current Yes Environment Been Physically Hurt or No Threatened By a Person Suicidal Ideation Description None Suicide Plan Description No Plan Tobacco & Substance use: Smoking Status Former smoker alcohol intake current alcohol intake frequency holiday/special occasion Substance Use Type does not use Comment: Her backup decision maker is her friend Reggie Sommer. She lives in her own home in [place] with her friend Reggie Sommer. Meds Home Medications and Allergies Home Medications Medication Instructions Recorded Confirmed Type Anoro Ellipta 1 inh INHALATION DAILY 08/14/19 09/21/19 History albuterol sulfate [ProAir HFA] 2 inh INHALATION Q4H PRN 08/14/19 09/21/19 History apixaban [Eliquis] 5 mg PO BID 09/21/19 09/21/19 History losartan 25 mg PO DAILY 09/21/19 09/21/19 History metoprolol succinate 25 mg PO BID 09/21/19 09/21/19 History Allergies Allergy/AdvReac Type Severity Reaction Status Date / Time Penicillins Allergy Verified 09/21/19 13:19 shellfish derived Allergy Verified 09/21/19 13:19 Review of Systems Review of Systems Narrative: Positive for shortness of breath, edema, hemoptysis, falling. Negative for chest pain, nausea, vomiting, abdominal pain, bleeding, rashes, diarrhea, dysuria, joint swelling, seizures, difficulty talking, new allergies. ROS: Yes All systems reviewed with the patient and are negative except as otherwise documented Exam Vital Signs (past 8 hours): - 09/21/19 13:02 09/21/19 13:30 09/21/19 13:47 Temperature 98.9 F Pulse Rate 70 65 62 Respiratory Rate 20 24 25 H Blood Pressure 145/63 H 117/52 L Pulse Oximetry 81 L 97 97 09/21/19 14:00 09/21/19 14:45 09/21/19 15:30 Temperature 97.9 F Pulse Rate 62 61 67 Respiratory Rate 21 24 24 Blood Pressure 194/77 H 169/72 H Pulse Oximetry 96 96 94 09/21/19 16:30 09/21/19 16:50 09/21/19 18:02 Temperature 97.2 F L 98.4 F 99.0 F Pulse Rate 61 65 64 Respiratory Rate 24 22 Blood Pressure 164/67 H 166/68 H 170/74 H Pulse Oximetry 94 94 09/21/19 18:19 Temperature 98.8 F Pulse Rate 60 Respiratory Rate 22 Blood Pressure 163/61 H Pulse Oximetry Oxygen Delivery Method Nasal Cannula Oxygen Flow Rate 3 Narrative Exam Narrative: She is alert and oriented x3, in no apparent distress. Pupils are equally round reactive to light and accommodation. Extraocular muscles are intact. No lymph nodes are felt head, neck, supraclavicular area. Sclerae are pink and nonicteric. Throat looks normal. No thyromegaly, thyroid mass. JVD is less than 6 cm. No carotid bruits are heard. Heart is irregularly irregular without murmur. Lungs are notable for scattered crackles bilaterally. Abdomen is soft, obese, bowel sounds positive, nontender, no organomegaly. Extremities have 1+ pitting ankle edema bilaterally. Neuro exam Motor function is 4/5 throughout There is no tremor Cranial nerves 2-12 test intact Gait and balance are not tested Skin has no rash. There are scattered bruises. Objective ECG Impression: SINUS ARRHYTHMIA Nonspecific ST abnormality Abnormal ECG Imaging Chest x-ray: Radiologist's impression: PROCEDURE: XR CHEST 1V INDICATIONS: Dyspnea TECHNIQUE: One view of the chest was acquired. COMPARISON: [facility], , XR CHEST 1V, 08/14/2019, 6:49. FINDINGS: Surgical changes and devices: None. Lungs and pleura: Ill-defined patchy airspace opacities are seen scattered throughout bilateral lung oro concerning for atypical pneumonia. No significant pleural effusions or pneumothorax. Mediastinum: Aortic arch calcifications are seen. Tortuous thoracic aorta is also noted. Heart size is normal. Bones and chest wall: No suspicious bony lesions. Overlying soft tissues appear unremarkable. IMPRESSION: Ill-defined airspace opacities are seen scattered throughout bilateral visualized lung oro concerning for atypical pneumonia. No significant pleural effusion. No gross pneumothorax. Dictated by: Arya Zavala M.D. on 09/21/2019 at 14:39 Labs Result Diagrams: 09/21/19 14:37 09/21/19 14:37 Labs: Laboratory Results - last 24 hr 09/21/19 09/21/19 09/21/19 14:00 14:06 14:37 WBC 4.0 L RBC 2.19 L Hgb 6.8 L* Hct 20.6 L* MCV 94.1 MCH 31.3 MCHC 33.3 RDW 20.3 H Plt Count 132 L Neut % (Auto) 68.6 Lymph % (Auto) 21.7 L Carolina % (Auto) 9.2 Eos % (Auto) 0.1 L Baso % (Auto) 0.4 Neut # (Auto) 2700 Lymph # (Auto) 900 L Carolina # (Auto) 400 Eos # (Auto) 0 Baso # (Auto) 0 Platelet Estimate Decreased on smear RBC Morphology Normal morphology PT INR ABG pH 7.39 ABG pCO2 59.3 H ABG pO2 70 L ABG HCO3 36 H ABG Total CO2 38 H ABG O2 Saturation 93 L ABG Base Excess 11.0 H FiO2 28 Sodium Potassium Chloride Carbon Dioxide BUN Creatinine Estimated GFR BUN/Creatinine Ratio Glucose Lactate Calcium Magnesium Total Bilirubin AST ALT Alkaline Phosphatase Total Creatine Kinase CK-MB (CK-2) CK-MB (CK-2) Rel Index Troponin I NT-Pro-B Natriuret Pep Total Protein Albumin Globulin Albumin/Globulin Ratio Procalcitonin COVID-19 PCR Negative Blood Type Antibody Screen Crossmatch 09/21/19 09/21/19 09/21/19 14:37 14:37 14:37 WBC RBC Hgb Hct MCV MCH MCHC RDW Plt Count Neut % (Auto) Lymph % (Auto) Carolina % (Auto) Eos % (Auto) Baso % (Auto) Neut # (Auto) Lymph # (Auto) Carolina # (Auto) Eos # (Auto) Baso # (Auto) Platelet Estimate RBC Morphology PT 22.0 H INR 1.9 H ABG pH ABG pCO2 ABG pO2 ABG HCO3 ABG Total CO2 ABG O2 Saturation ABG Base Excess FiO2 Sodium Potassium Chloride Carbon Dioxide BUN Creatinine Estimated GFR BUN/Creatinine Ratio Glucose Lactate Calcium Magnesium 1.7 Total Bilirubin AST ALT Alkaline Phosphatase Total Creatine Kinase 27 L CK-MB (CK-2) TNP CK-MB (CK-2) Rel Index TNP Troponin I 0.016 NT-Pro-B Natriuret Pep 802 H Total Protein Albumin Globulin Albumin/Globulin Ratio Procalcitonin < 0.05 COVID-19 PCR Blood Type Antibody Screen Crossmatch 09/21/19 09/21/19 09/21/19 14:37 14:37 16:06 WBC RBC Hgb Hct MCV MCH MCHC RDW Plt Count Neut % (Auto) Lymph % (Auto) Carolina % (Auto) Eos % (Auto) Baso % (Auto) Neut # (Auto) Lymph # (Auto) Carolina # (Auto) Eos # (Auto) Baso # (Auto) Platelet Estimate RBC Morphology PT INR ABG pH ABG pCO2 ABG pO2 ABG HCO3 ABG Total CO2 ABG O2 Saturation ABG Base Excess FiO2 Sodium 133 L Potassium 3.9 Chloride 94 L Carbon Dioxide 34 H BUN 20 H Creatinine 0.89 Estimated GFR > 60.0 BUN/Creatinine Ratio 22.5 H Glucose 103 Lactate 1.0 Calcium 9.1 Magnesium Total Bilirubin 1.0 AST 31 ALT 21 Alkaline Phosphatase 61 Total Creatine Kinase CK-MB (CK-2) CK-MB (CK-2) Rel Index Troponin I NT-Pro-B Natriuret Pep Total Protein 6.5 Albumin 3.9 Globulin 2.6 Albumin/Globulin Ratio 1.5 Procalcitonin COVID-19 PCR Blood Type A Positive Antibody Screen Negative Crossmatch See Detail Assessment & Plan Assessment & Plan narrative: Anemia, present on admission. Active -Hgb dropped from 12.6 to 6.8 in one month -She describes hemoptysis since starting on Eliquis -Hold Eliquis (INR 1.9 from the Eliquis?) -EGD planned with Dr. Emerson on 09/21. -2 units Prbc on 09/20 and follow H/H daily Shortness of Breath, present on admission. Active -known COPD and lung irregularities on imaging with recent onset of 3 L nasal cannula oxygen dependency. -(Ill-defined airspace opacities are seen scattered throughout bilateral visualized lung oro concerning for atypical pneumonia.) -no symptoms of pneumonia. Latate 1.0, Procalcitonin <0.03. WBC 4.0. -due to complaint of hemoptysis would consider QuantiFERON gold and referral to pulmonology for bronchoscopy, pending EGD results and whether bloody sputum stops when Eliquis is held. COPD, present on admission. Chronic -continue oxygen, albuterol, Anoro Ellipta. Atrial Fibrillation, present on admission. Chronic -holding Eliquis pending diagnosis/treatment of anemia -continue metoprolol succinate 25 mg b.i.d. Hypertension, present on admission. Chronic -continue metoprolol and losartan. Quality VTE Deep Vein Thrombosis/Pulmonary Embolism Present on Admission: No
[2019-09-22] VITALS (21 sets, daily range): BP systolic 137–181; BP diastolic 46–78; PULSE 50–84; RESP 16–29; TEMP 36.2–37.7; O2SAT 88–99; BMI 39.3
--- NOTE | 2019-09-22 | PATH_ITS ---
[facility] Accession Number: [id number] . 01 Material submitted: . PART A: duodenum - DUODENUM PART B: stomach - STOMACH . 01 Clinical history: . FLUID IN LUNGS . 02 Diagnosis: A. Duodenum, Biopsy: Duodenal mucosa with no diagnostic abnormality. Negative for active inflammation, features of sprue, dysplasia, or malignancy. . B. Stomach, Biopsies: Gastric antral mucosa with minimal chronic inflammation. No evidence of Helicobacter organisms on H/E stain. Negative for intestinal metaplasia. Negative for dysplasia or malignancy. [facility] 09/26/2019 1046 Local . 02 Electronically signed: . Hong Anthony MD, PhD, Pathologist NPI- [id number] . 01 Gross description: . Part A: DUODENUM: Received in formalin is 1 fragment(s) of heaton, soft tissue measuring 0.3 x 0.2 x 0.1 cm submitted entirely in 1 cassette(s) Part B: STOMACH: Received in formalin is 1 fragment(s) of heaton, soft tissue measuring 0.3 x 0.2 x 0.2 cm submitted entirely in 1 cassette(s) /QBJ 09/23/2019 0812 Local . 02 Pathologist provided ICD-10: R10.13 . 02 CPT . 268581, [id number] Performed at: 01 [facility] [address], [place], [place] [id number] MD Kamlesh Roth MD Phone: [phone] Performed at: 02 [facility] [address] [place], [place] [id number] MD Summer Pizarro MD Phone: [phone]
[2019-09-22] MEDS: DEXTROSE 5%-0.9% NS 1,000 ML 100 ML IV ×2 (01:26→15:27)
--- NOTE | 2019-09-22 04:10 | PC.NURSE ---
Addendum entered by Carol Lozoya R.N. 09/22/19 05:43: Weight appears to be down 27kg but found that admit weight was recorded incorrectly and was 97.5kg on admission and today is 97.6kg Addendum entered by Carol Lozoya R.N. 09/22/19 04:14: 0316 Patient's call light on and found with IV pulled out (arm board and Coban had been removed) and telemetry partially pulled off. States she doesn't know what happened just woke up and had water all over me. IV restart attempted by FACILITY SERVICE ASSOCIATE, Lilly but unsuccessful so now OIL AND GAS FIELD TECHNICIAN, Jyotsna, here starting IV. Original Note: 0130 Patient is alert and oriented. Breath sounds with crackles at bilateral bases. On oxygen at 3L/min per NC with sat of 92%. HRR w/telemetry reading of SR. BP trending high with reading of 181/74 after 2nd unit of PRBC infused. Denies nausea. BT present and abdomen is soft. Indwelling catheter is patent. Is able to turn self in bed. Gait not assessed as not out of bed this shift. Bruising noted on right UE and left LE. Has dime size abrasion on right anterior allison. Refusing SCD's; educated on DVT prevention and ankle waving. Is NPO for EGD in a.m.; provided with lemon glycerin swabs. Denies pain. Fall risk score is high and bed alarm is activated.
[2019-09-22 05:47] LABS: Hemoglobin 9.5 g/dL (12.0-16.0); Mean Corpuscular HGB Conc 33.7 % (30-36); Mean Corpuscular Hemoglobin 30.6 PG (26-34); Mean Corpuscular Volume 90.8 fL (80-100); Platelet Count 112 X10^3/uL (150-400); Red Blood Cell Count 3.11 X10^6/uL (4.0-5.2); Red Cell Distribution Width 17.6 % (11.6-14.8); White Blood Cell Count 5.3 X10^3/uL (4.5-11.0)
[2019-09-22 05:52] LABS: BUN Creatinine Ratio 23.7 (6-22); Blood Urea Nitrogen 22 mg/dL (7-17); Calcium 8.9 mg/dL (8.4-10.2); Chloride 90 mmol/L (98-107); Estimated Glomerular Filt Rate 57.4 mL/min (>60); Glucose 115 mg/dL (80-110); HEMOLYSIS < 15 (0-50); Potassium 3.6 mmol/L (3.4-5.1); Sodium 133 mmol/L (137-145)
[2019-09-22 05:53] LABS: Add Manual Diff / Slide Review YES; Hematocrit 28.2 % (36-46)
[2019-09-22 06:00] LABS: Carbon Dioxide 33 mmol/L (22-32)
[2019-09-22 06:41] LABS: Total Cells Counted 100
[2019-09-22 06:42] LABS: Neutrophils Absolute Manual 3392 /uL (3000-5900); Plasma Cells 1
[2019-09-22] MEDS: UMECLIDINIUM/VILANTEROL 62.5/2 14 PUFF INHALER INH (09:08)
[2019-09-22] MEDS: ALBUTEROL HFA 200 PUFF/18 GM INH (COVID POS/VENT PTS) INH (09:08)
--- NOTE | 2019-09-22 10:06 | PC.NURSE ---
Day shift note: Off unit for EGD procedure, consent in chart.
[2019-09-22] MEDS: LACTATED RINGERS 1,000 ML 42 ML IV (10:24)
[2019-09-22] MEDS: LIDOCAINE 4% SOLN 50 ML 20 ML TOP (10:52)
--- NOTE | 2019-09-22 11:09 | PM.PREOP ---
Pre-operative Note COVID-19 COVID-19 status: Negative Result date/Date tested (Pos, Neg/Pending): 09/21/19 Interval Note History & Physical reviewed/Exam performed by Physician: Yes Changes to H&P: No ASA Class (for procedural sedation): IV
--- NOTE | 2019-09-22 11:13 | P.OP.ENDO_ITS ---
Operative Date/Time/Diagnoses Date of procedure: 09/22/19 Time of procedure: 11:13 Pre-op diagnosis: Anemia, Melena Post-op diagnosis: other (Gastritis, duodenitis, many shallow gastric ulcers with stigmata of recent bleeding, not actively bleeding right now; duodenitis with duodenal ulcers) Procedure & Clinicians Study performed: Esophagogastroduodenoscopy Biopsies of duodenum, gastric mucosa, with cold forceps Same procedure as scheduled: Yes Indications: Anemia, melena Surgeon: Ruthann Wang Procedure Notes SCOAP/Timeout: Performed Procedure in detail: The patient was brought to the room and placed in left lateral decubitus position with all bony prominences padded. A bite block was positioned in the patient's mouth to protect the lips, teeth, and tongue for the procedure. A time-out was performed and then the patient was given procedural sedation was given by Dr. López. Once adequately sedated, the procedure was begun. The lubricated gastroscope was passed through the bite block and across the tongue and into the esophagus without incident. A tubular view of the esophagus was maintained as the scope was advanced through the esophagus and into the stomach. The scope was advanced through the stomach and to the pylorus. The scope was gently popped through the pylorus and into the duodenal bulb. The scope was flexed and advanced into the second and third portions of the duodenum. The duodenum and duodenal bulb showed evidence of duodenitis and a few shallow ulcers with no active bleeding or exposed vessels. The scope was withdrawn into the stomach. The stomach was markedly inflamed with gastritis and many shallow ulcerations with no active bleeding, but stigmata of recent bleeding was evident. Biopsies were taken of duodenum and stomach. The scope was retroflexed and the gastric cardia was examined. There was a small hiatal hernia, hill grade 1-2. The scope was then straightened, and withdrawn into the esophagus. The Z-line appeared normal. The distal esophagus appeared normal. The scope was then withdrawn through the esophagus with a tubular view. The scope was then withdrawn from the patient the procedure was concluded. The patient tolerated the procedure well and was transferred to the PACU in stable condition. Findings: gastric ulcer, gastritis and other findings (Duodenitis) Specimen(s): other (Biopsies of duodenum and gastric mucosa) Complications: none Impression: The likely source of this patient's anemia and melena is her gastrit is with evidence of recent bleeding. Post-procedure Recommendations: Other recommendation (Continue PPI, follow-up EGD as needed, further workup for anemia as indicated) Follow up: as needed Disposition: PACU
--- NOTE | 2019-09-22 11:35 | SUR.PHASEI ---
Report called to Lory
--- NOTE | 2019-09-22 12:01 | SUR.PHASEI ---
Patient transferred to the floor with O2. Report given to Lory. VS stable. IV saline locked. Cowan patent.
[2019-09-22] MEDS: LOSARTAN 50 MG TABLET PO (12:12)
[2019-09-22] MEDS: METOPROLOL ER 25 MG TABLET 12.5 MG PO ×2 (12:13→21:08)
--- NOTE | 2019-09-22 12:39 | PT-IP ANOTE ---
checked with nurse and stated that pt is out having ECG done and will not be coming back up on the floor until 1 pm.
--- NOTE | 2019-09-22 12:54 | CM.DANOTE ---
Discharge Planning/Care Management DCP: assessment: case received, EMR reviewed and met with pt. Introduced self and role. Pt was found in bed, o2 in place, coughing up secretions into her napkin. Pt is an 84 year old female who admitted yesterday afternoon to care of hospitalist team. PCP: Dr. Dominic Alexis Payer: Medicare and [employer]. Consulting: [employer]: pt taken for EGD with findings of duodenitis with duodenal ulcers. pt was last here 08/13-08/16 with a d/c to home on home oxygen. Pt confirms she remains on this still and at 6L, /. She notes this and [place] guidelines have keep her homebound. She has never had HHS but says would be open to this service and at this time it would appear she might benefit from RN/OT/PT. Pt lives with her partner Reggie Sommer. He was at bedside earlier, went home when pt went for EGD. Pt has canes and walkers at home but I use my legs. I don't need those other things. PT will be seeing pt this afternoon for initial eval. P: DCP team to follow: consider HH if indicated. Have not been able to discuss this yet with Dr. Dent. CM Discharge Assessment Start: 09/22/19 12:49 Freq: Status: Active Protocol: Document 09/22/19 12:49 ITV (Rec: 09/22/19 12:54 ITV [id number]) Discharge Planning Assessment Advance Directives? No Advance Directives on File No History Provided By Patient,Medical Record Prior Living Arrangements House Household Members significant other Is patient alert and oriented? Yes DME Already Rented / Owned FWW / Walker,Cane Comment has dme in the home that can be used if she needs it but she currently uses no AD Discharge Plan Home Community Services Oxygen Therapy Whiteboard Updated in Patient Room with Yes name and ext. # of Scrum Master Review Status In Process
--- NOTE | 2019-09-22 14:17 | PT.IIE ---
Current Diagnoses Gastrointestinal hemorrhage, unspecified (09/21/19) Surgery Performed Operation Date: 09/22/19 10:45 Actual Procedures p Esophagogastroduodenoscopy with biopsies - Ruthann Wang MD Surgical History (Last Reviewed 09/21/19 @ 21:18 by Mary Grace Olivares MD) H/O total hip arthroplasty (Acute) Medical History (Last Reviewed 09/21/19 @ 21:18 by Mary Grace Olivares MD) Atrial fibrillation (Acute) Congestive heart failure (Acute) COPD (chronic obstructive pulmonary disease) (Acute) Hypertension (Acute) Morbid obesity (Acute) Physical Therapy Inpatient Evaluation/Re-Eval M1 PT/OT-IP Prior Functional Status Start: 09/22/19 15:35 Freq: NEEDED Status: Active Protocol: Document 09/22/19 14:17 AB (Rec: 09/22/19 15:52 [email or web address] Medical Review Prior Functional Status Medical History Reviewed Yes Communication pt initially drowsy and has unclear speech Mobility and Gait pt stated that she is modified independent with all mobilities and ambulation without AD Social History Household Members significant other Living Arrangements House Number of Floors (Floors) One Floor Number of Stairs To Enter/Railing? 4 steps to enter with bilateral rails Home Environment Walk in Shower Home Equipment Front Wheel Walker,Four Wheel Walker,Straight Cane,Shower Seat without Backrest,Hand Held Shower,Grab Bars Near Toilet,Grab Bars In Shower Additional Social History Comment stated that she uses O2 on and off at home depending on SOB M2 PT-IP Current Condition Start: 09/22/19 15:35 Freq: NEEDED Status: Active Protocol: Document 09/22/19 14:17 AB (Rec: 09/22/19 15:52 AB [email or web address]) Physical Therapy Current Condition Current Condition Evaluation Date 09/22/19 Treatment Diagnosis respiratory failure; difficulty in walking Onset Date 09/21/19 Precautions Other Precautions O2 sat M3 PT-IP Subjective Start: 09/22/19 15:35 Freq: NEEDED Status: Active Protocol: Document 09/22/19 14:17 AB (Rec: 09/22/19 15:52 AB [email or web address]) Subjective Physical Therapy Visit Type Type Initial Evaluation Visit Start Time 14:17 Visit Stop Time 14:57 Total Visit Minutes 40 Number of PROFESSIONAL [employer] Visits 0 Physical Therapy Visit Comments Patient Comments pt stated that she is tired but agreed to do some PT Therapy Pain Assessment Pain Present Pain Present Denied Pain M4 PT-IP Mobility and Gait Start: 09/22/19 15:35 Freq: NEEDED Status: Active Protocol: Document 09/22/19 14:17 AB (Rec: 09/22/19 15:52 AB [id number]) PT-Bed Mobility Assessment Supine to Sit Supine to Sit Maximum Assistance,1 Person Assistance,Head of Bed Elevated,Bedrails Sit to Supine Sit to Supine Maximum Assistance,2 Person Assistance,Bedrails Scooting Scooting to Edge of Bed Maximum Assistance Scooting Up and Down in Bed Dependent PT-Transfer Assessment Sit to and From Stand Sit to and from Stand Maximum Assistance,1 Person Assistance,Use of Upper Extremities Equipment Transfer Assistive Device Gait Belt,Front Wheeled Walker Orthotic/Prosthetic Devices or Brace: No Comments Mobility Comments pt on 3L/min O2. O2 sat at rest varies: 86-96 %. pt is a mouth breather and needs cues for PLB. pt initially drowsy and unable to provide accurate PLOF and home set up but after a few minutes became more awake and able to provide more info but still has cognitive/memory issues. completed supine to sit with HOB elevated max A and max cues. required increase time to complete all tasks. pt sat on EOB min to mod A with increase posterior trunk lean. cued for forward trunk shift and able to sit with CGA. completed sit to stand max A and cues and took ~ 3 steps forward and instructed to step back using FWW mod A and do side stepping towards HOB. O2 sat decreased to 84%. cued for PLB. required ~ 30 sec to go up to 90%. pt can be impulsive. completed sit to supine max A x 2 and max cues. positioned pt in bed total Ax 2 for scooting towards HOB. call light and table within reach. Gait Assessment Gait Gait Assistance Required: Moderate Assistance,1 Person Assist Distance (Feet) 2 Able to Maintain Weight Bearing Status Yes During Gait Assistive Devices Assistive Device Gait Belt,Front Wheeled Walker Orthotic/Prosthetic Devices or Brace: No Gait Deviations General Gait Pattern Antalgic,Decreased Stride Length,Decreased Feet Clearance,Flexed Trunk,Step-to Gait Factors Limiting Gait Function Factors Limiting Gait Function Decreased Activity Tolerance, Decreased Strength,Difficulty Following Directions,Poor Balance,Poor Safety Awareness, Respiratory Distress Comments Gait Comments pls refer to mobility section for details PT-Balance Assessment Sitting Balance and Reactions Static Sitting Balance Ability Fair Dynamic Sitting Balance Ability Fair Standing Balance and Reactions Static Standing Balance Ability Poor Dynamic Standing Balance Ability Poor Device Used FWW M5 PT-IP Objective Assessments Start: 09/22/19 15:35 Freq: NEEDED Status: Active Protocol: Document 09/22/19 14:17 AB (Rec: 09/22/19 15:52 AB [id number]) Orientation Orientation/Cognition Level of Alertness Confusional State Orientation Name Safety Awareness Decreased Safety Awareness Memory Description Short Term Impaired Comments pt does not know where she is and why she is in the hospital Gross Range of Motion Lower Extremity ROM Assessment Within Functional Limits Strength Lower Extremity Strength Assessment Within Functional Limits Sensation Assessment Sensation Gross Sensation WNL Muscle Tone Muscle Tone WNL Yes M6 PT-IP Treatment Start: 09/22/19 15:35 Freq: NEEDED Status: Active Protocol: Document 09/22/19 14:17 AB (Rec: 09/22/19 15:52 AB [id number]) Physical Therapy Treatment Education Education Provided Safety M7 PT-IP Assessment and Plan Start: 09/22/19 15:35 Freq: NEEDED Status: Active Protocol: Document 09/22/19 14:17 AB (Rec: 09/22/19 15:52 AB [email or web address]) PT Summary Assessment and Plan Potential Rehabilitation Potential Fair Status of Condition at Evaluation Evolving Summary Impairments Pain,ROM,Strength,Balance, Cognition,Bed Mobility, Transfers,Gait,Activity Tolerance Assessment Summary pt requires 2 person assist with mobility and is unable to tolerate much activity with decrearse in O2 sat to 84% during mobility. pt will require SNF rehab at this time to improve strength and functional independence. will continue to assess progress. Goals Bed Mobility Goal Standby Assistance Transfer Goal Standby Assistance,Front Wheeled Walker Gait Goal Standby Assistance,Front Wheel Walker Gait Distance 150 Other Goals up/down 4 steps B rails SBA Days to Meet Goals 10 Frequency of Treatment Frequency Of Treatment Once a Day Treatment Plan Physical Therapy Treatment Plan Bed Mobility Training,Transfer Training,Gait Training, Therapeutic Exercise,Balance Retraining,Discharge Planning, Neuromuscular Re-ed, Coordination Retraining,Manual Therapy Other Recommendations and Next Treatment transfer, ambulation Focus Recommendations To Nursing Amount of Assist Needed 2 Person Assist Discharge Recommendations PT Discharge Recommendations SNF Rehab Transportation Needs at Discharge Private Vehicle,Wheelchair/ Cabulance
--- NOTE | 2019-09-22 15:12 | OT.IPNOTE ---
Pt requesting to sleep and not wanting to get up for OT eval today. Therefore check on pt tomorrow for OT eval.
--- NOTE | 2019-09-22 16:37 | P.PN_ITS ---
Subjective Subjective Date Patient Seen: 09/22/19 Interval history: Jeanine Calderon is a 84-year-old female with a past medical history significant for COPD with hypoxemic respiratory failure, chronic shortness of breath and atrial fibrillation who presented with shortness of breath and a new anemia of Hgb 6.8. The patient is lying in bed recovering after upper endoscopy. She has no complaints and denies headache, chest pain, shortness of breath, abdominal pain, nausea, vomiting, fever, chills, dysuria, diarrhea or constipation. She does endorse occasional indigestion and acid reflux that she periodically takes Tums for relief. She is voiding and eliminating without difficulty. Exam Vital Signs (past 8 hours): - 09/22/19 09:08 09/22/19 10:25 09/22/19 10:42 Temperature 99.1 F 99.1 F Pulse Rate 50 L 58 L 71 Respiratory Rate 16 18 20 Blood Pressure 157/46 H 159/63 H Pulse Oximetry 94 97 97 09/22/19 11:10 09/22/19 11:15 09/22/19 11:20 Temperature 99.8 F H Pulse Rate 82 84 74 Respiratory Rate 25 H 29 H 27 H Blood Pressure 176/65 H 140/65 174/62 H Pulse Oximetry 94 88 L 94 09/22/19 11:25 09/22/19 11:31 09/22/19 12:12 Temperature 99.6 F 99.1 F Pulse Rate 77 72 68 Respiratory Rate 29 H 23 18 Blood Pressure 147/59 H 159/58 H 163/59 H Pulse Oximetry 97 93 99 09/22/19 12:13 09/22/19 12:42 09/22/19 13:20 Temperature 99.0 F Pulse Rate 62 80 62 Respiratory Rate 18 Blood Pressure 155/56 H 137/78 155/56 H Pulse Oximetry 97 09/22/19 13:42 09/22/19 14:35 Temperature 99.0 F 99.0 F Pulse Rate 52 L 58 L Respiratory Rate 18 16 Blood Pressure 146/64 H 155/60 H Pulse Oximetry 97 94 Oxygen Delivery Method Nasal Cannula Oxygen Flow Rate 0 Narrative Exam Narrative: General: Elderly female lying in bed and in no acute distress, well-developed, well-nourished, appropriately interactive HEENT: Normocephalic, atraumatic. External ears without defect. Pupils equal, round, and reactive to light. Anicteric sclerae, moist conjunctivae, and no lid lag. Oropharynx free of erythema and cobble stoning with moist mucosa. Neck: Supple with full range of motion. No jugular venous distension. No bruits. No lymphadenopathy or thyromegaly. Cardiovascular: Irregularly irregular without murmurs, rubs, or gallops appreciated. Pulmonary: Clear to auscultation bilaterally without crackles, wheezes, or rhonchi. Normal respiratory effort with no use of accessory muscles. Abdomen: Soft, obese, bowel sounds present, nontender, nondistended. No hepatosplenomegaly or masses appreciated. Extremities: No clubbing or cyanosis. Mild bilateral pitting edema to pretibial area. Skin: Normal temperature, turgor, and texture; no rash, ulcers, or subcutaneous nodules appreciated. Neurological: Cranial nerves grossly intact. Psychiatric: Normal mood and affect. Alert and oriented to person, place, and time. Probable mild cognitive impairment with short term memory recall deficit. Objective Labs Result Diagrams: 09/23/19 04:20 09/23/19 04:20 Labs: Laboratory Results - last 24 hr 09/21/19 09/21/19 09/22/19 14:37 16:06 05:19 WBC 5.3 RBC 3.11 L Hgb 9.5 L Hct 28.2 L MCV 90.8 D MCH 30.6 MCHC 33.7 RDW 17.6 H Plt Count 112 L Neut % (Auto) Not Reportable Lymph % (Auto) Not Reportable [place] % (Auto) Not Reportable Eos % (Auto) Not Reportable Baso % (Auto) Not Reportable Lymph # (Auto) Not Reportable [place] # (Auto) Not Reportable Baso # (Auto) Not Reportable Total Counted 100 Seg Neutrophils % 56.0 Band Neutrophils % 8.0 H Lymphocytes % (Manual) 29.0 Monocytes % (Manual) 5.0 Eosinophils % (Manual) 1.0 L Neutrophils # (Manual) 3392 Plasma Cells 1 RBC Morphology See below Dimorphic RBCs * Sodium 133 L Potassium 3.9 Chloride 94 L Carbon Dioxide 34 H BUN 20 H Creatinine 0.89 Estimated GFR > 60.0 BUN/Creatinine Ratio 22.5 H Glucose 103 Calcium 9.1 Total Bilirubin 1.0 AST 31 ALT 21 Alkaline Phosphatase 61 Total Protein 6.5 Albumin 3.9 Globulin 2.6 Albumin/Globulin Ratio 1.5 Blood Type A Positive Antibody Screen Negative Crossmatch See Detail 09/22/19 05:19 WBC RBC Hgb Hct MCV MCH MCHC RDW Plt Count Neut % (Auto) Lymph % (Auto) [place] % (Auto) Eos % (Auto) Baso % (Auto) Lymph # (Auto) [place] # (Auto) Baso # (Auto) Total Counted Seg Neutrophils % Band Neutrophils % Lymphocytes % (Manual) Monocytes % (Manual) Eosinophils % (Manual) Neutrophils # (Manual) Plasma Cells RBC Morphology Dimorphic RBCs Sodium 133 L Potassium 3.6 Chloride 90 L Carbon Dioxide 33 H BUN 22 H Creatinine 0.93 Estimated GFR 57.4 L BUN/Creatinine Ratio 23.7 H Glucose 115 H Calcium 8.9 Total Bilirubin AST ALT Alkaline Phosphatase Total Protein Albumin Globulin Albumin/Globulin Ratio Blood Type Antibody Screen Crossmatch Assessment & Plan Assessment & Plan narrative: Jeanine Calderon is a 84-year-old female with a past medical history significant for COPD with hypoxemic respiratory failure, chronic shortness of breath and atrial fibrillation who presented with shortness of breath and a new anemia of Hgb 6.8. 1. Symptomatic normocytic anemia, secondary to GI bleed, present on admission. Resolved. -Initial hemoglobin 6.8 with MCV 94.1. Baseline hemoglobin 12-13. Received 2 units PRBC with appropriate compensation hemoglobin 9.5. -Patient recently started Eliquis for atrial fibrillation. Patient endorses mild hemoptysis but denies hematuria, melena or hematochezia. -Held Eliquis (INR 1.9 from the Eliquis?). -Continue Protonix 40 mg daily. -Received 2 units PRBC with appropriate compensation hemoglobin 9.5. on 09/20 and follow H&H daily -Consulted general surgery, Dr. Wang, who performed EGD with report pending. 2. Shortness of breath, secondary to acute blood loss anemia, present on admission. Resolved. -Patient with known COPD and lung irregularities on imaging with recent onset of 3 L nasal cannula oxygen dependency. -Chest x-ray demonstrated ill-defined airspace opacities are seen scattered t hroughout bilateral visualized lung oro concerning for atypical pneumonia. -No symptoms of pneumonia. Lactate 1.0, Procalcitonin <0.03. WBC 4.0. -Due to complaint of hemoptysis may consider QuantiFERON gold and referral to pulmonology for bronchoscopy. However, hemoptysis seems to have resolved with eliquis being held and PPI and acute shortness of breath resolved with blood transfusion. 3. COPD with chronic hypoxemic respiratory failure, chronic, present on admission. Stable. -Continue home oxygen 3 L continuous, albuterol, and Anoro Ellipta. 4. Atrial Fibrillation, chronic, present on admission. Stable. -Held Eliquis until source of bleed is identified and blood counts stable. -Continue metoprolol succinate 25 mg twice daily. 5. Hypertension, chronic, present on admission. Stable. -Continue home metoprolol succinate 25 mg twice daily and losartan 25 mg daily. Code status: DNR/DNI VTE prophylaxis: Contraindicated Disposition: Patient will likely discharge home with home health possibly tomorrow if blood counts are stable and no lower endoscopy is pursued. Quality VTE Deep Vein Thrombosis/Pulmonary Embolism Present on Admission: No
[2019-09-22] MEDS: PANTOPRAZOLE 40 MG VIAL IV (21:08)
[2019-09-23 04:40] VITALS: BP 161/55; PULSE 64; RESP 18; TEMP 37.3; O2SAT 97
[2019-09-23 05:58] LABS: Add Manual Diff / Slide Review NO; Basophils Absolute Auto 0 /uL (0-100); Basophils Percent Auto 0.1 % (0-2); Eosinophils Absolute Auto 0 /uL (0-450); Eosinophils Percent Auto 0.3 % (2-4); Hematocrit 26.3 % (36-46); Hemoglobin 8.8 g/dL (12.0-16.0); Lymphocytes Absolute Auto 1100 /uL (1100-4500); Lymphocytes Percent Auto 26.4 % (25-40); Mean Corpuscular HGB Conc 33.5 % (30-36); Mean Corpuscular Hemoglobin 30.8 PG (26-34); Monocytes Absolute Auto 700 /uL (0-900); Monocytes Percent Auto 17.9 % (3-14); Neutrophils Absolute Auto 2300 /uL (1500-7000); Neutrophils Percent Auto 55.3 % (50-75); Platelet Count 111 X10^3/uL (150-400); Red Blood Cell Count 2.86 X10^6/uL (4.0-5.2); Red Cell Distribution Width 17.6 % (11.6-14.8); White Blood Cell Count 4.1 X10^3/uL (4.5-11.0)
[2019-09-23 06:05] LABS: BUN Creatinine Ratio 17.2 (6-22); Blood Urea Nitrogen 16 mg/dL (7-17); Calcium 8.5 mg/dL (8.4-10.2); Chloride 91 mmol/L (98-107); Estimated Glomerular Filt Rate 57.4 mL/min (>60); Glucose 101 mg/dL (80-110); HEMOLYSIS < 15 (0-50); Magnesium 1.5 mg/dL (1.6-2.3); Potassium 3.8 mmol/L (3.4-5.1); Sodium 131 mmol/L (137-145)
--- NOTE | 2019-09-23 06:06 | PC.NURSE ---
0600 Patient had one episode of hemoptysis; moderate amount of dark bloody expectorate. No shortness of breath at rest or chest pain noted. 3 Liter of oxygen with saturation of 94%.
[2019-09-23 06:26] LABS: Carbon Dioxide 38 mmol/L (22-32)
[2019-09-23 08:05] VITALS: PULSE 63; RESP 16; O2SAT 94
[2019-09-23] MEDS: UMECLIDINIUM/VILANTEROL 62.5/2 14 PUFF INHALER INH (08:05)
[2019-09-23 08:27] VITALS: BP 160/57; PULSE 61; RESP 18; TEMP 37.5; O2SAT 99
--- NOTE | 2019-09-23 08:45 | OT.IP.EVAL ---
Current Diagnoses Gastrointestinal hemorrhage, unspecified (09/21/19) Surgery Performed Operation Date: 09/22/19 10:45 Actual Procedures p Esophagogastroduodenoscopy with biopsies - Ruthann Wang MD Past Medical History (Last Reviewed 09/21/19 @ 21:18 by Mary Grace Olivares MD) Atrial fibrillation (Acute) Congestive heart failure (Acute) COPD (chronic obstructive pulmonary disease) (Acute) Hypertension (Acute) Morbid obesity (Acute) Surgical History (Last Reviewed 09/21/19 @ 21:18 by Mary Grace Olivares MD) H/O total hip arthroplasty (Acute) Occupational Therapy Inpatient Evaluation/Re-Eval M1 PT/OT-IP Prior Functional Status Start: 09/23/19 10:46 Freq: NEEDED Status: Active Protocol: Document 09/23/19 08:45 [facility] (Rec: 09/23/19 11:02 [facility] [id number]) Medical Review Prior Functional Status Medical History Reviewed Yes Communication Independent. Mobility and Gait pt stated that she is modified independent with all mobilities and ambulation without AD Pt states in the last week has mainly just getting up form her bed to bathroom and recliner. Pt states her has to also assist her now to get out of bed . Activities of Daily Living and IADL's Pt states due to weakness and decreased activity tolerance , pt's has been having to assist more for ADl needs- pull up pants, ajit shoes, and help with showering needs. Social History Household Members significant other Living Arrangements House Number of Floors (Floors) One Floor Number of Stairs To Enter/Railing? 4 steps to enter with bilateral rails Home Environment Walk in Shower Home Equipment Front Wheel Walker,Four Wheel Walker,Straight Cane,Shower Seat without Backrest,Hand Held Shower,Grab Bars Near Toilet,Grab Bars In Shower Additional Social History Comment stated that she uses O2 on and off at home depending on SOB M2 OT-IP Current Condition Start: 09/23/19 10:46 Freq: Status: Active Protocol: Document 09/23/19 08:45 [facility] (Rec: 09/23/19 11:02 [facility] [id number]) Occupational Therapy Current Condition Current Condition Evaluation Date 09/23/19 Treatment Diagnosis Anemia, SOB, decreased self care Diagnosis Onset Date 09/21/19 M3 OT- IP Subjective and Pain Start: 09/23/19 10:46 Freq: Status: Active Protocol: Document 09/23/19 08:45 [facility] (Rec: 09/23/19 11:02 [facility] [id number]) OT- Subjective Occupational Therapy Visit Type Type Initial Evaluation Visit Start Time 08:45 Visit Stop Time 09:37 Total Visit Minutes 52 Occupational Therapy Visit Comments Patient Comments Pt agreed to get up . Patient/Caregiver Goals To go home when medically stable. OT Pain Assessment Pain When Pain Assessed At Rest Pain Present Pain Present Denied Pain M4 OT- IP ADL's Start: 09/23/19 10:46 Freq: Status: Active Protocol: Document 09/23/19 08:45 [facility] (Rec: 09/23/19 11:02 [facility] [id number]) OT [id number] Comments OT Self-Feeding Comments Not at meal time. OT ADL-Grooming General Evaluation Grooming Ability Standby Assistance Areas Needing Assistance Retrieving/Set-up of Grooming Items Comments OT Grooming Comments Pt too tired to try to stand at the sink for grooming needs , therefore completed while seated at the recliner. OT ADL-Oral Care General Eval Oral Care Ability Independent OT ADL-Dressing General Eval Lower Body Dressing Ability Maximum Assistance Comments OT Dressing Comments Pt unable to do LB dressing needs and states that her will assist with all her ADl needs as needed. OT ADL-Toileting Comments OT Toileting Comments Pt not having to use the bathroom at this time and serna in place. OT ADL-Bathing Comments OT Bathing Comments With assist pt able to sponge off while sitting in the recliner and needing assist to help wash under her arms. M5 OT- IP IADL's Start: 09/23/19 10:46 Freq: Status: Active Protocol: Document 09/23/19 08:45 [facility] (Rec: 09/23/19 11:02 [facility] [id number]) OT-Instrumental Activities of Daily Living Home Safety Awareness Home Safety Comments At times pt a bit confused and pt states due to low O2 levels and therefore her has been assist her for all needs at home and will continue to do so. M6 OT- IP Functional Cognition Start: 09/23/19 10:46 Freq: Status: Active Protocol: Document 09/23/19 08:45 [facility] (Rec: 09/23/19 11:02 [facility] [id number]) Cognitive Factors Limiting Selfcare Function Cognitive Ability Level of Alertness Alert Attention Span Ability Capable of Focused Attention, Capable of Sustained Attention Ability to Follow Commands Able to Follow One Step Commands Memory Description Short Term Impaired Cognitive Comments Cognitive Assessment Comments Pt appears at baseline and at times forgetful. OT- Vision and Hearing OT- Hearing Assessment OT- Hearing Assessment WFL OT- Vision Assessment Visual Acuity Glasses All The Time M7 OT- IP Mobility and Balance Start: 09/23/19 10:46 Freq: Status: Active Protocol: Document 09/23/19 08:45 [facility] (Rec: 09/23/19 11:02 [facility] [id number]) OT- Bed Mobility Assessment Supine to Sit Supine to Sit Assist Moderate Assistance Scooting Scooting to Edge of Bed Minimal Assistance OT-Transfer Assessment Sit to and From Stand Sit to and from Stand Minimal Assistance Transfers Transfer Ability Contact Guard Assistance Devices Transfer Assistive Devices Gait Belt,Front Wheeled Walker Comments Mobility Comments Mainly just transfer due to decreased activity tolerance. Pt's O2 on 2.5L and after trying to get up out of bed drops to 86% and then after 3 minutes able to increase to 90 %. Pt O2 increased to 3L and able to even with minimal activity fluctuates from 86-90 %. Nursing aware O2 increased to 3L. OT- Balance Assessment Sitting Balance and Reactions Static Sitting Balance Ability Fair Dynamic Sitting Balance Ability Good Standing Balance and Reactions Static Standing Balance Ability Fair M8 OT- IP Objective Assessments Start: 09/23/19 10:46 Freq: Status: Active Protocol: Document 09/23/19 08:45 [facility] (Rec: 09/23/19 11:02 [facility] [id number]) OT Gross Range of Motion Upper Extremity Range of Motion Assessment Bilaterally Impaired OT Strength Comments Strength Comments Due to history of rotator cuff , decreased AROm amd strength 3-/5 to 4-/5 from proximal to distal. OT-Muscle Tone Assessment Muscle Tone WNL Yes M9 OT- IP Assessment and Plan Start: 09/23/19 10:46 Freq: Status: Active Protocol: Document 09/23/19 08:45 [facility] (Rec: 09/23/19 11:02 [facility] [id number]) OT Summary Assessment and Plan Potential Rehabilitation Potential Fair Analytic Complexity at Evaluation Low Summary OT Impairments Range of Motion,Balance, Functional Mobility,Grooming, Dressing,Toileting,Bathing, Toilet Transfers,Shower Transfers,Activity Tolerance Progress Towards Goals Progressing Toward Goals Assessment Summary Pt low complexity and main barriers are decreased activity tolerance, weakness, and now needing more assist for all Adl and functional mobility needs. Pt will benefit from increased assist at home and home health. Goals Grooming Goal Independent Dressing Goal Minimal Assistance Toileting Goal Minimal Assistance Bathing Goal Moderate Assistance Toilet Transfer Goal Independent Shower Transfer Goal Independent Patient/Caregiver Education Goal Demonstrate Energy Conservation and Pacing, Caregiver Independent Assisting Patient Days to Meet Goals 3 Frequency of Treatment Frequency Of Treatment Once a Day Treatment Plan OT Treatment Plan ADL Training,Functional Mobility,Patient/Family Education,Discharge Planning Discharge Recommendations OT Discharge Recommendations Home with Assistance,Home Health Transportation Needs at Discharge Private Vehicle
[2019-09-23] MEDS: LOSARTAN 50 MG TABLET PO (10:18)
[2019-09-23] MEDS: SODIUM CHLORIDE 0.9% FLUSH 10 ML IV (10:18)
[2019-09-23] MEDS: PANTOPRAZOLE 40 MG VIAL IV (10:18)
[2019-09-23] MEDS: METOPROLOL ER 25 MG TABLET 12.5 MG PO (10:19)
--- NOTE | 2019-09-23 10:21 | PM.DS.1 ---
History of Present Illness History of Present Illness Date Patient Seen: 09/21/19 Chief complaint: fluid in lungs Narrative: Written by Dr. Olivares: This is an 84 year old female with chronic shortness of breath and a new anemia of Hgb 6.8. She and her friend give somewhat contradictory descriptions of timing and symptoms. Apparently a month ago they both fell off a porch at the same time when he was trying to help her walk. Subsequently she developed pneumonia and was treated here at the beginning of August for 4 days with antibiotics for pneumonia and treatment of her COPD/hypoxia. She was discharged home on nasal cannula oxygen for the 1st time and remains on that. Over the last 2 weeks she stopped taking her Lasix because she did not like urinating in her bed and it did not seem to be helping her edema. She has been increasingly short of breath now for 2 weeks with increasing swelling in her feet and also reports coughing up blood. Her chest x-rays are reviewed and appear to show patchy infiltrates that look chronic but are unclear as to etiology. She is known to have areas of bronchitis on the last CTA of the chest in early August. The comparison chest x-rays do not look much different. She went today to her physician's office where the physician assistant track and field coach directed her to the emergency department and she was admitted for treatment of her new anemia. The hemoglobin had been 12.6 a month ago and is now 6.8 without any noticeable rectal bleeding. She was recently started on Eliquis for Atrial Fibrillation. Her last blood transfusion was when she was having a miscarriage about 60 years ago. She will be undergoing endoscopic evaluation with General surgery tomorrow. Additional factors include a BNP of 802, procalcitonin less than 0.03, INR 1.9. Discharge Providers Provider Date of admission: 09/21/19 16:15 Discharge Date: 09/23/19 Consults: 09/21/19 13:26 Consult to Respiratory Therapy Evaluate & Treat Comment: Physician Instructions: Evaluate and treat 09/21/19 21:00 Consult to Occupational Therapy Evaluate & Treat Comment: Physician Instructions: Evaluate and treat Consult to Physical Therapy Evaluate & Treat Comment: Physician Instructions: Evaluate and Treat Discharge provider: Ann Dent DO Summary Hospital Course Discharge Diagnosis: 1. Symptomatic normocytic anemia, secondary to GI bleed, present on admission. Resolved. 2. Shortness of breath, secondary to acute blood loss anemia, present on admission. Resolved. 3. COPD with chronic hypoxemic respiratory failure, chronic, present on admission. Stable. 4. Atrial Fibrillation, chronic, present on admission. Stable. 5. Hypertension, chronic, present on admission. Stable. Hospital Course: Jeanine Calderon is a 84-year-old female with a past medical history significant for COPD with hypoxemic respiratory failure, chronic shortness of breath and atrial fibrillation who presented with shortness of breath and a new anemia of Hgb 6.8. 1. Symptomatic normocytic anemia, secondary to GI bleed, present on admission. Resolved. -Initial hemoglobin 6.8 with MCV 94.1. Baseline hemoglobin 12-13. Received 2 units PRBC with appropriate compensation hemoglobin 9.5 trended down slightly to 8.8 likely due to hemodilution from IVF. Continued to monitor H&H daily. Recommend repeat CBC with PCP in next 3-5 days. -Patient recently started Eliquis for atrial fibrillation. Patient endorses mild hemoptysis but denies hematuria, melena or hematochezia. -Held Eliquis (INR 1.9 from the Eliquis?) until patient is able to follow up with PCP, blood counts remain stable, and gastric ulcer healed. -Continued Protonix 40 mg daily and will likely need to continue indefinitely. -Consulted general surgery, Dr. Wang, who performed EGD which demonstrated gastric ulcer, gastritis and Duodenitis felt to be patients source of anemia and biopsies pending. If patient has H. pylori will need to be treated and eradicated. Recommend outpatient colonoscopy. -Continued physical and occupational therapy evaluation and treatment who recommended home health and patient and spouse declined. 2. Shortness of breath, secondary to acute blood loss anemia, present on admission. Resolved. -Patient with known COPD and lung irregularities on imaging with recent onset of 3 L nasal cannula oxygen dependency. -Chest x-ray demonstrated ill-defined airspace opacities are seen scattered throughout bilateral visualized lung oro concerning for atypical pneumonia. -No symptoms of pneumonia. Lactate 1.0, Procalcitonin <0.03. WBC 4.0. -Due to complaint of hemoptysis may consider QuantiFERON gold and referral to pulmonology for bronchoscopy. However, hemoptysis seems to have resolved with eliquis being held and PPI and acute shortness of breath resolved with blood transfusion. 3. COPD with chronic hypoxemic respiratory failure, chronic, present on admission. Stable. -Continued home oxygen 3 L continuous, albuterol, and Anoro Ellipta. 4. Atrial Fibrillation, chronic, present on admission. Stable. -Held Eliquis until patient is able to follow up with PCP and blood counts remain stable. -Continued metoprolol succinate 25 mg twice daily and furosemide 20 mg daily. 5. Hypertension, chronic, present on admission. Stable. -Continued home metoprolol succinate 25 mg twice daily and losartan 25 mg daily. Exam Vital Signs (past 8 hours): - 09/23/19 04:40 09/23/19 08:05 09/23/19 08:27 Temperature 99.1 F 99.5 F Pulse Rate 64 63 61 Respiratory Rate 18 16 18 Blood Pressure 161/55 H 160/57 H Pulse Oximetry 97 94 99 Oxygen Delivery Method Nasal Cannula Oxygen Flow Rate 3 Narrative Exam Narrative: General: Elderly female lying in bed and in no acute distress, well-developed, well-nourished, appropriately interactive HEENT: Normocephalic, atraumatic. External ears without defect. Pupils equal, round, and reactive to light. Anicteric sclerae, moist conjunctivae, and no lid lag. Oropharynx free of erythema and cobble stoning with moist mucosa. Neck: Supple with full range of motion. No jugular venous distension. No bruits. No lymphadenopathy or thyromegaly. Cardiovascular: Irregularly irregular without murmurs, rubs, or gallops appreciated. Pulmonary: Clear to auscultation bilaterally without crackles, wheezes, or rhonchi. Normal respiratory effort with no use of accessory muscles. Abdomen: Soft, obese, bowel sounds present, nontender, nondistended. No hepatosplenomegaly or masses appreciated. Extremities: No clubbing or cyanosis. Mild bilateral pitting edema to pretibial area. Skin: Normal temperature, turgor, and texture; no rash, ulcers, or subcutaneous nodules appreciated. Neurological: Cranial nerves grossly intact. Psychiatric: Normal mood and affect. Alert and oriented to person, place, and time. Probable mild cognitive impairment with short term memory recall deficit. Objective Labs Result Diagrams: 09/23/19 04:20 09/23/19 04:20 Labs: Laboratory Results - last 24 hr 09/23/19 09/23/19 04:20 04:20 WBC 4.1 L RBC 2.86 L Hgb 8.8 L Hct 26.3 L MCV 92.0 MCH 30.8 MCHC 33.5 RDW 17.6 H Plt Count 111 L Neut % (Auto) 55.3 Lymph % (Auto) 26.4 Duc[place]ne % (Auto) 17.9 H Eos % (Auto) 0.3 L Baso % (Auto) 0.1 Neut # (Auto) 2300 Lymph # (Auto) 1100 [place]ne # (Auto) 700 Eos # (Auto) 0 Baso # (Auto) 0 Sodium 131 L Potassium 3.8 Chloride 91 L Carbon Dioxide 38 H BUN 16 Creatinine 0.93 Estimated GFR 57.4 L BUN/Creatinine Ratio 17.2 Glucose 101 Calcium 8.5 Magnesium 1.5 L Discharge Plan Discharge Plan Patient Disposition: Home Discharge comment: You are being discharged home. You had inflammation of your stomach called gastritis and shallow ulcerations of your stomach which caused your bleeding. You received 2 units of blood. You have been prescribed Protonix 40 mg daily to heal your gastritis and gastric ulcers. Biopsies were taken of your stomach and small intestine to check for a bacteria called H. pylori that causes stomach ulcers and if this is present you will need to be treated to eradicate this bacteria. Your Eliquis has been stopped until you are able to follow-up with your primary care physician, your blood counts are stable and your gastritis has had time to heal and resolve. You may want to consider iron supplementation to help rebuild your blood stores. Please do not take any NSAIDs such as ibuprofen (Advil or Motrin), naproxen (Aleve), aspirin etc. Please follow-up with your primary care physician, Dr. Alexis, in the next 1 regarding your hospitalization and repeat blood counts. Please continue taking your Lasix 20 mg daily to prevent fluid overload and heart failure exacerbation. Highly recommend physical therapy, occupational therapy and nursing with home health which you have kindly declined. Recommend outpatient physical and occupational therapy at the very least which he would need a referral from your PCP. Discharge orders & Medications Prescriptions: New pantoprazole [Protonix] 40 mg tablet,delayed release (DR/EC) 40 mg PO DAILY Qty: 60 RF: 0 Continued losartan 25 mg Tablet 25 mg PO DAILY RF: 0 metoprolol succinate 25 mg Tablet Extended Release 24 Hr 25 mg PO BID RF: 0 furosemide [Lasix] 20 mg Tablet 20 mg PO DAILY Qty: 30 RF: 0 Anoro Ellipta 62.5-25 mcg/actuation blister with device 1 inh inhalation DAILY RF: 0 albuterol sulfate [ProAir HFA] 90 mcg/actuation HFA aerosol inhaler 2 inh INHALATION Q4H PRN (Reason: Shortness Of Breath) RF: 0 Discontinued Eliquis 5 mg Tablet 5 mg PO BID RF: 0 Follow up/Referrals: Dominic Alexis MD [Non-Staff] - 1 Week (PLEASE CALL DR ALXEIS'S OFFICE TO SCHEDULE YOUR FOLLOW UP APPOINTMENT TO BE SEEN IN ONE WEEK.) Diet/Activity/Treatments Diet: Low-fat, Low-sodium and Low-cholesterol Activity: Activity as tolerated with walker Visit Report/Discharge Packet Instructions: Fat-Restricted Diet, DI for Gastritis, DI for Gastric Ulcer, How to Prevent Falls, Low-Sodium Diet, Pantoprazole Visit Report Forms: Patient Portal/API, Stroke Signs & Symptoms Discharge Data Attending Provider: Ann Dent Admit Date/Time: 09/21/19 16:15 Discharges patient from system. Discharge Date/Time: 09/23/19 14:18 Quality VTE Deep Vein Thrombosis/Pulmonary Embolism Present on Admission: No
--- NOTE | 2019-09-23 10:28 | CM.DPC ---
DCP Cont: Met with patient during team rounds. Plan is for home today. Mentioned home health briefly to patient. Returned to room after team rounds and discussed. Patient is OBS status, and would not be covered for skilled benefit. Updated Indira at [facility], for P[facility]. has been suggesting fci. Went back to patient's room. Went ahead and had Dr. Dent sign a face to face. Mentioned home health to patient and life partner, Reggie Sommer, who was present in room. Patient stated, I don't really think I need it, I have Reggie to help me out. Encouraged patient to at least have nursing come in to evaluate her breathing. Let patient know that this case briefer can return before she leaves, to encourage home health. Dr. Dent will be going by and seeing patient as well. Patient still has serna, which will be DC'd today. P: Patient is supposed to discharge today. If patient consents to home health, will use [facility], for they are currently listed on calendar. Geni Saucedo RN/Ccna
--- NOTE | 2019-09-23 10:30 | PT.IPTN ---
Current Diagnoses Gastrointestinal hemorrhage, unspecified (09/21/19) Surgery Performed Operation Date: 09/22/19 10:45 Actual Procedures p Esophagogastroduodenoscopy with biopsies - Ruthann Wang MD Physical Therapy Treatment Note M2 PT-IP Current Condition Start: 09/22/19 15:35 Freq: NEEDED Status: Active Protocol: Document 09/22/19 14:17 AB (Rec: 09/22/19 15:52 AB [id number]) Physical Therapy Current Condition Current Condition Evaluation Date 09/22/19 Treatment Diagnosis respiratory failure; difficulty in walking Onset Date 09/21/19 Precautions Other Precautions O2 sat M3 PT-IP Subjective Start: 09/22/19 15:35 Freq: NEEDED Status: Active Protocol: Document 09/23/19 10:30 AB (Rec: 09/23/19 11:37 AB [email or web address]) Subjective Physical Therapy Visit Type Type Treatment Note Visit Start Time 10:30 Visit Stop Time 10:51 Total Visit Minutes 21 Number of EDUCATION ADMINISTRATIVE ASSISTANT Visits 0 Physical Therapy Visit Comments Patient Comments pt is agreeable to do ambulation; refused to do steps M4 PT-IP Mobility and Gait Start: 09/22/19 15:35 Freq: NEEDED Status: Active Protocol: Document 09/23/19 10:30 AB (Rec: 09/23/19 11:37 AB [email or web address]) PT-Transfer Assessment Sit to and From Stand Sit to and from Stand Standby Assistance,Contact Guard Assistance,1 Person Assistance,Use of Upper Extremities Equipment Transfer Assistive Device Gait Belt,Front Wheeled Walker Orthotic/Prosthetic Devices or Brace: No Comments Mobility Comments pt sitting on chair; stated that she is going home. informed pt regarding stair climbing training and pt refused. spouse in room and stated that they also have a ramp to enter but it is ~ 50 ft walk. asked pt regarding bed mobility and stated that she is doing ok with that but hospital bed is harder because it is not the same as the one she has at home. pt agreed to do ambulation. ambulated in room using FWW CGA ~ 20 ft and pt stated that she has to sit down. O2 sat 88%. unable to get a reading during ambulation. cued pt for PLB. pt refused further PT. spouse in room and agreed to put in resting stations for pt to sit on to get in to the house. positioned pt on chair. call light and table placed within reach. Gait Assessment Gait Gait Assistance Required: Contact Guard Assist Distance (Feet) 20 Able to Maintain Weight Bearing Status Yes During Gait Assistive Devices Assistive Device Gait Belt,Front Wheeled Walker Orthotic/Prosthetic Devices or Brace: No Gait Deviations General Gait Pattern Antalgic,Decreased Stride Length,Decreased Feet Clearance,Lateral Trunk Lean, Step-to Gait Factors Limiting Gait Function Factors Limiting Gait Function Decreased Activity Tolerance, Decreased Strength,Poor Balance,Poor Safety Awareness, Respiratory Distress M5 PT-IP Objective Assessments Start: 09/22/19 15:35 Freq: NEEDED Status: Active Protocol: Document 09/22/19 14:17 AB (Rec: 09/22/19 15:52 AB [email or web address]) Orientation Orientation/Cognition Level of Alertness Confusional State Orientation Name Safety Awareness Decreased Safety Awareness Memory Description Short Term Impaired Comments pt does not know where she is and why she is in the hospital Gross Range of Motion Lower Extremity ROM Assessment Within Functional Limits Strength Lower Extremity Strength Assessment Within Functional Limits Sensation Assessment Sensation Gross Sensation WNL Muscle Tone Muscle Tone WNL Yes M6 PT-IP Treatment Start: 09/22/19 15:35 Freq: NEEDED Status: Active Protocol: Document 09/23/19 10:30 AB (Rec: 09/23/19 11:37 AB [email or web address]) Physical Therapy Treatment Education Education Provided Safety M7 PT-IP Assessment and Plan Start: 09/22/19 15:35 Freq: NEEDED Status: Active Protocol: Document 09/23/19 10:30 AB (Rec: 09/23/19 11:37 AB [email or web address]) PT Summary Assessment and Plan Potential Rehabilitation Potential Fair Summary Impairments Pain,ROM,Strength,Balance, Coordination,Cognition,Bed Mobility,Transfers,Gait, Activity Tolerance Progress Towards Goals Slow Progress due to Medical Issues,Slow Progress due to Activity Tolerance Assessment Summary pt requiring CGA with ambulation using FWW and plans to go home with spouse to assist her. pt educated regarding safety, PLB and resting in between activities for safety. pt and spouse understood and agreed. Goals Bed Mobility Goal Standby Assistance Transfer Goal Standby Assistance,Front Wheeled Walker Gait Goal Standby Assistance,Front Wheel Walker Gait Distance 150 Other Goals up/down 4 steps B rails SBA Days to Meet Goals 10 Frequency of Treatment Frequency Of Treatment Once a Day Treatment Plan Physical Therapy Treatment Plan Bed Mobility Training,Transfer Training,Gait Training, Therapeutic Exercise,Balance Retraining,Discharge Planning, Neuromuscular Re-ed, Coordination Retraining,Manual Therapy Other Recommendations and Next Treatment transfer, ambulation Focus Recommendations To Nursing Amount of Assist Needed 1 Person Assist Discharge Recommendations PT Discharge Recommendations Home with Assistance, Outpatient PT Other Discharge Recommendations outpt: cardiopulmo rehab Transportation Needs at Discharge Private Vehicle
[2019-09-23] MEDS: FUROSEMIDE 20 MG TABLET PO (10:40)
[2019-09-23 11:41] VITALS: BP 150/54; PULSE 52; RESP 16; TEMP 37.2; O2SAT 97
--- NOTE | 2019-09-23 14:14 | PC.NURSE ---
Discharge: IV dc'd intact. Patient voided prior to leaving (serna was dc'd at 1200) and denied any post-void urgency. Reviewed all d/c instructions and CHF color-coded guidelines thoroughly with patient and . She knows she has 2 scripts to corn picker at her pharmacy. Instructed to call Dr Alexis's office to schedule follow up and repeat blood counts in 1 week. Reviewed s/sx with which to call MD Hannah or return to hospital. Disconnected from her O2 just for the ride down to the car, meeting down there with O2 portable unit. Patient and verbalized understanding of d/c instructions and stated no further questions. All personal belongings sent with patient at d/c. Wheeled out to private vehicle by nursing staff.
== END 2019-09-23 14:18 | disposition home or self-care (01) ==
LOC: ED 16:06 → AC 16:16
PROVIDERS: Family Medicine; Surgery; Admitting Provider Internal Medicine; Emergency Provider Emergency Medicine; Referring Provider Emergency Medicine; Visit Provider Internal Medicine
PROC: 0DJ08ZZ Inspection of Upper Intestinal Tract, Via Natural or Artificial Opening Endoscopic (ICD-10-PCS; CPT 43235; principal; 2019-09-22 10:45)
DX: D50.0 Iron deficiency anemia secondary to blood loss (chronic) (principal); R06.02 Shortness of breath; K25.4 Chronic or unspecified gastric ulcer with hemorrhage; K44.9 Diaphragmatic hernia without obstruction or gangrene; K29.70 Gastritis, unspecified, without bleeding; K29.80 Duodenitis without bleeding; I48.0 Paroxysmal atrial fibrillation; I11.0 Hypertensive heart disease with heart failure; E66.9 Obesity, unspecified; I50.9 Heart failure, unspecified; Z11.59 Encounter for screening for other viral diseases; Z79.01 Long term (current) use of anticoagulants; J18.1 Lobar pneumonia, unspecified organism; J44.1 Chronic obstructive pulmonary disease with (acute) exacerbation; Z68.39 Body mass index [BMI] 39.0-39.9, adult
CPT/HCPCS: 43239; 36415; 36430; 36600; 51701; 71045; 80048; 80053; 82550; 82805; 83605; 83735; 83880; 84145; 84484; 85025; 85610; 86850; 86900; 86901; 87635; 93005; 94640; 96361; 96374; 96375; 96376; 97116; 97162; 97165; 97530; 99285; G0378; P9016; A9270; C9113; J1940; J2250; J2704

== ENCOUNTER 2019-12-05 05:47 | Emergency (ER) | payer MEDICARE, OTHER, SELFPAY ==
[2019-08-14 14:19] VITALS: PULSE 103; RESP 36; O2SAT 97
[2019-09-22] VITALS: BMI 39.3
[2019-12-05] VITALS (24 sets, daily range): BP systolic 138–223; BP diastolic 70–85; PULSE 58–112; RESP 20–57; TEMP 36.8; O2SAT 90–100; BMI 36.6
--- NOTE | 2019-12-05 05:53 | ED.GENADULT ---
HPI - General Adult <Rome Farah DO - Last Filed: 12/05/19 20:17> General Chief complaint: Shortness of Breath/Dyspnea Stated complaint: Shortness of breath this AM Time Seen by Provider: 12/05/19 05:47 Source: patient and EMS Mode of arrival: EMS Limitations: no limitations History of Present Illness HPI narrative: Patient is an 84-year-old female. History of COPD. On 4 L of oxygen by nasal cannula at home at baseline. Brought in by EMS after she states that she woke up this morning to go use the restroom and had a fairly sudden onset of shortness of breath. She had a very similar episode occurred to her earlier this year where she was admitted for COPD exacerbation also pneumonia. She denies any fevers. He is having some chest discomfort. States that she feels like she can not get a deep breath. Does have lower extremity swelling however this is been here for the past several weeks if not months. No prior history of CHF. Has been on anticoagulation the past but she is not currently on this. Does have a history of paroxysmal atrial fibrillation. Also has a history of hypertension. Related Data Home Medications Medication Instructions Recorded Confirmed Anoro Ellipta 1 inh INHALATION DAILY 08/14/19 09/21/19 albuterol sulfate [ProAir HFA] 2 inh INHALATION Q4H PRN 08/14/19 09/21/19 losartan 25 mg PO DAILY 09/21/19 09/21/19 metoprolol succinate 25 mg PO BID 09/21/19 09/21/19 Previous Rx's Medication Instructions Recorded furosemide [Lasix] 20 mg PO DAILY #30 tab 09/23/19 pantoprazole [Protonix] 40 mg PO DAILY #60 tab 09/23/19 Allergies Allergy/AdvReac Type Severity Reaction Status Date / Time codeine Allergy Verified 12/05/19 10:34 Penicillins Allergy Verified 12/05/19 06:34 shellfish derived Allergy Verified 12/05/19 06:34 Review of Systems <Rome Farah DO - Last Filed: 12/05/19 20:17> Constitutional Constitutional: Denies fever(s) and Denies headache(s) ENT Ears, Nose, Mouth, and Throat: Denies headache(s) Cardiovascular Cardiovascular: Reports chest pain, Reports leg edema and Reports dyspnea Respiratory Respiratory: Denies cough and Reports dyspnea Gastrointestinal Gastrointestinal: Denies abdominal pain, Denies nausea and Denies vomiting Genitourinary Genitourinary: Denies dysuria Genitourinary: Denies dysuria Musculoskeletal Musculoskeletal: Denies arthralgias and Denies myalgias Integumentary/Breasts Skin/Breast: Denies lesions and Denies rash Neurologic Neurologic: Denies behavioral changes and Denies headache(s) Psychiatric Psychiatric: Denies behavioral changes Hematologic/Lymphatic Hematologic/Lymphatic: Denies easy bleeding and Denies easy bruising Allergic/Immunologic Allergic/Immunologic: Denies urticaria Patient History <Rome Farah DO - Last Filed: 12/05/19 20:17> Medical History Atrial fibrillation (Acute) Congestive heart failure (Acute) COPD (chronic obstructive pulmonary disease) (Acute) Hypertension (Acute) Morbid obesity (Acute) Surgical History H/O total hip arthroplasty (Acute) Social History household members: significant other Smoking Status: Former smoker alcohol intake: never Smoking Status: Former smoker alcohol intake frequency: holidays/special occasions only Substance Use Type: does not use Exam <Rome Farah DO - Last Filed: 12/05/19 20:17> Initial Vital Signs Initial Vital Signs: Vital Signs Pulse Rate 94 H 12/05/19 05:35 Respiratory Rate 26 H 12/05/19 05:35 Pulse Oximetry 95 12/05/19 05:35 Const General: cooperative Limitations: mental status not altered [facility] Head: normal to inspection and normocephalic Resp Effort & Inspection: labored and tachypneic Auscultation: diminished lung sounds Cardio Rate: tachycardic Rhythm: abnormal rhythm GI Inspection: non-distended Palpation: soft Skin Lesions: no lesions Rashes: no rashes Neuro General: patient alert, patient awake and patient oriented x3 Cognition: normal cognition Speech: speech normal Extrem General: edema Psych Appearance: grossly normal and well kempt <Babak Bonilla MD - Last Filed: 12/05/19 18:10> Initial Vital Signs Initial Vital Signs: Vital Signs Pulse Rate 94 H 12/05/19 05:35 Respiratory Rate 26 H 12/05/19 05:35 Pulse Oximetry 95 12/05/19 05:35 Scores <Rome Farah DO - Last Filed: 12/05/19 20:17> GCS Newberry coma scale eye opening: Spontaneous Newberry coma scale verbal response: Orientated Newberry coma scale motor response: Obey commands Adriana coma scale total score: 15 Course <Rome Farah DO - Last Filed: 12/05/19 20:17> Orders Ordered: Discontinued Medications Albuterol (Ventolin Hfa (Vent/Covid R/O)) 2 puff INH NOW ONE Stop: 12/05/19 05:55 Last Admin: 12/05/19 06:06 Dose: 2 puff Documented by: BROOKS Aspirin (Aspirin) 300 mg UT NOW ONE Stop: 12/05/19 07:23 Last Admin: 12/05/19 08:42 Dose: 300 mg Documented by: HELGA Clopidogrel Bisulfate (Plavix) 75 mg PO NOW ONE Stop: 12/05/19 07:28 Last Admin: 12/05/19 08:42 Dose: 75 mg Documented by: HELGA Furosemide (Lasix) 40 mg IV NOW ONE Stop: 12/05/19 05:55 Last Admin: 12/05/19 06:07 Dose: 40 mg Documented by: BROOKS Heparin Sodium (Porcine) (Heparin) 5,000 unit IV NOW ONE Stop: 12/05/19 07:28 Last Admin: 12/05/19 08:42 Dose: 5,000 unit Documented by: HELGA Heparin Sodium/Dextrose (Heparin Drip) 25,000 unit in 500 mls @ 21.772 mls/hr IV CONT CLIVE; Protocol Last Infusion: 12/05/19 10:07 Dose: 0 units/kg/hr, 0 mls/hr Documented by: Admin: 12/05/19 08:43 Dose: 12 units/kg/hr, 21.772 mls/hr Documented by: HELGA Nitroglycerin (Nitroglycerin) 50 mg in 250 mls @ 1.5 mls/hr IV TITRATE CLIVE; Protocol Last Titration: 12/05/19 10:08 Dose: 0 mcg/min, 0 mls/hr Documented by: Admin: 12/05/19 09:51 Dose: 5 mcg/min, 1.5 mls/hr Documented by: SMICHEAU Nitroglycerin (Nitroglycerin) 50 mg in 250 mls @ 1.5 mls/hr IV TITRATE CLIVE; Protocol Last Admin: 12/05/19 10:03 Dose: Not Given Documented by: ZURI Methylprednisolone (Solu-Medrol 125 Mg Vial) 125 mg IV NOW ONE Stop: 12/05/19 05:55 Last Admin: 12/05/19 06:07 Dose: 125 mg Documented by: BROOKS Morphine Sulfate (Morphine) 4 mg IV NOW ONE Stop: 12/05/19 06:24 Last Admin: 12/05/19 06:27 Dose: 4 mg Documented by: BROOKS Nitroglycerin (Nitro-Bid) 1 inch TOP NOW ONE Stop: 12/05/19 06:33 Last Admin: 12/05/19 06:48 Dose: 1 inch Documented by: BROOKS Vital Signs Vital signs: Vital Signs - 8 hr 12/05/19 05:35 12/05/19 05:55 12/05/19 06:00 Temperature 98.2 F Pulse Rate 94 H 103 H 92 H Respiratory Rate 26 H 31 H Blood Pressure 138/70 Pulse Oximetry 95 100 96 12/05/19 06:30 12/05/19 06:31 12/05/19 06:45 Temperature Pulse Rate 94 H 85 74 Respiratory Rate 53 H 57 H Blood Pressure 223/85 H 213/84 H Pulse Oximetry 98 98 96 12/05/19 06:48 12/05/19 07:00 12/05/19 07:01 Temperature Pulse Rate 67 60 58 L Respiratory Rate 38 H 28 H Blood Pressure 213/84 H 171/72 H Pulse Oximetry 90 L 92 12/05/19 07:16 12/05/19 07:30 12/05/19 08:00 Temperature Pulse Rate 79 68 70 Respiratory Rate 24 23 24 Blood Pressure 185/74 H Pulse Oximetry 100 99 100 12/05/19 08:10 12/05/19 08:16 12/05/19 08:30 Temperature Pulse Rate 77 Respiratory Rate 22 Blood Pressure 185/74 H 185/74 H Pulse Oximetry 96 12/05/19 08:36 12/05/19 08:52 12/05/19 09:00 Temperature Pulse Rate 72 78 69 Respiratory Rate 24 22 20 Blood Pressure 182/74 H 188/75 H Pulse Oximetry 96 96 95 12/05/19 09:30 12/05/19 09:33 12/05/19 09:49 Temperature Pulse Rate 82 81 83 Respiratory Rate 36 H 28 H 35 H Blood Pressure 199/77 H 198/79 H Pulse Oximetry 98 98 97 12/05/19 10:00 12/05/19 10:01 Temperature Pulse Rate 91 H 80 Respiratory Rate 36 H 31 H Blood Pressure 185/75 H Pulse Oximetry 98 98 <Babak Bonilla MD - Last Filed: 12/05/19 18:10> Course Course Narrative: Time 7:00 a.m. in the morning sign-out from dr farah... Patient will need transfer or admission for non STEMI. Patient on BiPAP as well. Decision to Admit Date: 12/05/19 Decision to Admit time: 07:31 Orders Ordered: Discontinued Medications Albuterol (Ventolin Hfa (Vent/Covid R/O)) 2 puff INH NOW ONE Stop: 12/05/19 05:55 Last Admin: 12/05/19 06:06 Dose: 2 puff Documented by: BROOKS Aspirin (Aspirin) 300 mg UT NOW ONE Stop: 12/05/19 07:23 Last Admin: 12/05/19 08:42 Dose: 300 mg Documented by: HELGA Clopidogrel Bisulfate (Plavix) 75 mg PO NOW ONE Stop: 12/05/19 07:28 Last Admin: 12/05/19 08:42 Dose: 75 mg Documented by: HELGA Furosemide (Lasix) 40 mg IV NOW ONE Stop: 12/05/19 05:55 Last Admin: 12/05/19 06:07 Dose: 40 mg Documented by: BROOKS Heparin Sodium (Porcine) (Heparin) 5,000 unit IV NOW ONE Stop: 12/05/19 07:28 Last Admin: 12/05/19 08:42 Dose: 5,000 unit Documented by: HELGA Heparin Sodium/Dextrose (Heparin Drip) 25,000 unit in 500 mls @ 21.772 mls/hr IV CONT CLIVE; Protocol Last Infusion: 12/05/19 10:07 Dose: 0 units/kg/hr, 0 mls/hr Documented by: Admin: 12/05/19 08:43 Dose: 12 units/kg/hr, 21.772 mls/hr Documented by: MMINOR Nitroglycerin (Nitroglycerin) 50 mg in 250 mls @ 1.5 mls/hr IV TITRATE CLIVE; Protocol Last Titration: 12/05/19 10:08 Dose: 0 mcg/min, 0 mls/hr Documented by: Admin: 12/05/19 09:51 Dose: 5 mcg/min, 1.5 mls/hr Documented by: SERA Nitroglycerin (Nitroglycerin) 50 mg in 250 mls @ 1.5 mls/hr IV TITRATE CLIVE; Protocol Last Admin: 12/05/19 10:03 Dose: Not Given Documented by: ZURI Methylprednisolone (Solu-Medrol 125 Mg Vial) 125 mg IV NOW ONE Stop: 12/05/19 05:55 Last Admin: 12/05/19 06:07 Dose: 125 mg Documented by: BROOKS Morphine Sulfate (Morphine) 4 mg IV NOW ONE Stop: 12/05/19 06:24 Last Admin: 12/05/19 06:27 Dose: 4 mg Documented by: BROOKS Nitroglycerin (Nitro-Bid) 1 inch TOP NOW ONE Stop: 12/05/19 06:33 Last Admin: 12/05/19 06:48 Dose: 1 inch Documented by: BROOKS Reevaluation(s) Reevaluation #1: Patient tolerating BiPAP. Awake alert. Pain improved. Blood pressure improving. Breathing is improved. Time: 08:30 Reevaluation #2: At time of EMS transfer. Patient complained of chest pain. Transfer temporally delayed, giving nitro drip as well as inserting Cowan catheter, repeat troponin elevated. Repeat EKG no ST elevation Time: 09:55 Consultations Consultation #1: Spoke with customer assistance associate for this hospital dr ellis.. Start heparin and give aspirin as well as Plavix. Transfer to [facility]. We did call kiln head house operator at [facility] and no beds this morning. Time: 07:27 Consultation #2: Spoke with [facility] customer assistance associate, Dr. Whitlock,, patient to be admitted there hospitalist Time: 07:44 Consultation #3: Spoke with [facility] hospitalist, Dr. Dent, will accept patient to step-down Time: 07:51 Vital Signs Vital signs: Vital Signs - 8 hr 12/05/19 05:35 12/05/19 05:55 12/05/19 06:00 Temperature 98.2 F Pulse Rate 94 H 103 H 92 H Respiratory Rate 26 H 31 H Blood Pressure 138/70 Pulse Oximetry 95 100 96 12/05/19 06:30 12/05/19 06:31 12/05/19 06:45 Temperature Pulse Rate 94 H 85 74 Respiratory Rate 53 H 57 H Blood Pressure 223/85 H 213/84 H Pulse Oximetry 98 98 96 12/05/19 06:48 12/05/19 07:00 12/05/19 07:01 Temperature Pulse Rate 67 60 58 L Respiratory Rate 38 H 28 H Blood Pressure 213/84 H 171/72 H Pulse Oximetry 90 L 92 12/05/19 07:16 12/05/19 07:30 12/05/19 08:00 Temperature Pulse Rate 79 68 70 Respiratory Rate 24 23 24 Blood Pressure 185/74 H Pulse Oximetry 100 99 100 12/05/19 08:10 12/05/19 08:16 12/05/19 08:30 Temperature Pulse Rate 77 Respiratory Rate 22 Blood Pressure 185/74 H 185/74 H Pulse Oximetry 96 12/05/19 08:36 12/05/19 08:52 12/05/19 09:00 Temperature Pulse Rate 72 78 69 Respiratory Rate 24 22 20 Blood Pressure 182/74 H 188/75 H Pulse Oximetry 96 96 95 12/05/19 09:30 12/05/19 09:33 12/05/19 09:49 Temperature Pulse Rate 82 81 83 Respiratory Rate 36 H 28 H 35 H Blood Pressure 199/77 H 198/79 H Pulse Oximetry 98 98 97 12/05/19 10:00 12/05/19 10:01 Temperature Pulse Rate 91 H 80 Respiratory Rate 36 H 31 H Blood Pressure 185/75 H Pulse Oximetry 98 98 Medical Decision Making <Rome Farah, - Last Filed: 12/05/19 20:17> Lab Data Result diagrams: 12/05/19 06:35 12/05/19 06:35 Labs: Lab Results 12/05/19 12/05/19 12/05/19 Range/Units 05:23 05:55 06:35 WBC 6.3 (4.5-11.0) X10^3/uL RBC 3.66 L (4.0-5.2) X10^6/uL Hgb 10.6 L (12.0-16.0) g/dL Hct 32.2 L (36-46) % MCV 88.1 (80-100) fL MCH 29.0 (26-34) PG MCHC 32.9 (30-36) % RDW 16.2 H (11.6-14.8) % Plt Count 128 L (150-400) X10^3/uL Neut % (Auto) 67.1 (50-75) % Lymph % (Auto) 25.0 (25-40) % [place] % (Auto) 7.3 (3-14) % Eos % (Auto) 0.3 L (2-4) % Baso % (Auto) 0.3 (0-2) % Neut # (Auto) 4200 (0762-7044) /uL Lymph # (Auto) 1600 (2570-2722) /uL [place] # (Auto) 500 (0-900) /uL Eos # (Auto) 0 (0-450) /uL Baso # (Auto) 0 (0-100) /uL ABG pH 7.26 L* (7.35-7.45) ABG pCO2 74.2 H* (35-45) mmHg ABG pO2 156 H (80-100) mmHg ABG HCO3 33 H (22-26) mmol/L ABG Total CO2 35 H (21-31) mmol/L ABG O2 Saturation 99 (95-100) % ABG Base Excess 6.0 H (-2-2) mmol/L FiO2 Sodium (137-145) mmol/L Potassium (3.4-5.1) mmol/L Chloride (98-107) mmol/L Carbon Dioxide (22-32) mmol/L BUN (7-17) mg/dL Creatinine (0.52-1.04) mg/dL Estimated GFR (>60) mL/min BUN/Creatinine Ratio (6-22) Glucose (80-110) mg/dL Lactate (0.7-2.1) mmol/L Calcium (8.4-10.2) mg/dL Total Bilirubin (0.2-1.3) mg/dL AST (14-36) IU/L ALT (<35) IU/L Alkaline Phosphatase (38-126) U/L Total Creatine Kinase (30-135) U/L CK-MB (CK-2) CK-MB (CK-2) Rel Index Troponin I (0.01-0.034) ng/mL NT-Pro-B Natriuret Pep (<450) pg/mL Total Protein (6.3-8.2) g/dL Albumin (3.5-5.0) g/dL Globulin (1.7-4.1) g/dL Albumin/Globulin Ratio (1.0-2.8) Lipase (23-300) U/L Procalcitonin (<0.5) ng/mL COVID-19 PCR Negative (Negative) 12/05/19 12/05/19 12/05/19 Range/Units 06:35 06:35 06:35 WBC (4.5-11.0) X10^3/uL RBC (4.0-5.2) X10^6/uL Hgb (12.0-16.0) g/dL Hct (36-46) % MCV (80-100) fL MCH (26-34) PG MCHC (30-36) % RDW (11.6-14.8) % Plt Count (150-400) X10^3/uL Neut % (Auto) (50-75) % Lymph % (Auto) (25-40) % [place] % (Auto) (3-14) % Eos % (Auto) (2-4) % Baso % (Auto) (0-2) % Neut # (Auto) (8468-2702) /uL Lymph # (Auto) (3398-6979) /uL [place] # (Auto) (0-900) /uL Eos # (Auto) (0-450) /uL Baso # (Auto) (0-100) /uL ABG pH (7.35-7.45) ABG pCO2 (35-45) mmHg ABG pO2 (80-100) mmHg ABG HCO3 (22-26) mmol/L ABG Total CO2 (21-31) mmol/L ABG O2 Saturation (95-100) % ABG Base Excess (-2-2) mmol/L FiO2 Sodium 142 (137-145) mmol/L Potassium 4.1 (3.4-5.1) mmol/L Chloride 102 (98-107) mmol/L Carbon Dioxide 33 H (22-32) mmol/L BUN 27 H (7-17) mg/dL Creatinine 0.90 (0.52-1.04) mg/dL Estimated GFR 59.7 L (>60) mL/min BUN/Creatinine Ratio 30.0 H (6-22) Glucose 132 H (80-110) mg/dL Lactate 1.5 (0.7-2.1) mmol/L Calcium 9.7 (8.4-10.2) mg/dL Total Bilirubin 0.9 (0.2-1.3) mg/dL AST 23 (14-36) IU/L ALT 15 (<35) IU/L Alkaline Phosphatase 92 (38-126) U/L Total Creatine Kinase 27 L (30-135) U/L CK-MB (CK-2) TNP CK-MB (CK-2) Rel Index TNP Troponin I 0.038 H (0.01-0.034) ng/mL NT-Pro-B Natriuret Pep 716 H (<450) pg/mL Total Protein 8.4 H (6.3-8.2) g/dL Albumin 4.6 (3.5-5.0) g/dL Globulin 3.8 (1.7-4.1) g/dL Albumin/Globulin Ratio 1.2 (1.0-2.8) Lipase 192 (23-300) U/L Procalcitonin (<0.5) ng/mL COVID-19 PCR (Negative) 12/05/19 12/05/19 12/05/19 Range/Units 06:35 08:45 08:53 WBC (4.5-11.0) X10^3/uL RBC (4.0-5.2) X10^6/uL Hgb (12.0-16.0) g/dL Hct (36-46) % MCV (80-100) fL MCH (26-34) PG MCHC (30-36) % RDW (11.6-14.8) % Plt Count (150-400) X10^3/uL Neut % (Auto) (50-75) % Lymph % (Auto) (25-40) % [place] % (Auto) (3-14) % Eos % (Auto) (2-4) % Baso % (Auto) (0-2) % Neut # (Auto) (1083-4159) /uL Lymph # (Auto) (9430-1286) /uL [place] # (Auto) (0-900) /uL Eos # (Auto) (0-450) /uL Baso # (Auto) (0-100) /uL ABG pH 7.32 L (7.35-7.45) ABG pCO2 64.9 H* (35-45) mmHg ABG pO2 78 L (80-100) mmHg ABG HCO3 32 H (22-26) mmol/L ABG Total CO2 35 H (21-31) mmol/L ABG O2 Saturation 94 L (95-100) % ABG Base Excess 7.0 H (-2-2) mmol/L FiO2 35 Sodium (137-145) mmol/L Potassium (3.4-5.1) mmol/L Chloride (98-107) mmol/L Carbon Dioxide (22-32) mmol/L BUN (7-17) mg/dL Creatinine (0.52-1.04) mg/dL Estimated GFR (>60) mL/min BUN/Creatinine Ratio (6-22) Glucose (80-110) mg/dL Lactate (0.7-2.1) mmol/L Calcium (8.4-10.2) mg/dL Total Bilirubin (0.2-1.3) mg/dL AST (14-36) IU/L ALT (<35) IU/L Alkaline Phosphatase (38-126) U/L Total Creatine Kinase (30-135) U/L CK-MB (CK-2) CK-MB (CK-2) Rel Index Troponin I 0.554 H* (0.01-0.034) ng/mL NT-Pro-B Natriuret Pep (<450) pg/mL Total Protein (6.3-8.2) g/dL Albumin (3.5-5.0) g/dL Globulin (1.7-4.1) g/dL Albumin/Globulin Ratio (1.0-2.8) Lipase (23-300) U/L Procalcitonin < 0.05 (<0.5) ng/mL COVID-19 PCR (Negative) Imaging Data Chest x-ray: Attestation: I personally reviewed and interpreted this imaging study as follows: My Impression: Bilateral pulmonary edema ECG Data Attestation: I personally reviewed and interpreted this ECG as follows: Interpretation: Sinus rhythm Ventricular rate 85 [place] Normal QRS MDM Narrative Medical decision making narrative: Tachypneic upon arrival. Afebrile. Fairly sudden onset of shortness of breath. Not hypoxic on her baseline 4 L by nasal cannula. ABG shows respiratory acidosis with hypercarbia. COVID-19. Was placed on BiPAP. Patient was also given Solu-Medrol and Lasix. Morphine for back pain. She states the back pain has been off and on for the past 5 days. Tolerating the BiPAP well. Care turned over to Dr. Bonilla at 0700 to follow up and dispo <Babak Bonilla MD - Last Filed: 12/05/19 18:10> Differential Diagnosis Differential Diagnosis: CHS/STEMI/non-STEMI/COPD exacerbation/dyspnea Lab Data Lab results reviewed: Yes I reviewed the patient's lab results. Labs: Lab Results 12/05/19 12/05/19 12/05/19 Range/Units 05:23 05:55 06:35 WBC 6.3 (4.5-11.0) X10^3/uL RBC 3.66 L (4.0-5.2) X10^6/uL Hgb 10.6 L (12.0-16.0) g/dL Hct 32.2 L (36-46) % MCV 88.1 (80-100) fL MCH 29.0 (26-34) PG MCHC 32.9 (30-36) % RDW 16.2 H (11.6-14.8) % Plt Count 128 L (150-400) X10^3/uL Neut % (Auto) 67.1 (50-75) % Lymph % (Auto) 25.0 (25-40) % [place] % (Auto) 7.3 (3-14) % Eos % (Auto) 0.3 L (2-4) % Baso % (Auto) 0.3 (0-2) % Neut # (Auto) 4200 (6043-6827) /uL Lymph # (Auto) 1600 (4335-4076) /uL [place] # (Auto) 500 (0-900) /uL Eos # (Auto) 0 (0-450) /uL Baso # (Auto) 0 (0-100) /uL ABG pH 7.26 L* (7.35-7.45) ABG pCO2 74.2 H* (35-45) mmHg ABG pO2 156 H (80-100) mmHg ABG HCO3 33 H (22-26) mmol/L ABG Total CO2 35 H (21-31) mmol/L ABG O2 Saturation 99 (95-100) % ABG Base Excess 6.0 H (-2-2) mmol/L FiO2 Sodium (137-145) mmol/L Potassium (3.4-5.1) mmol/L Chloride (98-107) mmol/L Carbon Dioxide (22-32) mmol/L BUN (7-17) mg/dL Creatinine (0.52-1.04) mg/dL Estimated GFR (>60) mL/min BUN/Creatinine Ratio (6-22) Glucose (80-110) mg/dL Lactate (0.7-2.1) mmol/L Calcium (8.4-10.2) mg/dL Total Bilirubin (0.2-1.3) mg/dL AST (14-36) IU/L ALT (<35) IU/L Alkaline Phosphatase (38-126) U/L Total Creatine Kinase (30-135) U/L CK-MB (CK-2) CK-MB (CK-2) Rel Index Troponin I (0.01-0.034) ng/mL NT-Pro-B Natriuret Pep (<450) pg/mL Total Protein (6.3-8.2) g/dL Albumin (3.5-5.0) g/dL Globulin (1.7-4.1) g/dL Albumin/Globulin Ratio (1.0-2.8) Lipase (23-300) U/L Procalcitonin (<0.5) ng/mL COVID-19 PCR Negative (Negative) 12/05/19 12/05/19 12/05/19 Range/Units 06:35 06:35 06:35 WBC (4.5-11.0) X10^3/uL RBC (4.0-5.2) X10^6/uL Hgb (12.0-16.0) g/dL Hct (36-46) % MCV (80-100) fL MCH (26-34) PG MCHC (30-36) % RDW (11.6-14.8) % Plt Count (150-400) X10^3/uL Neut % (Auto) (50-75) % Lymph % (Auto) (25-40) % [place] % (Auto) (3-14) % Eos % (Auto) (2-4) % Baso % (Auto) (0-2) % Neut # (Auto) (3034-5062) /uL Lymph # (Auto) (7595-1008) /uL [place] # (Auto) (0-900) /uL Eos # (Auto) (0-450) /uL Baso # (Auto) (0-100) /uL ABG pH (7.35-7.45) ABG pCO2 (35-45) mmHg ABG pO2 (80-100) mmHg ABG HCO3 (22-26) mmol/L ABG Total CO2 (21-31) mmol/L ABG O2 Saturation (95-100) % ABG Base Excess (-2-2) mmol/L FiO2 Sodium 142 (137-145) mmol/L Potassium 4.1 (3.4-5.1) mmol/L Chloride 102 (98-107) mmol/L Carbon Dioxide 33 H (22-32) mmol/L BUN 27 H (7-17) mg/dL Creatinine 0.90 (0.52-1.04) mg/dL Estimated GFR 59.7 L (>60) mL/min BUN/Creatinine Ratio 30.0 H (6-22) Glucose 132 H (80-110) mg/dL Lactate 1.5 (0.7-2.1) mmol/L Calcium 9.7 (8.4-10.2) mg/dL Total Bilirubin 0.9 (0.2-1.3) mg/dL AST 23 (14-36) IU/L ALT 15 (<35) IU/L Alkaline Phosphatase 92 (38-126) U/L Total Creatine Kinase 27 L (30-135) U/L CK-MB (CK-2) TNP CK-MB (CK-2) Rel Index TNP Troponin I 0.038 H (0.01-0.034) ng/mL NT-Pro-B Natriuret Pep 716 H (<450) pg/mL Total Protein 8.4 H (6.3-8.2) g/dL Albumin 4.6 (3.5-5.0) g/dL Globulin 3.8 (1.7-4.1) g/dL Albumin/Globulin Ratio 1.2 (1.0-2.8) Lipase 192 (23-300) U/L Procalcitonin (<0.5) ng/mL COVID-19 PCR (Negative) 12/05/19 12/05/19 12/05/19 Range/Units 06:35 08:45 08:53 WBC (4.5-11.0) X10^3/uL RBC (4.0-5.2) X10^6/uL Hgb (12.0-16.0) g/dL Hct (36-46) % MCV (80-100) fL MCH (26-34) PG MCHC (30-36) % RDW (11.6-14.8) % Plt Count (150-400) X10^3/uL Neut % (Auto) (50-75) % Lymph % (Auto) (25-40) % [place] % (Auto) (3-14) % Eos % (Auto) (2-4) % Baso % (Auto) (0-2) % Neut # (Auto) (6314-0193) /uL Lymph # (Auto) (9202-7922) /uL [place] # (Auto) (0-900) /uL Eos # (Auto) (0-450) /uL Baso # (Auto) (0-100) /uL ABG pH 7.32 L (7.35-7.45) ABG pCO2 64.9 H* (35-45) mmHg ABG pO2 78 L (80-100) mmHg ABG HCO3 32 H (22-26) mmol/L ABG Total CO2 35 H (21-31) mmol/L ABG O2 Saturation 94 L (95-100) % ABG Base Excess 7.0 H (-2-2) mmol/L FiO2 35 Sodium (137-145) mmol/L Potassium (3.4-5.1) mmol/L Chloride (98-107) mmol/L Carbon Dioxide (22-32) mmol/L BUN (7-17) mg/dL Creatinine (0.52-1.04) mg/dL Estimated GFR (>60) mL/min BUN/Creatinine Ratio (6-22) Glucose (80-110) mg/dL Lactate (0.7-2.1) mmol/L Calcium (8.4-10.2) mg/dL Total Bilirubin (0.2-1.3) mg/dL AST (14-36) IU/L ALT (<35) IU/L Alkaline Phosphatase (38-126) U/L Total Creatine Kinase (30-135) U/L CK-MB (CK-2) CK-MB (CK-2) Rel Index Troponin I 0.554 H* (0.01-0.034) ng/mL NT-Pro-B Natriuret Pep (<450) pg/mL Total Protein (6.3-8.2) g/dL Albumin (3.5-5.0) g/dL Globulin (1.7-4.1) g/dL Albumin/Globulin Ratio (1.0-2.8) Lipase (23-300) U/L Procalcitonin < 0.05 (<0.5) ng/mL COVID-19 PCR (Negative) Imaging Data Chest x-ray: Radiologist's Impression: [place] [address] XRay Report Signed Patient: Jeanine Calderon MMR#: [id number] : 6Acct:[id number] Age/Sex: 84 / FDate of Service: 12/05/19 Loc: ED Accession Number: [id number] Procedure: XR chest 1V Ordering Provider: Rome Farah D.O. PROCEDURE: XR CHEST 1V INDICATIONS: Shortness of breath TECHNIQUE: One view of the chest was acquired. COMPARISON: [facility], CT, CT ANGIO CHEST PE PROTOCOL, 08/14/2019, 8:45. [facility], CR, XR CHEST 1V, 09/21/2019, 14:22. FINDINGS: Surgical changes and devices: None. Lungs and pleura: Diffuse bilateral increased pulmonary markings. Streaky opacity at the right costophrenic angle. The patchy airspace opacities appear less conspicuous. No significant pleural effusions or pneumothorax. Mediastinum: Mediastinal contours appear unchanged. Aortic arch calcifications. Heart size is within normal limits. Bones and chest wall: No suspicious bony lesions. Overlying soft tissues appear unremarkable. Advanced right shoulder DJD. IMPRESSION: Overall the bilateral patchy airspace opacities appear stable to slightly improved. Right lung base streaky opacity is most compatible with atelectasis. Infectious/inflammatory etiology could have a similar appearance. Dictated by: Alex Ortega M.D. on 12/05/2019 at 8:14 Approved by: Alex Ortega M.D. on 12/05/2019 at 8:19 ECG Data Attestation: I personally reviewed and interpreted this ECG as follows: Interpretation: Sinus rhythm with PVC. No ST elevation depression repeat EKG at 9:51 a.m.. Sinus bradycardia. No ST elevation or depression. Rate 59. No ST elevation <Babak Bonilla MD - Last Filed: 12/05/19 18:10> Critical Care Time Critical Care Time: Yes Total Critical Care Time: 30 Attestation: Critical Care Time 30 minutes: Critical care time is separate from other billable procedures. This critical care time includes consultation with family and other consulting doctors, review of records, and interpretation of data from labs, EKGs, imaging, etc. Discharge Plan Departure Patient Disposition: [facility] Clinical Impression: Acute respiratory distress, Hypercarbia, Non-ST elevated myocardial infarction (non-STEMI) Pulmonary edema Qualifiers: Chronicity: acute Qualified Code(s): J81.0 - Acute pulmonary edema Hypertension Qualifiers: Hypertension type: unspecified Qualified Code(s): I10 - Essential (primary) hypertension Discharge Date/Time: 12/05/19 10:28 Prescriptions: No Action losartan 25 mg Tablet 25 mg PO DAILY RF: 0 metoprolol succinate 25 mg Tablet Extended Release 24 Hr 25 mg PO BID RF: 0 pantoprazole [Protonix] 40 mg tablet,delayed release (DR/EC) 40 mg PO DAILY Qty: 60 RF: 0 furosemide [Lasix] 20 mg Tablet 20 mg PO DAILY Qty: 30 RF: 0 Anoro Ellipta 62.5-25 mcg/actuation blister with device 1 inh inhalation DAILY RF: 0 albuterol sulfate [ProAir HFA] 90 mcg/actuation HFA aerosol inhaler 2 inh INHALATION Q4H PRN (Reason: Shortness Of Breath) RF: 0
--- NOTE | 2019-12-05 05:56 | DI.RAD.S_ITS ---
PROCEDURE: XR CHEST 1V INDICATIONS: Shortness of breath TECHNIQUE: One view of the chest was acquired. COMPARISON: [facility], CT, CT ANGIO CHEST PE PROTOCOL, 08/14/2019, 8:45. [facility], CR, XR CHEST 1V, 09/21/2019, 14:22. FINDINGS: Surgical changes and devices: None. Lungs and pleura: Diffuse bilateral increased pulmonary markings. Streaky opacity at the right costophrenic angle. The patchy airspace opacities appear less conspicuous. No significant pleural effusions or pneumothorax. Mediastinum: Mediastinal contours appear unchanged. Aortic arch calcifications. Heart size is within normal limits. Bones and chest wall: No suspicious bony lesions. Overlying soft tissues appear unremarkable. Advanced right shoulder DJD. IMPRESSION: Overall the bilateral patchy airspace opacities appear stable to slightly improved. Right lung base streaky opacity is most compatible with atelectasis. Infectious/inflammatory etiology could have a similar appearance. Dictated by: Alex Ortega M.D. on 12/05/2019 at 8:14 Approved by: Alex Ortega M.D. on 12/05/2019 at 8:19
[2019-12-05] MEDS: ALBUTEROL HFA 200 PUFF/18 GM INH (COVID POS/VENT PTS) INH (06:06)
[2019-12-05] MEDS: FUROSEMIDE 40 MG/4 ML VIAL IV (06:07)
[2019-12-05] MEDS: methylPREDNISolone 125 MG/2 ML VIAL IV (06:07)
[2019-12-05 06:25] LABS: COVID19 -Nasal RAPID Negative (Negative)
[2019-12-05] MEDS: MORPHINE 4 MG/ML INJ IV (06:27)
[2019-12-05] MEDS: NITROGLYCERIN OINT 1 INCH/GM OINT...G. TOP (06:48)
[2019-12-05 06:53] LABS: Add Manual Diff / Slide Review NO; Basophils Absolute Auto 0 /uL (0-100); Basophils Percent Auto 0.3 % (0-2); Eosinophils Absolute Auto 0 /uL (0-450); Eosinophils Percent Auto 0.3 % (2-4); Hematocrit 32.2 % (36-46); Hemoglobin 10.6 g/dL (12.0-16.0); Lymphocytes Absolute Auto 1600 /uL (1100-4500); Mean Corpuscular HGB Conc 32.9 % (30-36); Mean Corpuscular Volume 88.1 fL (80-100); Monocytes Absolute Auto 500 /uL (0-900); Monocytes Percent Auto 7.3 % (3-14); Neutrophils Absolute Auto 4200 /uL (1500-7000); Neutrophils Percent Auto 67.1 % (50-75); Platelet Count 128 X10^3/uL (150-400); Red Blood Cell Count 3.66 X10^6/uL (4.0-5.2); Red Cell Distribution Width 16.2 % (11.6-14.8); White Blood Cell Count 6.3 X10^3/uL (4.5-11.0)
--- NOTE | 2019-12-05 06:54 | RT ---
0635- BIPAP initiated, patient tolerating well, settings are 14/5, R 20, I-time 0.85, Rise 2. Patient wears 3L oxygen at home for COPD, ABG on 4L NC, prior to BIPAP PH 7.258 CO2 74 PO2 156 HCO3 33
[2019-12-05 07:00] LABS: Lactate (Lactic Acid) 1.5 mmol/L (0.7-2.1)
[2019-12-05 07:02] LABS: Creatine Kinase 27 U/L (30-135)
[2019-12-05 07:03] LABS: PCO2 ABG 74.2 mmHg (35-45); pH ABG 7.26 (7.35-7.45)
[2019-12-05 07:04] LABS: Alanine Aminotransferase 15 IU/L (<35); Albumin 4.6 g/dL (3.5-5.0); Albumin Globulin Ratio 1.2 (1.0-2.8); Alkaline Phosphatase 92 U/L (38-126); Aspartate Aminotransferase 23 IU/L (14-36); Bilirubin Total 0.9 mg/dL (0.2-1.3); Blood Urea Nitrogen 27 mg/dL (7-17); Calcium 9.7 mg/dL (8.4-10.2); Carbon Dioxide 33 mmol/L (22-32); Chloride 102 mmol/L (98-107); Estimated Glomerular Filt Rate 59.7 mL/min (>60); Globulin 3.8 g/dL (1.7-4.1); Glucose 132 mg/dL (80-110); HEMOLYSIS < 15 (0-50); Lipase 192 U/L (23-300); Potassium 4.1 mmol/L (3.4-5.1); Sodium 142 mmol/L (137-145); Total Protein 8.4 g/dL (6.3-8.2)
[2019-12-05 07:04] LABS: HCO3 ABG 33 mmol/L (22-26); Oxygen Saturation ABG 99 % (95-100); PO2 ABG 156 mmHg (80-100); TCO2 ABG 35 mmol/L (21-31)
[2019-12-05 07:15] LABS: NT-proBNP (BNP-Adult 18+) 716 pg/mL (<450); Troponin I 0.038 ng/mL (0.01-0.034)
[2019-12-05 07:19] LABS: Procalcitonin < 0.05 ng/mL (<0.5)
[2019-12-05] MEDS: CLOPIDOGREL 75 MG TABLET PO (08:42)
[2019-12-05] MEDS: HEPARIN 5,000 UNIT/ML VIAL 5000 UNIT IV (08:42)
[2019-12-05] MEDS: ASPIRIN 300 MG SUPP PR (08:42)
[2019-12-05] MEDS: HEPARIN DRIP 25,000 UNIT/500 ML IV.SOLN 21.772 UNIT IV (08:43)
[2019-12-05 09:04] LABS: Oxygen Saturation ABG 94 % (95-100); PCO2 ABG 64.9 mmHg (35-45); PO2 ABG 78 mmHg (80-100); TCO2 ABG 35 mmol/L (21-31); pH ABG 7.32 (7.35-7.45)
[2019-12-05 09:05] LABS: Fractionated Inspired Oxygen 35
[2019-12-05 09:17] LABS: Troponin I 0.554 ng/mL (0.01-0.034)
[2019-12-05] MEDS: NITROGLYCERIN 50 MG/250 ML INFUS..BTL IV (09:51)
--- NOTE | 2019-12-05 10:09 | PC.NURSE ---
pt transferred via [facility] with nirto and heparin drips running, see EMS charting
[2020-01-04 11:08] LABS: HCO3 ABG 33 mmol/L (22-26)
[2020-02-13 14:02] LABS: Fractionated Inspired Oxygen 36
== END 2019-12-05 10:28 | disposition short-term general hospital (02) ==
PROVIDERS: Emergency Provider Emergency Medicine; Referring Provider Emergency Medicine
DX: R06.03 Acute respiratory distress (principal); I21.4 Non-ST elevation (NSTEMI) myocardial infarction; J81.0 Acute pulmonary edema; I10 Essential (primary) hypertension; R00.1 Bradycardia, unspecified
CPT/HCPCS: 36415; 36600; 51701; 71045; 80053; 82550; 82805; 83605; 83690; 83880; 84145; 84484; 85025; 87635; 93005; 94640; 94660; 96365; 96368; 96375; 99285; 99291; A9270; J1644; J1940; J2270; J2930

== ENCOUNTER 2020-12-16 19:37 | Inpatient (IN) | payer MEDICARE, OTHER, SELFPAY ==
[2019-09-22] VITALS: BMI 39.3
[2019-12-05 08:10] VITALS: RESP 24
[2019-12-05 08:16] VITALS: PULSE 74; O2SAT 97
[2020-12-16] VITALS (15 sets, daily range): BP systolic 135–222; BP diastolic 58–97; PULSE 80–111; RESP 21–26; TEMP 36.9; O2SAT 83–100; BMI 35.4
--- NOTE | 2020-12-16 19:39 | DI.RAD.S_ITS ---
PROCEDURE: XR CHEST 1V INDICATIONS: SOB TECHNIQUE: One view of the chest was acquired. COMPARISON: [facility], CR, XR CHEST 1V, 12/05/2019, 5:59. FINDINGS: Surgical changes and devices: None. Lungs and pleura: Diffuse patchy ill-defined ground-glass opacities. There is also mild retrocardiac opacity. No pleural effusions or pneumothorax. Mediastinum: Cardiac silhouette and mediastinal contours are stable. Bones and chest wall: No suspicious bony lesions. Overlying soft tissues appear unremarkable. IMPRESSION: Diffuse ill-defined and ground-glass opacities in keeping with pulmonary edema. Recommend clinical and laboratory correlation to exclude underlying infection. If there is persistent clinical diagnostic uncertainty, continued surveillance with short interval radiographic followup after treatment is recommended. Dictated by: Juan F Millan M.D. on 12/16/2020 at 20:49 Approved by: Juan F Millan M.D. on 12/16/2020 at 20:51
--- NOTE | 2020-12-16 20:02 | ED_ITS ---
HPI - General Adult General Chief complaint: Shortness of Breath/Dyspnea Stated complaint: SOB Time Seen by Provider: 12/16/20 19:38 Source: patient Mode of arrival: Ambulatory History of Present Illness HPI narrative: Patient is an 85-year-old female. She does have a PLOST at bedside the does show comfort measures only. She has a history of CHF and COPD. Is on oxygen at home at 3-4 L at baseline. She is here for evaluation of shortness of breath. This is been worsening over the past 24 hours. She has recently missed a couple doses of her Lasix due to a medication refill issue. She did feel that this morning and took a couple extra doses today however the did not seem to improve her symptoms. She also has a nebulizer at home but could not find the machine. She has the medication. She has the albuterol rescue inhaler however was empty. She also has other inhalers at home containing steroids. Throughout the day her shortness of breath worsened. It got to the point to where she contacted EMS. Was hypoxic to the high 80s on her normal oxygen levels per EMS. Receiving a nebulizer treatment prior to arrival which she stated improved her symptoms somewhat. No chest pain. No lower extremity swelling. No abdominal pain. No black colored stools. No urinary symptoms. No blood in her urine. No coughing any blood. No headache. Related Data Home Medications Medication Instructions Recorded Confirmed umeclidinium 62.5 mcg-vilanterol 1 inh INHALATION DAILY 08/14/19 03/22/20 25 mcg/actuation powdr for inhalation (Anoro Ellipta) Previous Rx's Medication Instructions Recorded albuterol sulfate 90 mcg/actuation 2 inh INHALATION Q4H PRN #18 g 03/22/20 aerosol inhaler (ProAir HFA) omeprazole 20 mg capsule,delayed 20 mg PO DAILY #90 cap 03/22/20 release nebulizer and compressor #1 ea 03/29/20 tramadol 50 mg tablet 50 mg PO BID PRN #30 tab 09/17/20 potassium chloride 10 mEq 10 meq PO DAILY #30 cap 09/19/20 capsule,extended release losartan 25 mg tablet See Rx Instructions .ROUTE 11/14/20 .COMPLEX #90 tab furosemide 20 mg tablet (Lasix) 20 mg PO DAILY #30 tab 12/03/20 acyclovir 400 mg tablet 400 mg PO TID #21 tab 12/11/20 gabapentin 100 mg capsule 100 mg PO BID #60 cap 12/11/20 albuterol sulfate 2.5 mg INHALATION QID PRN #90 ml 12/13/20 Allergies Allergy/AdvReac Type Severity Reaction Status Date / Time codeine Allergy Verified 12/16/20 19:55 Penicillins Allergy Verified 12/16/20 19:55 shellfish derived Allergy Verified 12/16/20 19:55 Review of Systems Constitutional Constitutional: Reports as per HPI and Reports system reviewed and no additional complaints, except as documented ENT Ears, Nose, Mouth, and Throat: Reports system reviewed and no additional complaints, except as documented and Reports as per HPI Cardiovascular Cardiovascular: Reports as per HPI and Reports system reviewed and no additional complaints, except as documented Respiratory Respiratory: Reports as per HPI Gastrointestinal Gastrointestinal: Reports system reviewed and no additional complaints, except as documented Genitourinary Genitourinary: Reports system reviewed and no additional complaints, except as documented Musculoskeletal Musculoskeletal: Reports system reviewed and no additional complaints, except as documented Integumentary/Breasts Skin/Breast: Reports system reviewed and no additional complaints, except as documented Neurologic Neurologic: Reports system reviewed and no additional complaints, except as documented Hematologic/Lymphatic On Anticoagulants: No Patient History Medical History Atrial fibrillation Back pain Congestive heart failure COPD (chronic obstructive pulmonary disease) Hypertension Morbid obesity Post zoster neuralgia Surgical History H/O total hip arthroplasty Social History household members: significant other Smoking Status: Former smoker alcohol intake: never Smoking Status: Former smoker alcohol intake frequency: holidays/special occasions only Substance Use Type: does not use Exam Initial Vital Signs Initial Vital Signs: Vital Signs Temperature 98.5 F 12/16/20 19:38 Pulse Rate 106 H 12/16/20 19:38 Respiratory Rate 26 H 12/16/20 19:38 Blood Pressure 222/91 H 12/16/20 19:38 Pulse Oximetry 93 12/16/20 19:38 Const General: cooperative and comfortable HENMT Head: normal to inspection and normocephalic Resp Effort & Inspection: not labored, no respiratory distress and tachypneic Auscultation: diminished lung sounds Cardio Rate: regular rate Rhythm: abnormal rhythm GI Inspection: normal to inspection Skin General: no rashes or lesions noted Neuro General: patient alert and patient awake Extrem General: edema Psych Appearance: well kempt Course Orders Ordered: ED Orders 12/16/20 23:22 Hemoglobin and Hematocrit Stat Discontinued Medications Albuterol/Ipratropium (Albuterol/Ipratropium 3 Ml Ampul) 3 ml INH NOW ONE Stop: 12/16/20 23:01 Last Admin: 12/16/20 23:17 Dose: 3 ml Documented by: ANDREW Furosemide (Furosemide 40 Mg/4 Ml Vial) 40 mg IV NOW ONE Stop: 12/16/20 21:40 Last Admin: 12/16/20 22:06 Dose: 40 mg Documented by: SUSIE Furosemide (Furosemide 40 Mg/4 Ml Vial) 40 mg IV NOW ONE Stop: 12/17/20 06:26 Methylprednisolone (Methylprednisolone 125 Mg/2 Ml Vial) 125 mg IV NOW ONE Stop: 12/16/20 23:01 Last Admin: 12/16/20 23:15 Dose: 125 mg Documented by: SUSIE Vital Signs Vital signs: Vital Signs - 8 hr 12/16/20 22:56 12/16/20 22:59 12/16/20 23:00 Pulse Rate 106 H 111 H 103 H Respiratory Rate Blood Pressure 192/97 H Pulse Oximetry 83 L 87 L 89 L 12/16/20 23:17 12/16/20 23:30 12/16/20 23:31 Pulse Rate 80 103 H 103 H Respiratory Rate 21 Blood Pressure 135/58 L Pulse Oximetry 100 100 100 12/17/20 00:00 12/17/20 00:01 12/17/20 00:30 Pulse Rate 90 96 H 91 H Respiratory Rate 22 24 24 Blood Pressure 205/77 H Pulse Oximetry 99 99 99 12/17/20 00:33 12/17/20 01:00 12/17/20 01:30 Pulse Rate 97 H 97 H 87 Respiratory Rate 26 H 25 H 21 Blood Pressure 181/79 H 131/82 Pulse Oximetry 99 97 100 12/17/20 02:00 12/17/20 02:30 12/17/20 03:00 Pulse Rate 96 H 80 76 Respiratory Rate Blood Pressure Pulse Oximetry 98 99 99 12/17/20 03:30 12/17/20 04:00 12/17/20 04:30 Pulse Rate 87 95 H 81 Respiratory Rate Blood Pressure Pulse Oximetry 99 99 99 12/17/20 05:00 12/17/20 05:30 12/17/20 06:00 Pulse Rate 85 86 85 Respiratory Rate Blood Pressure Pulse Oximetry 99 99 100 12/17/20 06:17 Pulse Rate 104 H Respiratory Rate Blood Pressure 151/83 H Pulse Oximetry 85 L Medical Decision Making Medical Records Medical records reviewed: Yes I reviewed the patient's medical records. Lab Data Lab results reviewed: Yes I reviewed the patient's lab results. Result diagrams: 12/17/20 00:25 12/16/20 20:53 Labs: Lab Results 12/16/20 12/16/20 12/16/20 Range/Units 19:40 20:53 20:53 WBC 3.3 L (4.5-11.0) X10^3/uL RBC 2.83 L (4.0-5.2) X10^6/uL Hgb 7.9 L (12.0-16.0) g/dL Hct 24.2 L (36-46) % MCV 85.7 (80-100) fL MCH 28.1 (26-34) PG MCHC 32.7 (30-36) % RDW 19.2 H (11.6-14.8) % Plt Count 135 L (150-400) X10^3/uL Neut % (Auto) 70.6 (50-75) % Lymph % (Auto) 14.6 L (25-40) % [place] % (Auto) 14.4 H (3-14) % Eos % (Auto) 0.2 L (2-4) % Baso % (Auto) 0.2 (0-2) % Neut # (Auto) 2300 (0334-7175) /uL Lymph # (Auto) 500 L (2655-2800) /uL [place] # (Auto) 500 (0-900) /uL Eos # (Auto) 0 (0-450) /uL Baso # (Auto) 0 (0-100) /uL Sodium 141 (137-145) mmol/L Potassium 4.4 (3.4-5.1) mmol/L Chloride 96 L (98-107) mmol/L Carbon Dioxide 40 H* (22-32) mmol/L BUN 23 H (7-17) mg/dL Creatinine 0.77 (0.52-1.04) mg/dL Estimated GFR > 60.0 (>60) mL/min BUN/Creatinine Ratio 29.9 H (6-22) Glucose 125 H (80-110) mg/dL Calcium 10.0 (8.4-10.2) mg/dL Total Bilirubin 0.6 (0.2-1.3) mg/dL AST 26 (14-36) IU/L ALT 13 (<35) IU/L Alkaline Phosphatase 80 (38-126) U/L Total Creatine Kinase (30-135) U/L CK-MB (CK-2) CK-MB (CK-2) Rel Index Troponin I (0.01-0.034) ng/mL NT-Pro-B Natriuret Pep (<450) pg/mL Total Protein 7.8 (6.3-8.2) g/dL Albumin 4.3 (3.5-5.0) g/dL Globulin 3.5 (1.7-4.1) g/dL Albumin/Globulin Ratio 1.2 (1.0-2.8) Lipase 123 (23-300) U/L SARS-CoV-2 (PCR) Negative (Negative) 12/16/20 12/16/20 12/17/20 Range/Units 20:53 20:53 00:25 WBC (4.5-11.0) X10^3/uL RBC (4.0-5.2) X10^6/uL Hgb 8.0 L (12.0-16.0) g/dL Hct 24.1 L (36-46) % MCV (80-100) fL MCH (26-34) PG MCHC (30-36) % RDW (11.6-14.8) % Plt Count (150-400) X10^3/uL Neut % (Auto) (50-75) % Lymph % (Auto) (25-40) % [place] % (Auto) (3-14) % Eos % (Auto) (2-4) % Baso % (Auto) (0-2) % Neut # (Auto) (2482-4147) /uL Lymph # (Auto) (4644-5186) /uL [place] # (Auto) (0-900) /uL Eos # (Auto) (0-450) /uL Baso # (Auto) (0-100) /uL Sodium (137-145) mmol/L Potassium (3.4-5.1) mmol/L Chloride (98-107) mmol/L Carbon Dioxide (22-32) mmol/L BUN (7-17) mg/dL Creatinine (0.52-1.04) mg/dL Estimated GFR (>60) mL/min BUN/Creatinine Ratio (6-22) Glucose (80-110) mg/dL Calcium (8.4-10.2) mg/dL Total Bilirubin (0.2-1.3) mg/dL AST (14-36) IU/L ALT (<35) IU/L Alkaline Phosphatase (38-126) U/L Total Creatine Kinase 30 (30-135) U/L CK-MB (CK-2) TNP CK-MB (CK-2) Rel Index TNP Troponin I 0.065 H (0.01-0.034) ng/mL NT-Pro-B Natriuret Pep 3750 H (<450) pg/mL Total Protein (6.3-8.2) g/dL Albumin (3.5-5.0) g/dL Globulin (1.7-4.1) g/dL Albumin/Globulin Ratio (1.0-2.8) Lipase (23-300) U/L SARS-CoV-2 (PCR) (Negative) Imaging Data Chest x-ray: Radiologist's Impression: [address] [address] XRay Report Signed Patient: Jeanine Calderon MR#: [id number] : 1935 Acct:[id number] Age/Sex: 85 / F Date of Service: 12/16/20 Loc: ED Accession Number: [id number] ?? Procedure: XR chest 1V Ordering Provider: Rome Farah D.O. PROCEDURE:? XR CHEST 1V ? INDICATIONS:? SOB ? TECHNIQUE:? One view of the chest was acquired.? ? COMPARISON:? [facility], CR, XR CHEST 1V, 12/05/2019, 5:59. ? FINDINGS:? ? Surgical changes and devices:? None.? ? Lungs and pleura:? Diffuse patchy ill-defined ground-glass opacities.? There is also mild retrocardiac opacity.? No pleural effusions or pneumothorax. ? Mediastinum:? Cardiac silhouette and mediastinal contours are stable.? ? Bones and chest wall:? No suspicious bony lesions.? Overlying soft tissues appear unremarkable.? ? IMPRESSION:? Diffuse ill-defined and ground-glass opacities in keeping with pulmonary edema. Recommend clinical and laboratory correlation to exclude underlying infection. If there is persistent clinical diagnostic uncertainty, continued surveillance with short interval radiographic followup after treatment is recommended.? ? ? Dictated by: Juan F Millan M.D. on 12/16/2020 at 20:49 ? ? Approved by: Juan F Millan M.D. on 12/16/2020 at 20:51? ECG Data Attestation: I personally reviewed and interpreted this ECG as follows: Interpretation: Atrial fibrillation Ventricular rate 92 Normal axis Normal QTC Nonspecific ST T wave changes MDM Narrative Medical decision making narrative: Patient is on oxygen at home however her oxygen requirement has increased. She did improve somewhat with nebulizers. Patient was anemic. She has had a GI bleed in the past. She is not on blood thinners. No dark colored stool. No blood in her urine. A repeat H&H 2 hours after the initial does not show any decrease. She also was given Lasix and diuresed. Unsure the exact output because the patient is incontinent of urine. Patient was back down to her 3 L of oxygen by nasal cannula which is her baseline. She states she is feeling much better and would like to be discharged home however it was approximately 0100 hours in the morning. The partner whom with she lives is also elderly and could not come and pick her up. The decision was made to keep her here in the emergency department until the morning. Overnight the patient did have some episodes of confusion. She actually stated at the beginning of the evening then situations like that she sometimes hallucinates and becomes confused. I suspect that this is just a delirium given the situation that she is in. After approximately 10 hours in the emergency department her shortness of breath returned. Her oxygen had to be turned up to 6 L. She was more tachypneic. This occurred mostly when she exerts herself in any way. More Lasix was ordered. Given her age, the return of her symptoms, the increase in her need for oxygen and do feel the need to admit to the hospital for continued diuresis as needed. I discussed this with the patient. She expressed understanding and agreement. Discussed the case with MICHAEL Sewell the night hospital provider who will admit for further evaluation and treatment. Discharge Plan Departure Patient Disposition: Admitted as Observation Clinical Impression: Congestive heart failure, Shortness of breath, Hypoxia, COPD (chronic obstructive pulmonary disease), Anemia
[2020-12-16 20:16] LABS: COVID19 -Nasal RAPID Negative (Negative)
[2020-12-16 21:02] LABS: Add Manual Diff / Slide Review NO; Basophils Absolute Auto 0 /uL (0-100); Basophils Percent Auto 0.2 % (0-2); Eosinophils Absolute Auto 0 /uL (0-450); Eosinophils Percent Auto 0.2 % (2-4); Hematocrit 24.2 % (36-46); Hemoglobin 7.9 g/dL (12.0-16.0); Lymphocytes Absolute Auto 500 /uL (1100-4500); Lymphocytes Percent Auto 14.6 % (25-40); Mean Corpuscular HGB Conc 32.7 % (30-36); Mean Corpuscular Hemoglobin 28.1 PG (26-34); Mean Corpuscular Volume 85.7 fL (80-100); Monocytes Absolute Auto 500 /uL (0-900); Monocytes Percent Auto 14.4 % (3-14); Neutrophils Absolute Auto 2300 /uL (1500-7000); Neutrophils Percent Auto 70.6 % (50-75); Platelet Count 135 X10^3/uL (150-400); Red Blood Cell Count 2.83 X10^6/uL (4.0-5.2); Red Cell Distribution Width 19.2 % (11.6-14.8); White Blood Cell Count 3.3 X10^3/uL (4.5-11.0)
[2020-12-16 21:14] LABS: Alanine Aminotransferase 13 IU/L (<35); Albumin 4.3 g/dL (3.5-5.0); Albumin Globulin Ratio 1.2 (1.0-2.8); Alkaline Phosphatase 80 U/L (38-126); Aspartate Aminotransferase 26 IU/L (14-36); BUN Creatinine Ratio 29.9 (6-22); Bilirubin Total 0.6 mg/dL (0.2-1.3); Blood Urea Nitrogen 23 mg/dL (7-17); Chloride 96 mmol/L (98-107); Creatine Kinase 30 U/L (30-135); Estimated Glomerular Filt Rate > 60.0 mL/min (>60); Globulin 3.5 g/dL (1.7-4.1); Glucose 125 mg/dL (80-110); HEMOLYSIS 43 (0-50); Lipase 123 U/L (23-300); Potassium 4.4 mmol/L (3.4-5.1); Sodium 141 mmol/L (137-145); Total Protein 7.8 g/dL (6.3-8.2)
[2020-12-16 21:22] LABS: Carbon Dioxide 40 mmol/L (22-32)
[2020-12-16 21:25] LABS: Troponin I 0.065 ng/mL (0.01-0.034)
[2020-12-16] MEDS: FUROSEMIDE 40 MG/4 ML VIAL IV (22:06)
--- NOTE | 2020-12-16 23:00 | PC.NURSE ---
Pt desatted to low 80's when up to the commode, took ~5 mins for sats to recover to 90% with O2 increased to 4L NC. Pt reports worsening SOB. Dr Farah notified, neb ordered.
[2020-12-16] MEDS: methylPREDNISolone 125 MG/2 ML VIAL IV (23:15)
[2020-12-16] MEDS: ALBUTEROL/IPRATROPIUM 3 ML AMPUL INH (23:17)
[2020-12-16 23:31] LABS: NT-proBNP (BNP-Adult 18+) 3750 pg/mL (<450)
[2020-12-17] VITALS (35 sets, daily range): BP systolic 122–205; BP diastolic 51–101; PULSE 72–108; RESP 20–28; TEMP 36–36.5; O2SAT 85–100; BMI 36.8
[2020-12-17 00:34] LABS: Hematocrit 24.1 % (36-46)
--- NOTE | 2020-12-17 06:31 | PC.NURSE ---
Pt remains very SOB with exertion. No improvement from last night. Dr Farah aware.
[2020-12-17] MEDS: FUROSEMIDE 40 MG/4 ML VIAL IV (06:39)
[2020-12-17] MEDS: predniSONE 20 MG TABLET 40 MG PO (09:09)
[2020-12-17 09:24] LABS: D Dimer 735 ng/mL (<230); Lactate (Lactic Acid) 1.8 mmol/L (0.7-2.1); Magnesium 1.3 mg/dL (1.6-2.3)
[2020-12-17 09:42] LABS: Procalcitonin 0.06 ng/mL (<0.5)
[2020-12-17] MEDS: MAGNESIUM CHLORIDE 64 MG TABLET 128 MG PO ×2 (13:13→20:57)
--- NOTE | 2020-12-17 13:29 | PC.NURSE ---
Admit Note Pt arrived to room 226 at 0800, transferred self from stretcher to bed 1 person assist. Slightly unsteady on feet, does not use any assistive devices at home. On 5L NC on admit, weaned down to 3L NC. RA trial attempted as SpO2 was 98% at rest. However, Spo2 decreased to the 70s, rapidly recovered with reapplication of oxygen. Normally wears 2-4L oxygen at home. Lungs clear and diminished at rest, wheezes with any activity. SOB with activity and tachypneic in the 30s. Afib CVR on monitor. Alert and oriented x3. Meds verified with SVinnie Sommer and medications updated accordingly, meds home with Reggie. Pt has upper and lower dentures, glasses, and clothing. Declines need to lock up any valuables. Oriented to room and to call light/bed/tv controls. Call light within reach, using appropriately to make needs known. Bed alarm on for safety.
--- NOTE | 2020-12-17 14:31 | P.HP_ITS ---
History of Present Illness History of Present Illness Date Patient Seen: 12/17/20 Time Patient Seen: 11:45 Chief complaint: SOB, did not take her lasix yesterday Narrative: Jeanine Calderon is an 85-year-old homebound female with a history of congestive heart failure, GERD, coronary artery disease who presented to the emergency room last night with shortness of breath. She or her partner showed the emergency room provider a copy of her POLST which indicated comfort measures only. The patient was admitted to the floor for symptomatic care of her shortness of breath and needed further clarification on her goals of care. Per the patient she was informed by Cardiothoracic surgery that she was a candidate but high risk candidate for coronary bypass. She states that she ?failed hospice by surviving longer than 6 months? and no longer receives their services. Yesterday she was feeling like she did want to take her Lasix or have any medical personnel tell her what to do. Patient is retired nurse. Aside from the neuropathic pain on her head and back she denies chest pain, nausea vomiting, abdominal pain, diarrhea, She now states that she has met a partner and wishes not be on comfort care measures but to remain DNR/DNI but does not want any aggressive measures done on her. After extensive discussions with her it appeared that she wanted a quality of life not necessarily a longer life. She and her boyfriend Reggie understand the need to change her POLST likely from comfort measures only to limited interventions. The patient does have difficulty getting to her providers and does not have home health services. The patient states that she was diagnosed with shingles she states largely FX the upper right portion of her head but also states that it affects the left side of her back and the ?C almost affecting both sides. She was started on ac yclovir and gabapentin on her around December 11 and the gabapentin she only took for 1 day because she said it made her feel weird. Male partner in the room states that it made her very ?loopy? and she has stopped taking it. Chest x-ray ordered in the emergency department indicated the following findings ?Diffuse ill-defined and ground-glass opacities in keeping with pulmonary edema. Recommend clinical and laboratory correlation to exclude underlying infection. If there is persistent clinical diagnostic uncertainty, continued surveillance with short interval radiographic followup after treatment is recommended. Patient received IV Lasix in the ED with good effect however she remains quite hypertensive. She was also administered IV methylprednisolone. Patient is afebrile, blood pressure 173/72, heart rate 84, respiratory rate 25, oxygen saturation of 92% on 3 L, she weighs 85.5 kg with a BMI of 36.8. WBC is 3.3 RBC 2.83 hemoglobin 8.0 with hematocrit of 24.1 (Appears to be close to her baseline), platelet count 135 which is higher than her normal baseline despite being low. D-dimer is mildly elevated at 7 and 35, sodium 141, potassium 4.4 chloride 96 bicarb 40 BUN 23 creatinine 0.77 with a GFR of greater than 60, magnesium was 1.3 which has since been repleted, troponin is 0.065 with a P use to be normal for her baseline, proBNP is 37 50, lipase 123, procalcitonin is within normal limits, COVID PCR is negative. Patient History Medical History Atrial fibrillation Back pain Congestive heart failure COPD (chronic obstructive pulmonary disease) Hypertension Morbid obesity Post zoster neuralgia Surgical History H/O total hip arthroplasty Family & Social History Family history unavailable: No (Mother age 91 of his CVA, father of a brain tumor age 66,) Social History: household members significant other Prior Living Arrangements House Safety & Behavioral: Feels Safe in Current Yes Environment Been Physically Hurt or No Threatened By a Person Suicidal Ideation Description None Tobacco & Substance use: Smoking Status Former smoker alcohol intake never alcohol intake frequency holiday/special occasion Substance Use Type does not use Comment: Continuation of family history from above: She had a sister age to and a sister age 91 alive with dementia. Meds Home Medications and Allergies Home Medications Medication Instructions Recorded Confirmed Type umeclidinium 62.5 mcg-vilanterol 1 inh INHALATION DAILY 08/14/19 12/17/20 History 25 mcg/actuation powdr for inhalation (Anoro Ellipta) albuterol sulfate 90 mcg/actuation 2 inh INHALATION Q4H PRN #18 g 03/22/20 12/17/20 Rx aerosol inhaler (ProAir HFA) omeprazole 20 mg capsule,delayed 20 mg PO DAILY #90 cap 03/22/20 12/17/20 Rx release nebulizer and compressor #1 ea 03/29/20 12/17/20 Rx furosemide 20 mg tablet (Lasix) 20 mg PO DAILY #30 tab 12/03/20 12/17/20 Rx gabapentin 100 mg capsule 100 mg PO BID #60 cap 12/11/20 12/17/20 Rx albuterol sulfate 2.5 mg INHALATION QID PRN #90 ml 12/13/20 12/17/20 Rx losartan 25 mg tablet 25 mg PO DAILY 12/17/20 12/17/20 History Allergies Allergy/AdvReac Type Severity Reaction Status Date / Time Penicillins Allergy Intermediate ITCHING Verified 12/17/20 14:33 codeine Allergy Verified 12/16/20 19:55 shellfish derived Allergy Verified 12/16/20 19:55 Review of Systems Review of Systems ROS: Yes All systems reviewed with the patient and are negative except as otherwise documented Exam Vital Signs (past 8 hours): - 12/17/20 07:00 12/17/20 07:01 12/17/20 07:30 Temperature Pulse Rate 81 78 72 Respiratory Rate Blood Pressure 157/69 H 165/101 H Pulse Oximetry 95 96 97 12/17/20 08:00 12/17/20 08:27 12/17/20 09:00 Temperature 96.8 F L Pulse Rate 108 H 82 Respiratory Rate 21 Blood Pressure 197/85 H 144/63 H Pulse Oximetry 93 93 12/17/20 11:24 12/17/20 13:00 Temperature 97.7 F Pulse Rate 84 Respiratory Rate 25 H Blood Pressure 173/72 H Pulse Oximetry 96 92 Oxygen Delivery Method Nasal Cannula Oxygen Flow Rate 3 Narrative Exam Narrative: Gen: Alert, oriented, well-developed 85 y.o. female, NAD HEENT: normocephalic, atraumatic, conjunctiva clear, sclera non-icteric, oral mucosa pink and moist Neck: supple, full ROM, no JVD, trachea is midline Resp: Lungs sounds deminished, non-labored breathing CV: RRR, no murmur or rubs Abd: soft, non-tender, normoactive BTs Skin: no lesions or rashes on back or head, dry and intact Neuro: Alert and oriented X 4 w/no focal deficits. Speech clear and coherent. Extremities: moves all 4 extremities, is ambulatory, negative Samantha?s sign Psyche: normal mood and affect. Objective Labs Result Diagrams: 10/26/21 00:25 12/16/20 20:53 Labs: Laboratory Results - last 24 hr 12/16/20 12/16/20 12/16/20 19:40 20:53 20:53 WBC 3.3 L RBC 2.83 L Hgb 7.9 L Hct 24.2 L MCV 85.7 MCH 28.1 MCHC 32.7 RDW 19.2 H Plt Count 135 L Neut % (Auto) 70.6 Lymph % (Auto) 14.6 L [place] % (Auto) 14.4 H Eos % (Auto) 0.2 L Baso % (Auto) 0.2 Neut # (Auto) 2300 Lymph # (Auto) 500 L [place] # (Auto) 500 Eos # (Auto) 0 Baso # (Auto) 0 D-Dimer Sodium 141 Potassium 4.4 Chloride 96 L Carbon Dioxide 40 H* BUN 23 H Creatinine 0.77 Estimated GFR > 60.0 BUN/Creatinine Ratio 29.9 H Glucose 125 H Lactate Calcium 10.0 Magnesium Total Bilirubin 0.6 AST 26 ALT 13 Alkaline Phosphatase 80 Total Creatine Kinase CK-MB (CK-2) CK-MB (CK-2) Rel Index Troponin I NT-Pro-B Natriuret Pep Total Protein 7.8 Albumin 4.3 Globulin 3.5 Albumin/Globulin Ratio 1.2 Lipase 123 Procalcitonin Nasal Screen MRSA (PCR) SARS-CoV-2 (PCR) Negative 12/16/20 12/16/20 12/17/20 20:53 20:53 00:25 WBC RBC Hgb 8.0 L Hct 24.1 L MCV MCH MCHC RDW Plt Count Neut % (Auto) Lymph % (Auto) [place] % (Auto) Eos % (Auto) Baso % (Auto) Neut # (Auto) Lymph # (Auto) [place] # (Auto) Eos # (Auto) Baso # (Auto) D-Dimer Sodium Potassium Chloride Carbon Dioxide BUN Creatinine Estimated GFR BUN/Creatinine Ratio Glucose Lactate Calcium Magnesium Total Bilirubin AST ALT Alkaline Phosphatase Total Creatine Kinase 30 CK-MB (CK-2) TNP CK-MB (CK-2) Rel Index TNP Troponin I 0.065 H NT-Pro-B Natriuret Pep 3750 H Total Protein Albumin Globulin Albumin/Globulin Ratio Lipase Procalcitonin Nasal Screen MRSA (PCR) SARS-CoV-2 (PCR) 12/17/20 12/17/20 12/17/20 08:20 08:53 08:53 WBC RBC Hgb Hct MCV MCH MCHC RDW Plt Count Neut % (Auto) Lymph % (Auto) [place] % (Auto) Eos % (Auto) Baso % (Auto) Neut # (Auto) Lymph # (Auto) [place] # (Auto) Eos # (Auto) Baso # (Auto) D-Dimer Sodium Potassium Chloride Carbon Dioxide BUN Creatinine Estimated GFR BUN/Creatinine Ratio Glucose Lactate 1.8 Calcium Magnesium 1.3 L Total Bilirubin AST ALT Alkaline Phosphatase Total Creatine Kinase CK-MB (CK-2) CK-MB (CK-2) Rel Index Troponin I NT-Pro-B Natriuret Pep Total Protein Albumin Globulin Albumin/Globulin Ratio Lipase Procalcitonin 0.06 Nasal Screen MRSA (PCR) Negative for mrsa SARS-CoV-2 (PCR) 12/17/20 08:53 WBC RBC Hgb Hct MCV MCH MCHC RDW Plt Count Neut % (Auto) Lymph % (Auto) [place] % (Auto) Eos % (Auto) Baso % (Auto) Neut # (Auto) Lymph # (Auto) [place] # (Auto) Eos # (Auto) Baso # (Auto) D-Dimer 735 H Sodium Potassium Chloride Carbon Dioxide BUN Creatinine Estimated GFR BUN/Creatinine Ratio Glucose Lactate Calcium Magnesium Total Bilirubin AST ALT Alkaline Phosphatase Total Creatine Kinase CK-MB (CK-2) CK-MB (CK-2) Rel Index Troponin I NT-Pro-B Natriuret Pep Total Protein Albumin Globulin Albumin/Globulin Ratio Lipase Procalcitonin Nasal Screen MRSA (PCR) SARS-CoV-2 (PCR) Assessment & Plan Assessment & Plan narrative: Jeanine Calderon is an 85-year-old female with history of coronary artery disease, CHF, likely iron deficiency anemia, is admitted for a probable COPD/CHF exacerbation secondary to noncompliance. 1. COPD exacerbation, acute, present on admission * Patient was initially dyspneic in the ED which is appeared to be resolved but is still requiring 3 L of oxygen on a oxygen saturation of 92 % * She will continue to receive nebulizers of albuterol on a ipatroprium, she has been put on an oral prednisone taper starting at 40 mg daily for 4 days * Continue continuous O2 monitoring 2. CHF exacerbation in a female with a chads Vasc score of 6 * Continue IV Lasix b.i.d. and encourage compliance with oral Lasix. 3. Essential hypertension not well controlled and present on admission * She normally takes losartan 25 mg p.o. daily and I am not sure she received morning dose so will give her 1 dose now at 1556. 4. Advanced care planning * Extended discussion with patient regarding her code status and goals of care. She had been on comfort measures only. She now would like to have limited interventions. She has a significant other now watching over her who also share some of her same personal interests and they apparently are good companionship for each other. She continues to be a DNR/DNI. * Recommended that the patient may benefit from home health nursing to help with issues of compliance and monitoring her since she is unable to make it to her providers appointments. She agrees for a referral to home health nursing. 5. GERD, chronic * Continue home dose of omeprazole 20 mg p.o. daily VTE Prophylaxis: Wells risk score 1.5 [X] Bilateral SCDs Patient is admitted to the inpatient service due to the severity of disease, risks of further disease progression and this stay is expected to exceed 2 mi dnights. FEN: IV fluids: saline lock, diet: low sodium heart healthy, labs: CBC, C/BMP, liver enzymes, Mag, PT/INR Consultants [X] None Dispo: Probable discharge to home Code status: DNR/DNI as discussed with the patient who identifies Reggie Sommer, her significant other as her surrogate and POA. [X] I have utilized all available immediate resources to obtain, update, or review of the patient's current medications COVID-19 COVID-19 status: Negative Result date/Date tested (Pos, Neg/Pending): 12/17/20 Scores CHADS-VASc Congestive heart failure: yes Hypertension: yes Age 75 years or older: yes Diabetes mellitus: no Stroke, TIA, or TE: no Vascular disease: yes Age 65 to 74 years: no Sex category (female): Female CHADS-VASc Score: 6 Wells' Criteria for PE Clinical signs and symptoms of DVT: No PE is #1 Dx or equally likely: No Heart rate > 100: No Immobilization at least 3 days or surg in previous 4 weeks: Yes History of PE or DVT: No Hemoptysis: No Malignancy w/Treatment within 6 months or palliative: No Wells' PE Score total: 1.5 Quality VTE Deep Vein Thrombosis/Pulmonary Embolism Present on Admission: No MIPS - Admit I confirm the patient?s Advance Care Plan is present, Code status is documented, Surrogate decision maker is in patient?s record [If Yes, STOP here]: Yes MIPS - DC The patient has current or prior documentation of left ventricular ejection fraction (LVEF) less than 40%, or moderate or severely depressed left ventricular systolic function.: No
[2020-12-17] MEDS: LOSARTAN 25 MG TABLET PO (16:16)
[2020-12-17] MEDS: ALBUTEROL/IPRATROPIUM 3 ML AMPUL INH (18:33)
[2020-12-17] MEDS: ACETAMINOPHEN 325 MG TABLET 650 MG PO (19:33)
[2020-12-17] MEDS: FUROSEMIDE 20 MG/2 ML VIAL 40 MG IV (20:54)
[2020-12-17] MEDS: HYDROCODONE/ACET 10/325 TABLET 1 TAB PO (20:55)
[2020-12-18] VITALS (31 sets, daily range): BP systolic 137–164; BP diastolic 63–90; PULSE 67–92; RESP 16–30; TEMP 36.4–37; O2SAT 89–100
[2020-12-18] MEDS: PANTOPRAZOLE DR 20 MG TABLET PO (06:00)
[2020-12-18] MEDS: FUROSEMIDE 20 MG/2 ML VIAL 40 MG IV (08:51)
[2020-12-18] MEDS: predniSONE 20 MG TABLET 40 MG PO (08:51)
[2020-12-18] MEDS: LOSARTAN 25 MG TABLET PO (08:51)
[2020-12-18 09:07] LABS: Add Manual Diff / Slide Review NO; Basophils Absolute Auto 0 /uL (0-100); Basophils Percent Auto 0.1 % (0-2); Eosinophils Absolute Auto 0 /uL (0-450); Hemoglobin 7.3 g/dL (12.0-16.0); Lymphocytes Absolute Auto 500 /uL (1100-4500); Lymphocytes Percent Auto 19.2 % (25-40); Mean Corpuscular HGB Conc 33.2 % (30-36); Mean Corpuscular Hemoglobin 28.5 PG (26-34); Mean Corpuscular Volume 85.7 fL (80-100); Monocytes Absolute Auto 500 /uL (0-900); Monocytes Percent Auto 19.1 % (3-14); Neutrophils Absolute Auto 1600 /uL (1500-7000); Neutrophils Percent Auto 61.6 % (50-75); Platelet Count 141 X10^3/uL (150-400); Red Blood Cell Count 2.57 X10^6/uL (4.0-5.2); Red Cell Distribution Width 19.1 % (11.6-14.8); White Blood Cell Count 2.6 X10^3/uL (4.5-11.0)
[2020-12-18 09:16] LABS: Alanine Aminotransferase 12 IU/L (<35); Albumin Globulin Ratio 1.3 (1.0-2.8); Alkaline Phosphatase 66 U/L (38-126); Aspartate Aminotransferase 20 IU/L (14-36); BUN Creatinine Ratio 28.2 (6-22); Bilirubin Total 0.4 mg/dL (0.2-1.3); Blood Urea Nitrogen 29 mg/dL (7-17); Calcium 9.5 mg/dL (8.4-10.2); Chloride 90 mmol/L (98-107); Estimated Glomerular Filt Rate 50.9 mL/min (>60); Glucose 97 mg/dL (80-110); HEMOLYSIS < 15 (0-50); Potassium 3.8 mmol/L (3.4-5.1); Sodium 140 mmol/L (137-145)
[2020-12-18 09:31] LABS: Carbon Dioxide 40 mmol/L (22-32)
[2020-12-18 09:37] LABS: Magnesium 1.5 mg/dL (1.6-2.3)
[2020-12-18] MEDS: MAGNESIUM CHLORIDE 64 MG TABLET 128 MG PO (10:41)
[2020-12-18] MEDS: ALBUTEROL/IPRATROPIUM 3 ML AMPUL INH ×2 (11:46→19:13)
--- NOTE | 2020-12-18 14:54 | PC.NURSE ---
Day Shift Note Alert and oriented x3. Up to BSC this AM and bed bath completed. Mostly incontinent of urine, brief saturated. Cowan catheter placed per MD order without issue, 600 ml of clear yellow urine out this shift. No IV access at this time. Order received for midline placement due to poor vascular access. Midline attempted by DI nurse without success, DI nurse will return to place peripheral this afternoon.
--- NOTE | 2020-12-18 15:00 | PT.IIE ---
Medical History (Last Reviewed 12/17/20 @ 14:55 by DEVIN Oquendo) Atrial fibrillation Back pain Congestive heart failure COPD (chronic obstructive pulmonary disease) Hypertension Morbid obesity Post zoster neuralgia Physical Therapy Inpatient Evaluation/Re-Eval M1 PT/OT-IP Prior Functional Status Start: 12/18/20 17:09 Freq: NEEDED Status: Active Protocol: Document 12/18/20 15:00 AB (Rec: 12/18/20 17: [email or web address]) Medical Review Prior Functional Status Medical History Reviewed Yes Communication able to make needs know; WALES Mobility and Gait significant other in room: stated that he helps pt with all tasks but pt is able to ambulate at home and does not use any AD(stated that she does not want to use an AD) and pt furniture cruises. stated that pt mostly stays in bed but can ambulate to look out her window which is ~ 20 ft of ambulation (the farthest pt can ambulate) pt uses a bedside commode next to her hospital bed and able to stand and transfer with SO assisting; SO also assists pt with hygiene care. SO also assists pt with showers: pt has a rolling shower chair and pt transfers from bed to shower chair and SO rolls/pushes pt to the shower Pt has a 4WW that she sits on and SO pushes pt with 4WW to get into the house using a ramp to enter Social History Household Members significant other Living Arrangements House Number of Floors (Floors) One Floor Number of Stairs To Enter/Railing? ramp to enter Home Environment Ramp Home Equipment Front Wheel Walker,Four Wheel Walker,Bedside Commode,Hand Held Shower Additional Social History Comment has a hospital bed with rails pt uses a bedside commode next to the bed has a rolling shower chair uses O2 sat home 3L/min M2 PT-IP Current Condition Start: 12/18/20 17:09 Freq: NEEDED Status: Active Protocol: Document 12/18/20 15:00 AB (Rec: 12/18/20 17:28 [email or web address]) Physical Therapy Current Condition Current Condition Evaluation Date 12/18/20 Treatment Diagnosis CHF; difficulty in walking Onset Date 12/17/20 M3 PT-IP Subjective Start: 12/18/20 17:09 Freq: NEEDED Status: Active Protocol: Document 12/18/20 15:00 AB (Rec: 12/18/20 17:28 [id number]) Subjective Physical Therapy Visit Type Type Initial Evaluation Visit Start Time 15:00 Visit Stop Time 15:30 Total Visit Minutes 30 Number of QUALITY COMPLIANCE CONSULTANT Visits 0 Physical Therapy Visit Comments Patient Comments easily gets agitated; stated that she does not have any patience spouse in room and also gets agitated easily M4 PT-IP Mobility and Gait Start: 12/18/20 17:09 Freq: NEEDED Status: Active Protocol: Document 12/18/20 15:00 AB (Rec: 12/18/20 17:28 [id number]) PT-Bed Mobility Assessment Supine to Sit Supine to Sit Standby Assistance,Head of Bed Elevated Sit to Supine Sit to Supine Standby Assistance,Head of Bed Elevated PT-Transfer Assessment Sit to and From Stand Sit to and from Stand Standby Assistance,Contact Guard Assistance,1 Person Assistance,Use of Upper Extremities Equipment Transfer Assistive Device Front Wheeled Walker Orthotic/Prosthetic Devices or Brace: No Transfers Transfer Destination Bed,Chair Transfer Technique Stand Step Pivot Transfer Ability Level of Assist Standby Assistance,Contact Guard Assistance Comments Mobility Comments pt in room with SO. Asked pt regarding home set up and PLOF and SO got agitated and stated that pt was in the hospital before and all information should be in there . Pt answered all questions. BP: 133/63. PT setting up chair and cords/tubes and pt stated that PT is being fuzzy with all things. Explained to pt regarding safety and setting things up prior to mobility. completed supine to sit SBa with HOB elevated. pt refused use of gait belt. completed sit to stand SBA to [facility] using FWW and transferred to chair. pt refused ambulation and refused to stay up on chair and wants to go back to bed. pt transferred back to bed using FWW SBA. completed sit to supine SBA. positioned pt in bed. towards the end of session was getting agitated and stated that she is getting frustrated and angry and that she does not have patience when pt is instructed and assisted with positioning in bed. pt directs her own care. call light and table placed within reach. informed pt regarding mobility with PT and agreed to try to ambulate next tx session. Gait Assessment Comments Gait Comments refused PT-Balance Assessment Sitting Balance and Reactions Static Sitting Balance Ability Good Dynamic Sitting Balance Ability Good Standing Balance and Reactions Static Standing Balance Ability Fair Dynamic Standing Balance Ability Fair Device Used FWW M5 PT-IP Objective Assessments Start: 12/18/20 17:09 Freq: NEEDED Status: Active Protocol: Document 12/18/20 15:00 AB (Rec: 12/18/20 17:28 AB [id number]) Orientation Orientation/Cognition Level of Alertness Alert Orientation Name Language Function Ability Hard of Hearing Safety Awareness Decreased Safety Awareness Memory Description No Deficits Noted Gross Range of Motion Lower Extremity ROM Assessment Within Functional Limits Strength Lower Extremity Strength Hip 4-/5 Knee 4-/5 Sensation Assessment Sensation Gross Sensation WNL Muscle Tone Muscle Tone WNL Yes M6 PT-IP Treatment Start: 12/18/20 17:09 Freq: NEEDED Status: Active Protocol: Document 12/18/20 15:00 AB (Rec: 12/18/20 17:28 AB [email or web address]) Physical Therapy Treatment Education Education Provided Safety M7 PT-IP Assessment and Plan Start: 12/18/20 17:09 Freq: NEEDED Status: Active Protocol: Document 12/18/20 15:00 AB (Rec: 12/18/20 17:28 AB [email or web address]) PT Summary Assessment and Plan Potential Rehabilitation Potential Fair Status of Condition at Evaluation Evolving Summary Impairments Pain,ROM,Strength,Balance, Coordination,Sensation,Tone, Cognition,Bed Mobility, Transfers,Gait,Activity Tolerance Assessment Summary pt requiring SBA to CGA with mobility and has decrease activity tolerance. Pt has been limited with mobility prior to hospitalization and has her significant other to assist her at home. will continue to assess progress for safe d/c plan. Goals Bed Mobility Goal Independent Transfer Goal Standby Assistance Gait Goal Standby Assistance,Front Wheel Walker Gait Distance 25 Days to Meet Goals 5 Frequency of Treatment Frequency Of Treatment Once a Day Treatment Plan Physical Therapy Treatment Plan Bed Mobility Training,Transfer Training,Gait Training, Therapeutic Exercise,Balance Retraining,Discharge Planning, Neuromuscular Re-ed, Coordination Retraining Precautions Other Precautions O2 sat Recommendations To Nursing Amount of Assist Needed 1 Person Assist Discharge Recommendations PT Discharge Recommendations Home with 14/09 Assist Available,Home Health Transportation Needs at Discharge Private Vehicle
--- NOTE | 2020-12-18 16:30 | PC.NURSE ---
DI-IV placement: DI Nurse, attempted a midline placement in each upper extremity without success. I was only able to visualize the brachial veins and they were to deep to access with a midline catheter. I then attempted a PICC midline placement but her veins were twisting and moving and I was also unsuccessful after 3 attempts with that. I verified with Nurse Pro and she clarified with Dr. Bishop that we needed to be this aggressive with iv access and the patient consented to this but in the end I was unable to get placement. Consent is in the chart.
[2020-12-18] MEDS: HYDROCODONE/ACET 10/325 TABLET 1 TAB PO (17:35)
[2020-12-18] MEDS: FUROSEMIDE 40 MG/4 ML VIAL IV (17:35)
--- NOTE | 2020-12-18 18:09 | PM.PN.1 ---
Subjective Subjective Date Patient Seen: 12/18/20 Interval history: Patient is an 85-year-old female who was admitted to the hospital acutely short of breath last night secondary to congestive heart failure. Patient ran out of her medications. However she commits to wanting to continue her medications. She would like to be treated. She like to be less short of breath. Patient reports feeling significantly improved since admission Exam Vital Signs (past 8 hours): - 12/18/20 11:47 12/18/20 12:10 12/18/20 13:00 Temperature 97.6 F Pulse Rate 73 76 Respiratory Rate 16 22 Blood Pressure 137/63 Pulse Oximetry 98 95 97 12/18/20 15:39 12/18/20 17:00 Temperature 98.3 F Pulse Rate 84 Respiratory Rate 30 H Blood Pressure 138/63 Pulse Oximetry 94 95 Oxygen Delivery Method Room Air Oxygen Flow Rate 4 Narrative Exam Narrative: Elderly female lying in bed Resp Other: Lungs: Crackles bilaterally 2/[address] Cardio Other: Cardiac exam: Irregularly irregular, normal S1-S2 GI Other: Abdomen: Soft and nontender Extrem Other: Extremities: No Objective Labs Result Diagrams: 12/18/20 08:20 12/18/20 08:20 Labs: Laboratory Results - last 24 hr 12/18/20 12/18/20 12/18/20 08:20 08:20 08:20 WBC 2.6 L RBC 2.57 L Hgb 7.3 L Hct 22.0 L MCV 85.7 MCH 28.5 MCHC 33.2 RDW 19.1 H Plt Count 141 L Neut % (Auto) 61.6 Lymph % (Auto) 19.2 L [place] % (Auto) 19.1 H Eos % (Auto) 0.0 L Baso % (Auto) 0.1 Neut # (Auto) 1600 Lymph # (Auto) 500 L [place] # (Auto) 500 Eos # (Auto) 0 Baso # (Auto) 0 Sodium 140 Potassium 3.8 Chloride 90 L Carbon Dioxide 40 H* BUN 29 H Creatinine 1.03 Estimated GFR 50.9 L BUN/Creatinine Ratio 28.2 H Glucose 97 Calcium 9.5 Magnesium 1.5 L Total Bilirubin 0.4 AST 20 ALT 12 Alkaline Phosphatase 66 Total Protein 7.0 Albumin 4.0 Globulin 3.0 Albumin/Globulin Ratio 1.3 [facility] Medical History Atrial fibrillation Back pain Congestive heart failure COPD (chronic obstructive pulmonary disease) Hypertension Morbid obesity Post zoster neuralgia Surgical History H/O total hip arthroplasty Social History household members: significant other Smoking Status: Former smoker alcohol intake: never Assessment & Plan Assessment & Plan narrative: Impression 1. 85-year-old female admitted to the hospital with acute hypoxic respiratory failure -suspect mostly related to congestive heart failure -will increase Lasix to 40 mg IV 3 times daily -will place Cowan catheter to monitor urine output 2. Probable COPD -will continue nebulizer -continue oxygen as needed 3. Pancytopenia -etiology unclear -will check iron studies, consider IV iron -transfuse for hemoglobin less than 7 4. GERD -continue PPI 5. Advance care planning, patient is DNR DNI, she would like full intervention and is agreeable to home health at discharge Time Spent With Patient Critical Care time: I spent a total of [] minutes of critical care time on this patient's care today; this time is exclusive of procedural time. Quality VTE Deep Vein Thrombosis/Pulmonary Embolism Present on Admission: No
[2020-12-18 19:42] LABS: HEMOLYSIS < 15 (0-50); Iron 25 ug/dL (37-170)
[2020-12-18 19:52] LABS: Percent Iron Saturation 7 % (15-50); Total Iron Binding Capacity 369 ug/dL (265-497); Transferrin 279 mg/dL (206-381)
[2020-12-18] MEDS: SODIUM CHLORIDE 0.9% FLUSH 10 ML IV (20:23)
[2020-12-18] MEDS: MELATONIN 3 MG TABLET 6 MG PO (20:24)
[2020-12-19] VITALS (23 sets, daily range): BP systolic 128–156; BP diastolic 55–69; PULSE 72–88; RESP 16–22; TEMP 35.9–37.3; O2SAT 90–100
[2020-12-19] MEDS: FUROSEMIDE 40 MG/4 ML VIAL IV ×3 (01:11→20:43)
--- NOTE | 2020-12-19 01:28 | PC.NURSE ---
Addendum entered by Manuela King R.N. 12/19/20 06:27: Pt appears to have rested well this shift. HL RFA intact/patent. Tele shows A-fib per ICU staff. Cowan cath patent 400cc clear urine. Call light w/in reach, bed alarm on for pt safety. Continue w/plan of care. Original Note: Pt denies discomfort. SpO2 97% 3L lungs clear/shallow @ bases Tele shows A-fib per ICU staff. HL RFA intact/patent. Cowan cath patent clear urine. Call light w/in reach, bed alarm on for pt safety.
[2020-12-19] MEDS: PANTOPRAZOLE DR 20 MG TABLET PO (05:44)
[2020-12-19 07:34] LABS: Alanine Aminotransferase 13 IU/L (<35); Albumin 3.9 g/dL (3.5-5.0); Albumin Globulin Ratio 1.3 (1.0-2.8); Alkaline Phosphatase 59 U/L (38-126); Aspartate Aminotransferase 21 IU/L (14-36); BUN Creatinine Ratio 37.1 (6-22); Bilirubin Total 0.4 mg/dL (0.2-1.3); Blood Urea Nitrogen 36 mg/dL (7-17); Calcium 9.3 mg/dL (8.4-10.2); Chloride 88 mmol/L (98-107); Estimated Glomerular Filt Rate 54.6 mL/min (>60); Globulin 2.9 g/dL (1.7-4.1); Glucose 109 mg/dL (80-110); HEMOLYSIS 16 (0-50); Potassium 3.9 mmol/L (3.4-5.1); Sodium 137 mmol/L (137-145); Total Protein 6.8 g/dL (6.3-8.2)
[2020-12-19 07:35] LABS: Magnesium 1.5 mg/dL (1.6-2.3)
[2020-12-19 07:41] LABS: NT-proBNP (BNP-Adult 18+) 2240 pg/mL (<450)
[2020-12-19] MEDS: LOSARTAN 25 MG TABLET PO (08:08)
[2020-12-19] MEDS: predniSONE 20 MG TABLET 40 MG PO (08:08)
[2020-12-19] MEDS: SODIUM CHLORIDE 0.9% FLUSH 10 ML IV ×2 (08:11→20:43)
[2020-12-19 08:25] LABS: Carbon Dioxide 39 mmol/L (22-32)
[2020-12-19 08:39] LABS: Basophils Absolute Auto 0 /uL (0-100); Basophils Percent Auto 0.1 % (0-2); Eosinophils Absolute Auto 0 /uL (0-450); Lymphocytes Absolute Auto 400 /uL (1100-4500); Monocytes Absolute Auto 300 /uL (0-900); Monocytes Percent Auto 10.8 % (3-14); Neutrophils Percent Auto 72.7 % (50-75)
[2020-12-19 08:44] LABS: Add Manual Diff / Slide Review NO; Eosinophils Percent Auto 0.1 % (2-4); Lymphocytes Percent Auto 16.3 % (25-40); Mean Corpuscular HGB Conc 33.4 % (30-36); Mean Corpuscular Hemoglobin 28.2 PG (26-34); Mean Corpuscular Volume 84.4 fL (80-100); Neutrophils Absolute Auto 1800 /uL (1500-7000); Platelet Count 126 X10^3/uL (150-400); Red Blood Cell Count 2.59 X10^6/uL (4.0-5.2); Red Cell Distribution Width 18.9 % (11.6-14.8); White Blood Cell Count 2.5 X10^3/uL (4.5-11.0)
[2020-12-19 08:50] LABS: Hematocrit 21.9 % (36-46); Hemoglobin 7.3 g/dL (12.0-16.0)
[2020-12-19] MEDS: ALBUTEROL/IPRATROPIUM 3 ML AMPUL INH ×3 (09:06→22:37)
--- NOTE | 2020-12-19 09:40 | PT.IPTN ---
Physical Therapy Treatment Note M2 PT-IP Current Condition Start: 12/18/20 17:09 Freq: NEEDED Status: Active Protocol: Document 12/18/20 15:00 AB (Rec: 12/18/20 17:28 AB [id number]) Physical Therapy Current Condition Current Condition Evaluation Date 12/18/20 Treatment Diagnosis CHF; difficulty in walking Onset Date 12/17/20 M3 PT-IP Subjective Start: 12/18/20 17:09 Freq: NEEDED Status: Active Protocol: Document 12/19/20 09:40 OF (Rec: 12/19/20 09:55 OF [id number]) Subjective Physical Therapy Visit Type Type Treatment Note Visit Start Time 09:10 Visit Stop Time 09:40 Total Visit Minutes 30 Number of [facility] Visits 0 Physical Therapy Visit Comments Patient Comments pt states she is willing to walk, but not do too much Patient Goals go home Therapy Pain Assessment Pain When Pain Assessed At Rest Pain Present Pain Present Denied Pain M4 PT-IP Mobility and Gait Start: 12/18/20 17:09 Freq: NEEDED Status: Active Protocol: Document 12/19/20 09:40 OF (Rec: 12/19/20 09:55 OF [id number]) PT-Bed Mobility Assessment Rolling Level of Assist Minimal Assistance Supine to Sit Supine to Sit Minimal Assistance Sit to Supine Sit to Supine Minimal Assistance Scooting Scooting to Edge of Bed Minimal Assistance Scooting Up and Down in Bed Minimal Assistance PT-Transfer Assessment Sit to and From Stand Sit to and from Stand Minimal Assistance Comments Mobility Comments Sit to stand x5, MIN A Gait Assessment Gait Gait Assistance Required: Minimum Assistance Distance (Feet) 15 Able to Maintain Weight Bearing Status Yes During Gait Assistive Devices Assistive Device Gait Belt,Front Wheeled Walker Gait Deviations General Gait Pattern Flexed Trunk Comments Gait Comments Pt AMB with shuffling steps, difficulty using FWW to offload, SOB with exertion. Using 3L via NC. Stair Climbing Assessment Comments Stair Climbing Comments Pt states she will use ramp with . Pt educated upon not using 4ww for seated mobility due to risk of 4ww tipping over. She states I will be fine PT-Balance Assessment Sitting Balance and Reactions Static Sitting Balance Ability Good Dynamic Sitting Balance Ability Good Standing Balance and Reactions Static Standing Balance Ability Good Dynamic Standing Balance Ability Good M5 PT-IP Objective Assessments Start: 12/18/20 17:09 Freq: NEEDED Status: Active Protocol: Document 12/18/20 15:00 AB (Rec: 12/18/20 17:28 AB [id number]) Orientation Orientation/Cognition Level of Alertness Alert Orientation Name Language Function Ability Hard of Hearing Safety Awareness Decreased Safety Awareness Memory Description No Deficits Noted Gross Range of Motion Lower Extremity ROM Assessment Within Functional Limits Strength Lower Extremity Strength Hip 4-/5 Knee 4-/5 Sensation Assessment Sensation Gross Sensation WNL Muscle Tone Muscle Tone WNL Yes M6 PT-IP Treatment Start: 12/18/20 17:09 Freq: NEEDED Status: Active Protocol: Document 12/19/20 09:40 OF (Rec: 12/19/20 09:55 OF [id number]) Physical Therapy Treatment Exercises Exercises Ankle Pumps Education Education Provided Safety M7 PT-IP Assessment and Plan Start: 12/18/20 17:09 Freq: NEEDED Status: Active Protocol: Document 12/19/20 09:40 OF (Rec: 12/19/20 09:55 OF [id number]) PT Summary Assessment and Plan Potential Rehabilitation Potential Good Status of Condition at Evaluation Stable Summary Impairments Transfers,Gait,Activity Tolerance Progress Towards Goals Progressing Toward Goals Assessment Summary Jeanine was agreeable to AMB today, she attempts to direct her own care, and does not follow instructions for safe mobility. She states her does everything for her at home. Goals Bed Mobility Goal Independent Transfer Goal Standby Assistance Gait Goal Standby Assistance Days to Meet Goals 5 Frequency of Treatment Frequency Of Treatment Once a Day Treatment Plan Physical Therapy Treatment Plan Bed Mobility Training,Transfer Training,Gait Training, Therapeutic Exercise,Balance Retraining,Discharge Planning, Neuromuscular Re-ed, Coordination Retraining Recommendations To Nursing Amount of Assist Needed 1 Person Assist Discharge Recommendations PT Discharge Recommendations Home with 14/09 Assist Available,Home Health
--- NOTE | 2020-12-19 11:02 | CM.IDA ---
Initial DCP Assessment Note Pt is an 85 yo female, resident [facility], arrives with severe dyspnea/SOB, admitted d/t acute hypoxic respiratory failure, PMH includes CHF PCP: Hugo Sommer Payer: [facility]/ for Life According to conversation w/Dr Bishop, patient eager to DC home, medically ready w/in the next 24-48 hrs. Met w/patient, introduced role. Patient expects to return home w/S.O. richie (Reggie); patient states he does everything (for me). Patient and Richie have been together for approx 2 years. Patient has children, but does not have contact, states they have lived w/their Dad since the age of 3 in [place]. Discussed home health services, patient agreeable, no agency preference. Will plan to follow closely and begin HH referral per agency rotation. HH RN/PT/OT KIM Irwin Discharge Planning/Care Management CM Discharge Assessment Start: 12/19/20 10:57 Freq: Status: Active Protocol: Document 12/19/20 10:58 BARB (Rec: 12/19/20 11:02 BARB [id number]) Discharge Planning Assessment Assigned Carton Making Machine Operator KIM Garcia DPOA/Assigned Designee Name Reggie Richie Sommer, S.O. Contact Information [phone] Advance Directives? Yes Advance Directives on File Yes History Provided By Patient,Medical Record Prior Living Arrangements House Household Members significant other Type of transporation used prior to Relies on Others admit Independent with ADL's No Is patient alert and oriented? Yes Needs Assistance With Bathing,Grooming,Meal Prep, Toileting,Managing Medications ,Home Chores / Shopping Comment has dme in the home that can be used if she needs it but she currently uses no AD Patient/Family Preference Home with Home Health Barriers to Discharge No Comment Patient eager to return home w /S.O. to assist Discharge Plan Home Transportation Arrangement S.O. Richie Referrals Initiated Home Health Medicare Choice List Provided Yes SNF/HH Preference No
--- NOTE | 2020-12-19 11:20 | CM.IDA ---
Initial DCP Assessment Note Pt is an 85 yo female, resident [facility], arrives w/severe dyspnea/SOB, admitted w/ acute hypoxic respiratory failure PCP: Hugo Sommer Payer: [facility] Reviewed chart, pt discussed in multidisciplinary rounds this morning. Patient eager to return home and will likely be medically cleared w/in the next 24-48 hrs. Met w/patient this morning, introduced role. Patient plans to return home w/ S.O. Richie (Reggie) upon discharge. Patient relies on Richie for assist ADLs, states he does everything (for me), explains they have been together for approx 2 years. Patient has children that live in [place], not much contact since they moved to [place] w/their Dad at age [age]. Discussed home health services. Patient agreeable and has no agency preference. Will begin process for HH referral, per calendar rotation. KIM Irwin Discharge Planning/Care Management CM Discharge Assessment Start: 12/19/20 10:57 Freq: Status: Active Protocol: Document 12/19/20 10:58 BARB (Rec: 12/19/20 11:02 [id number]) Discharge Planning Assessment Assigned Public Information Coordinator KIM Garcia DPOA/Assigned Designee Name Reggie Sommer, S.Landon. Contact Information [phone] Advance Directives? Yes Advance Directives on File Yes History Provided By Patient,Medical Record Prior Living Arrangements House Household Members significant other Type of transporation used prior to Relies on Others admit Independent with ADL's No Is patient alert and oriented? Yes Needs Assistance With Bathing,Grooming,Meal Prep, Toileting,Managing Medications ,Home Chores / Shopping Comment has dme in the home that can be used if she needs it but she currently uses no AD Patient/Family Preference Home with Home Health Barriers to Discharge No Comment Patient eager to return home w /S.O. to assist Discharge Plan Home Transportation Arrangement S.O. Richie Referrals Initiated Home Health Medicare Choice List Provided Yes SNF/HH Preference No
[2020-12-19] MEDS: MAGNESIUM CHLORIDE 64 MG TABLET 128 MG PO (12:53)
--- NOTE | 2020-12-19 14:47 | CM.DPNOTE ---
Faxed referral packet to [facility] at [facility]'s request, and received conrad. Cely Camilo CM Asst.
--- NOTE | 2020-12-19 16:07 | P.PN_ITS ---
Subjective Subjective Date Patient Seen: 12/19/20 Interval history: 85-year-old female admitted to the hospital for acute respiratory failure secondary to acute congestive heart failure. Patient is chronically on oxygen at 3 L at home for COPD. She has had excellent response to diuresis. Her breathing is improved somewhat although at time she is still short of breath. She denies any chest pain. Patient is agreeable for inpatient treatment and ongoing care. Exam Vital Signs (past 8 hours): - 12/19/20 08:08 12/19/20 09:00 12/19/20 09:10 Temperature Pulse Rate 79 Respiratory Rate Blood Pressure 140/58 L Pulse Oximetry 98 98 12/19/20 11:30 12/19/20 13:00 12/19/20 13:27 Temperature 97.9 F 99.2 F Pulse Rate 84 75 Respiratory Rate 16 18 Blood Pressure 128/58 L 144/62 H Pulse Oximetry 96 96 12/19/20 13:44 Temperature 98.6 F Pulse Rate 77 Respiratory Rate 16 Blood Pressure 138/61 Pulse Oximetry Oxygen Delivery Method Nasal Cannula Oxygen Flow Rate 3 Narrative Exam Narrative: Pleasant female lying in bed in no obvious distress Resp Other: Lungs bilateral crackles 2/[address] Cardio Other: Cardiac exam: Irregularly irregular normal S1-S2 with a 2/6 systolic ejection murmur GI Other: Abdomen soft nontender nondistended Extrem Other: Extremity no edema Objective Labs Result Diagrams: 12/19/20 06:47 12/19/20 06:47 Labs: Laboratory Results - last 24 hr 12/18/20 12/19/20 12/19/20 08:20 06:47 06:47 WBC 2.5 L RBC 2.59 L Hgb 7.3 L Hct 21.9 L MCV 84.4 MCH 28.2 MCHC 33.4 RDW 18.9 H Plt Count 126 L Neut % (Auto) 72.7 Lymph % (Auto) 16.3 L [place] % (Auto) 10.8 Eos % (Auto) 0.1 L Baso % (Auto) 0.1 Neut # (Auto) 1800 Lymph # (Auto) 400 L [place] # (Auto) 300 Eos # (Auto) 0 Baso # (Auto) 0 Sodium 137 Potassium 3.9 Chloride 88 L Carbon Dioxide 39 H BUN 36 H Creatinine 0.97 Estimated GFR 54.6 L BUN/Creatinine Ratio 37.1 H Glucose 109 Calcium 9.3 Magnesium Iron 25 L TIBC 369 % Saturation 7 L Transferrin 279 Total Bilirubin 0.4 AST 21 ALT 13 Alkaline Phosphatase 59 NT-Pro-B Natriuret Pep Total Protein 6.8 Albumin 3.9 Globulin 2.9 Albumin/Globulin Ratio 1.3 Blood Type Antibody Screen Crossmatch 12/19/20 12/19/20 12/19/20 06:47 06:47 11:55 WBC RBC Hgb Hct MCV MCH MCHC RDW Plt Count Neut % (Auto) Lymph % (Auto) [place] % (Auto) Eos % (Auto) Baso % (Auto) Neut # (Auto) Lymph # (Auto) [place] # (Auto) Eos # (Auto) Baso # (Auto) Sodium Potassium Chloride Carbon Dioxide BUN Creatinine Estimated GFR BUN/Creatinine Ratio Glucose Calcium Magnesium 1.5 L Iron TIBC % Saturation Transferrin Total Bilirubin AST ALT Alkaline Phosphatase NT-Pro-B Natriuret Pep 2240 H Total Protein Albumin Globulin Albumin/Globulin Ratio Blood Type A Positive Antibody Screen Negative Crossmatch See Detail [facility] Medical History Atrial fibrillation Back pain Congestive heart failure COPD (chronic obstructive pulmonary disease) Hypertension Morbid obesity Post zoster neuralgia Surgical History H/O total hip arthroplasty Social History household members: significant other Smoking Status: Former smoker alcohol intake: never Assessment & Plan Assessment & Plan narrative: 1. Acute on chronic hypoxic respiratory failure -this is multifactorial -patient has baseline COPD -now with acute diastolic heart failure -she continues to have significant crackles on exam, will continue IV Lasix change to bid 2. Metabolic alkalosis Likely related to contraction alkalosis from diuresis Consider oral bicarb if indicated 3. Pancytopenia -etiology unclear -given significant shortness of breath will transfuse 2 units of packed RBCs 4. GERD -continue PPI 5. Atrial fibrillation -chronic, the patient is not anticoagulated, given her pancytopenia would defer at this time 6. Morbid obesity Disposition discharge home when the patient's breathing has improved and pulmonary function has improved as well Anticipate discharge home tomorrow with home health -continue PPI Time Spent With Patient Critical Care time: I spent a total of [] minutes of critical care time on this patient's care today; this time is exclusive of procedural time. Quality VTE Deep Vein Thrombosis/Pulmonary Embolism Present on Admission: No
[2020-12-19] MEDS: MELATONIN 3 MG TABLET 6 MG PO (23:35)
[2020-12-20 01:00] VITALS: O2SAT 96
[2020-12-20 03:15] VITALS: BP 156/62; PULSE 72; RESP 22; TEMP 36.3; O2SAT 94
[2020-12-20 05:00] VITALS: O2SAT 94
[2020-12-20] MEDS: PANTOPRAZOLE DR 20 MG TABLET PO (05:44)
[2020-12-20 07:20] VITALS: BP 156/66; PULSE 73; RESP 16; TEMP 37.1; O2SAT 96
--- NOTE | 2020-12-20 08:14 | PC.NURSE ---
Addendum entered by Kortney Evans R.N. 12/20/20 11:21: Patients blood carbon dioxide 44H.. is aware of this. Ammon from Lab reported result. Original Note: Patient is alert and oriented x3, she denies pain. On 3L of oxygen, bs clear, no crackles hear, decreased bases. She is a 2 person assist when getting up, eating breakfast now. Voices no other needs at this time.
[2020-12-20] MEDS: FUROSEMIDE 40 MG/4 ML VIAL IV (09:08)
[2020-12-20] MEDS: SODIUM CHLORIDE 0.9% FLUSH 10 ML IV (09:08)
[2020-12-20] MEDS: LOSARTAN 25 MG TABLET PO (09:08)
[2020-12-20 09:34] LABS: Magnesium 1.4 mg/dL (1.6-2.3)
[2020-12-20 09:35] LABS: Alanine Aminotransferase 17 IU/L (<35); Albumin 4.4 g/dL (3.5-5.0); Albumin Globulin Ratio 1.4 (1.0-2.8); Alkaline Phosphatase 59 U/L (38-126); Aspartate Aminotransferase 23 IU/L (14-36); BUN Creatinine Ratio 41.9 (6-22); Blood Urea Nitrogen 36 mg/dL (7-17); Calcium 9.8 mg/dL (8.4-10.2); Chloride 84 mmol/L (98-107); Estimated Glomerular Filt Rate > 60.0 mL/min (>60); Globulin 3.1 g/dL (1.7-4.1); Glucose 104 mg/dL (80-110); Potassium 3.1 mmol/L (3.4-5.1); Sodium 140 mmol/L (137-145); Total Protein 7.5 g/dL (6.3-8.2)
[2020-12-20 09:41] LABS: HEMOLYSIS 16 (0-50)
[2020-12-20 09:43] LABS: Carbon Dioxide 44 mmol/L (22-32)
[2020-12-20 09:50] VITALS: O2SAT 94
[2020-12-20 10:50] LABS: Add Manual Diff / Slide Review NO; Basophils Absolute Auto 0 /uL (0-100); Basophils Percent Auto 0.2 % (0-2); Eosinophils Absolute Auto 0 /uL (0-450); Eosinophils Percent Auto 0.1 % (2-4); Hematocrit 31.6 % (36-46); Hemoglobin 10.7 g/dL (12.0-16.0); Lymphocytes Absolute Auto 800 /uL (1100-4500); Lymphocytes Percent Auto 13.3 % (25-40); Mean Corpuscular HGB Conc 33.8 % (30-36); Mean Corpuscular Volume 85.8 fL (80-100); Monocytes Absolute Auto 1000 /uL (0-900); Monocytes Percent Auto 16.4 % (3-14); Neutrophils Absolute Auto 4100 /uL (1500-7000); Platelet Count 158 X10^3/uL (150-400); Red Blood Cell Count 3.69 X10^6/uL (4.0-5.2); Red Cell Distribution Width 17.4 % (11.6-14.8); White Blood Cell Count 5.8 X10^3/uL (4.5-11.0)
[2020-12-20] MEDS: MAGNESIUM CHLORIDE 64 MG TABLET 128 MG PO (11:12)
[2020-12-20] MEDS: POTASSIUM CHLORIDE 20 MEQ TAB 40 MEQ PO (11:12)
--- NOTE | 2020-12-20 11:30 | PT.IPTN ---
Current Diagnoses Heart failure, unspecified (12/19/20) Physical Therapy Treatment Note M2 PT-IP Current Condition Start: 12/18/20 17:09 Freq: NEEDED Status: Discharge Protocol: Document 12/20/20 11:06 SP (Rec: 12/20/20 15:12 SP [id number]) Physical Therapy Current Condition Current Condition Evaluation Date 12/18/20 Treatment Diagnosis CHF; difficulty in walking Onset Date 12/17/20 M3 PT-IP Subjective Start: 12/18/20 17:09 Freq: NEEDED Status: Discharge Protocol: Document 12/20/20 11:06 SP (Rec: 12/20/20 15:12 SP [id number]) Subjective Physical Therapy Visit Type Type Treatment Note Visit Start Time 11:06 Visit Stop Time 11:30 Total Visit Minutes 34 Notes ETHEL Pa provided education and support assist to B2B SALES CONSULTANT as needed throughout tx, supervised by TRELL Islas. Vitals taken during tx: seated BP 130/54 HR 81 SaO2 96 % post mobility supine: BP 165/51 HR 89,SaO2 93% on 2L Number of B2B SALES CONSULTANT Visits 1 Physical Therapy Visit Comments Patient Comments Pt agreeable to working with therapy. Patient Goals Go home with SO to assist her. Therapy Pain Assessment Pain Present Pain Present Denied Pain M4 PT-IP Mobility and Gait Start: 12/18/20 17:09 Freq: NEEDED Status: Discharge Protocol: Document 12/20/20 11:06 SP (Rec: 12/20/20 15:12 SP [id number]) PT-Bed Mobility Assessment Rolling Type of Rolling Log Rolling Level of Assist Contact Guard Assistance Sit to Supine Sit to Supine Minimal Assistance Scooting Scooting Up and Down in Bed Maximum Assistance PT-Transfer Assessment Sit to and From Stand Sit to and from Stand Minimal Assistance,Moderate Assistance,1 Person Assistance ,Use of Upper Extremities Equipment Transfer Assistive Device Gait Belt,Front Wheeled Walker Orthotic/Prosthetic Devices or Brace: No Transfers Transfer Destination Bed,Chair Transfer Technique pt ambulated using FWW Transfer Ability Level of Assist Contact Guard Assistance,1 Person Assistance,Use of Upper Extremities Comments Mobility Comments Pt seated in chair when arrived. Scoot to EOchair CGA. Sit>stand Mod A x1 with cues for quad facilitation and proper hand placement using FWW. Pt ambulated using FWW across room and back CG-Min A x2, cues for upright posture body closer to FWW, foot clearance with slow pacing pivot turn, B2B SALES CONSULTANT managed O2 tubing, noted increased breath rate with cues for stop stand rest, cues for full step pivot back to chair and IONE for reaching Min A . After seated rest, Sit> stand Mod A x2, SPT using FWW > bed, IONE cues for reaching back Charles to sit. Sit>supine Min A for 1 LE onto bed self use of bed rails for mobility. Pt able to log roll to [facility] to reposition gown out from underneath her. Pt had call light and all needs in reach, warm blanket donned and armed bed for safety fall risk. Gait Assessment Gait Gait Assistance Required: Contact Guard Assist,Minimum Assistance,1 Person Assist Distance (Feet) 30 Able to Maintain Weight Bearing Status Yes During Gait Assistive Devices Assistive Device Gait Belt,Front Wheeled Walker Orthotic/Prosthetic Devices or Brace: No Gait Deviations General Gait Pattern Decreased Feet Clearance, Flexed Trunk Factors Limiting Gait Function Factors Limiting Gait Function Decreased Activity Tolerance, Decreased Strength,Difficulty Following Directions,Poor Balance,Poor Safety Awareness, Respiratory Distress Comments Gait Comments Cued increase stride, body closer to FWW, upright posture and stop stand for proper breath using fww, maintained > 90% on 3L NC. Stair Climbing Assessment Comments Stair Climbing Comments Pt states she will use ramp with . Pt continued educated upon not using 4ww for seated mobility due to risk of 4ww tipping over. She states I will be fine PT-Balance Assessment Sitting Balance and Reactions Static Sitting Balance Ability Good Dynamic Sitting Balance Ability Good Standing Balance and Reactions Static Standing Balance Ability Good Dynamic Standing Balance Ability Fair Device Used FWW M5 PT-IP Objective Assessments Start: 12/18/20 17:09 Freq: NEEDED Status: Discharge Protocol: Document 12/18/20 15:00 AB (Rec: 12/18/20 17:28 AB [id number]) Orientation Orientation/Cognition Level of Alertness Alert Orientation Name Language Function Ability Hard of Hearing Safety Awareness Decreased Safety Awareness Memory Description No Deficits Noted Gross Range of Motion Lower Extremity ROM Assessment Within Functional Limits Strength Lower Extremity Strength Hip 4-/5 Knee 4-/5 Sensation Assessment Sensation Gross Sensation WNL Muscle Tone Muscle Tone WNL Yes M6 PT-IP Treatment Start: 12/18/20 17:09 Freq: NEEDED Status: Discharge Protocol: Document 12/20/20 11:06 SP (Rec: 12/20/20 15:12 SP [id number]) Physical Therapy Treatment Education Education Provided Safety M7 PT-IP Assessment and Plan Start: 12/18/20 17:09 Freq: NEEDED Status: Discharge Protocol: Document 12/20/20 11:06 SP (Rec: 12/20/20 15:12 SP [id number]) PT Summary Assessment and Plan Potential Rehabilitation Potential Good Status of Condition at Evaluation Stable Summary Impairments Strength,Balance,Cognition,Bed Mobility,Transfers,Gait, Activity Tolerance Progress Towards Goals Progressing Toward Goals,Slow Progress due to Activity Tolerance Assessment Summary Pt requires Mod A for STS using FWW, ambulate CG- Min A w/ FWW, Min A for bed mobilitiy LE into bed. Pt cues for proper breath throughout tx. She states her does everything for her at home. Pt has been limited with mobility prior to hospitalization and has her significant other to assist her at home. will continue to assess progress for safe d/c plan. Goals Bed Mobility Goal Independent Transfer Goal Standby Assistance Gait Goal Standby Assistance Days to Meet Goals 5 Frequency of Treatment Frequency Of Treatment Once a Day Treatment Plan Physical Therapy Treatment Plan Bed Mobility Training,Transfer Training,Gait Training, Therapeutic Exercise,Balance Retraining,Discharge Planning, Neuromuscular Re-ed, Coordination Retraining Other Recommendations and Next Treatment bed mob, transfers, longer Focus distance gait, STS x5, LE ex Precautions Other Precautions O2 sat Recommendations To Nursing Amount of Assist Needed 1 Person Assist Discharge Recommendations PT Discharge Recommendations Home with 14/09 Assist Available,Home Health Transportation Needs at Discharge Private Vehicle
[2020-12-20 11:55] VITALS: BP 130/54; PULSE 77; RESP 16; TEMP 36.8; O2SAT 95
--- NOTE | 2020-12-20 13:51 | P.DS_ITS ---
History of Present Illness History of Present Illness Date Patient Seen: 12/20/20 Time Patient Seen: 13:51 Chief complaint: SOB, did not take her lasix yesterday Narrative: Per DEVIN Oquendo: Jeanine Calderon is an 85-year-old homebound female with a history of congestive heart failure, GERD, coronary artery disease who presented to the emergency room last night with shortness of breath.? She or her partner showed the emergency room provider a copy of her POLST which indicated comfort measures only.? The patient was admitted to the floor for symptomatic care of her shortness of breath and needed further clarification on her goals of care.? Per the patient she was informed by Cardiothoracic surgery that she was a candidate but high risk candidate for coronary bypass.? She states that she ?failed hospice by surviving longer than 6 months? and no longer receives their services.? Yesterday she was feeling like she did want to take her Lasix or have any medical personnel tell her what to do.? Patient is retired nurse.? Aside from the neuropathic pain on her head and back she denies chest pain, nausea vomiting, abdominal pain, charlie rrhea, She now states that she has met a partner and wishes not be on comfort care measures but to remain DNR/DNI but does not want any aggressive measures done on her.? After extensive discussions with her it appeared that she wanted a quality of life not necessarily a longer life.? She and her boyfriend Reggie understand the need to change her POLST likely from comfort measures only to limited int erventions.? The patient does have difficulty getting to her providers and does not have home health services. The patient states that she was diagnosed with shingles she states largely FX the upper right portion of her head but also states that it affects the left side of her back and the ?C almost affecting both sides.? She was started on acyclovir and gabapentin on her around December 11 and the gabapentin she only took for 1 day because she said it made her feel weird.? Male partner in the room states that it made her very ?loopy? and she has stopped taking it. Chest x-ray ordered in the emergency department indicated the following findings ?Diffuse ill-defined and ground-glass opacities in keeping with pulmonary edema. Recommend clinical and laboratory correlation to exclude underlying infection. If? there is persistent clinical diagnostic uncertainty, continued surveillance with short interval radiographic followup after treatment is recommended.? Patient received IV Lasix in the ED with good effect however she remains quite hypertensive.? She was also administered IV methylprednisolone. Patient is ?afebrile, blood pressure 173/72, heart rate 84, respiratory rate 25, oxygen saturation of 92% on 3 L, she weighs 85.5 kg with a BMI of 36.8.? WBC is 3.3 RBC 2.83 hemoglobin 8.0 with hematocrit of 24.1 (Appears to be close to her baseline), platelet count 135 which is higher than her normal baseline despite being low.? D-dimer is mildly?elevated at 7 and 35, sodium 141, potassium 4.4 chloride 96 bicarb 40 BUN 23 creatinine 0.77 with a GFR of greater than 60, magnesium was 1.3 which has since been repleted, troponin is 0.065 with a P use to be normal for her baseline, proBNP is 37 50, lipase 123, procalcitonin is within normal limits, COVID PCR is negative. Discharge Providers Provider Date of admission: 12/19/20 14:21 Discharge Date: 12/20/20 Primary care physician: Hugo Sommer DO Consults: 12/17/20 18:35 Consult to Respiratory Therapy Evaluate & Treat Comment: Physician Instructions: Evaluate and treat 12/18/20 11:34 Consult to Physical Therapy Evaluate & Treat Comment: Physician Instructions: Evaluate and Treat 12/19/20 13:48 Consult to Home Health Routine Comment: Reason For Exam: Home Health Upon DC Discharge provider: Doug Joy DO Summary Hospital Course Discharge Diagnosis: 1. Acute on chronic hypoxic respiratory failure 2. Metabolic alkalosis 3. Pancytopenia 4. GERD 5. Chronic Atrial fibrillation 6. Morbid obesity 7. Acute on chronic diastolic heart failure Hospital Course: This is an 85-year-old female admitted with acute on chronic hypoxic respiratory failure secondary to volume overload. The patient had not taken her Lasix at home. She had previously been on hospice but was no longer receiving their services, extensive goals of care discussions were performed on admission and the patient chose to be DNR DNI with limited interventions. She was diuresed with IV Lasix with improvement in her symptoms. She returned to her usual amount of home oxygen and was 95% on 3 L at the time of discharge. Patient was discharged on oral furosemide at a slightly increased dose of 40 mg daily instead of 20. She appeared close to euvolemia on day of discharge. I recommend follow-up with her primary care provider in 1-2 weeks for possible a djustment of her furosemide. Patient was further noted to be pancytopenic on admission, for symptomatic anemia she was transfused, it is unclear if this helped with her shortness of breath or if diuresis did. Etiology of her pancytopenia is currently unclear, would recommend repeat laboratory evaluation as an outpatient and follow-up with her primary care provider. Time Spent with Patient Time spent: Greater than 30 minutes Exam Vital Signs (past 8 hours): - 12/20/20 07:20 12/20/20 09:50 12/20/20 11:55 Temperature 98.7 F 98.3 F Pulse Rate 73 77 Respiratory Rate 16 16 Blood Pressure 156/66 H 130/54 L Pulse Oximetry 96 94 95 Oxygen Delivery Method Room Air Oxygen Flow Rate 3 Narrative Exam Narrative: Pleasant female lying in bed in no obvious distress Resp Other:?Lungs bilateral crackles at the bases, improved. Cardio Other:?Cardiac exam:? Irregularly irregular normal S1-S2 with a 2/6 systolic ejection murmur GI Other:?Abdomen soft nontender nondistended Extrem Other:?Extremity no edema Objective Labs Result Diagrams: 12/20/20 10:30 12/20/20 08:45 Labs: Laboratory Results - last 24 hr 12/19/20 12/20/20 12/20/20 11:55 08:45 08:45 WBC RBC Hgb Hct MCV MCH MCHC RDW Plt Count Neut % (Auto) Lymph % (Auto) [place] % (Auto) Eos % (Auto) Baso % (Auto) Neut # (Auto) Lymph # (Auto) [place] # (Auto) Eos # (Auto) Baso # (Auto) Sodium 140 Potassium 3.1 L Chloride 84 L Carbon Dioxide 44 H* BUN 36 H Creatinine 0.86 Estimated GFR > 60.0 BUN/Creatinine Ratio 41.9 H Glucose 104 Calcium 9.8 Magnesium 1.4 L Total Bilirubin 1.0 AST 23 ALT 17 Alkaline Phosphatase 59 Total Protein 7.5 Albumin 4.4 Globulin 3.1 Albumin/Globulin Ratio 1.4 Blood Type A Positive Antibody Screen Negative Crossmatch See Detail 12/20/20 10:30 WBC 5.8 D RBC 3.69 L Hgb 10.7 L Hct 31.6 L MCV 85.8 MCH 29.0 MCHC 33.8 RDW 17.4 H Plt Count 158 Neut % (Auto) 70.0 Lymph % (Auto) 13.3 L [place] % (Auto) 16.4 H Eos % (Auto) 0.1 L Baso % (Auto) 0.2 Neut # (Auto) 4100 Lymph # (Auto) 800 L [place] # (Auto) 1000 H Eos # (Auto) 0 Baso # (Auto) 0 Sodium Potassium Chloride Carbon Dioxide BUN Creatinine Estimated GFR BUN/Creatinine Ratio Glucose Calcium Magnesium Total Bilirubin AST ALT Alkaline Phosphatase Total Protein Albumin Globulin Albumin/Globulin Ratio Blood Type Antibody Screen Crossmatch [facility] Medical History Atrial fibrillation Back pain Congestive heart failure COPD (chronic obstructive pulmonary disease) Hypertension Morbid obesity Post zoster neuralgia Surgical History H/O total hip arthroplasty Social History household members: significant other Smoking Status: Former smoker alcohol intake: never Discharge Plan Discharge Plan Patient Disposition: Home Provider Discharge Comment: You were admitted to the hospital with shortness of breath. Improved with removal of some fluid in your lungs. Continue increased lasix dosing at home until follow up with your PCP ideally in 1-2 weeks for continued adjustment of this medication. Discharge orders & Medications Prescriptions: New furosemide 40 mg tablet 40 mg PO DAILY 30 Days Qty: 30 RF: 0 Continued (DME) nebulizer and compressor Device See Rx Instructions .ROUTE .MEDSUPPLY Qty: 1 RF: 0 albuterol sulfate 2.5 mg /3 mL (0.083 %) solution for nebulization 2.5 mg inhalation QID PRN (Reason: shortness of breath or wheezing) Qty: 90 RF: 1 omeprazole 20 mg capsule,delayed release(DR/EC) 20 mg PO DAILY Qty: 90 RF: 1 albuterol sulfate [ProAir HFA] 90 mcg/actuation HFA aerosol inhaler 2 inh INHALATION Q4H PRN (Reason: Shortness Of Breath) Qty: 18 RF: 2 losartan 25 mg tablet 25 mg PO DAILY RF: 0 Anoro Ellipta 62.5-25 mcg/actuation blister with device 1 inh inhalation DAILY RF: 0 Discontinued furosemide [Lasix] 20 mg tablet 20 mg PO DAILY Qty: 30 RF: 0 Follow up/Referrals: Hugo Sommer, [Primary Care Provider] - Diet/Activity/Treatments Diet: Diet as Tolerated and Low-sodium Activity: As tolerated Visit Report/Discharge Packet Instructions: Heart Failure, DI for Severe Acute Respiratory Syndrome, DI for Respiratory Failure Discharge Data Primary Care Provider: Hugo Sommer Quality VTE Deep Vein Thrombosis/Pulmonary Embolism Present on Admission: No
== END 2020-12-20 14:20 | disposition home health service (06) | DRG 291 ==
LOC: ED 12-17 06:25 → AC 12-17 06:39 → ICU 12-17 07:38 → AC 12-18 21:43
PROVIDERS: Internal Medicine; Admitting Provider Nurse Practitioner Family; Emergency Provider Emergency Medicine; PCP Family Medicine; Visit Provider Nurse Practitioner Family
DX: I11.0 Hypertensive heart disease with heart failure (principal); J96.21 Acute and chronic respiratory failure with hypoxia; I50.33 Acute on chronic diastolic (congestive) heart failure; D61.818 Other pancytopenia; E87.3 Alkalosis; I48.20 Chronic atrial fibrillation, unspecified; B02.29 Other postherpetic nervous system involvement; Z99.81 Dependence on supplemental oxygen; Z09 Encounter for follow-up examination after completed treatment for conditions other than malignant neoplasm; J44.9 Chronic obstructive pulmonary disease, unspecified; E66.01 Morbid (severe) obesity due to excess calories; Z68.36 Body mass index [BMI] 36.0-36.9, adult; K21.9 Gastro-esophageal reflux disease without esophagitis; Z66 Do not resuscitate; Z87.891 Personal history of nicotine dependence; Z20.822 Contact with and (suspected) exposure to COVID-19; Z91.14 Patient's other noncompliance with medication regimen
CPT/HCPCS: 36415; 36430; 71045; 80053; 82550; 83540; 83550; 83605; 83690; 83735; 83880; 84145; 84484; 85014; 85018; 85025; 85379; 86850; 86900; 86901; 87070; 87205; 87635; 87797; 93005; 94640; 94760; 94762; 96374; 96375; 96376; 97116; 97162; 97530; 99285; C9803; G0378; P9016; J1940; J2930

== ENCOUNTER 2021-01-20 11:54 | Emergency (ER) | payer MEDICARE, OTHER, SELFPAY ==
[2019-12-05 08:10] VITALS: RESP 24
[2019-12-05 08:16] VITALS: PULSE 74; O2SAT 97
[2020-12-17 09:31] VITALS: BMI 36.8
[2021-01-20] VITALS (18 sets, daily range): BP systolic 144–168; BP diastolic 62–72; PULSE 54–105; RESP 16–90; TEMP 32–37.3; O2SAT 20–100
--- NOTE | 2021-01-20 12:15 | DI.RAD.S_ITS ---
PROCEDURE: XR CHEST 1V INDICATIONS: suspected sepsis TECHNIQUE: One view of the chest was acquired. COMPARISON: [facility], CR, XR CHEST 1V, 12/16/2020, 19:45. FINDINGS: Surgical changes and devices: None. Lungs and pleura: Bilateral pulmonary opacities most prominent in the right base with blunting of the costophrenic angles. Mediastinum: Mediastinal contours appear normal. Heart size is normal. Bones and chest wall: No suspicious bony lesions. Overlying soft tissues appear unremarkable. IMPRESSION: Bibasilar opacities, right greater than left suggestive of effusions. Underlying areas of developing pneumonia and/or atelectasis cannot be excluded particularly within the right base. Dictated by: Renee Ahumada M.D. on 01/20/2021 at 12:49 Approved by: Renee Ahumada M.D. on 01/20/2021 at 12:50
--- NOTE | 2021-01-20 12:50 | ED.SOB ---
HPI - SOB/Dyspnea <Babak Bonilla MD - Last Filed: 01/21/21 08:33> General Chief Complaint: Shortness of Breath/Dyspnea Stated Complaint: shortness of breath Time Seen by Provider: 01/20/21 12:02 Source: EMS Mode of arrival: EMS Limitations: altered mental status History of Present Illness HPI Narrative: Patient brought in by EMS from home. Home care nurse called EMS as patient found to be hypoxic and obtunded. She remains hypoxic and obtunded. Please see notes below regarding DNR DNI and pulsed form. Patient seen here end of November and discharged home with changes desire to her DNR DNI from comfort measures to limited interventions. I attempted to call phone number provided but no answer on contact number. Per EMS partner did not want to be involved with care at this time. Uncertain for reason why. Review of systems limited due to patient's cognition. Is obtunded. I did speak with Emily huerta by phone at 1:01 p.m.. She will contact Reggie, the boyfriend to call us. Daughter states that the pulse form is correct as far as DNR DNI. They have not had a chance to change anything from comfort measures only to limited intervention. She does agree with BiPAP and diuresis and breathing treatments. Daughter states that mother does not want anything done. Awaiting call back from the boyfriend to confirm as well. Patient should be comfort measures only. They decided not to change to limited intervention. ADDENDUMPatient with prior TTE showing EF of 70-75% Addendum Documented By: Doug Joy D.O. 12/21/20 1531 Addendum Signed By: <Electronically signed by Doug Joy D.O.> 12/21/20 1531 History of Present Illness History of Present Illness Date Patient Seen: 12/20/20 Time Patient Seen: 13:51 Chief complaint: SOB, did not take her lasix yesterday Narrative:?Per DEVIN Oquendo: Jeanine Calderon is an 85-year-old homebound female with a history of congestive heart failure, GERD, coronary artery disease who presented to the emergency room last night with shortness of breath.? She or her partner showed the emergency room provider a copy of her POLST which indicated comfort measures only.? The patient was admitted to the floor for symptomatic care of her shortness of breath and needed further clarification on her goals of care.? Per the patient she was informed by Cardiothoracic surgery that she was a candidate but high risk candidate for coronary bypass.? She states that she ?failed hospice by surviving longer than 6 months? and no longer receives their services.? Yesterday she was feeling like she did want to take her Lasix or have any medical personnel tell her what to do.? Patient is retired nurse.? Aside from the neuropathic pain on her head and back she denies chest pain, nausea vomiting, abdominal pain, diarrhea, She now states that she has met a partner and wishes not be on comfort care measures but to remain DNR/DNI but does not want any aggressive measures done on her.? After extensive discussions with her it appeared that she wanted a quality of life not necessarily a longer life.? She and her boyfriend Reggie understand the need to change her POLST likely from comfort measures only to limited interventions.? The patient does have difficulty getting to her providers and does not have home health services. The patient states that she was diagnosed with shingles she states largely FX the upper right portion of her head but also states that it affects the left side of her back and the ?C almost affecting both sides.? She was started on acyclovir and gabapentin on her around December 11 and the gabapentin she only took for 1 day because she said it made her feel weird.? Male partner in the room states that it made her very ?loopy? and she has stopped taking it. Chest x-ray ordered in the emergency department indicated the following findings ?Diffuse ill-defined and ground-glass opacities in keeping with pulmonary edema. Recommend clinical and laboratory correlation to exclude underlying infection. If? there is persistent clinical diagnostic uncertainty, continued surveillance with short interval radiographic followup after treatment is recommended.? Patient received IV Lasix in the ED with good effect however she remains quite hypertensive.? She was also administered IV methylprednisolone. Patient is?afebrile, blood pressure 173/72, heart rate 84, respiratory rate 25, oxygen saturation of 92% on 3 L, she weighs 85.5 kg with a BMI of 36.8.? WBC is 3.3 RBC 2.83 hemoglobin 8.0 with hematocrit of 24.1 (Appears to be close to her baseline), platelet count 135 which is higher than her normal baseline despite being low.? D-dimer is mildly?elevated at 7 and 35, sodium 141, potassium 4.4 chloride 96 bicarb 40 BUN 23 creatinine 0.77 with a GFR of greater than 60, magnesium was 1.3 which has since been repleted, troponin is 0.065 with a P use to be normal for her baseline, proBNP is 37 50, lipase 123, procalcitonin is within normal limits, COVID PCR is negative. Related Data Home Medications Medication Instructions Recorded Confirmed umeclidinium 62.5 mcg-vilanterol 1 inh INHALATION DAILY 08/14/19 12/17/20 25 mcg/actuation powdr for inhalation (Anoro Ellipta) losartan 25 mg tablet 25 mg PO DAILY 12/17/20 12/17/20 Previous Rx's Medication Instructions Recorded albuterol sulfate 90 mcg/actuation 2 inh INHALATION Q4H PRN #18 g 03/22/20 aerosol inhaler (ProAir HFA) omeprazole 20 mg capsule,delayed 20 mg PO DAILY #90 cap 03/22/20 release nebulizer and compressor #1 ea 03/29/20 albuterol sulfate 2.5 mg (3 mL) INHALATION QID PRN 12/13/20 #90 ml Allergies Allergy/AdvReac Type Severity Reaction Status Date / Time Penicillins Allergy Intermediate ITCHING Verified 01/20/21 19:01 codeine Allergy Verified 01/20/21 19:01 shellfish derived Allergy Verified 01/20/21 19:01 Review of Systems <Babak Bonilla MD - Last Filed: 01/21/21 08:33> Review of Systems ROS Unobtainable: Unobtainable due to mental status/LOC Patient History <Babak Bonilla MD - Last Filed: 01/21/21 08:33> Medical History Atrial fibrillation Back pain Congestive heart failure COPD (chronic obstructive pulmonary disease) Hypertension Morbid obesity Post zoster neuralgia Surgical History H/O total hip arthroplasty Social History household members: significant other Smoking Status: Former smoker alcohol intake: never Smoking Status: Former smoker alcohol intake frequency: holidays/special occasions only Substance Use Type: does not use Exam <Babak Bonilla MD - Last Filed: 01/21/21 08:33> Narrative Exam Narrative: GENERAL: in no distress, not toxic not dyspneic HEAD: Normocephalic. EYES: Pupils equal round No scleral icterus. ENT: Mucous membranes moist. NECK: Trachea midline. CARDIOVASCULAR: Regular rate and rhythm without murmurs RESPIRATORY: Patient in respiratory distress. Patient is obtunded. Diffuse bilateral rales and rhonchi as well as wheezing. Accessory muscle use of the chest present. GASTROINTESTINAL: Abdomen soft, non-tender EXTREMITIES: No gross deformities. BACK: No flank tenderness. NEURO: Patient is obtunded. Not following commands at this time. SKIN: Warm and dry PSYCH: Not combative Initial Vital Signs Initial Vital Signs: Vital Signs Temperature 99.1 F 01/20/21 11:50 Respiratory Rate 90 H 01/20/21 11:50 Blood Pressure 144/62 H 01/20/21 11:50 Pulse Oximetry 89 L 01/20/21 11:50 <Norma Armstrong DO - Last Filed: 01/21/21 03:07> Initial Vital Signs Initial Vital Signs: Vital Signs Temperature 99.1 F 01/20/21 11:50 Respiratory Rate 90 H 01/20/21 11:50 Blood Pressure 144/62 H 01/20/21 11:50 Pulse Oximetry 89 L 01/20/21 11:50 Course <Babak Bonilla MD - Last Filed: 01/21/21 08:33> Course Course Narrative: 1:20 p.m.. Spoke with boyfriend, Reggie, patient did not want to take her medications all through this week. She desires to . She does not want to go on any further with treatment or medications. Pulse form is correct. They wanted to leave it as comfort measures only. She does not want to have BiPAP or any other supplemental oxygen support. 1:25 p.m.. I spoke with daughter, Emily again. She agrees. Comfort measures only. Remove any oxygen supplemental devices. There are no other family members to contact according to Emily. 6:[address] Armstrong, patient is DNR DNI. Comfort measures only. Family and boyfriend is aware. Health Clinician is on way here. Medications provided Ativan and morphine Orders Ordered: Discontinued Medications Sodium Chloride (Normal Saline 0.9%) 1,000 mls @ 75 mls/hr IV BOLUS ONE Stop: 01/21/21 02:44 Last Infusion: 01/20/21 16:12 Dose: 0 mls/hr Documented by: Admin: 01/20/21 13:30 Dose: 75 mls/hr Documented by: ZURI Lorazepam (Lorazepam 2 Mg/Ml Inj) 0.5 mg IV Q4HR PRN PRN Reason: Agitation Last Admin: 01/20/21 16:05 Dose: 0.5 mg Documented by: ZURI Morphine Sulfate (Morphine 2 Mg/Ml Inj) 2 mg IV Q15MIN PRN PRN Reason: Pain, Moderate (4-6), resp distress Last Admin: 01/20/21 15:06 Dose: 2 mg Documented by: Admin: 01/20/21 14:11 Dose: 2 mg Documented by: ZURI Scopolamine (Scopolamine 1 Patch) 1 patch TOP NOW ONE Stop: 01/20/21 18:47 Last Admin: 01/20/21 19:04 Dose: Not Given Documented by: ZURI Reevaluation(s) Reevaluation #1: Accessory oxygen/BiPAP devices have been removed. Patient to be comfort measures only. Time: 13:30 Reevaluation #2: I did speak with daughter to update. Daughter is Emily. Phone number [phone]. Patient is being kept comfortable with Ativan and morphine. Currently unresponsive/obtunded. Has agonal breathing. Daughter still feels it is best for comfort measures only. As her mother desired this. Emily states mother wanted for cremation in [place] is phone number [phone]. Her boyfriend Reggie was in the room. But he has left. Emily has spoken with him. He had no questions for me. Time: 16:39 Vital Signs Vital signs: Vital Signs - 8 hr 01/20/21 12:13 01/20/21 12:20 01/20/21 12:30 Pulse Rate 93 H 93 H 93 H Respiratory Rate 47 H 42 H 45 H Blood Pressure Pulse Oximetry 100 100 100 01/20/21 12:40 01/20/21 12:50 01/20/21 12:58 Pulse Rate 92 H 90 97 H Respiratory Rate 24 20 24 Blood Pressure 148/72 H Pulse Oximetry 100 100 100 01/20/21 13:00 01/20/21 13:10 01/20/21 13:20 Pulse Rate 87 105 H 93 H Respiratory Rate 32 H 32 H 24 Blood Pressure 162/72 H Pulse Oximetry 100 100 95 01/20/21 13:22 01/20/21 13:30 01/20/21 13:40 Pulse Rate 97 H 89 104 H Respiratory Rate 28 H 29 H 39 H Blood Pressure 148/63 H 150/67 H Pulse Oximetry 94 85 L 72 L 01/20/21 14:06 01/20/21 14:07 01/20/21 15:04 Pulse Rate 54 L 93 H 83 Respiratory Rate 22 Blood Pressure 168/62 H Pulse Oximetry 62 L 74 L 20 L 01/20/21 15:05 Pulse Rate Respiratory Rate Blood Pressure 147/63 H Pulse Oximetry <Norma Armstrong DO - Last Filed: 01/21/21 03:07> Orders Ordered: Discontinued Medications Sodium Chloride (Normal Saline 0.9%) 1,000 mls @ 75 mls/hr IV BOLUS ONE Stop: 01/21/21 02:44 Last Infusion: 01/20/21 16:12 Dose: 0 mls/hr Documented by: Admin: 01/20/21 13:30 Dose: 75 mls/hr Documented by: ZURI Lorazepam (Lorazepam 2 Mg/Ml Inj) 0.5 mg IV Q4HR PRN PRN Reason: Agitation Last Admin: 01/20/21 16:05 Dose: 0.5 mg Documented by: ZURI Morphine Sulfate (Morphine 2 Mg/Ml Inj) 2 mg IV Q15MIN PRN PRN Reason: Pain, Moderate (4-6), resp distress Last Admin: 01/20/21 15:06 Dose: 2 mg Documented by: Admin: 01/20/21 14:11 Dose: 2 mg Documented by: ZURI Scopolamine (Scopolamine 1 Patch) 1 patch TOP NOW ONE Stop: 01/20/21 18:47 Last Admin: 01/20/21 19:04 Dose: Not Given Documented by: ZURI Vital Signs Vital signs: Vital Signs - 8 hr 01/20/21 12:13 01/20/21 12:20 01/20/21 12:30 Pulse Rate 93 H 93 H 93 H Respiratory Rate 47 H 42 H 45 H Blood Pressure Pulse Oximetry 100 100 100 01/20/21 12:40 01/20/21 12:50 01/20/21 12:58 Pulse Rate 92 H 90 97 H Respiratory Rate 24 20 24 Blood Pressure 148/72 H Pulse Oximetry 100 100 100 01/20/21 13:00 01/20/21 13:10 01/20/21 13:20 Pulse Rate 87 105 H 93 H Respiratory Rate 32 H 32 H 24 Blood Pressure 162/72 H Pulse Oximetry 100 100 95 01/20/21 13:22 01/20/21 13:30 01/20/21 13:40 Pulse Rate 97 H 89 104 H Respiratory Rate 28 H 29 H 39 H Blood Pressure 148/63 H 150/67 H Pulse Oximetry 94 85 L 72 L 01/20/21 14:06 01/20/21 14:07 01/20/21 15:04 Pulse Rate 54 L 93 H 83 Respiratory Rate 22 Blood Pressure 168/62 H Pulse Oximetry 62 L 74 L 20 L 01/20/21 15:05 Pulse Rate Respiratory Rate Blood Pressure 147/63 H Pulse Oximetry MDM - SOB/Dyspnea <Babak Bonilla MD - Last Filed: 01/21/21 08:33> Differential Diagnosis Differential diagnosis: Likely acute exacerbation of chronic obstructive airways disease, congestive heart failure, community acquired pneumonia and other (Respiratory failure) Lab Data Result diagrams: 01/20/21 13:15 01/20/21 13:15 Labs: Lab Results 01/20/21 01/20/21 01/20/21 Range/Units 11:40 11:40 12:38 WBC (4.5-11.0) X10^3/uL RBC (4.0-5.2) X10^6/uL Hgb (12.0-16.0) g/dL Hct (36-46) % MCV (80-100) fL MCH (26-34) PG MCHC (30-36) % RDW (11.6-14.8) % Plt Count (150-400) X10^3/uL Neut % (Auto) (50-75) % Lymph % (Auto) (25-40) % Brown % (Auto) (3-14) % Eos % (Auto) (2-4) % Baso % (Auto) (0-2) % Neut # (Auto) (9867-6560) /uL Lymph # (Auto) (6829-1233) /uL Brown # (Auto) (0-900) /uL Eos # (Auto) (0-450) /uL Baso # (Auto) (0-100) /uL PT (10.1-12.7) SECONDS INR (0.9-1.3) APTT (26.4-36.2) SECONDS ABG pH 7.27 L* (7.35-7.45) ABG pCO2 87.1 H* (35-45) mmHg ABG pO2 40 L* (80-100) mmHg ABG HCO3 40 H (22-26) mmol/L ABG Total CO2 43 H (21-31) mmol/L ABG O2 Saturation 64 L* (95-100) % ABG Base Excess 13.0 H (-2-2) mmol/L FiO2 100 Sodium (137-145) mmol/L Potassium (3.4-5.1) mmol/L Chloride (98-107) mmol/L Carbon Dioxide (22-32) mmol/L BUN (7-17) mg/dL Creatinine (0.52-1.04) mg/dL Estimated GFR (>60) mL/min BUN/Creatinine Ratio (6-22) Glucose (80-110) mg/dL Lactate (0.7-2.1) mmol/L Calcium (8.4-10.2) mg/dL Total Bilirubin (0.2-1.3) mg/dL AST (14-36) IU/L ALT (<35) IU/L Alkaline Phosphatase (38-126) U/L Total Creatine Kinase (30-135) U/L CK-MB (CK-2) CK-MB (CK-2) Rel Index Troponin I (0.01-0.034) ng/mL NT-Pro-B Natriuret Pep (<450) pg/mL Total Protein (6.3-8.2) g/dL Albumin (3.5-5.0) g/dL Globulin (1.7-4.1) g/dL Albumin/Globulin Ratio (1.0-2.8) Lipase (23-300) U/L Procalcitonin (<0.5) ng/mL Urine Color Urine Appearance Urine pH (4.5-8.0) Ur Specific [place] (1.000-1.035) Urine Protein (Negative) Urine Glucose (UA) (Negative) g/dL Urine Ketones (NEGATIVE) Urine Occult Blood (Negative) Urine Nitrate (Negative) Urine Bilirubin (NEGATIVE) Urine Urobilinogen (0.2) E.U./dL Ur Leukocyte Esterase (NEGATIVE) Urine RBC (0-5/HPF) Urine WBC (0-5/HPF) Ur Squamous Epith Cells (0-5/HPF) Amorphous Sediment Urine Bacteria (None) Ur Culture Indicated? U Opiates 300ng/mL cut (Negative) Ur Oxycodone Screen (Negative) Urine Methadone Screen (Negative) Ur Barbiturates Screen (Negative) U Tricyclic Antidepress (Negative) Ur Phencyclidine Scrn (Negative) Ur Amphetamines Screen (Negative) U Methamphetamines Scrn (Negative) Ur MDMA Scrn (Ecstasy) (Negative) U Benzodiazepines Scrn (Negative) Urine Cocaine Screen (Negative) U Marijuana (THC) Screen (Negative) Chlamy pneumoniae PCR Not detected (Not Detect) Adenovirus (PCR) Not detected (Not Detect) B. pertussis DNA (PCR) Not detected (Not Detecte) B.parapertussis DNA PCR Not detected (Not Detecte) Coronavirus OC43 (PCR) Not detected (Not Detect) Coronavirus HKU1 (PCR) Not detected (Not Detect) Coronavirus 229E (PCR) Not detected (Not Detect) SARS-CoV-2 (PCR) Negative Not detected (Negative) Coronavirus NL63 (PCR) Not detected (Not Detect) Human Metapneumovir PCR Not detected (Not Detect) Influenza Type A (PCR) Not detected (Not Detect) Influenza Type B (PCR) Not detected (Not Detect) M. pneumoniae (PCR) Not detected (Not Detect) Parainfluenza 1 (PCR) Not detected (Not Detect) Parainfluenza 2 (PCR) Not detected (Not Detect) Parainfluenza 3 (PCR) Not detected (Not Detect) Parainfluenza 4 (PCR) Not detected (Not Detect) RSV (PCR) Not detected (Not Detect) Entero/Rhino (PCR) Not detected (Not Detect) 01/20/21 01/20/21 01/20/21 Range/Units 12:45 13:05 13:05 WBC (4.5-11.0) X10^3/uL RBC (4.0-5.2) X10^6/uL Hgb (12.0-16.0) g/dL Hct (36-46) % MCV (80-100) fL MCH (26-34) PG MCHC (30-36) % RDW (11.6-14.8) % Plt Count (150-400) X10^3/uL Neut % (Auto) (50-75) % Lymph % (Auto) (25-40) % Brown % (Auto) (3-14) % Eos % (Auto) (2-4) % Baso % (Auto) (0-2) % Neut # (Auto) (4439-0508) /uL Lymph # (Auto) (2139-5588) /uL Brown # (Auto) (0-900) /uL Eos # (Auto) (0-450) /uL Baso # (Auto) (0-100) /uL PT 13.1 H (10.1-12.7) SECONDS INR 1.2 (0.9-1.3) APTT 17 L (26.4-36.2) SECONDS ABG pH (7.35-7.45) ABG pCO2 (35-45) mmHg ABG pO2 (80-100) mmHg ABG HCO3 (22-26) mmol/L ABG Total CO2 (21-31) mmol/L ABG O2 Saturation (95-100) % ABG Base Excess (-2-2) mmol/L FiO2 Sodium (137-145) mmol/L Potassium (3.4-5.1) mmol/L Chloride (98-107) mmol/L Carbon Dioxide (22-32) mmol/L BUN (7-17) mg/dL Creatinine (0.52-1.04) mg/dL Estimated GFR (>60) mL/min BUN/Creatinine Ratio (6-22) Glucose (80-110) mg/dL Lactate (0.7-2.1) mmol/L Calcium (8.4-10.2) mg/dL Total Bilirubin (0.2-1.3) mg/dL AST (14-36) IU/L ALT (<35) IU/L Alkaline Phosphatase (38-126) U/L Total Creatine Kinase (30-135) U/L CK-MB (CK-2) CK-MB (CK-2) Rel Index Troponin I (0.01-0.034) ng/mL NT-Pro-B Natriuret Pep (<450) pg/mL Total Protein (6.3-8.2) g/dL Albumin (3.5-5.0) g/dL Globulin (1.7-4.1) g/dL Albumin/Globulin Ratio (1.0-2.8) Lipase (23-300) U/L Procalcitonin (<0.5) ng/mL Urine Color Yellow Urine Appearance Slightly cloudy Urine pH 5.0 (4.5-8.0) Ur Specific [place] 1.010 (1.000-1.035) Urine Protein 1+ H (Negative) Urine Glucose (UA) Negative (Negative) g/dL Urine Ketones Trace H (NEGATIVE) Urine Occult Blood 1+ H (Negative) Urine Nitrate Positive H (Negative) Urine Bilirubin Negative (NEGATIVE) Urine Urobilinogen 0.2 (0.2) E.U./dL Ur Leukocyte Esterase 1+ H (NEGATIVE) Urine RBC 1-5/hpf (0-5/HPF) Urine WBC 10-30/hpf H (0-5/HPF) Ur Squamous Epith Cells 0-1 /hpf (0-5/HPF) Amorphous Sediment 1+ Urine Bacteria Many (>30) H (None) Ur Culture Indicated? Specimen cultured U Opiates 300ng/mL cut Positive H (Negative) Ur Oxycodone Screen Negative (Negative) Urine Methadone Screen Negative (Negative) Ur Barbiturates Screen Negative (Negative) U Tricyclic Antidepress Negative (Negative) Ur Phencyclidine Scrn Negative (Negative) Ur Amphetamines Screen Negative (Negative) U Methamphetamines Scrn Negative (Negative) Ur MDMA Scrn (Ecstasy) Negative (Negative) U Benzodiazepines Scrn Negative (Negative) Urine Cocaine Screen Negative (Negative) U Marijuana (THC) Screen Negative (Negative) Chlamy pneumoniae PCR (Not Detect) Adenovirus (PCR) (Not Detect) B. pertussis DNA (PCR) (Not Detecte) B.parapertussis DNA PCR (Not Detecte) Coronavirus OC43 (PCR) (Not Detect) Coronavirus HKU1 (PCR) (Not Detect) Coronavirus 229E (PCR) (Not Detect) SARS-CoV-2 (PCR) (Negative) Coronavirus NL63 (PCR) (Not Detect) Human Metapneumovir PCR (Not Detect) Influenza Type A (PCR) (Not Detect) Influenza Type B (PCR) (Not Detect) M. pneumoniae (PCR) (Not Detect) Parainfluenza 1 (PCR) (Not Detect) Parainfluenza 2 (PCR) (Not Detect) Parainfluenza 3 (PCR) (Not Detect) Parainfluenza 4 (PCR) (Not Detect) RSV (PCR) (Not Detect) Entero/Rhino (PCR) (Not Detect) 01/20/21 01/20/21 01/20/21 Range/Units 13:15 13:15 13:15 WBC 7.9 (4.5-11.0) X10^3/uL RBC 3.03 L (4.0-5.2) X10^6/uL Hgb 9.1 L (12.0-16.0) g/dL Hct 28.1 L (36-46) % MCV 92.7 (80-100) fL MCH 29.9 (26-34) PG MCHC 32.3 (30-36) % RDW 19.1 H (11.6-14.8) % Plt Count 117 L (150-400) X10^3/uL Neut % (Auto) 84.6 H (50-75) % Lymph % (Auto) 7.2 L (25-40) % Brown % (Auto) 8.0 (3-14) % Eos % (Auto) 0.0 L (2-4) % Baso % (Auto) 0.2 (0-2) % Neut # (Auto) 6700 (3130-4510) /uL Lymph # (Auto) 600 L (3528-7351) /uL Brown # (Auto) 600 (0-900) /uL Eos # (Auto) 0 (0-450) /uL Baso # (Auto) 0 (0-100) /uL PT (10.1-12.7) SECONDS INR (0.9-1.3) APTT (26.4-36.2) SECONDS ABG pH (7.35-7.45) ABG pCO2 (35-45) mmHg ABG pO2 (80-100) mmHg ABG HCO3 (22-26) mmol/L ABG Total CO2 (21-31) mmol/L ABG O2 Saturation (95-100) % ABG Base Excess (-2-2) mmol/L FiO2 Sodium 146 H (137-145) mmol/L Potassium 5.6 H (3.4-5.1) mmol/L Chloride 97 L (98-107) mmol/L Carbon Dioxide 39 H (22-32) mmol/L BUN 60 H (7-17) mg/dL Creatinine 1.54 H (0.52-1.04) mg/dL Estimated GFR 32.0 L (>60) mL/min BUN/Creatinine Ratio 39.0 H (6-22) Glucose 114 H (80-110) mg/dL Lactate (0.7-2.1) mmol/L Calcium 10.3 H (8.4-10.2) mg/dL Total Bilirubin 0.8 (0.2-1.3) mg/dL AST 27 (14-36) IU/L ALT 23 (<35) IU/L Alkaline Phosphatase 74 (38-126) U/L Total Creatine Kinase < 20 L (30-135) U/L CK-MB (CK-2) TNP CK-MB (CK-2) Rel Index TNP Troponin I 0.061 H (0.01-0.034) ng/mL NT-Pro-B Natriuret Pep 4820 H (<450) pg/mL Total Protein 7.8 (6.3-8.2) g/dL Albumin 4.5 (3.5-5.0) g/dL Globulin 3.3 (1.7-4.1) g/dL Albumin/Globulin Ratio 1.4 (1.0-2.8) Lipase 273 (23-300) U/L Procalcitonin 0.24 (<0.5) ng/mL Urine Color Urine Appearance Urine pH (4.5-8.0) Ur Specific [place] (1.000-1.035) Urine Protein (Negative) Urine Glucose (UA) (Negative) g/dL Urine Ketones (NEGATIVE) Urine Occult Blood (Negative) Urine Nitrate (Negative) Urine Bilirubin (NEGATIVE) Urine Urobilinogen (0.2) E.U./dL Ur Leukocyte Esterase (NEGATIVE) Urine RBC (0-5/HPF) Urine WBC (0-5/HPF) Ur Squamous Epith Cells (0-5/HPF) Amorphous Sediment Urine Bacteria (None) Ur Culture Indicated? U Opiates 300ng/mL cut (Negative) Ur Oxycodone Screen (Negative) Urine Methadone Screen (Negative) Ur Barbiturates Screen (Negative) U Tricyclic Antidepress (Negative) Ur Phencyclidine Scrn (Negative) Ur Amphetamines Screen (Negative) U Methamphetamines Scrn (Negative) Ur MDMA Scrn (Ecstasy) (Negative) U Benzodiazepines Scrn (Negative) Urine Cocaine Screen (Negative) U Marijuana (THC) Screen (Negative) Chlamy pneumoniae PCR (Not Detect) Adenovirus (PCR) (Not Detect) B. pertussis DNA (PCR) (Not Detecte) B.parapertussis DNA PCR (Not Detecte) Coronavirus OC43 (PCR) (Not Detect) Coronavirus HKU1 (PCR) (Not Detect) Coronavirus 229E (PCR) (Not Detect) SARS-CoV-2 (PCR) (Negative) Coronavirus NL63 (PCR) (Not Detect) Human Metapneumovir PCR (Not Detect) Influenza Type A (PCR) (Not Detect) Influenza Type B (PCR) (Not Detect) M. pneumoniae (PCR) (Not Detect) Parainfluenza 1 (PCR) (Not Detect) Parainfluenza 2 (PCR) (Not Detect) Parainfluenza 3 (PCR) (Not Detect) Parainfluenza 4 (PCR) (Not Detect) RSV (PCR) (Not Detect) Entero/Rhino (PCR) (Not Detect) 01/20/21 Range/Units 13:15 WBC (4.5-11.0) X10^3/uL RBC (4.0-5.2) X10^6/uL Hgb (12.0-16.0) g/dL Hct (36-46) % MCV (80-100) fL MCH (26-34) PG MCHC (30-36) % RDW (11.6-14.8) % Plt Count (150-400) X10^3/uL Neut % (Auto) (50-75) % Lymph % (Auto) (25-40) % Brown % (Auto) (3-14) % Eos % (Auto) (2-4) % Baso % (Auto) (0-2) % Neut # (Auto) (2814-6926) /uL Lymph # (Auto) (3906-4827) /uL Brown # (Auto) (0-900) /uL Eos # (Auto) (0-450) /uL Baso # (Auto) (0-100) /uL PT (10.1-12.7) SECONDS INR (0.9-1.3) APTT (26.4-36.2) SECONDS ABG pH (7.35-7.45) ABG pCO2 (35-45) mmHg ABG pO2 (80-100) mmHg ABG HCO3 (22-26) mmol/L ABG Total CO2 (21-31) mmol/L ABG O2 Saturation (95-100) % ABG Base Excess (-2-2) mmol/L FiO2 Sodium (137-145) mmol/L Potassium (3.4-5.1) mmol/L Chloride (98-107) mmol/L Carbon Dioxide (22-32) mmol/L BUN (7-17) mg/dL Creatinine (0.52-1.04) mg/dL Estimated GFR (>60) mL/min BUN/Creatinine Ratio (6-22) Glucose (80-110) mg/dL Lactate 1.0 (0.7-2.1) mmol/L Calcium (8.4-10.2) mg/dL Total Bilirubin (0.2-1.3) mg/dL AST (14-36) IU/L ALT (<35) IU/L Alkaline Phosphatase (38-126) U/L Total Creatine Kinase (30-135) U/L CK-MB (CK-2) CK-MB (CK-2) Rel Index Troponin I (0.01-0.034) ng/mL NT-Pro-B Natriuret Pep (<450) pg/mL Total Protein (6.3-8.2) g/dL Albumin (3.5-5.0) g/dL Globulin (1.7-4.1) g/dL Albumin/Globulin Ratio (1.0-2.8) Lipase (23-300) U/L Procalcitonin (<0.5) ng/mL Urine Color Urine Appearance Urine pH (4.5-8.0) Ur Specific [place] (1.000-1.035) Urine Protein (Negative) Urine Glucose (UA) (Negative) g/dL Urine Ketones (NEGATIVE) Urine Occult Blood (Negative) Urine Nitrate (Negative) Urine Bilirubin (NEGATIVE) Urine Urobilinogen (0.2) E.U./dL Ur Leukocyte Esterase (NEGATIVE) Urine RBC (0-5/HPF) Urine WBC (0-5/HPF) Ur Squamous Epith Cells (0-5/HPF) Amorphous Sediment Urine Bacteria (None) Ur Culture Indicated? U Opiates 300ng/mL cut (Negative) Ur Oxycodone Screen (Negative) Urine Methadone Screen (Negative) Ur Barbiturates Screen (Negative) U Tricyclic Antidepress (Negative) Ur Phencyclidine Scrn (Negative) Ur Amphetamines Screen (Negative) U Methamphetamines Scrn (Negative) Ur MDMA Scrn (Ecstasy) (Negative) U Benzodiazepines Scrn (Negative) Urine Cocaine Screen (Negative) U Marijuana (THC) Screen (Negative) Chlamy pneumoniae PCR (Not Detect) Adenovirus (PCR) (Not Detect) B. pertussis DNA (PCR) (Not Detecte) B.parapertussis DNA PCR (Not Detecte) Coronavirus OC43 (PCR) (Not Detect) Coronavirus HKU1 (PCR) (Not Detect) Coronavirus 229E (PCR) (Not Detect) SARS-CoV-2 (PCR) (Negative) Coronavirus NL63 (PCR) (Not Detect) Human Metapneumovir PCR (Not Detect) Influenza Type A (PCR) (Not Detect) Influenza Type B (PCR) (Not Detect) M. pneumoniae (PCR) (Not Detect) Parainfluenza 1 (PCR) (Not Detect) Parainfluenza 2 (PCR) (Not Detect) Parainfluenza 3 (PCR) (Not Detect) Parainfluenza 4 (PCR) (Not Detect) RSV (PCR) (Not Detect) Entero/Rhino (PCR) (Not Detect) Imaging Data Chest x-ray: Radiologist's Impression: [address] [address] XRay Report Signed Patient: Jeanine Calderon MR#: [id number] : 1935 Acct:[id number] Age/Sex: 85 / F Date of Service: 01/20/21 Loc: ED Accession Number: [id number] ?? Procedure: XR chest 1V Ordering Provider: Babak Bonilla MD PROCEDURE:? XR CHEST 1V ? INDICATIONS:? suspected sepsis ? TECHNIQUE:? One view of the chest was acquired.? ? COMPARISON:? [facility], CR, XR CHEST 1V, 12/16/2020, 19:45. ? FINDINGS:? ? Surgical changes and devices:? None.? ? Lungs and pleura:? Bilateral pulmonary opacities most prominent in the right base with blunting of the costophrenic angles. ? Mediastinum:? Mediastinal contours appear normal.? Heart size is normal.? ? Bones and chest wall:? No suspicious bony lesions.? Overlying soft tissues appear unremarkable.? ? IMPRESSION:? Bibasilar opacities, right greater than left suggestive of effusions.? Underlying areas of developing pneumonia and/or atelectasis cannot be excluded particularly within the right base. ? ? Dictated by: Renee Ahumada M.D. on 01/20/2021 at 12:49 ? ? Approved by: Renee Ahumada M.D. on 01/20/2021 at 12:50 ? ECG Data Interpretation: Atrial fibrillation, incomplete right bundle branch block. No ST elevation or depression rate 86 <Norma Armstrong, DO - Last Filed: 01/21/21 03:07> Lab Data Labs: Lab Results 01/20/21 01/20/21 01/20/21 Range/Units 11:40 11:40 12:38 WBC (4.5-11.0) X10^3/uL RBC (4.0-5.2) X10^6/uL Hgb (12.0-16.0) g/dL Hct (36-46) % MCV (80-100) fL MCH (26-34) PG MCHC (30-36) % RDW (11.6-14.8) % Plt Count (150-400) X10^3/uL Neut % (Auto) (50-75) % Lymph % (Auto) (25-40) % Brown % (Auto) (3-14) % Eos % (Auto) (2-4) % Baso % (Auto) (0-2) % Neut # (Auto) (2614-3019) /uL Lymph # (Auto) (2351-0812) /uL Brown # (Auto) (0-900) /uL Eos # (Auto) (0-450) /uL Baso # (Auto) (0-100) /uL PT (10.1-12.7) SECONDS INR (0.9-1.3) APTT (26.4-36.2) SECONDS ABG pH 7.27 L* (7.35-7.45) ABG pCO2 87.1 H* (35-45) mmHg ABG pO2 40 L* (80-100) mmHg ABG HCO3 40 H (22-26) mmol/L ABG Total CO2 43 H (21-31) mmol/L ABG O2 Saturation 64 L* (95-100) % ABG Base Excess 13.0 H (-2-2) mmol/L FiO2 100 Sodium (137-145) mmol/L Potassium (3.4-5.1) mmol/L Chloride (98-107) mmol/L Carbon Dioxide (22-32) mmol/L BUN (7-17) mg/dL Creatinine (0.52-1.04) mg/dL Estimated GFR (>60) mL/min BUN/Creatinine Ratio (6-22) Glucose (80-110) mg/dL Lactate (0.7-2.1) mmol/L Calcium (8.4-10.2) mg/dL Total Bilirubin (0.2-1.3) mg/dL AST (14-36) IU/L ALT (<35) IU/L Alkaline Phosphatase (38-126) U/L Total Creatine Kinase (30-135) U/L CK-MB (CK-2) CK-MB (CK-2) Rel Index Troponin I (0.01-0.034) ng/mL NT-Pro-B Natriuret Pep (<450) pg/mL Total Protein (6.3-8.2) g/dL Albumin (3.5-5.0) g/dL Globulin (1.7-4.1) g/dL Albumin/Globulin Ratio (1.0-2.8) Lipase (23-300) U/L Procalcitonin (<0.5) ng/mL Urine Color Urine Appearance Urine pH (4.5-8.0) Ur Specific [place] (1.000-1.035) Urine Protein (Negative) Urine Glucose (UA) (Negative) g/dL Urine Ketones (NEGATIVE) Urine Occult Blood (Negative) Urine Nitrate (Negative) Urine Bilirubin (NEGATIVE) Urine Urobilinogen (0.2) E.U./dL Ur Leukocyte Esterase (NEGATIVE) Urine RBC (0-5/HPF) Urine WBC (0-5/HPF) Ur Squamous Epith Cells (0-5/HPF) Amorphous Sediment Urine Bacteria (None) Ur Culture Indicated? U Opiates 300ng/mL cut (Negative) Ur Oxycodone Screen (Negative) Urine Methadone Screen (Negative) Ur Barbiturates Screen (Negative) U Tricyclic Antidepress (Negative) Ur Phencyclidine Scrn (Negative) Ur Amphetamines Screen (Negative) U Methamphetamines Scrn (Negative) Ur MDMA Scrn (Ecstasy) (Negative) U Benzodiazepines Scrn (Negative) Urine Cocaine Screen (Negative) U Marijuana (THC) Screen (Negative) Chlamy pneumoniae PCR Not detected (Not Detect) Adenovirus (PCR) Not detected (Not Detect) B. pertussis DNA (PCR) Not detected (Not Detecte) B.parapertussis DNA PCR Not detected (Not Detecte) Coronavirus OC43 (PCR) Not detected (Not Detect) Coronavirus HKU1 (PCR) Not detected (Not Detect) Coronavirus 229E (PCR) Not detected (Not Detect) SARS-CoV-2 (PCR) Negative Not detected (Negative) Coronavirus NL63 (PCR) Not detected (Not Detect) Human Metapneumovir PCR Not detected (Not Detect) Influenza Type A (PCR) Not detected (Not Detect) Influenza Type B (PCR) Not detected (Not Detect) M. pneumoniae (PCR) Not detected (Not Detect) Parainfluenza 1 (PCR) Not detected (Not Detect) Parainfluenza 2 (PCR) Not detected (Not Detect) Parainfluenza 3 (PCR) Not detected (Not Detect) Parainfluenza 4 (PCR) Not detected (Not Detect) RSV (PCR) Not detected (Not Detect) Entero/Rhino (PCR) Not detected (Not Detect) 01/20/21 01/20/21 01/20/21 Range/Units 12:45 13:05 13:05 WBC (4.5-11.0) X10^3/uL RBC (4.0-5.2) X10^6/uL Hgb (12.0-16.0) g/dL Hct (36-46) % MCV (80-100) fL MCH (26-34) PG MCHC (30-36) % RDW (11.6-14.8) % Plt Count (150-400) X10^3/uL Neut % (Auto) (50-75) % Lymph % (Auto) (25-40) % Brown % (Auto) (3-14) % Eos % (Auto) (2-4) % Baso % (Auto) (0-2) % Neut # (Auto) (8601-8308) /uL Lymph # (Auto) (3824-3245) /uL Brown # (Auto) (0-900) /uL Eos # (Auto) (0-450) /uL Baso # (Auto) (0-100) /uL PT 13.1 H (10.1-12.7) SECONDS INR 1.2 (0.9-1.3) APTT 17 L (26.4-36.2) SECONDS ABG pH (7.35-7.45) ABG pCO2 (35-45) mmHg ABG pO2 (80-100) mmHg ABG HCO3 (22-26) mmol/L ABG Total CO2 (21-31) mmol/L ABG O2 Saturation (95-100) % ABG Base Excess (-2-2) mmol/L FiO2 Sodium (137-145) mmol/L Potassium (3.4-5.1) mmol/L Chloride (98-107) mmol/L Carbon Dioxide (22-32) mmol/L BUN (7-17) mg/dL Creatinine (0.52-1.04) mg/dL Estimated GFR (>60) mL/min BUN/Creatinine Ratio (6-22) Glucose (80-110) mg/dL Lactate (0.7-2.1) mmol/L Calcium (8.4-10.2) mg/dL Total Bilirubin (0.2-1.3) mg/dL AST (14-36) IU/L ALT (<35) IU/L Alkaline Phosphatase (38-126) U/L Total Creatine Kinase (30-135) U/L CK-MB (CK-2) CK-MB (CK-2) Rel Index Troponin I (0.01-0.034) ng/mL NT-Pro-B Natriuret Pep (<450) pg/mL Total Protein (6.3-8.2) g/dL Albumin (3.5-5.0) g/dL Globulin (1.7-4.1) g/dL Albumin/Globulin Ratio (1.0-2.8) Lipase (23-300) U/L Procalcitonin (<0.5) ng/mL Urine Color Yellow Urine Appearance Slightly cloudy Urine pH 5.0 (4.5-8.0) Ur Specific [place] 1.010 (1.000-1.035) Urine Protein 1+ H (Negative) Urine Glucose (UA) Negative (Negative) g/dL Urine Ketones Trace H (NEGATIVE) Urine Occult Blood 1+ H (Negative) Urine Nitrate Positive H (Negative) Urine Bilirubin Negative (NEGATIVE) Urine Urobilinogen 0.2 (0.2) E.U./dL Ur Leukocyte Esterase 1+ H (NEGATIVE) Urine RBC 1-5/hpf (0-5/HPF) Urine WBC 10-30/hpf H (0-5/HPF) Ur Squamous Epith Cells 0-1 /hpf (0-5/HPF) Amorphous Sediment 1+ Urine Bacteria Many (>30) H (None) Ur Culture Indicated? Specimen cultured U Opiates 300ng/mL cut Positive H (Negative) Ur Oxycodone Screen Negative (Negative) Urine Methadone Screen Negative (Negative) Ur Barbiturates Screen Negative (Negative) U Tricyclic Antidepress Negative (Negative) Ur Phencyclidine Scrn Negative (Negative) Ur Amphetamines Screen Negative (Negative) U Methamphetamines Scrn Negative (Negative) Ur MDMA Scrn (Ecstasy) Negative (Negative) U Benzodiazepines Scrn Negative (Negative) Urine Cocaine Screen Negative (Negative) U Marijuana (THC) Screen Negative (Negative) Chlamy pneumoniae PCR (Not Detect) Adenovirus (PCR) (Not Detect) B. pertussis DNA (PCR) (Not Detecte) B.parapertussis DNA PCR (Not Detecte) Coronavirus OC43 (PCR) (Not Detect) Coronavirus HKU1 (PCR) (Not Detect) Coronavirus 229E (PCR) (Not Detect) SARS-CoV-2 (PCR) (Negative) Coronavirus NL63 (PCR) (Not Detect) Human Metapneumovir PCR (Not Detect) Influenza Type A (PCR) (Not Detect) Influenza Type B (PCR) (Not Detect) M. pneumoniae (PCR) (Not Detect) Parainfluenza 1 (PCR) (Not Detect) Parainfluenza 2 (PCR) (Not Detect) Parainfluenza 3 (PCR) (Not Detect) Parainfluenza 4 (PCR) (Not Detect) RSV (PCR) (Not Detect) Entero/Rhino (PCR) (Not Detect) 01/20/21 01/20/21 01/20/21 Range/Units 13:15 13:15 13:15 WBC 7.9 (4.5-11.0) X10^3/uL RBC 3.03 L (4.0-5.2) X10^6/uL Hgb 9.1 L (12.0-16.0) g/dL Hct 28.1 L (36-46) % MCV 92.7 (80-100) fL MCH 29.9 (26-34) PG MCHC 32.3 (30-36) % RDW 19.1 H (11.6-14.8) % Plt Count 117 L (150-400) X10^3/uL Neut % (Auto) 84.6 H (50-75) % Lymph % (Auto) 7.2 L (25-40) % Brown % (Auto) 8.0 (3-14) % Eos % (Auto) 0.0 L (2-4) % Baso % (Auto) 0.2 (0-2) % Neut # (Auto) 6700 (1274-8928) /uL Lymph # (Auto) 600 L (5530-0730) /uL Brown # (Auto) 600 (0-900) /uL Eos # (Auto) 0 (0-450) /uL Baso # (Auto) 0 (0-100) /uL PT (10.1-12.7) SECONDS INR (0.9-1.3) APTT (26.4-36.2) SECONDS ABG pH (7.35-7.45) ABG pCO2 (35-45) mmHg ABG pO2 (80-100) mmHg ABG HCO3 (22-26) mmol/L ABG Total CO2 (21-31) mmol/L ABG O2 Saturation (95-100) % ABG Base Excess (-2-2) mmol/L FiO2 Sodium 146 H (137-145) mmol/L Potassium 5.6 H (3.4-5.1) mmol/L Chloride 97 L (98-107) mmol/L Carbon Dioxide 39 H (22-32) mmol/L BUN 60 H (7-17) mg/dL Creatinine 1.54 H (0.52-1.04) mg/dL Estimated GFR 32.0 L (>60) mL/min BUN/Creatinine Ratio 39.0 H (6-22) Glucose 114 H (80-110) mg/dL Lactate (0.7-2.1) mmol/L Calcium 10.3 H (8.4-10.2) mg/dL Total Bilirubin 0.8 (0.2-1.3) mg/dL AST 27 (14-36) IU/L ALT 23 (<35) IU/L Alkaline Phosphatase 74 (38-126) U/L Total Creatine Kinase < 20 L (30-135) U/L CK-MB (CK-2) TNP CK-MB (CK-2) Rel Index TNP Troponin I 0.061 H (0.01-0.034) ng/mL NT-Pro-B Natriuret Pep 4820 H (<450) pg/mL Total Protein 7.8 (6.3-8.2) g/dL Albumin 4.5 (3.5-5.0) g/dL Globulin 3.3 (1.7-4.1) g/dL Albumin/Globulin Ratio 1.4 (1.0-2.8) Lipase 273 (23-300) U/L Procalcitonin 0.24 (<0.5) ng/mL Urine Color Urine Appearance Urine pH (4.5-8.0) Ur Specific [place] (1.000-1.035) Urine Protein (Negative) Urine Glucose (UA) (Negative) g/dL Urine Ketones (NEGATIVE) Urine Occult Blood (Negative) Urine Nitrate (Negative) Urine Bilirubin (NEGATIVE) Urine Urobilinogen (0.2) E.U./dL Ur Leukocyte Esterase (NEGATIVE) Urine RBC (0-5/HPF) Urine WBC (0-5/HPF) Ur Squamous Epith Cells (0-5/HPF) Amorphous Sediment Urine Bacteria (None) Ur Culture Indicated? U Opiates 300ng/mL cut (Negative) Ur Oxycodone Screen (Negative) Urine Methadone Screen (Negative) Ur Barbiturates Screen (Negative) U Tricyclic Antidepress (Negative) Ur Phencyclidine Scrn (Negative) Ur Amphetamines Screen (Negative) U Methamphetamines Scrn (Negative) Ur MDMA Scrn (Ecstasy) (Negative) U Benzodiazepines Scrn (Negative) Urine Cocaine Screen (Negative) U Marijuana (THC) Screen (Negative) Chlamy pneumoniae PCR (Not Detect) Adenovirus (PCR) (Not Detect) B. pertussis DNA (PCR) (Not Detecte) B.parapertussis DNA PCR (Not Detecte) Coronavirus OC43 (PCR) (Not Detect) Coronavirus HKU1 (PCR) (Not Detect) Coronavirus 229E (PCR) (Not Detect) SARS-CoV-2 (PCR) (Negative) Coronavirus NL63 (PCR) (Not Detect) Human Metapneumovir PCR (Not Detect) Influenza Type A (PCR) (Not Detect) Influenza Type B (PCR) (Not Detect) M. pneumoniae (PCR) (Not Detect) Parainfluenza 1 (PCR) (Not Detect) Parainfluenza 2 (PCR) (Not Detect) Parainfluenza 3 (PCR) (Not Detect) Parainfluenza 4 (PCR) (Not Detect) RSV (PCR) (Not Detect) Entero/Rhino (PCR) (Not Detect) 01/20/21 Range/Units 13:15 WBC (4.5-11.0) X10^3/uL RBC (4.0-5.2) X10^6/uL Hgb (12.0-16.0) g/dL Hct (36-46) % MCV (80-100) fL MCH (26-34) PG MCHC (30-36) % RDW (11.6-14.8) % Plt Count (150-400) X10^3/uL Neut % (Auto) (50-75) % Lymph % (Auto) (25-40) % Brown % (Auto) (3-14) % Eos % (Auto) (2-4) % Baso % (Auto) (0-2) % Neut # (Auto) (5845-5104) /uL Lymph # (Auto) (9640-8396) /uL Brown # (Auto) (0-900) /uL Eos # (Auto) (0-450) /uL Baso # (Auto) (0-100) /uL PT (10.1-12.7) SECONDS INR (0.9-1.3) APTT (26.4-36.2) SECONDS ABG pH (7.35-7.45) ABG pCO2 (35-45) mmHg ABG pO2 (80-100) mmHg ABG HCO3 (22-26) mmol/L ABG Total CO2 (21-31) mmol/L ABG O2 Saturation (95-100) % ABG Base Excess (-2-2) mmol/L FiO2 Sodium (137-145) mmol/L Potassium (3.4-5.1) mmol/L Chloride (98-107) mmol/L Carbon Dioxide (22-32) mmol/L BUN (7-17) mg/dL Creatinine (0.52-1.04) mg/dL Estimated GFR (>60) mL/min BUN/Creatinine Ratio (6-22) Glucose (80-110) mg/dL Lactate 1.0 (0.7-2.1) mmol/L Calcium (8.4-10.2) mg/dL Total Bilirubin (0.2-1.3) mg/dL AST (14-36) IU/L ALT (<35) IU/L Alkaline Phosphatase (38-126) U/L Total Creatine Kinase (30-135) U/L CK-MB (CK-2) CK-MB (CK-2) Rel Index Troponin I (0.01-0.034) ng/mL NT-Pro-B Natriuret Pep (<450) pg/mL Total Protein (6.3-8.2) g/dL Albumin (3.5-5.0) g/dL Globulin (1.7-4.1) g/dL Albumin/Globulin Ratio (1.0-2.8) Lipase (23-300) U/L Procalcitonin (<0.5) ng/mL Urine Color Urine Appearance Urine pH (4.5-8.0) Ur Specific [place] (1.000-1.035) Urine Protein (Negative) Urine Glucose (UA) (Negative) g/dL Urine Ketones (NEGATIVE) Urine Occult Blood (Negative) Urine Nitrate (Negative) Urine Bilirubin (NEGATIVE) Urine Urobilinogen (0.2) E.U./dL Ur Leukocyte Esterase (NEGATIVE) Urine RBC (0-5/HPF) Urine WBC (0-5/HPF) Ur Squamous Epith Cells (0-5/HPF) Amorphous Sediment Urine Bacteria (None) Ur Culture Indicated? U Opiates 300ng/mL cut (Negative) Ur Oxycodone Screen (Negative) Urine Methadone Screen (Negative) Ur Barbiturates Screen (Negative) U Tricyclic Antidepress (Negative) Ur Phencyclidine Scrn (Negative) Ur Amphetamines Screen (Negative) U Methamphetamines Scrn (Negative) Ur MDMA Scrn (Ecstasy) (Negative) U Benzodiazepines Scrn (Negative) Urine Cocaine Screen (Negative) U Marijuana (THC) Screen (Negative) Chlamy pneumoniae PCR (Not Detect) Adenovirus (PCR) (Not Detect) B. pertussis DNA (PCR) (Not Detecte) B.parapertussis DNA PCR (Not Detecte) Coronavirus OC43 (PCR) (Not Detect) Coronavirus HKU1 (PCR) (Not Detect) Coronavirus 229E (PCR) (Not Detect) SARS-CoV-2 (PCR) (Negative) Coronavirus NL63 (PCR) (Not Detect) Human Metapneumovir PCR (Not Detect) Influenza Type A (PCR) (Not Detect) Influenza Type B (PCR) (Not Detect) M. pneumoniae (PCR) (Not Detect) Parainfluenza 1 (PCR) (Not Detect) Parainfluenza 2 (PCR) (Not Detect) Parainfluenza 3 (PCR) (Not Detect) Parainfluenza 4 (PCR) (Not Detect) RSV (PCR) (Not Detect) Entero/Rhino (PCR) (Not Detect) MDM Narrative Medical decision making narrative: Patient signed out to me by Dr. Bonilla, patient has been made comfort measures only. Actively dying. Time of is 6:55 p.m. Critical Care Time <Babak Bonilla MD - Last Filed: 01/21/21 08:33> Critical Care Time Attestation: Critical Care Time 35 minutes: Critical care time is separate from other billable procedures. This critical care time includes consultation with family and other consulting doctors, review of records, and interpretation of data from labs, EKGs, imaging, etc. Discharge Plan Departure Patient Disposition: Clinical Impression: Respiratory failure Date/Time: 01/20/21 18:55
[2021-01-20 12:52] LABS: COVID19 -Nasal RAPID Negative (Negative)
[2021-01-20 13:16] LABS: INR 1.2 (0.9-1.3); Prothrombin Time 13.1 SECONDS (10.1-12.7)
[2021-01-20 13:19] LABS: PTT Partial Thromboplastin Tim 17 SECONDS (26.4-36.2)
[2021-01-20 13:20] LABS: Bilirubin Urine UA NEGATIVE (NEGATIVE); Color Urine UA YELLOW; Glucose Urine UA NEGATIVE (Negative); Ketones Urine UA TRACE (NEGATIVE); Leukocyte Esterase Urine UA 1+ (NEGATIVE); Nitrite Urine UA POSITIVE (Negative); Occult Blood Urine UA 1+ (Negative); Protein Urine UA 1+ (Negative); Urobilinogen Urine UA 0.2 E.U./dL (0.2)
[2021-01-20 13:26] LABS: UR Morphine/Opiate cutoff 300 Positive (Negative); Ur Creatinine Normal (Normal); Ur Specific Gravity Normal (Normal); Urine Amphetamines Negative (Negative); Urine Barbiturates Negative (Negative); Urine Benzodiazepines Negative (Negative); Urine Cocaine Negative (Negative); Urine MDMA Negative (Negative); Urine Methadone Negative (Negative); Urine Methamphetamines Negative (Negative); Urine Oxycodone Negative (Negative); Urine Phencyclidine Negative (Negative); Urine Tetrahydrocannabinol Negative (Negative); Urine Tricyclic Antidepressant Negative (Negative); Urine pH Normal (Normal)
[2021-01-20 13:27] LABS: Appearance Urine UA Slightly Cloudy
[2021-01-20 13:27] LABS: HCO3 ABG 40 mmol/L (22-26); PCO2 ABG 87.1 mmHg (35-45); PO2 ABG 40 mmHg (80-100); TCO2 ABG 43 mmol/L (21-31); pH ABG 7.27 (7.35-7.45)
[2021-01-20 13:28] LABS: Fractionated Inspired Oxygen 100; Oxygen Saturation ABG 64 % (95-100)
[2021-01-20 13:29] LABS: Amorphous Sediment Urine 1+; Bacteria Urine Many (>30); RBC Urine 1-5/HPF (0-5/HPF); Squamous Epithelial Cell Urine 0-1 /HPF (0-5/HPF); WBC Urine 10-30/HPF (0-5/HPF)
[2021-01-20 13:30] LABS: Culture Indicated Urine Specimen Cultured
[2021-01-20] MEDS: SODIUM CHLORIDE 0.9% 1,000 ML 75 ML IV (13:30)
[2021-01-20 13:41] LABS: Add Manual Diff / Slide Review NO; Basophils Absolute Auto 0 /uL (0-100); Basophils Percent Auto 0.2 % (0-2); Eosinophils Absolute Auto 0 /uL (0-450); Hematocrit 28.1 % (36-46); Hemoglobin 9.1 g/dL (12.0-16.0); Lymphocytes Absolute Auto 600 /uL (1100-4500); Lymphocytes Percent Auto 7.2 % (25-40); Mean Corpuscular HGB Conc 32.3 % (30-36); Mean Corpuscular Hemoglobin 29.9 PG (26-34); Mean Corpuscular Volume 92.7 fL (80-100); Monocytes Absolute Auto 600 /uL (0-900); Neutrophils Absolute Auto 6700 /uL (1500-7000); Neutrophils Percent Auto 84.6 % (50-75); Platelet Count 117 X10^3/uL (150-400); Red Blood Cell Count 3.03 X10^6/uL (4.0-5.2); Red Cell Distribution Width 19.1 % (11.6-14.8); White Blood Cell Count 7.9 X10^3/uL (4.5-11.0)
[2021-01-20 13:54] LABS: Adenovirus Not Detected (Not Detect); B. parapertussis Not Detected (Not Detecte); Bordetella pertussis Not Detected (Not Detecte); Chlamydophila pneumoniae Not Detected (Not Detect); Coronavirus 229E Not Detected (Not Detect); Coronavirus HKU1 Not Detected (Not Detect); Coronavirus NL 63 Not Detected (Not Detect); Coronavirus OC43 Not Detected (Not Detect); Human Metapneumovirus Not Detected (Not Detect); Human Rhinovirus/Enterovirus Not Detected (Not Detect); Influenza A Not Detected (Not Detect); Influenza B Not Detected (Not Detect); Mycoplasma pneumoniae Not Detected (Not Detect); Parainfluenza Virus 1 Not Detected (Not Detect); Parainfluenza Virus 2 Not Detected (Not Detect); Parainfluenza Virus 3 Not Detected (Not Detect); Parainfluenza Virus 4 Not Detected (Not Detect); Respiratory Syncytial Virus Not Detected (Not Detect); SARS- CoV-2 Not Detected (Not Detecte)
--- NOTE | 2021-01-20 13:54 | CM.SWNOTE ---
Addendum entered by Dariela Washington 01/20/21 17:55: ROOFING TILE SORTER f/u with call to daleangie murphy, he endorses he will not be able to come to patient until tomorrow morning. Since patient endorses that she is [place], ROOFING TILE SORTER calls [facility] it is reported that a instructor warper can meet with patient this evening in the ER. KIM Anderson Original Note: DCP/ROOFING TILE SORTER Assessment Note Patient is 85 y/o female who presents to the ED with shortness of breath and altered mental state. It is reported that patient has declined food intake over the past week. Patient resides with S/O Reggie who patient relies on for ADLs. Patient, and patient's S/O and daughter endorse that patient is DNR DNI and requesting comfort care and no medical interventions at this time. ED provider Dr. Bonilla speaks with patient's S/O and daughter Emily (Ph. # [phone]). ROOFING TILE SORTER meets with patient briefly, patient endorses that she is ready to pass. ROOFING TILE SORTER offers to contact family and dale. Patient endorses that she is [place] and requesting the dale. ROOFING TILE SORTER calls Dlaeangie Perales and leaves requesting his services. ROOFING TILE SORTER calls Angelika at [facility] to gather more information about patient and leaves requesting return call. Plan: It is anticipated that patient will at this hospital, patient is comfort care only and pending admission at this time. KIM Anderson Discharge Planning/Care Management CM Discharge Assessment Start: 01/20/21 13:50 Freq: Status: Active Protocol: Document 01/20/21 13:50 LN (Rec: 01/20/21 13:53 LN [id number]) Discharge Planning Assessment Assigned Set [employer] KIM Lyle DPOA/Assigned Designee Name S/O Reggie Sommer Contact Information [phone] Advance Directives? Yes Advance Directives on File Yes History Provided By Patient,Medical Record Has Patient been admitted in last 30 Yes days? Prior Living Arrangements House Household Members significant other Type of transporation used prior to Relies on Others admit Independent with ADL's No Is patient alert and oriented? No Comment has DME in the home that can be used if she needs it but she currently uses no AD Comment Patient currently has [facility] referral in place Discharge Plan Pt expected to in Hospital Transportation Arrangement S.OShady Quiroz Review Status In Process Please Provide Date Initial DC 01/20/21 Assessment Was Performed Next Review Type Continued Stay Review
[2021-01-20 14:00] LABS: Alanine Aminotransferase 23 IU/L (<35); Albumin 4.5 g/dL (3.5-5.0); Albumin Globulin Ratio 1.4 (1.0-2.8); Alkaline Phosphatase 74 U/L (38-126); Aspartate Aminotransferase 27 IU/L (14-36); Bilirubin Total 0.8 mg/dL (0.2-1.3); Blood Urea Nitrogen 60 mg/dL (7-17); Calcium 10.3 mg/dL (8.4-10.2); Chloride 97 mmol/L (98-107); Creatine Kinase < 20 U/L (30-135); Globulin 3.3 g/dL (1.7-4.1); Glucose 114 mg/dL (80-110); HEMOLYSIS < 15 (0-50); Lipase 273 U/L (23-300); Sodium 146 mmol/L (137-145); Total Protein 7.8 g/dL (6.3-8.2)
[2021-01-20 14:05] LABS: Potassium 5.6 mmol/L (3.4-5.1)
[2021-01-20 14:08] LABS: Carbon Dioxide 39 mmol/L (22-32); NT-proBNP (BNP-Adult 18+) 4820 pg/mL (<450)
[2021-01-20 14:11] LABS: Troponin I 0.061 ng/mL (0.01-0.034)
[2021-01-20] MEDS: MORPHINE 2 MG/ML INJ IV ×2 (14:11→15:06)
[2021-01-20 14:16] LABS: Procalcitonin 0.24 ng/mL (<0.5)
[2021-01-20] MEDS: LORazepam 2 MG/ML INJ 0.5 MG IV (16:05)
--- NOTE | 2021-01-20 18:21 | PC.NURSE ---
[facility] associate chief nurse here to perform sacrament [facility]. Nixon Diaz on phone to listen and participate as she would like.
--- NOTE | 2021-01-20 20:18 | PC.NURSE ---
1900: Called review coordinator: Spoke keyana/ Margarita: Case# [id number]. Case declined r/t age of 85. [facility] spoke duglas Grullon. Case declined. . 2018: Called [facility] / home @ [phone].
--- NOTE | 2021-01-20 21:04 | PC.NURSE ---
pt's earings (clear stones), glasses, dentures x 1 placed in bag, labeled and with body to home. Pt also wearing shirt. Has ring on left hand, multiple clear stones in flower pattern w/ yellow metal band. Dtr aware these belongings going to home w/ pt. No other belongings came in w/ pt or were sent home w/ partner.
== END 2021-01-20 22:50 | disposition expired ==
PROVIDERS: Emergency Medicine; Emergency Provider Emergency Medicine; PCP Family Medicine
DX: J96.90 Respiratory failure, unspecified, unspecified whether with hypoxia or hypercapnia (principal); I10 Essential (primary) hypertension; Z66 Do not resuscitate; Z51.5 Encounter for palliative care; Z87.891 Personal history of nicotine dependence
CPT/HCPCS: 36415; 36600; 71045; 80053; 80305; 81001; 82550; 82805; 83605; 83690; 83880; 84145; 84484; 85025; 85610; 85730; 87040; 87086; 87633; 87635; 93005; 94660; 96360; 96361; 99285; 99291; 99292; C9803; J2060; J2270